=== PATIENT | female | born 1950 ===

== ENCOUNTER 2020-06-07 08:15 | Day surgery (SDC) | payer MEDICARE, MEDICAID, SELFPAY ==
[2020-06-07 09:01] VITALS: BMI 37.6
[2020-06-07 09:09] VITALS: BP 167/55; PULSE 68; RESP 16; TEMP 36.2; O2SAT 98
[2020-06-07] MEDS: Lactated Ringers 1,000 ML 50 ML IVCONT (09:20)
--- NOTE | 2020-06-07 09:22 | MHC.SHP ---
Pre-Procedural Eval Section B Chief Complaint: ADENOMATOUS, COLON POLYP Relevant Family History (Specify if Yes): No Relevant Social History: None Present Medications: see Short Stay Collaborative assessment Medical History: Significant History (htn,depression, GERD) History of Previous Operations: Relevant previous surgery/procedure and date(s) (colonoscopy) Allergies: Allergies Allergy/AdvReac Type Severity Reaction Status Date / Time No Known Allergies Allergy Mild NONE Verified 06/07/20 08:57 Review of Systems Sugical H&P ROS: Negative: Constitution, Cardiovascular, Respiratory, Neurological, Psychiatric, Hem-Onc, Allergic/Immunologic, Gastrointestinal, Genitourinary, Musculoskeletal, Integumentary, Endocrine and Eyes/Ears/Nose/Throat Exam Surgical H&P Exam: Normal: HEENT, Normal: Heart, Normal: Lungs, Normal: Extremities, Normal: Abdomen, Normal: Skin and Normal: Neurological Plan Diagnosis/Plan: Unchanged Patient has been examined and remains a candidate for the planned procedure
--- NOTE | 2020-06-07 09:22 | HO.ANESPROP2 ---
[facility] Past Medical History Medical History Depression Elevated cholesterol GERD (gastroesophageal reflux disease) HTN (hypertension) Surgical History Surgical History H/O colonoscopy History of cataract extraction Social History Social History Smoking Status: Never smoker Use of substances other than those prescribed or required for medical reasons: No Advance Directives: No Advance Directives Information Provided: Yes Meds Allergies Allergy/AdvReac Type Severity Reaction Status Date / Time No Known Allergies Allergy Mild NONE Verified 06/07/20 08:57 Home Medications Medication Instructions Recorded Confirmed Type amlodipine 10 mg PO DAILY 06/04/20 06/07/20 History aspirin [Aspirin Low-Strength] 81 mg PO DAILY 06/04/20 06/07/20 History atorvastatin 40 mg PO BEDTIME 06/04/20 06/07/20 History calcitriol 0.25 mcg PO DAILY 06/04/20 06/07/20 History cetirizine 10 mg PO DAILY 06/04/20 06/07/20 History citalopram [Celexa] 20 mg PO DAILY 06/04/20 06/07/20 History hydralazine-hydrochlorothiazid 1 cap PO DAILY 06/04/20 06/07/20 History metoprolol succinate 50 mg PO DAILY 06/04/20 06/07/20 History omeprazole 20 mg PO DAILY 06/04/20 06/07/20 History Exam Exam Date and Time: June 07, [id number] Height,Weight and Vital Signs: Height 5 ft 2 in Weight 93.44 kg Last Vital Signs Temp 97.1 F 06/07/20 09:09 Pulse 68 06/07/20 09:09 Resp 16 06/07/20 09:09 BP 167/55 H 06/07/20 09:09 Pulse Ox 98 06/07/20 09:09 Airway Mallampati Class: II TM Dist: >3cm Neck ROM: Full Loose/Missing/Broken Teeth: No Heart: RRR Lungs: CTA Assessment and Plan Assessment Anesthesia Assessment: Anesthesia Plan Discussed and Chart Reviewed Final Anesthetic Review NPO: Yes ASA Class: II Final Preanesthetic Review: Meds/Allgs Chart Reviewed, Consent Obtained/Reviewed and Anes Risks/Benef Reviewed Patient Risk: Low Procedure Risk: Low Anesthetic Plan Anesthetic Plan: MAC: Disposition: Standard PACU
--- NOTE | 2020-06-07 09:22 | PM.OP ---
Brief Operative Note Date of Service: 06/07/20 Post-op diagnosis: same Procedure: Operative Information Procedure Description: Colonoscopy COLONOSCOPY Instrument: Olympus variable stiffness pediatric scope 190L Colonoscopy Monitoring: Vital signs and clinical assessment, continuous EKG monitoring, Pulse oximetry, Carbon Dioxide monitoring and blood pressure monitoring were done throughout the procedure. Colon withdrawal time was 11 minutes. Procedure: The patient was placed in the left lateral decubitis position and pre-procedure medications were administered. After a digital rectal examination of the ano-rectum, the video colonoscope was inserted into the rectum and advanced through the colon to the cecum/TI. The colonoscope was slowly withdrawn in a retrograde panoramic fashion and the colon mucosa was carefully examined including a retroflexed view of the rectum. Findings and interventions are described below. Procedure Difficulty: easy Findings: Terminal Ileum-normal Cecum:normal Ascending Colon: 8-9 mm sessile polyp removed with cold snare Transverse Colon -normal Descending Colon: 6-7 mm sessile polyp removed with biopsy forceps Sigmoid Colon: scattered small diverticula seen Rectum: Retroflexion with small sized internal hemorrhoids, grade I Anorectum - normal Colon preparation: [place] Bowel Preparation Scale Right colon; 3 Transverse colon: 2 Left colon; 2 (0 = Unprepared colon segment with mucosa not seen due to solid stool that cannot be cleared. 1 = Portion of mucosa of the colon segment seen, but other areas of the colon segment not well seen due to staining, residual stool and/or opaque liquid. 2 = Minor amount of residual staining, small fragments of stool and/or opaque liquid, but mucosa of colon segment seen well. 3 = Entire mucosa of colon segment seen well with no residual staining, small fragments of stool or opaque liquid) Impression and Post Procedure Diagnosis: polyps internal hemorrhoids diverticular disease Plan: High fiber diet leaflet Avoid straining at stool, epsom salts and sitz bath, anusol supps or cream prn Repeat Colonoscopy in 5 years due to fair prep on left side or earlier if clinically indicated Above findings were reviewed with the patient and relevant handouts were provided if indicated. Surgeon: Tate Castillo MD Anesthesia: MAC Estimated blood loss (mL): 0 Condition: stable Disposition: PACU
[2020-06-07 10:00] VITALS: BP 145/52; PULSE 59; RESP 18; TEMP 36; O2SAT 97
[2020-06-07 10:15] VITALS: BP 154/59; PULSE 61; RESP 18; O2SAT 98
[2020-06-07 10:30] VITALS: BP 164/54; PULSE 58; RESP 18; TEMP 36; O2SAT 100
--- NOTE | 2020-06-07 10:49 | HO.POSTANES ---
Post Anesthesia Evaluation Post Anesthesia Evaluation Vital Signs: Vital Signs Temp Pulse Resp BP Pulse Ox 06/07/20 10:30 96.8 F 58 18 164/54 H 100 06/07/20 10:15 61 18 154/59 H 98 06/07/20 10:00 96.8 F 59 18 145/52 H 97 06/07/20 09:09 97.1 F 68 16 167/55 H 98 Anesthesia: Monitored Mental Status: Awake Pain Control: Satisfactory Nausea/Vomiting: None Hydration: Adequate Anesthesia-Related Issues: No Anes. Related Issues
== END 2020-06-07 11:04 | disposition home or self-care (01) ==
PROVIDERS: PCP Internal Medicine; Visit Provider Internal Medicine Gastroenterology
PROC: 0DJD8ZZ Inspection of Lower Intestinal Tract, Via Natural or Artificial Opening Endoscopic (ICD-10-PCS; CPT 45378; principal; 2020-06-07 12:40)
DX: Z12.11 Encounter for screening for malignant neoplasm of colon (principal); K63.5 Polyp of colon; K57.30 Diverticulosis of large intestine without perforation or abscess without bleeding; K64.0 First degree hemorrhoids; Z86.010 Personal history of colon polyps
CPT/HCPCS: 45385; 45380; 88305

== ENCOUNTER → 2020-06-14 08:54 | Outpatient (BNVA) | payer MEDICARE, MEDICAID, SELFPAY | PROVIDERS: Visit Provider Physician Assistant | DX: K63.5 Polyp of colon (principal) | CPT/HCPCS: Q3014 ==

== ENCOUNTER 2021-07-22 16:37 | Inpatient (IN) | payer MEDICARE, MEDICAID, SELFPAY ==
--- NOTE | 2021-07-22 | ECG_ITS ---
Test Reason : ABNORMAL LABS Blood Pressure : / mmHG Vent. Rate : 078 BPM Atrial Rate : 078 BPM P-R Int : 212 ms QRS Dur : 072 ms QT Int : 396 ms P-R-T Axes : 056 -08 066 degrees QTc Int : 451 ms Sinus rhythm with 1st degree A-V block Inferior infarct (cited on or before 14-JAN-2018) Cannot rule out Anterior infarct , age undetermined Abnormal ECG When compared with ECG of 14-JAN-2018 21:16, No significant change was found Referred By: Generic ED Physician Electronically Signed By:FELIPE ROMO MD
--- NOTE | ~2021-07-22 | IR_ITS ---
PROCEDURE: IR INSERTION OF TUNNEL CATHETER CLINICAL INFORMATION: End-stage renal disease. COMPARISON: None TECHNIQUE: Procedure and risks and benefits including bleeding, infection and pneumothorax were discussed with the patient through an operations clerk and informed consent was obtained. All elements of maximal sterile barrier technique followed including use of cap, mask, sterile gown, sterile gloves, a sterile full body drape and hand hygiene. Also followed skin preparation with 2% chlorhexidine for cutaneous antisepsis, and sterile ultrasound preparation with sterile gel and probe cover when applicable. The right neck and test were prepped and draped in the usual sterile fashion. The skin and soft tissues of the right lower neck were anesthetized with 1% lidocaine with epinephrine. A small incision was made. Using ultrasound guidance and a 5-Romanian micropuncture system, right internal jugular vein access was obtained. Over an 018 wire, a 5-Romanian dilator was positioned in the SVC. The skin and soft tissues of the right anterior chest were anesthetized with 1% lidocaine with epinephrine. A small incision was made. A subcutaneous tunnel from the chest to the neck incision was anesthetized with 1% lidocaine with epinephrine. Using a tunneler, a 14.5-Romanian 23 cm in length palindrome permacatheter was tunneled from the chest to the neck incision. An 035 guidewire was advanced through the 5-Romanian dilator into the IVC. Following serial dilatation and through a peel-away sheath, the dialysis catheter was advanced centrally. Catheter tip projects over the cavoatrial junction. Both ports had good blood return, flushed easily and were instilled with 1.9 mL heparin 1000 unit per mL solution. Real-time ultrasound guidance was used to document vein patency and for needle entry. A formal ultrasound picture was recorded. Fluoroscopy time 0.5 minutes. DAP: 94 mGy-cm. 1 saved fluoroscopic image and one saved ultrasound image. The patient received Versed 0.5 mg, fentanyl 25 mcg and Kefzol 2 g IV during the procedure. Total sedation time was 20 minutes. FINDINGS: There is a right internal jugular permacatheter with tip projecting over the cavoatrial junction. IR/IR cvc insert central tunnel IMPRESSION: Right internal jugular 14.5-Romanian 23 cm in length palindrome permacatheter placement.
--- NOTE | ~2021-07-22 | IR_ITS ---
PROCEDURE: IR INSERTION OF TUNNEL CATHETER CLINICAL INFORMATION: End-stage renal disease. COMPARISON: None TECHNIQUE: Procedure and risks and benefits including bleeding, infection and pneumothorax were discussed with the patient through an lehr attendant and informed consent was obtained. All elements of maximal sterile barrier technique followed including use of cap, mask, sterile gown, sterile gloves, a sterile full body drape and hand hygiene. Also followed skin preparation with 2% chlorhexidine for cutaneous antisepsis, and sterile ultrasound preparation with sterile gel and probe cover when applicable. The right neck and test were prepped and draped in the usual sterile fashion. The skin and soft tissues of the right lower neck were anesthetized with 1% lidocaine with epinephrine. A small incision was made. Using ultrasound guidance and a 5-Swedish micropuncture system, right internal jugular vein access was obtained. Over an 018 wire, a 5-Swedish dilator was positioned in the SVC. The skin and soft tissues of the right anterior chest were anesthetized with 1% lidocaine with epinephrine. A small incision was made. A subcutaneous tunnel from the chest to the neck incision was anesthetized with 1% lidocaine with epinephrine. Using a tunneler, a 14.5-Swedish 23 cm in length palindrome permacatheter was tunneled from the chest to the neck incision. An 035 guidewire was advanced through the 5-Swedish dilator into the IVC. Following serial dilatation and through a peel-away sheath, the dialysis catheter was advanced centrally. Catheter tip projects over the cavoatrial junction. Both ports had good blood return, flushed easily and were instilled with 1.9 mL heparin 1000 unit per mL solution. Real-time ultrasound guidance was used to document vein patency and for needle entry. A formal ultrasound picture was recorded. Fluoroscopy time 0.5 minutes. DAP: 94 mGy-cm. 1 saved fluoroscopic image and one saved ultrasound image. The patient received Versed 0.5 mg, fentanyl 25 mcg and Kefzol 2 g IV during the procedure. Total sedation time was 20 minutes. FINDINGS: There is a right internal jugular permacatheter with tip projecting over the cavoatrial junction. IR/IR us guide venous access IMPRESSION: Right internal jugular 14.5-Swedish 23 cm in length palindrome permacatheter placement.
[2021-07-22 16:59] VITALS: BP 202/68; PULSE 90; RESP 18; TEMP 37; O2SAT 99; BMI 33.5
[2021-07-22 17:25] LABS: MANUAL DIFF FLAG NO
[2021-07-22 17:29] LABS: Basophils Percent Auto 0.4 % (0-2); Eosinophils Absolute Auto 0.3 X10*3/uL (0.0-0.4); Imm Gran Abs Auto 0.03 X10*3/uL (0.00-0.03); Imm Gran Pct Auto 0.5 % (0.0-0.4); Lymphocytes Absolute Auto 0.8 X10*3/uL (1.2-4.9); Lymphocytes Percent Auto 15.2 % (20-40); Mean Corpuscular HGB Conc 31.2 g/dl (31.0-35.0); Mean Corpuscular Volume 96.2 fL (80.0-98.0); Mean Platelet Volume 10.5 fL (9.4-12.3); Monocytes Absolute Auto 0.5 X10*3/uL (0.1-1.2); Monocytes Percent Auto 9.5 % (2-11); Neutrophils Absolute Auto 3.7 x10*3/uL (2.0-8.3); Neutrophils Percent Auto 68.4 % (45-73); Platelet Count 121 X10*3/uL (160-400); Red Blood Count 2.13 X10*6/uL (4.20-5.50); Red Cell Distribution Width 15.1 % (11.0-16.0); White Blood Count 5.5 X10*3/uL (4.8-10.8)
[2021-07-22 17:36] LABS: Hemoglobin 6.4 g/dl (12.0-16.0)
[2021-07-22 17:37] LABS: Hematocrit 20.5 % (37.0-47.0)
[2021-07-22 17:43] LABS: COVID-19 Test Negative (Negative)
[2021-07-22 18:03] LABS: Troponin-I High Sensitivity 18.8 ng/L (<3.5-17.0)
[2021-07-22 18:19] LABS: Anion Gap 17 (12-20); Blood Urea Nitrogen 87 mg/dL (9-16); Calcium 7.7 mg/dL (8.4-10.2); Carbon Dioxide 17 mmol/L (22-29); Chloride 113 mmol/L (96-108); Creatinine Clr Calc Pharmacy 4.1; Estimated Glomerular Filt Rate 3; Glucose Random 113 mg/dL (60-115); Potassium 6.3 mmol/L (3.3-5.1); Sodium 141 mmol/L (135-145)
--- NOTE | 2021-07-22 19:46 | ED.RECABL ---
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 Mode of arrival: ambulatory Limitations: no limitations History of Present Illness MD complaint: abnormal lab Initial visit (ago): day(s) Initial visit for: other (routine labs by nephrology) Returns today for: called because of abnormal lab/test Description of abnormal result: Cr 12 Symptoms since prior visit: no new symptoms Context: called for abnormal lab result Associated symptoms: none Related Data Home Medications Medication Instructions Recorded Confirmed amlodipine 10 mg tablet 10 mg PO DAILY 06/04/20 06/07/20 aspirin 81 mg tablet,delayed 81 mg PO DAILY 06/04/20 06/07/20 release atorvastatin 40 mg tablet 40 mg PO BEDTIME 06/04/20 06/07/20 calcitriol 0.25 mcg capsule 0.25 mcg PO MOWEFR 06/04/20 06/07/20 cetirizine 10 mg tablet 10 mg PO DAILY 06/04/20 06/07/20 citalopram 20 mg tablet (Celexa) 20 mg PO DAILY 06/04/20 06/07/20 omeprazole 20 mg tablet,delayed 20 mg PO DAILY 06/04/20 06/07/20 release fluticasone propionate 50 1 - 2 spray INTRANASAL DAILY 07/22/21 mcg/actuation nasal spray,suspension gabapentin 300 mg capsule 1 cap PO DAILY 07/22/21 hydralazine 25 mg tablet 1 tab PO BID 07/22/21 metoprolol tartrate 50 mg tablet 1 tab PO BID 07/22/21 Allergies Allergy/AdvReac Type Severity Reaction Status Date / Time No Known Allergies Allergy Mild NONE Verified 07/22/21 16:55 Review of Systems Review of Systems: Constitutional : No Weight loss, No Fever, No Chills, No Fatigue, No Malaise ENT/Mouth : No sore throat, No Rhinorrhea Eyes: No Eye Pain, No Swelling, No Redness Cardiovascular : No Chest Pain, No SOB, No Dyspnea on Exertion, No Orthopnea, No Edema, No Palpitations Respiratory : No Cough, No Sputum, No Wheezing Gastrointestinal : No Nausea, No Vomiting, No Diarrhea, No Constipation, No abdominal Pain, No Hematochezia, No Melena Genitourinary : No Dysuria, No Urinary Frequency, No Hematuria, Musculoskeletal : No joint pain, No Myalgias, No Joint Swelling Skin : No Skin Lesions, No rash Neuro : No Weakness, No Numbness, No Dizziness, No Headache Psych : No Anxiety/Panic, No Depression Heme/Lymph: No Bruising, No Bleeding,No Lymphadenopathy Endocrine : No Polyuria, No Polydipsia All other systems reviewed and are negative COUNTS INCLUDE 234 BEDS AT THE [facility] Past Medical History Medical History Depression Elevated cholesterol GERD (gastroesophageal reflux disease) HTN (hypertension) Surgical History H/O colonoscopy History of cataract extraction Social History Social History (Updated 07/22/21 @ 20:11 by Halle Chambers DO) Patient Tobacco Use Status: Never used Tobacco Advance Directives: No Advance Directives Information Provided: Yes Physical Exam Vital Signs: Vital Signs: Last Vital Signs Temp 98.2 F 07/22/21 20:59 Pulse 76 07/22/21 20:59 Resp 16 07/22/21 20:59 BP 187/63 H 07/22/21 20:59 Pulse Ox 99 07/22/21 20:59 BMI result Body Mass Index 33.5 Appearance: Alert. Oriented X3. No acute distress. Eyes: Pupils equal, round and reactive to light. ENT: Pharynx normal. Neck: Normal inspection. Neck supple. CVS: Normal heart rate and rhythm. Pulses normal. Respiratory: No respiratory distress. Breath sounds normal. Abdomen: Soft and non-tender. Skin: Skin warm and dry. Normal skin color. Normal skin turgor. Extremities: No lower extremity edema. No calf ttp Neuro: Oriented X 3. No motor deficit. No sensory deficit. MDM - Recheck/Abnormal Lab/Rx MDM Narrative Medical decision making narrative: 70 yo female with hx of HLD, chronic HTN, CKD being followed by nephrology Dr. Salcedo sent in for worsening CKD with Cr up to 12.38 - K 6.3 but no EKG changes - calcium and lokelma ordered along with 1 unit of PRBC has no GIB symptoms suspect related to her CKD. Patient aware she is being admitted for permacath for HD tomorrow per Dr. Salcedo request. At this time labs, COVID swab, EKG ordered. Planned admit. Lab Data Result diagrams: 07/22/21 17:20 07/22/21 17:20 Labs: Lab Results 07/22/21 07/22/21 07/22/21 Range/Units 17:20 17:20 17:20 WBC 5.5 (4.8-10.8) X10*3/uL RBC 2.13 L (4.20-5.50) X10*6/uL Hgb 6.4 L* (12.0-16.0) g/dl Hct 20.5 L* (37.0-47.0) % MCV 96.2 (80.0-98.0) fL MCH 30.0 (27.0-33.0) pg MCHC 31.2 (31.0-35.0) g/dl RDW 15.1 (11.0-16.0) % Plt Count 121 L (160-400) X10*3/uL MPV 10.5 (9.4-12.3) fL Immature Gran % (Auto) 0.5 H (0.0-0.4) % Neut % (Auto) 68.4 (45-73) % Lymph % (Auto) 15.2 L (20-40) % [place] % (Auto) 9.5 (2-11) % Eos % (Auto) 6.0 H (0-4) % Baso % (Auto) 0.4 (0-2) % Lymph # (Auto) 0.8 L (1.2-4.9) X10*3/uL [place] # (Auto) 0.5 (0.1-1.2) X10*3/uL Eos # (Auto) 0.3 (0.0-0.4) X10*3/uL Baso # (Auto) 0.0 (0.0-0.2) X10*3/uL Abs Immat Gran (auto) 0.03 (0.00-0.03) X10*3/uL Absolute Neuts (auto) 3.7 (2.0-8.3) x10*3/uL Absolute Nucleated RBC 0.000 (0.0-0.012) X10*3/uL Nucleated RBC % (auto) 0.0 (0.0-0.2) /100WBC PT (9.9-13.0) SEC INR (0.9-1.1) APTT (24.1-38.0) SEC Sodium 141 (135-145) mmol/L Potassium 6.3 H* (3.3-5.1) mmol/L Chloride 113 H (96-108) mmol/L Carbon Dioxide 17 L (22-29) mmol/L Anion Gap 17 (12-20) BUN 87 H (9-16) mg/dL Creatinine 12.38 H* (0.5-1.4) mg/dL Estim Creat Clear Calc 4.1 Estimated GFR 3 Random Glucose 113 (60-115) mg/dL Calcium 7.7 L (8.4-10.2) mg/dL Troponin I High Sens 18.8 H (<3.5-17.0) ng/L COVID-19 (JACK) (Negative) COVID-19 Clin Com Blood Type Antibody Screen Crossmatch 07/22/21 07/22/21 07/22/21 Range/Units 17:20 20:02 20:11 WBC (4.8-10.8) X10*3/uL RBC (4.20-5.50) X10*6/uL Hgb (12.0-16.0) g/dl Hct (37.0-47.0) % MCV (80.0-98.0) fL MCH (27.0-33.0) pg MCHC (31.0-35.0) g/dl RDW (11.0-16.0) % Plt Count (160-400) X10*3/uL MPV (9.4-12.3) fL Immature Gran % (Auto) (0.0-0.4) % Neut % (Auto) (45-73) % Lymph % (Auto) (20-40) % [place] % (Auto) (2-11) % Eos % (Auto) (0-4) % Baso % (Auto) (0-2) % Lymph # (Auto) (1.2-4.9) X10*3/uL [place] # (Auto) (0.1-1.2) X10*3/uL Eos # (Auto) (0.0-0.4) X10*3/uL Baso # (Auto) (0.0-0.2) X10*3/uL Abs Immat Gran (auto) (0.00-0.03) X10*3/uL Absolute Neuts (auto) (2.0-8.3) x10*3/uL Absolute Nucleated RBC (0.0-0.012) X10*3/uL Nucleated RBC % (auto) (0.0-0.2) /100WBC PT 11.2 (9.9-13.0) SEC INR 1.0 (0.9-1.1) APTT 29.0 (24.1-38.0) SEC Sodium (135-145) mmol/L Potassium (3.3-5.1) mmol/L Chloride (96-108) mmol/L Carbon Dioxide (22-29) mmol/L Anion Gap (12-20) BUN (9-16) mg/dL Creatinine (0.5-1.4) mg/dL Estim Creat Clear Calc Estimated GFR Random Glucose (60-115) mg/dL Calcium (8.4-10.2) mg/dL Troponin I High Sens (<3.5-17.0) ng/L COVID-19 (JACK) Negative (Negative) COVID-19 Clin Com See Note Blood Type O Positive Antibody Screen NEGATIVE Crossmatch See Detail ECG Data Attestation: I personally reviewed and interpreted this ECG as follows: ECG interpretation date: 07/22/21 ECG interpretation time: 19:55 Interpretation: Rate: 78 Rhythm: NSR with 1st degree AVB [place]: left Normal P waves. Normal MARKIE. Normal QRS complex. ST T wave : normal no MEJIA qTC: normal prior studies: no acute ischemia The study has been interpreted contemporaneously by me. . Discharge Plan Discharge Clinical Impression: CKD (chronic kidney disease), Anemia Patient Disposition: Admitted As Inpatient Prescriptions: No Action atorvastatin 40 mg Tablet 40 mg PO BEDTIME RF: 0 cetirizine 10 mg Tablet 10 mg PO DAILY RF: 0 aspirin 81 mg Tablet,Delayed Release (Dr/Ec) 81 mg PO DAILY RF: 0 citalopram [Celexa] 20 mg Tablet 20 mg PO DAILY RF: 0 amlodipine 10 mg Tablet 10 mg PO DAILY RF: 0 calcitriol 0.25 mcg Capsule 0.25 mcg PO MOWEFR RF: 0 omeprazole 20 mg Tablet,Delayed Release (Dr/Ec) 20 mg PO DAILY RF: 0 hydralazine 25 mg tablet 1 tab PO BID RF: 0 metoprolol tartrate 50 mg tablet 1 tab PO BID RF: 0 gabapentin 300 mg capsule 1 cap PO DAILY RF: 0 fluticasone propionate 50 mcg/actuation spray,suspension 1 - 2 spray intranasal DAILY RF: 0
[2021-07-22 19:48] VITALS: BP 207/77; PULSE 81; RESP 19; TEMP 36.8; O2SAT 99
[2021-07-22] MEDS: Calcium Gluconate/NaCl,Iso-Osm 2 GM/100 ML PLAST..BAG IV (20:03)
[2021-07-22] MEDS: Sodium Zirconium Cyclosilicate 5 GM POWD.PACK PO (20:04)
[2021-07-22 20:17] LABS: Prothrombin Time 11.2 SEC (9.9-13.0)
[2021-07-22] MEDS: ondansetron HCL 4 MG/2 ML VIAL IVPUSH (20:17)
[2021-07-22 20:59] VITALS: BP 187/63; PULSE 76; RESP 16; TEMP 36.8; O2SAT 99
[2021-07-22 21:13] VITALS: BP 191/68; PULSE 79; RESP 16; TEMP 36.7
--- NOTE | 2021-07-22 21:26 | PC.NURSE ---
pt a&ox3, IV inserted, labs drawn, cardiac cath technician - ns 70s, vss, pt medicated per order, RBCs infusing, will continue to monitor.
[2021-07-22 21:30] VITALS: BP 191/79; PULSE 75; RESP 18; TEMP 36.6
[2021-07-22 23:21] VITALS: BP 203/89; PULSE 62
[2021-07-22] MEDS: hydrALAZINE HCl 20 MG/ML VIAL 10 MG IVPUSH (23:30)
--- NOTE | 2021-07-22 23:52 | P.HPHOSP_ITS ---
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 Patient herself denies having any abdominal pain, nausea no vomiting, no chest pain or shortness of breath, no diarrhea constipation, no urinary symptoms and no lower extremity edema. Denies having any headache or change in vision, no weakness numbness or tingling. On arrival to the ED patient hemodynamically stable with no significant abnormal vitals Labs are significant for WBC count of 5.5, hemoglobin of 6.4 with no recent labs for comparison in the system . Other abnormal labs include platelet of 121, potassium 6.3, chloride of 113, creatinine of 12.38 with most recent 1 from 2018 showing creatinine of 3.83, COVID-19 negative Case discussed with Nephrology, patient will be admitted for dialysis Review of Systems Review of Systems: Yes all other systems are reviewed and are negative [facility] Medical History Depression Elevated cholesterol GERD (gastroesophageal reflux disease) HTN (hypertension) Family History (Updated 07/23/21 @ 05:47 by Raman Alba MD) Other FH: HTN (hypertension) Pertinent family history: Denies any family history of coronary artery disease or kidney disease Surgical History H/O colonoscopy History of cataract extraction Social History Patient Tobacco Use Status: Never used Tobacco Advance Directives: No Advance Directives Information Provided: Yes Meds Allergies Allergy/AdvReac Type Severity Reaction Status Date / Time No Known Allergies Allergy Mild NONE Verified 07/22/21 16:55 Active Medications: Current Medications Pharmacy Consult (Consult Rx Perform Med Rec) 1 each MISCELLANE ONCE PRN PRN Reason: Consult order Home Medications Medication Instructions Recorded Confirmed Last Taken Type amlodipine 10 mg tablet 10 mg PO DAILY 06/04/20 07/22/21 07/22/21 History aspirin 81 mg tablet,delayed 81 mg PO DAILY 06/04/20 07/22/21 07/22/21 History release atorvastatin 40 mg tablet 40 mg PO BEDTIME 06/04/20 07/22/21 Unknown History calcitriol 0.25 mcg capsule 0.25 mcg PO MOWEFR 06/04/20 07/22/21 07/22/21 History cetirizine 10 mg tablet 10 mg PO DAILY 06/04/20 07/22/21 Unknown History citalopram 20 mg tablet (Celexa) 20 mg PO DAILY 06/04/20 07/22/21 Unknown History omeprazole 20 mg tablet,delayed 20 mg PO DAILY 06/04/20 07/22/21 Unknown History release fluticasone propionate 50 1 - 2 spray INTRANASAL DAILY 07/22/21 07/22/21 Unknown History mcg/actuation nasal spray,suspension gabapentin 300 mg capsule 1 cap PO DAILY 07/22/21 07/22/21 Unknown History hydralazine 25 mg tablet 1 tab PO BID 07/22/21 07/22/21 Unknown History metoprolol tartrate 50 mg tablet 1 tab PO BID 07/22/21 07/22/21 07/22/21 History Physical Exam Vital Signs and Narrative: Vital Signs: Last Vital Signs Temp 97.9 F 07/22/21 21:30 Pulse 62 07/22/21 23:21 Resp 18 07/22/21 21:30 BP 203/89 H 07/22/21 23:21 Pulse Ox 99 07/22/21 20:59 BMI result Body Mass Index 33.5 Const: General: cooperative and no acute distress Orientati on/consciousness: patient oriented x3 Eyes: General: appearance normal, both eyes and all related structures Pupils: Equal, round and reactive pupils present Resp: Effort & Inspection: normal respiratory effort Auscultation: clear to auscultation bilaterally Cardio: Rate: regular rate Rhythm: regular rhythm GI: Palpation (GI): Soft to palpation Auscultation: normal bowel sounds Skin: General skin exam: no rashes or lesions noted Neuro: General: patient oriented x3 Cranial nerves: Yes Equal, round and reactive pupils present Cognition (Neuro): normal cognition Extrem: General: Yes normal to inspection and Yes no pedal edema Results Labs CBC and Chem 7: 07/22/21 17:20 07/23/21 00:25 Labs: Laboratory Results - last 24 hr 01/24/22 01/24/22 01/24/22 17:20 17:20 17:20 MCV 96.2 MCH 30.0 MCHC 31.2 RDW 15.1 Plt Count 121 L MPV 10.5 Immature Gran % (Auto) 0.5 H Neut % (Auto) 68.4 Lymph % (Auto) 15.2 L [place] % (Auto) 9.5 Eos % (Auto) 6.0 H Baso % (Auto) 0.4 Lymph # (Auto) 0.8 L [place] # (Auto) 0.5 Eos # (Auto) 0.3 Baso # (Auto) 0.0 Abs Immat Gran (auto) 0.03 Absolute Neuts (auto) 3.7 Absolute Nucleated RBC 0.000 Nucleated RBC % (auto) 0.0 PT INR APTT Anion Gap 17 Estim Creat Clear Calc 4.1 Estimated GFR 3 Random Glucose 113 Calcium 7.7 L Troponin I High Sens 18.8 H COVID-19 (JACK) COVID-19 Clin Com Blood Type Antibody Screen Crossmatch 07/22/21 07/22/21 07/22/21 17:20 20:02 20:11 MCV MCH MCHC RDW Plt Count MPV Immature Gran % (Auto) Neut % (Auto) Lymph % (Auto) [place] % (Auto) Eos % (Auto) Baso % (Auto) Lymph # (Auto) [place] # (Auto) Eos # (Auto) Baso # (Auto) Abs Immat Gran (auto) Absolute Neuts (auto) Absolute Nucleated RBC Nucleated RBC % (auto) PT 11.2 INR 1.0 APTT 29.0 Anion Gap Estim Creat Clear Calc Estimated GFR Random Glucose Calcium Troponin I High Sens COVID-19 (JACK) Negative COVID-19 Clin Com See Note Blood Type O Positive Antibody Screen NEGATIVE Crossmatch See Detail Assessment and Plan (1) CKD (chronic kidney disease): Qualifiers: Chronic kidney disease stage: stage 5, not on chronic dialysis Qualified Code(s): N18.5 - Chronic kidney disease, stage 5 Status: Acute (2) Anemia: Qualifiers: Anemia type: due to chronic kidney disease Chronic kidney disease stage: stage 5, not on chronic dialysis Qualified Code(s): N18.5 - Chronic kidn ey disease, stage 5; D63.1 - Anemia in chronic kidney disease Status: Acute (3) Hyperkalemia: Status: Acute 70-year-old female with past medical history of CKD presents to the hospital with worsening labs # CKD stage 4 - most likely is ending up with ESRD needing dialysis - has worsening kidney function - sent to the hospital by nephrology for temporary catheter and emergent dialy sis in a.m. - IR consulted - nephrology consulted # hyperkalemia - secondary to kidney failure - received Lokelma 10 mg with improvement of potassium on follow-up BMP - no EKG changes - follow BMP - dialysis in a.m. # normocytic anemia - chronicity unclear as we do not have recent labs to compare - likely anemia of chronic ds - will obtain ferritin b12 and folic acid - s/p 1 unit of prbc - follow cbc # HTN - elevated - continue home meds DVT prophylaxis: Heparin subQ Quality Stroke Does the patient have a stroke diagnosis?: No VTE Prior VTE?: No VTE Risk Level:: Medical - moderate - high VTE Device Contraindication: Treatment Not Indicated VTE Drug Contraindication: N/A - Med Ordered
[2021-07-23 00:49] LABS: Creatinine Clr Calc Pharmacy 4.3; Estimated Glomerular Filt Rate 3
[2021-07-23 00:50] LABS: Anion Gap 16 (12-20); Blood Urea Nitrogen 84 mg/dL (9-16); Calcium 7.9 mg/dL (8.4-10.2); Carbon Dioxide 16 mmol/L (22-29); Chloride 114 mmol/L (96-108); Glucose Random 107 mg/dL (60-115); Potassium 5.9 mmol/L (3.3-5.1); Sodium 140 mmol/L (135-145)
[2021-07-23 00:55] VITALS: BP 180/69; PULSE 66; RESP 11; O2SAT 98
[2021-07-23] MEDS: Sodium Zirconium Cyclosilicate 10 GM POWD.PACK PO ×2 (01:14→10:25)
[2021-07-23] MEDS: Heparin Sodium,Porcine 5,000 UNIT/ML VIAL 5000 UNIT SUBCUT (01:14)
[2021-07-23] MEDS: 0.9 % Sodium Chloride Flush 3 ML SYRINGE IVFLUSH (01:14)
--- NOTE | 2021-07-23 01:58 | PC.NURSE ---
Pt ambulated to bathroom Gait even and steady Pt back on hospital bed and medicated per MAR Pt tolerated well Will continue to monitor
[2021-07-23 07:10] LABS: MANUAL DIFF FLAG NO
[2021-07-23 07:14] LABS: Basophils Percent Auto 0.4 % (0-2); Eosinophils Absolute Auto 0.2 X10*3/uL (0.0-0.4); Eosinophils Percent Auto 4.7 % (0-4); Hemoglobin 7.6 g/dl (12.0-16.0); Imm Gran Abs Auto 0.02 X10*3/uL (0.00-0.03); Imm Gran Pct Auto 0.4 % (0.0-0.4); Lymphocytes Absolute Auto 0.9 X10*3/uL (1.2-4.9); Lymphocytes Percent Auto 19.1 % (20-40); Mean Corpuscular HGB Conc 31.7 g/dl (31.0-35.0); Mean Corpuscular Hemoglobin 30.3 pg (27.0-33.0); Mean Corpuscular Volume 95.6 fL (80.0-98.0); Mean Platelet Volume 9.9 fL (9.4-12.3); Monocytes Absolute Auto 0.4 X10*3/uL (0.1-1.2); Monocytes Percent Auto 9.7 % (2-11); Neutrophils Absolute Auto 2.9 x10*3/uL (2.0-8.3); Neutrophils Percent Auto 65.7 % (45-73); Platelet Count 102 X10*3/uL (160-400); Red Blood Count 2.51 X10*6/uL (4.20-5.50); Red Cell Distribution Width 14.6 % (11.0-16.0); White Blood Count 4.5 X10*3/uL (4.8-10.8)
[2021-07-23 08:14] VITALS: BP 186/59; PULSE 75; RESP 16; TEMP 36.6; O2SAT 96
--- NOTE | 2021-07-23 08:14 | PC.NURSE ---
Pt received from night monitor: Pt mainly estonian speaker. Pt AOX3 and denies bernardo pain or complaint. Heart sounds normal and lungs diminished. NSR noted. Pt abd round, soft and non-tender. As per pt, dialysis schedule MWF, but no fistula noted.
--- NOTE | 2021-07-23 08:39 | HO.PM.IMPN ---
Subjective Subjective Date of Service: 07/23/21 Interval History: ckd advanced stage v ,hyper kalemia , normocytic anemia Review of Systems patient denies any chest pain or shortness of breath or abdominal pain or fever chills or cough or phlegm. Physical Exam Vital Signs: Vital Signs: Last Vital Signs Temp 97.9 F 07/23/21 08:14 Pulse 75 07/23/21 08:14 Resp 16 07/23/21 08:14 BP 186/59 H 07/23/21 08:14 Pulse Ox 96 07/23/21 08:14 BMI result Body Mass Index 33.5 Physical exam: Appearance: Alert.? Oriented X3.??? ENT: Pharynx normal.? Moist mucous membranes. cvs: rrr, [id number] , no murmur res: clear to auscultation ,no rhonchii or wheezing abd: no rebound or guarding ,nt, bs present. ext pulses present , no cyanosis. neuro: axo3 , nonfocal. Objective Data Active Medications Acetaminophen (Acetaminophen 325 Mg Tablet) 650 mg PO Q6H PRN PRN Reason: Pain, Mild (Pain Scale 1-3) Docusate Sodium (Docusate Sodium 100 Mg Capsule) 100 mg PO DAILY PRN PRN Reason: Constipation Heparin Sodium (Porcine) (Heparin Sodium,Porcine 5,000 Unit/Ml Vial) 5,000 unit SUBCUT Q12H [facility] Last Admin: 07/23/21 01:14 Dose: 5,000 unit Documented by: SHAUN Ondansetron HCl (Ondansetron Hcl 4 Mg/2 Ml Vial) 4 mg IVPUSH Q8H PRN PRN Reason: Nausea and Vomiting Pharmacy Consult (Consult Rx Perform Med Rec) 1 each MISCELLANE ONCE PRN PRN Reason: Consult order Sodium Chloride (0.9 % Sodium Chloride Flush 3 Ml Syringe) 3 ml IVFLUSH QSHIFT [facility] Last Admin: 07/23/21 07:26 Dose: Not Given Documented by: KAMRON Non-Admin Reason: Med Not Available Labs CBC & Chem 7: 07/23/21 06:52 07/23/21 00:25 Labs: Laboratory Results - last 24 hr 07/22/21 07/22/21 07/22/21 17:20 17:20 17:20 MCV 96.2 MCH 30.0 MCHC 31.2 RDW 15.1 Plt Count 121 L MPV 10.5 Immature Gran % (Auto) 0.5 H Neut % (Auto) 68.4 Lymph % (Auto) 15.2 L [place] % (Auto) 9.5 Eos % (Auto) 6.0 H Baso % (Auto) 0.4 Lymph # (Auto) 0.8 L [place] # (Auto) 0.5 Eos # (Auto) 0.3 Baso # (Auto) 0.0 Abs Immat Gran (auto) 0.03 Absolute Neuts (auto) 3.7 Absolute Nucleated RBC 0.000 Nucleated RBC % (auto) 0.0 PT INR APTT Anion Gap 17 Estim Creat Clear Calc 4.1 Estimated GFR 3 Random Glucose 113 Calcium 7.7 L Troponin I High Sens 18.8 H COVID-19 (JACK) COVID-19 Clin Com Blood Type Antibody Screen Crossmatch 07/22/21 07/22/21 07/22/21 17:20 20:02 20:11 MCV MCH MCHC RDW Plt Count MPV Immature Gran % (Auto) Neut % (Auto) Lymph % (Auto) [place] % (Auto) Eos % (Auto) Baso % (Auto) Lymph # (Auto) [place] # (Auto) Eos # (Auto) Baso # (Auto) Abs Immat Gran (auto) Absolute Neuts (auto) Absolute Nucleated RBC Nucleated RBC % (auto) PT 11.2 INR 1.0 APTT 29.0 Anion Gap Estim Creat Clear Calc Estimated GFR Random Glucose Calcium Troponin I High Sens COVID-19 (JACK) Negative COVID-19 Clin Com See Note Blood Type O Positive Antibody Screen NEGATIVE Crossmatch See Detail 07/23/21 07/23/21 00:25 06:52 MCV 95.6 MCH 30.3 MCHC 31.7 RDW 14.6 Plt Count 102 L MPV 9.9 Immature Gran % (Auto) 0.4 Neut % (Auto) 65.7 Lymph % (Auto) 19.1 L [place] % (Auto) 9.7 Eos % (Auto) 4.7 H Baso % (Auto) 0.4 Lymph # (Auto) 0.9 L [place] # (Auto) 0.4 Eos # (Auto) 0.2 Baso # (Auto) 0.0 Abs Immat Gran (auto) 0.02 Absolute Neuts (auto) 2.9 Absolute Nucleated RBC 0.000 Nucleated RBC % (auto) 0.0 PT INR APTT Anion Gap 16 Estim Creat Clear Calc 4.3 Estimated GFR 3 Random Glucose 107 Calcium 7.9 L Troponin I High Sens COVID-19 (JACK) COVID-19 Clin Com Blood Type Antibody Screen Crossmatch Assessment and Plan (1) CKD (chronic kidney disease): Status: Acute (2) Anemia: Status: Acute (3) Hyperkalemia: Status: Acute Assessment and Plan: 70-year-old female with past medical history of CKD presents to the hospital with worsening labs 1. CKD stage 5 -d/w nephro- need ESRD permacath placement - IR consulted possible hd in am 2.hyperkalemia- secondary to kidney failure seems improving to 5.9-given another Lokelma 10 mg - follow BMP - dialysis in a.m. 3. normocytic anemia - chronicity unclear as we do not have recent labs to compare - likely anemia of chronic ds obtain ferritin b12 and folic acid - s/p 1 unit of prbc-h/h 7.4 /24 - follow cbc 4.HTN - elevated - continue home meds DVT prophylaxis:? Heparin subQ Quality Stroke Does the patient have a stroke diagnosis?: No VTE Prior VTE?: No VTE Risk Level:: Medical - moderate - high VTE Device Contraindication: Treatment Not Indicated VTE Drug Contraindication: N/A - Med Ordered
[2021-07-23 08:50] LABS: Ferritin 372 ng/mL (10-250)
[2021-07-23 08:58] LABS: Folate 8.5 ng/mL (> or = 4.0); Vitamin B12 481 pg/mL (200-900)
[2021-07-23] MEDS: Fluticasone Propionate Nasal 16 GM SPRAY NOSTRIL-B (10:25)
[2021-07-23] MEDS: Atorvastatin Calcium 40 MG TABLET PO ×2 (10:25→21:56)
[2021-07-23] MEDS: amLODIPine Besylate 10 MG TABLET PO (10:25)
[2021-07-23] MEDS: Metoprolol Tartrate 50 MG TABLET PO ×2 (10:26→21:56)
[2021-07-23] MEDS: Loratadine 10 MG TABLET PO (10:26)
[2021-07-23] MEDS: hydrALAZINE HCl 25 MG TABLET PO ×2 (10:26→21:56)
[2021-07-23] MEDS: Omeprazole 20 MG CAPSULE.DR PO (10:26)
[2021-07-23] MEDS: Gabapentin 300 MG CAPSULE PO (10:26)
--- NOTE | 2021-07-23 10:56 | MHC.CM.PN ---
VM MESSAGE LEFT FOR PTS DAUGHTER, ELDA ([phone]) REQUESTING A RETURN CALL. IMM DELIVERED VIA VM MESSAGE
--- NOTE | 2021-07-23 11:03 | PC.NURSE ---
Pt to go to IR for dialysis port around 1430 with table time 1530. RN will continue to monitor.
[2021-07-23 12:25] LABS: Iron 45 mcg/dL (30-160); Percent Iron Saturation 23 % (15-50); Total Iron Binding Capacity 198 mcg/dL (228-428); Unsaturated Iron Binding 153 ug/dL
[2021-07-23 12:29] VITALS: BP 159/59; PULSE 57; RESP 14; O2SAT 98
--- NOTE | 2021-07-23 13:38 | CONS_ITS ---
DATE OF SERVICE: 07/23/2021 REASON FOR CONSULTATION: Asked to see patient to assist in evaluation and management of patient's severe renal failure requiring starting of dialysis as she has had ESRD. 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 The patient actually had been in [place] and came back from [place] and contacted me and I asked her to get labs right away as her last renal labs that I had were back in December, which showed a creatinine of 6.9. She had labs done on the , which showed a creatinine up to 11.8 and a potassium of 5.8. I talked with her and her daughter on the phone yesterday and told him that she should come to the hospital and be started on dialysis. In reviewing her records, her creatinine had been 1.7 several years ago and then increased to 2.5 then to 3.8 and then in December 6.9. 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 Regardless of the fact she needs to be started on dialysis. I had asked her to obtain a leukocyte alpha-galactosidase activity level as this lab test can be abnormal. Patient with Fabry disease. Presently, she is fairly comfortable. She denies uremic symptoms. In particular, she denies any nausea, vomiting of food, distaste. In fact, she is asking for a cup of [place] coffee. MEDICATIONS: Her medications on admission are noted in the admitting notes and says that she is on Norvasc 10 once a day, aspirin, Lipitor, calcitriol, omeprazole, gabapentin, hydralazine, and metoprolol. Current medications noted the MAR. SOCIAL HISTORY: She is a nonsmoker, nondrinker. No illicit drug use. REVIEW OF SYSTEMS: As noted above. PAST MEDICAL HISTORY: As mentioned, her past medical history is listed as including diabetes, the advanced renal failure that is now ESRD, hypertension, and GERD. The cause of her advanced kidney disease is as listed above, includes a combination of diabetes, hypertension, IgA, and question of Fabry's disease. PHYSICAL EXAMINATION: VITAL SIGNS: Blood pressure was 186/60 with a heart rate in the 70s. She is afebrile. HEENT: Head is atraumatic and normocephalic. NECK: Supple. Mucous membranes are moist. There is no JVD. LUNGS: Clear. CARDIAC: Regular rate and rhythm without rub. ABDOMEN: Soft, nontender. No CVA tenderness. EXTREMITIES: Show no edema. LABORATORY DATA: Hemoglobin 7.6, hematocrit 24, white blood cell count 4.5, platelet count a 102. Sodium 140, potassium 5.9, chloride 114, bicarb 16, BUN 84, creatinine of 11.8, calcium 7.9. IMPRESSION: 70-YEAR-OLD DIABETIC, HYPERTENSIVE PATIENT WITH ADVANCED KIDNEY DISEASE THAT NOW HAS PROGRESSED TO THE END-STAGE RENAL DISEASE. 1. Chronic kidney disease 5, now progressed to ESRD. I have discussed with her and her daughter the need to start her on dialysis. She was directly sent over to the hospital and is now being admitted. We will get a PermCath placed and start her on hemodialysis. We will try to get her a dialysis spot at the [facility]. 2. IR tells me they will put in a dialysis catheter this afternoon and most likely she will get her 1st treatment tomorrow. 3. Etiology of her end-stage renal disease. 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 4. Hypertension. 5. Diabetes not requiring any medication for treatment. 6. Anemia. She is a potential candidate for both EPO and iron. We will sort this out. 7. Metabolic bone disease of CKD. We will check intact PTH and phosphorus level and treat this accordingly. SUGGESTIONS: At this time include placement of a PermCath and start on hemodialysis. Control her blood pressure by increasing blood pressure medications. Control her hyperkalemia with potassium binders. We will start her on sodium bicarbonate to increase her serum bicarb. Check iron studies. Protect her left upper extremity for future AV fistula. We will follow the patient closely with the team. MD ALEJANDRA Marlow/ROSSI / [id number]
[2021-07-23] MEDS: Sodium Bicarbonate 650 MG TABLET PO ×2 (15:52→21:56)
--- NOTE | 2021-07-23 16:05 | PC.NURSE ---
Pt to PACU for permacath insertion at this time.
--- NOTE | 2021-07-23 18:38 | HO.RADPN ---
RADIOLOGY Narrative Narrative: RIJ 14.5 fr 23 cm length plaindrome permacath placed. Tip at caovatrial junction. Both ports have 1.9 mL Heparin 1000u/ml solution.
[2021-07-23 18:50] VITALS: BP 148/52; PULSE 66; RESP 16; TEMP 37.1; O2SAT 94
[2021-07-23 19:05] VITALS: BP 144/64; PULSE 62; RESP 16; TEMP 36.4; O2SAT 95
[2021-07-23 21:20] LABS: Anion Gap 15 (12-20); Blood Urea Nitrogen 82 mg/dL (9-16); Calcium 7.5 mg/dL (8.4-10.2); Carbon Dioxide 18 mmol/L (22-29); Chloride 114 mmol/L (96-108); Creatinine Clr Calc Pharmacy 4.1; Estimated Glomerular Filt Rate 3; Glucose Random 149 mg/dL (60-115); Potassium 5.8 mmol/L (3.3-5.1); Sodium 141 mmol/L (135-145)
[2021-07-23 21:38] LABS: Glucose, Whole Blood 141 mg/dL (60-115)
[2021-07-24 01:08] VITALS: BP 160/63; PULSE 52; RESP 14; TEMP 36.3; O2SAT 97
[2021-07-24 06:18] VITALS: BP 138/66; PULSE 78; RESP 16; TEMP 36.8; O2SAT 94
[2021-07-24] MEDS: Omeprazole 20 MG CAPSULE.DR PO (06:29)
[2021-07-24 07:16] LABS: Hematocrit 25.3 % (37.0-47.0); Hemoglobin 7.8 g/dl (12.0-16.0); Mean Corpuscular HGB Conc 30.8 g/dl (31.0-35.0); Mean Corpuscular Hemoglobin 29.5 pg (27.0-33.0); Mean Corpuscular Volume 95.8 fL (80.0-98.0); Mean Platelet Volume 10.6 fL (9.4-12.3); Platelet Count 117 X10*3/uL (160-400); Red Blood Count 2.64 X10*6/uL (4.20-5.50); Red Cell Distribution Width 14.8 % (11.0-16.0); White Blood Count 4.9 X10*3/uL (4.8-10.8)
[2021-07-24 07:27] VITALS: BP 157/67; PULSE 62; RESP 14; TEMP 36.8; O2SAT 98
--- NOTE | 2021-07-24 07:27 | PC.NURSE ---
Pt received from manufacturing shift supervisor: Pt AOX4 and states mild throat pain, but is able to tolerate breakfast. R Ant permacath noted- clean and no redness noted. No fever noted this morning. NSR noted and lungs diminished. Pt abd round, soft and non-tender. Pending first possible dialysis today.
[2021-07-24 07:51] LABS: Anion Gap 16 (12-20); Blood Urea Nitrogen 86 mg/dL (9-16); Calcium 7.4 mg/dL (8.4-10.2); Carbon Dioxide 18 mmol/L (22-29); Chloride 114 mmol/L (96-108); Creatinine Clr Calc Pharmacy 4.1; Estimated Glomerular Filt Rate 3; Glucose Random 85 mg/dL (60-115); Phosphorus 6.8 mg/dL (2.7-4.5); Sodium 142 mmol/L (135-145)
[2021-07-24 07:59] LABS: HBS Num1 14.97 mIU/mL (0-7.99); HBsAGNum1 0.19 S/CO (0.00-0.99); Hepatitis B Core Antibody Nonreactive (Nonreactive); Hepatitis B Surface Antigen Negative (Negative); ~HepC Num1 0.08 S/CO (0.00-0.79); ~Hepatitis B Surface Antibody REACTIVE (Nonreactive); ~Hepatitis C Antibody Nonreactive (Nonreactive)
--- NOTE | 2021-07-24 08:17 | P.PNIM_ITS ---
Subjective Subjective Date of Service: 07/24/21 Interval History: esrd -s/p permacath Review of Systems Denies any chest pain or shortness of breath or abdominal pain or fever chills or cough or phlegm. Physical Exam Verdana 4l Vital Signs: Verdana 4d Verdana 4d Vital Signs: Verdana 4d Verdana 4Bd Last Vital Signs Verdana 4d Slag Expander New 4d Slag Expander New 4d Temp 98.3 F 07/24/21 07:27 Slag Expander New 4d Pulse 62 07/24/21 07:27 Slag Expander New 4d Resp 14 07/24/21 07:27 BP 157/67 H 07/24/21 07:27 Pulse Ox 98 07/24/21 07:27 BMI result Body Mass Index 33.5 ? Appearance: Alert.? Oriented X3.??? ENT: Pharynx normal.? Moist mucous membranes. cvs: rrr, [id number] , no murmur res: clear to auscultation ,no rhonchii or wheezing abd: no rebound or guarding ,nt, bs present. ext pulses present , no cyanosis. neuro: axo3 , nonfocal. Objective Data Active Medications Acetaminophen (Acetaminophen 325 Mg Tablet) 650 mg PO Q6H PRN PRN Reason: Pain, Mild (Pain Scale 1-3) Amlodipine Besylate (Amlodipine Besylate 10 Mg Tablet) 10 mg PO DAILY [facility]; Protocol Last Admin: 07/23/21 10:25 Dose: 10 mg Documented by: KAMRON Atorvastatin Calcium (Atorvastatin Calcium 40 Mg Tablet) 40 mg PO BEDTIME [facility] Last Admin: 07/23/21 21:56 Dose: 40 mg Documented by: TOSIN Calcitriol (Calcitriol 0.25 Mcg Capsule) 0.25 mcg PO MOWEFR [facility] Docusate Sodium (Docusate Sodium 100 Mg Capsule) 100 mg PO DAILY PRN PRN Reason: Constipation Escitalopram Oxalate (Escitalopram Oxalate 10 Mg Tablet) 10 mg PO DAILY [facility] Fluticasone Propionate (Fluticasone Propionate Nasal 16 Gm [place]) 1 - 2 spray NOSTRIL-B DAILY [facility] Last Admin: 07/23/21 10:25 Dose: 2 spray Documented by: KAMRON Gabapentin (Gabapentin 300 Mg Capsule) 300 mg PO DAILY [facility] Last Admin: 07/23/21 10:26 Dose: 300 mg Documented by: KAMRON Heparin Sodium (Porcine) (Heparin Sodium,Porcine 5,000 Unit/Ml Vial) 5,000 unit SUBCUT Q12H [facility] Last Admin: 07/24/21 00:53 Dose: Not Given Documented by: NONA Non-Admin Reason: See Note Hydralazine HCl (Hydralazine Hcl 25 Mg Tablet) 25 mg PO BID [facility]; Protocol Last Admin: 07/23/21 21:56 Dose: 25 mg Documented by: TOSIN Loratadine (Loratadine 10 Mg Tablet) 10 mg PO DAILY [facility] Last Admin: 07/23/21 10:26 Dose: 10 mg Documented by: KAMRON Metoprolol Tartrate (Metoprolol Tartrate 50 Mg Tablet) 50 mg PO BID [facility]; Protocol Last Admin: 07/23/21 21:56 Dose: 50 mg Documented by: TOSIN Omeprazole (Omeprazole 20 Mg Capsule.Dr) 20 mg PO DAILY@0630 [facility] Last Admin: 07/24/21 06:29 Dose: 20 mg Documented by: NONA Ondansetron HCl (Ondansetron Hcl 4 Mg/2 Ml Vial) 4 mg IVPUSH Q8H PRN PRN Reason: Nausea and Vomiting Pharmacy Consult (Consult Rx Perform Med Rec) 1 each MISCELLANE ONCE PRN PRN Reason: Consult order Sodium Bicarbonate (Sodium Bicarbonate 650 Mg Tablet) 650 mg PO TID [facility] Last Admin: 07/23/21 21:56 Dose: 650 mg Documented by: TOSIN Sodium Chloride (0.9 % Sodium Chloride Flush 3 Ml Syringe) 3 ml IVFLUSH QSHIFT [facility] Last Admin: 07/24/21 07:07 Dose: Not Given Documented by: KAMRON Non-Admin Reason: Med Not Available Sodium Zirconium Cyclosilicate (Sodium Zirconium Cyclosilicate 10 Gm Powd.Pack) 10 gm PO ONCE ONE Stop: 07/24/21 08:17 Labs CBC & Chem 7: 07/24/21 06:55 07/24/21 06:55 Labs: Laboratory Results - last 24 hr 07/22/21 07/23/21 07/23/21 17:20 00:25 06:52 MCV MCH MCHC RDW Plt Count MPV Absolute Nucleated RBC Nucleated RBC % (auto) Smear Path Review SEE NOTE Anion Gap Estim Creat Clear Calc Estimated GFR POC Glucose Random Glucose Calcium Phosphorus Iron 45 TIBC 198 L % Saturation 23 Unsat Iron Binding 153 Ferritin 372 H Vitamin B12 Folate 07/23/21 07/23/21 07/23/21 06:52 20:49 21:29 MCV MCH MCHC RDW Plt Count MPV Absolute Nucleated RBC Nucleated RBC % (auto) Smear Path Review Anion Gap 15 Estim Creat Clear Calc 4.1 Estimated GFR 3 POC Glucose 141 H Random Glucose 149 H Calcium 7.5 L Phosphorus Iron TIBC % Saturation Unsat Iron Binding Ferritin Vitamin B12 481 Folate 8.5 07/24/21 07/24/21 06:55 06:55 MCV 95.8 MCH 29.5 MCHC 30.8 L RDW 14.8 Plt Count 117 L MPV 10.6 Absolute Nucleated RBC 0.000 Nucleated RBC % (auto) 0.0 Smear Path Review Anion Gap 16 Estim Creat Clear Calc 4.1 Estimated GFR 3 POC Glucose Random Glucose 85 Calcium 7.4 L Phosphorus 6.8 H Iron TIBC % Saturation Unsat Iron Binding Ferritin Vitamin B12 Folate Assessment and Plan (1) CKD (chronic kidney disease): Status: Acute (2) Hyperkalemia: Status: Acute Plan 70-year-old female with past medical history of CKD presents to the hospital with worsening labs 1. CKD stage 5 -d/w nephro- need ESRD permacath placement - IR consulted possible hd in am 2.hyperkalemia- secondary to kidney failure seems improving to 5.9-given another? Lokelma 10 mg - follow BMP - dialysis in a.m. 3. normocytic anemia - chronicity unclear as we do not have recent labs to compare - likely anemia of chronic ds ?obtain ferritin b12 and folic acid - s/p 1 unit of prbc-h/h 7.4 /24 - follow cbc 4.HTN - elevated - continue home meds DVT prophylaxis:? Heparin subQ Quality Stroke Does the patient have a stroke diagnosis?: No VTE Prior VTE?: No VTE Risk Level:: Medical - moderate - high VTE Device Contraindication: Treatment Not Indicated VTE Drug Contraindication: N/A - Med Ordered
[2021-07-24] MEDS: Sodium Zirconium Cyclosilicate 10 GM POWD.PACK PO (09:04)
[2021-07-24] MEDS: amLODIPine Besylate 10 MG TABLET PO (09:04)
[2021-07-24] MEDS: Escitalopram Oxalate 10 MG TABLET PO (09:04)
[2021-07-24] MEDS: Fluticasone Propionate Nasal 16 GM SPRAY NOSTRIL-B (09:04)
[2021-07-24] MEDS: hydrALAZINE HCl 25 MG TABLET PO ×2 (09:05→20:13)
[2021-07-24] MEDS: Metoprolol Tartrate 50 MG TABLET PO ×2 (09:05→20:12)
[2021-07-24] MEDS: Sodium Bicarbonate 650 MG TABLET PO ×3 (09:05→20:12)
[2021-07-24] MEDS: Gabapentin 300 MG CAPSULE PO (09:05)
[2021-07-24] MEDS: Loratadine 10 MG TABLET PO (09:05)
[2021-07-24] MEDS: calcitrioL 0.25 MCG CAPSULE PO (09:34)
--- NOTE | 2021-07-24 09:44 | PC.NURSE ---
Pt to dialysis at this time.
[2021-07-24 13:24] VITALS: BP 147/63; PULSE 57; RESP 18; O2SAT 98
--- NOTE | 2021-07-24 13:24 | PC.NURSE ---
Pt returned from dialysis at this time. Pt offers no complains. Pt only very tired.
[2021-07-24] MEDS: Heparin Sodium,Porcine 5,000 UNIT/ML VIAL 5000 UNIT SUBCUT (14:03)
[2021-07-24 16:00] VITALS: BP 153/95; PULSE 58; RESP 16; TEMP 36.2; O2SAT 96
--- NOTE | 2021-07-24 16:13 | MHC.CM.PN ---
Pt unable to participate in CM assessment: Message left for dtr/next of contact, Gay, requesting a call back to assist with assessment and d/c planning.
--- NOTE | 2021-07-24 19:21 | P.PNNP_ITS ---
Subjective Subjective Date of Service: 07/24/21 Principal diagnosis: CKD 5, ESRD Interval history: seen and examined, events noted Physical Exam Verdana 4l Vital Signs: Verdana 4d Verdana 4d Vital Signs: Verdana 4d Verdana 4Bd Last Vital Signs Verdana 4d Safety And Skill Based Pay Manager New 4d Safety And Skill Based Pay Manager New 4d Temp 97.2 F 07/24/21 16:00 Safety And Skill Based Pay Manager New 4d Pulse 58 07/24/21 16:00 Safety And Skill Based Pay Manager New 4d Resp 16 07/24/21 16:00 BP 153/95 H 07/24/21 16:00 Pulse Ox 96 07/24/21 16:00 BMI result Body Mass Index 33.5 BS bilat RRR Abd soft no edema Objective Data Labs CBC & Chem 7: 07/24/21 06:55 07/24/21 06:55 Labs: Laboratory Results - last 24 hr 07/23/21 07/23/21 07/23/21 06:52 20:49 21:29 WBC RBC Hgb Hct MCV MCH MCHC RDW Plt Count MPV Absolute Nucleated RBC Nucleated RBC % (auto) Sodium 141 Potassium 5.8 H Chloride 114 H Carbon Dioxide 18 L Anion Gap 15 BUN 82 H Creatinine 12.25 H* Estim Creat Clear Calc 4.1 Estimated GFR 3 POC Glucose 141 H Random Glucose 149 H Calcium 7.5 L Phosphorus Hep Bs Antigen Negative Hep Bs Antibody REACTIVE Hep B Core Total Ab Nonreactive Hepatitis C Ab (EIA) Nonreactive 07/24/21 07/24/21 06:55 06:55 WBC 4.9 RBC 2.64 L Hgb 7.8 L Hct 25.3 L MCV 95.8 MCH 29.5 MCHC 30.8 L RDW 14.8 Plt Count 117 L MPV 10.6 Absolute Nucleated RBC 0.000 Nucleated RBC % (auto) 0.0 Sodium 142 Potassium 6.0 H* Chloride 114 H Carbon Dioxide 18 L Anion Gap 16 BUN 86 H Creatinine 12.38 H* Estim Creat Clear Calc 4.1 Estimated GFR 3 POC Glucose Random Glucose 85 Calcium 7.4 L Phosphorus 6.8 H Hep Bs Antigen Hep Bs Antibody Hep B Core Total Ab Hepatitis C Ab (EIA) Procedures Date of Service Date of Service: 07/24/21 Assessment & Plan Assessment and plan (1) CKD (chronic kidney disease): Status: Acute Plan 1. CKD 5 now ESRD and started HD today 2. Jemoaccess: Pcath placed 3. Anemia: Fe def and/or Epo def 4. HyperK REC: HD today and ques tomorrow again, epo and Fe as needed; check PTH, outpt HD spot being worked on ( [facility]--awaiting acceptance) Time Spent With Patient Time: Total time spent is greater than 50% in coordination of care (as documented) at patient's floor/unit and/or counseling patient: Progress Note: Quality Stroke Does the patient have a stroke diagnosis?: No
[2021-07-24] MEDS: Atorvastatin Calcium 40 MG TABLET PO (20:12)
[2021-07-24 20:13] VITALS: BP 141/62; PULSE 65; RESP 17; O2SAT 97
--- NOTE | 2021-07-24 21:48 | PC.NURSE ---
This RN took over patient's care at 1900, pt is alert and orientedx3, denies any pain or discomfort at this time. Reports feeling tired, had dialysis today, permacath to right upper chest intact. Administered bedtime medication per emar, vss.
--- NOTE | 2021-07-24 23:26 | PC.NURSE ---
Assumed care of pt at 2300. Pt sleeping and in NAD, even and non-labored resps, attached to quality assurance monitor. Awaiting inpatient bed assignment
[2021-07-25 01:43] VITALS: BP 162/66; PULSE 60; RESP 14; TEMP 37; O2SAT 94
[2021-07-25 05:47] LABS: Anion Gap 15 (12-20); Blood Urea Nitrogen 53 mg/dL (9-16); Calcium 7.5 mg/dL (8.4-10.2); Carbon Dioxide 20 mmol/L (22-29); Chloride 106 mmol/L (96-108); Creatinine Clr Calc Pharmacy 5.6; Estimated Glomerular Filt Rate 4; Glucose Random 87 mg/dL (60-115); Potassium 4.9 mmol/L (3.3-5.1); Sodium 136 mmol/L (135-145)
[2021-07-25 06:10] VITALS: BP 137/54; PULSE 61; RESP 12; O2SAT 96
[2021-07-25] MEDS: Omeprazole 20 MG CAPSULE.DR PO (07:34)
--- NOTE | 2021-07-25 07:53 | PC.NURSE ---
Addendum entered by Thelma Lynch RN 07/25/21 07:54: *and non-tender R anterior permacath clean, intact and non-draining. Original Note: Pt received from intellectual property legal assistant: Pt AOX4 and denies current complaints. NSR noted and lungs diminished. Pt abd round, soft and non-
[2021-07-25 08:14] VITALS: BP 175/89; PULSE 62; RESP 18; TEMP 36.7; O2SAT 97
[2021-07-25] MEDS: Loratadine 10 MG TABLET PO (08:34)
[2021-07-25] MEDS: Gabapentin 300 MG CAPSULE PO (08:34)
[2021-07-25] MEDS: Escitalopram Oxalate 10 MG TABLET PO (08:34)
[2021-07-25] MEDS: amLODIPine Besylate 10 MG TABLET PO (08:34)
[2021-07-25] MEDS: hydrALAZINE HCl 25 MG TABLET PO ×2 (08:34→20:42)
[2021-07-25] MEDS: Fluticasone Propionate Nasal 16 GM SPRAY NOSTRIL-B (08:34)
[2021-07-25] MEDS: Metoprolol Tartrate 50 MG TABLET PO ×2 (08:34→20:42)
[2021-07-25] MEDS: Sodium Bicarbonate 650 MG TABLET PO ×3 (08:34→20:42)
--- NOTE | 2021-07-25 09:13 | PC.NURSE ---
Pt to Dialysis at this time.
--- NOTE | 2021-07-25 11:19 | P.PNNP_ITS ---
Subjective Subjective Date of Service: 07/25/21 Principal diagnosis: CKD 5, ESRD Interval history: seen and examined, events noted Seen on HD Physical Exam Verdana 4l Vital Signs: Verdana 4d Verdana 4d Vital Signs: Verdana 4d Verdana 4Bd Last Vital Signs Verdana 4d Preschool Assistant Principal New 4d Preschool Assistant Principal New 4d Temp 98.1 F 07/25/21 08:14 Preschool Assistant Principal New 4d Pulse 62 07/25/21 08:14 Preschool Assistant Principal New 4d Resp 18 07/25/21 08:14 BP 175/89 H 07/25/21 08:14 Pulse Ox 97 07/25/21 08:14 BMI result Body Mass Index 33.5 Const: General: cooperative and no acute distress Orientation/consciousness: patient oriented x3 Eyes: General: appearance normal, both eyes and all related structures Pupils: Equal, round and reactive pupils present Resp: Effort & Inspection: normal respiratory effort Auscultation: clear to auscultation bilaterally Cardio: Rate: regular rate Rhythm: regular rhythm GI: Palpation (GI): Soft to palpation Auscultation: normal bowel sounds Skin: General skin exam: no rashes or lesions noted Neuro: General: patient oriented x3 Cranial nerves: Yes Equal, round and reactive pupils present Cognition (Neuro): normal cognition Extrem: General: Yes normal to inspection and Yes no pedal edema Objective Data Labs CBC & Chem 7: 07/24/21 06:55 07/25/21 04:32 Labs: Laboratory Results - last 24 hr 07/25/21 04:32 Sodium 136 Potassium 4.9 Chloride 106 Carbon Dioxide 20 L Anion Gap 15 BUN 53 H Creatinine 9.04 H* Estim Creat Clear Calc 5.6 Estimated GFR 4 Random Glucose 87 Calcium 7.5 L Procedures Date of Service Date of Service: 07/25/21 Assessment & Plan Assessment and plan (1) CKD (chronic kidney disease): Status: Acute Plan 1. CKD 5 now ESRD and started HD today 2. Hemoaccess: Pcath placed 3. Anemia: Fe def and/or Epo def 4. HyperK: resolved REC: HD today and ques tomorrow again, epo and Fe as needed; check PTH, outpt HD spot being worked on ( [facility]--still awaiting acceptance) Time Spent With Patient Time: Total time spent is greater than 50% in coordination of care (as documented) at patient's floor/unit and/or counseling patient: Progress Note: Quality Stroke Does the patient have a stroke diagnosis?: No
--- NOTE | 2021-07-25 11:56 | MHC.CM.PN ---
CM ATTEMPTED TO MEET WITH PT WHO WAS OFF UNIT
--- NOTE | 2021-07-25 13:08 | PC.NURSE ---
Pt back from dialysis at this time
[2021-07-25 13:13] VITALS: BP 166/68; PULSE 68; RESP 16; O2SAT 98
--- NOTE | 2021-07-25 13:19 | P.PNIM_ITS ---
Subjective Subjective Date of Service: 07/25/21 Interval History: esrd -new HD Review of Systems Patient denies any chest pain or shortness of breath or abdominal pain or fever or chills or cough or phlegm. Physical Exam Verdana 4l Vital Signs: Verdana 4d Verdana 4d Vital Signs: Verdana 4d Verdana 4Bd Last Vital Signs Verdana 4d Medical Genetics Director New 4d Medical Genetics Director New 4d Temp 98.1 F 07/25/21 08:14 Medical Genetics Director New 4d Pulse 68 07/25/21 13:13 Medical Genetics Director New 4d Resp 16 07/25/21 13:13 BP 166/68 H 07/25/21 13:13 Pulse Ox 98 07/25/21 13:13 BMI result Body Mass Index 33.5 Appearance: Alert.? Oriented X3.??? ENT: Pharynx normal.? Moist mucous membranes. cvs: rrr, [id number] , no murmur res: clear to auscultation ,no rhonchii or wheezing abd: no rebound or guarding ,nt, bs present. ext pulses present , no cyanosis. neuro: axo3 , nonfocal. Objective Data Active Medications Acetaminophen (Acetaminophen 325 Mg Tablet) 650 mg PO Q6H PRN PRN Reason: Pain, Mild (Pain Scale 1-3) Amlodipine Besylate (Amlodipine Besylate 10 Mg Tablet) 10 mg PO DAILY [facility]; Protocol Last Admin: 07/25/21 08:34 Dose: 10 mg Documented by: KAMRON Atorvastatin Calcium (Atorvastatin Calcium 40 Mg Tablet) 40 mg PO BEDTIME [facility] Last Admin: 07/24/21 20:12 Dose: 40 mg Documented by: DENNIS Calcitriol (Calcitriol 0.25 Mcg Capsule) 0.25 mcg PO MOWEFR [facility] Last Admin: 07/24/21 09:34 Dose: 0.25 mcg Documented by: KAMRON Docusate Sodium (Docusate Sodium 100 Mg Capsule) 100 mg PO DAILY PRN PRN Reason: Constipation Escitalopram Oxalate (Escitalopram Oxalate 10 Mg Tablet) 10 mg PO DAILY [facility] Last Admin: 07/25/21 08:34 Dose: 10 mg Documented by: KAMRON Fluticasone Propionate (Fluticasone Propionate Nasal 16 Gm [place]) 1 - 2 spray NOSTRIL-B DAILY [facility] Last Admin: 07/25/21 08:34 Dose: 2 spray Documented by: KAMRON Gabapentin (Gabapentin 300 Mg Capsule) 300 mg PO DAILY [facility] Last Admin: 07/25/21 08:34 Dose: 300 mg Documented by: KAMRON Heparin Sodium (Porcine) (Heparin Sodium,Porcine 5,000 Unit/Ml Vial) 5,000 unit SUBCUT Q12H [facility] Last Admin: 07/24/21 21:13 Dose: Not Given Documented by: TOSIN Non-Admin Reason: Patient Condition Contraindication Hydralazine HCl (Hydralazine Hcl 25 Mg Tablet) 25 mg PO BID [facility]; Protocol Last Admin: 07/25/21 08:34 Dose: 25 mg Documented by: KAMRON Loratadine (Loratadine 10 Mg Tablet) 10 mg PO DAILY [facility] Last Admin: 07/25/21 08:34 Dose: 10 mg Documented by: KAMRON Metoprolol Tartrate (Metoprolol Tartrate 50 Mg Tablet) 50 mg PO BID [facility]; Protocol Last Admin: 07/25/21 08:34 Dose: 50 mg Documented by: KAMRON Omeprazole (Omeprazole 20 Mg Capsule.) 20 mg PO DAILY@0630 [facility] Last Admin: 07/25/21 07:34 Dose: 20 mg Documented by: KAMRON Ondansetron HCl (Ondansetron Hcl 4 Mg/2 Ml Vial) 4 mg IVPUSH Q8H PRN PRN Reason: Nausea and Vomiting Pharmacy Consult (Consult Rx Perform Med Rec) 1 each MISCELLANE ONCE PRN PRN Reason: Consult order Sodium Bicarbonate (Sodium Bicarbonate 650 Mg Tablet) 650 mg PO TID [facility] Last Admin: 07/25/21 08:34 Dose: 650 mg Documented by: KAMRON Sodium Chloride (0.9 % Sodium Chloride Flush 3 Ml Syringe) 3 ml IVFLUSH QSHIFT [facility] Last Admin: 07/25/21 07:25 Dose: Not Given Documented by: KAMRON Non-Admin Reason: Med Not Available Labs CBC & Chem 7: 07/24/21 06:55 07/25/21 04:32 Labs: Laboratory Results - last 24 hr 07/25/21 04:32 Anion Gap 15 Estim Creat Clear Calc 5.6 Estimated GFR 4 Random Glucose 87 Calcium 7.5 L Assessment and Plan (1) Hyperkalemia: Status: Acute (2) CKD (chronic kidney disease): Status: Acute Plan 70-year-old female with past medical history of CKD presents to the hospital with worsening labs 1. CKD stage 5 -d/w nephro- need ESRD permacath placement by ir. possible hd x2 2.hyperkalemia- secondary to kidney failure resolved s/p hd. hyperkalemia resolved. 3. normocytic anemia - chronicity unclear as we do not have recent labs to compare - likely anemia of chronic ds ?obtain ferritin b12 and folic acid - s/p 1 unit of prbc-h/h 7.8/24 - follow cbc 4.HTN - elevated - continue home meds DVT prophylaxis:? Heparin subQ Quality Stroke Does the patient have a stroke diagnosis?: No VTE Prior VTE?: No VTE Risk Level:: Medical - moderate - high VTE Device Contraindication: Treatment Not Indicated VTE Drug Contraindication: N/A - Med Ordered
[2021-07-25] MEDS: Heparin Sodium,Porcine 5,000 UNIT/ML VIAL 5000 UNIT SUBCUT (13:54)
[2021-07-25 14:16] LABS: Calcium (PTHI) 7.4 mg/dL (8.6-10.4); PTHI 722 pg/mL (14-64)
--- NOTE | 2021-07-25 15:38 | MHC.CM.PN ---
CM MET WITH PT WITH THE ASSISTANCE OF A [facility] HAIR BOILER OPERATOR SHE REPORTS HER DAUGHTER LIVES WITH HER AND ASSISTS HER PRN SHE DENIES USE OF HOME SERVICES OR DME PT REPORTS HER PCP IS [facility]MM DELIVERED, ORIGINAL AT BEDSIDE, COPY SENT TO [facility] CURRENT DC PLAN IS HOME WITH RESUMPTION OF FAMILY ASSISTANCE AND NEW OUTPATIENT HEMODIALYSIS DAUGHTER TO TRANSPORT
[2021-07-25 20:27] VITALS: BP 145/65; PULSE 67; RESP 15; TEMP 36.8; O2SAT 96
[2021-07-25] MEDS: Atorvastatin Calcium 40 MG TABLET PO (20:42)
[2021-07-26 01:01] VITALS: BP 118/42; PULSE 66; RESP 12; TEMP 36.6; O2SAT 98
[2021-07-26 04:22] VITALS: BP 156/52; PULSE 57; RESP 12; TEMP 36.7; O2SAT 99
[2021-07-26] MEDS: Heparin Sodium,Porcine 5,000 UNIT/ML VIAL 5000 UNIT SUBCUT (06:16)
[2021-07-26] MEDS: Omeprazole 20 MG CAPSULE.DR PO (06:16)
[2021-07-26] MEDS: 0.9 % Sodium Chloride Flush 3 ML SYRINGE IVFLUSH (07:56)
--- NOTE | 2021-07-26 08:04 | P.DS_ITS ---
DS: Providers Provider Date of Service: 07/26/21 Date of admission: 07/22/21 23:51 Primary care physician: Selin Lockett MD Consults: 07/22/21 23:50 Consult to Nephrology Routine Consulting Provider: [facility] Reason for consultation: worsening CKD, hyperkalemia Has provider been notified: Yes DS: Diagnosis Discharge Diagnosis (1) Hyperkalemia: Status: Acute (2) CKD (chronic kidney disease): Status: Acute (3) Anemia: Status: Acute DS: Summary Status at Discharge Cognitive/behavioral status at discharge: 70-year-old Bulgarian-speaking female with past medical history of CKD, hypertension, GERD, hyperlipidemia, depression, who was sent in by her taxi dancer for worsening kidney function and possible need for dialysis inpatient.? Patient herself denies having any abdominal pain, nausea no vomiting, no chest pain or shortness of breath, no diarrhea constipation, no urinary symptoms and no lower extremity edema.? Denies having any headache or change in vision, no weakness numbness or tingling.? On arrival to the ED patient hemodynamically stable with no significant abnormal vitals Labs are significant for WBC count of 5.5, hemoglobin of 6.4 with no recent labs for comparison in the system .? Other abnormal labs include platelet of 121, potassium 6.3, chloride of 113, creatinine of 12.38 with most recent 1 from 2019 showing creatinine of 3.83, COVID-19 negative Case discussed with Nephrology, patient will be admitted for dialysis. Hospital course: 70-year-old female with past medical history of CKD presents to the hospital with worsening labs 1. CKD stage 5 -d/w nephro- need ESRD-placed permacath placement by IR-had hd x3,hyperkalemia- secondary to kidney failure resolved s/p hd.hyperkalemia resolved. 2. normocytic anemia- chronicity unclear as we do not have recent labs to compare ironstudies - likely anemia of chronic ds ?her ferritin seems fine , b12 and folic acid normal s/p 1 unit of prbc-h/h 7.8, received epogen. continue moniter cbc outpatiently withpcp and nephrology- Further management out patiently. Above management discussed with the patient in detail length with refinery operator gas plant- she understand and in agreement with the above plan, time spent 50 minutes and 50% time spent on counseling. Significant findings: As above. Procedures performed: None. Treatment and response: As above. Complications: None. Time Spent with Patient Time attestation: Total time spent providing and/or coordinating discharge services: Discharge coordination time: Greater than 30 minutes Quality: Stroke Does the patient have a stroke diagnosis?: No Physical Exam Verdana 4l Vital Signs: Verdana 4d Verdana 4d Vital Signs: Verdana 4d Verdana 4Bd Last Vital Signs Verdana 4d Sound Technician New 4d Sound Technician New 4d Temp 98.1 F 07/26/21 04:22 Sound Technician New 4d Pulse 57 07/26/21 04:22 Sound Technician New 4d Resp 12 07/26/21 04:22 BP 156/52 H 07/26/21 04:22 Pulse Ox 99 07/26/21 04:22 BMI result Body Mass Index 33.5 Appearance: Alert.? Oriented X3.??? ENT: Pharynx normal.? Moist mucous membranes. cvs: rrr, [id number] , no murmur res: clear to auscultation ,no rhonchii or wheezing abd: no rebound or guarding ,nt, bs present. ext pulses present , no cyanosis. neuro: axo3 , nonfocal. DS: Data Data Completed and Pending Labs on day of discharge: Laboratory Results - last 24 hr 07/24/21 06:55 PTH Intact 722 H Calcium (PTH Intact) 7.4 L Additional Comments Additional comments: Laboratory Results - last 24 hr ? 07/25/21 ?? 04:32 SodiumSodium ?136 PotassiumPotassium ?4.9 ChlorideChloride ?106 CarbonCarbon Dioxide ?20 L AnionAnion Gap ?15 BUNBUN ?53 H CreatinineCreatinine ?9.04 H* EstimEstim Creat Clear Calc ?5.6 EstimatedEstimated GFR ?4 RandomRandom Glucose ?87 CalciumCalcium ?7.5 L Discharge Plan Discharge Patient Disposition: Home Health Service Discharge Diagnosis: esrd on new hd, normocytic anemia Referrals: SANGEETA KERNS [Other] - 3-5 Days (YOUR DIALYSIS IS SCHEDULED FOR EVERY [id number] AT 5:30AM. ) Selin Lockett MD [Primary Care Provider] - 1 Week Discharge Medications: Continued atorvastatin 40 mg Tablet 40 mg PO BEDTIME 0RF cetirizine 10 mg Tablet 10 mg PO DAILY 0RF aspirin 81 mg Tablet,Delayed Release (Dr/Ec) 81 mg PO DAILY 0RF citalopram [Celexa] 20 mg Tablet 20 mg PO DAILY 0RF amlodipine 10 mg Tablet 10 mg PO DAILY 0RF calcitriol 0.25 mcg Capsule 0.25 mcg PO MOWEFR 0RF omeprazole 20 mg Tablet,Delayed Release (Dr/Ec) 20 mg PO DAILY 0RF hydralazine 25 mg tablet 1 tab PO BID 0RF metoprolol tartrate 50 mg tablet 1 tab PO BID 0RF gabapentin 300 mg capsule 1 cap PO DAILY 0RF fluticasone propionate 50 mcg/actuation spray,suspension 1 - 2 spray intranasal DAILY 0RF Discharge Orders: Discharge Order (Routine); Ordered 07/26/21 Ordered By: Dugals Ryan Diet: advance to usual diet Activity on Discharge: As tolerated Stand Alone Forms: Patient Portal Discharge page Other Ambulatory Orders: Complete Blood Count no Diff (Routine) Timeframe: 1 Week Facility: [facility] - Location: Laboratory Ordered By: Duglas Ryan Care Plan Goals: patient came to the hospital for esrd/hyperkalemia -given HD -seems to be improved -continue on outpatient hD spot . further management as per pcp and nephrology outpatiently. Health Concerns: as above. Plan of Treatment: as above. Assessment: as above.
--- NOTE | 2021-07-26 11:39 | MHC.CM.PN ---
Addendum entered by Gali Arceo 07/26/21 15:31: CM MET WITH PT WITH THE ASSISTANCE OF A [facility]. PTS OUTPATIENT DIALYSIS SCHEDULE AND LOCATION WAS EXPLAINED. PT WAS ALSO INFORMED THAT THIS WAS ALL INCLUDED IN HER DC PAPERWORK CM INFORMED PT SEVERAL ATTEMPTS HAD BEEN MADE TO CONTACT HER DAUGHTER ELDA HOWEVER SHE HAS NOT RETURNED ANY CALLS. PT REPORTS ELDA HAS BEEN WAITING FOR A CALL TO PICK HER UP. SHE PROVIDES A TELEPHONE NUMBER OF [phone], WHICH IS NOT THE NUMBER ON FILE. CM CALLED PTS DAUGHTER, ELDA WITH THE ASSISTANCE OF A [facility] PTS OP HD SCHEDULE AND LOCATION WERE ALSO EXPLAINED TO HER ELDA REPORTS SHE WILL BE HERE SOON TO SECURITY COMPLIANCE SPECIALIST THE PT Original Note: SHANTANU SPOKE TO CLOTILDE AT [facility] ([phone]) WHO REPORTS SHE IS CONFIRMING THE PT DOES HAVE A HD SPOT WITH THEM EVERY MON-WED-FRI AT 0530 HOURS REQUESTED INFORMATION INCLUDING H&P AND LABS WERE FAXED TO CLOTILDE AT [phone] INFORMATION FORWARDED TO
--- NOTE | 2021-07-26 14:06 | P.PNNP_ITS ---
Subjective Subjective Date of Service: 07/26/21 Principal diagnosis: CKD 5, ESRD Interval history: esrd -new HD Physical Exam Verdana 4l Vital Signs: Verdana 4d Verdana 4d Vital Signs: Verdana 4d Verdana 4Bd Last Vital Signs Verdana 4d Typesetter Apprentice New 4d Typesetter Apprentice New 4d Temp 98.1 F 07/26/21 04:22 Typesetter Apprentice New 4d Pulse 57 07/26/21 04:22 Typesetter Apprentice New 4d Resp 12 07/26/21 04:22 BP 156/52 H 07/26/21 04:22 Pulse Ox 99 07/26/21 04:22 BMI result Body Mass Index 33.5 Const: General: cooperative and no acute distress Orientation/consciousness: patient oriented x3 Eyes: General: appearance normal, both eyes and all related structures Pupils: Equal, round and reactive pupils present Resp: Effort & Inspection: normal respiratory effort Auscultation: clear to auscultation bilaterally Cardio: Rate: regular rate Rhythm: regular rhythm GI: Palpation (GI): Soft to palpation Auscultation: normal bowel sounds Skin: General skin exam: no rashes or lesions noted Neuro: General: patient oriented x3 Cranial nerves: Yes Equal, round and reactive pupils present Cognition (Neuro): normal cognition Extrem: General: Yes normal to inspection and Yes no pedal edema Objective Data Labs CBC & Chem 7: 07/24/21 06:55 07/25/21 04:32 Labs: Laboratory Results - last 24 hr 07/24/21 06:55 PTH Intact 722 H Calcium (PTH Intact) 7.4 L Procedures Date of Service Date of Service: 07/26/21 Assessment & Plan Assessment and plan (1) Hyperkalemia: Status: Acute (2) CKD (chronic kidney disease): Status: Acute Assessment and Plan: ?CKD 5 now ESRD and started HD today 2. Hemoaccess: Pcath placed 3. Anemia: Fe def and/or Epo def 4. HyperK: resolved REC: HD , epo and Fe as needed; check PTH, outpt HD spot being worked on ( hopefully [facility]--still awaiting acceptance) Plan 70-year-old female with past medical history of CKD presents to the hospital with worsening labs 1. CKD stage 5 -d/w nephro- need ESRD permacath placement by ir. possible hd x2 2.hyperkalemia- secondary to kidney failure resolved s/p hd. hyperkalemia resolved. 3. normocytic anemia - chronicity unclear as we do not have recent labs to compare - likely anemia of chronic ds ?obtain ferritin b12 and folic acid - s/p 1 unit of prbc-h/h 7.8/24 - follow cbc 4.HTN - elevated - continue home meds DVT prophylaxis:? Heparin subQ Time Spent With Patient Time: Total time spent is greater than 50% in coordination of care (as documented) at patient's floor/unit and/or counseling patient: Progress Note: Quality Stroke Does the patient have a stroke diagnosis?: No
[2021-07-26] MEDS: Sodium Bicarbonate 650 MG TABLET PO (15:30)
== END 2021-07-26 16:33 | disposition home health service (06) | DRG 673 ==
LOC: HO.ED 21:07 → HO.EDOVER 23:54
PROVIDERS: Internal Medicine Nephrology; Radiology Diagnostic Radiology; Admitting Provider Internal Medicine; Emergency Provider Emergency Medicine; PCP Internal Medicine; Visit Provider Internal Medicine
PROC: 0JH63XZ Insertion of Tunneled Vascular Access Device into Chest Subcutaneous Tissue and Fascia, Percutaneous Approach (ICD-10-PCS; principal; 2021-07-23 15:20)
DX: I12.0 Hypertensive chronic kidney disease with stage 5 chronic kidney disease or end stage renal disease (principal); N18.6 End stage renal disease; E78.5 Hyperlipidemia, unspecified; D63.1 Anemia in chronic kidney disease; K21.9 Gastro-esophageal reflux disease without esophagitis; F32.A Depression, unspecified; E11.22 Type 2 diabetes mellitus with diabetic chronic kidney disease; Z99.2 Dependence on renal dialysis; Z20.822 Contact with and (suspected) exposure to COVID-19; Z79.51 Long term (current) use of inhaled steroids; Z79.82 Long term (current) use of aspirin; Z79.899 Other long term (current) drug therapy
CPT/HCPCS: 36415; 36430; 36558; 76937; 80048; 82607; 82728; 82746; 82947; 83540; 83970; 84100; 84484; 85025; 85027; 85610; 85730; 86704; 86706; 86803; 86850; 86900; 86901; 86923; 87340; 87635; 90999; 93005; 96365; 96366; 96375; 99152; 99285; C1750; C1769; J0610; J0885; J2405; P9016

== ENCOUNTER 2021-12-19 13:31 | Outpatient (REF) | payer MEDICARE, SELFPAY ==
--- NOTE | ~2021-12-19 | MM_ITS ---
EXAMINATION: BONE DENSITOMETRY CLINICAL INDICATION: Menopausal state. COMPARISON: Previous BD dated 09/10/2018 and baseline BD dated 11/22/2008. TECHNIQUE: Using a [employer] DXA System (software version: 13.1) manufactured by [employer], dual-energy x-ray absorptiometry was performed of the lumbar spine and left hip. The images are of good technical quality. Summary results are attached. FINDINGS: AP SPINE L1-L3 (excluding L4): The data of L1-L4 has been changed to exclude the L4 vertebral body, because degenerative sclerosis at this level may cause overestimation of lumbar spine density. Current: BMD 1.285 g/cm2, Z-score 1.9, T-score 1.0, normal, 3.7% increase from previous, 8.0% increase from baseline (<5% change is not significant). Prior: BMD 1.239 g/cm2. Baseline: BMD 1.190 g/cm2. LEFT FEMUR, NECK: Current: BMD 0.923 g/cm2, Z-score 0.5, T-score -0.8, normal. Prior: BMD 0.955 g/cm2. Baseline: BMD 1.062 g/cm2. LEFT FEMUR, TOTAL: Current: BMD 1.042 g/cm2, Z-score 1.4, T-score 0.3, normal, 7.6% decrease from previous, 16.3% decrease from baseline (<5% change is not significant). Prior: BMD 1.128 g/cm2. Baseline: BMD 1.245 g/cm2. IDENTIFIED RISK FACTORS: Menopause. Height loss. Parental hip fracture. HISTORY OF FRACTURE: None listed. MEDICATIONS: None listed. MM/XR DEXA axial skeleton IMPRESSION: 1. DIAGNOSIS: Normal bone density based on the lowest T-score value of -0.8 in the femoral neck applying World Health Organization criteria. 2. 10-YEAR FRACTURE RISK PREDICTION, FRAX: Major osteoporotic fracture (clinical spine, forearm, hip or shoulder) 6.9%. Hip fracture 1.7%. 3. Treatment Recommendations: NOF guidelines recommend consideration for treatment in postmenopausal women and men age 50 and older presenting with the following: -A hip or vertebral (clinical or morphometric) fracture. -T-score less than or equal to -2.5 at the femoral neck or spine after appropriate evaluation to exclude secondary causes. -Low bone mass at the hip or spine and a 10-year fracture probability by FRAX of greater than or equal to 3% for hip fracture or greater than or equal to 20% for major osteoporotic fracture based on the [place] adapted WHO algorithm. 4. Other Recommendations: All treatment decisions require clinical judgment and consideration of individual patient factors, including patient preferences, comorbidities, previous drug use, risk factors not captured in the FRAX model (e.g. frailty, falls, vitamin D deficiency, increased bone turnover, interval significant decline in bone density) and possible under or overestimation of fracture risk by FRAX. FUTURE SCAN RECOMMENDATION: People with diagnosed cases of osteoporosis or at high risk for fracture should have regular bone mineral density tests. For patients eligible for Medicare, routine testing is allowed once every 2 years. The testing frequency can be increased to one year for patients who have rapidly progressing disease, those who are receiving or discontinuing medical therapy to restore bone mass, or have additional risk factors.
== END 2021-12-19 13:32 | disposition home or self-care (01) ==
LOC: HO.MAMMO 13:31
PROVIDERS: PCP Internal Medicine; Visit Provider Internal Medicine
DX: Z13.820 Encounter for screening for osteoporosis (principal); Z78.0 Asymptomatic menopausal state
CPT/HCPCS: 77080

== ENCOUNTER 2022-01-09 11:02 | Day surgery (SDC) | payer OTHER, SELFPAY ==
[2022-01-02 12:51] VITALS: BP 174/77; PULSE 85; RESP 16; O2SAT 97; BMI 35.7
--- NOTE | 2022-01-02 13:21 | P.CONAN_ITS ---
Documented by User: Roslyn Donovan NP 01/08/22 08:58 HPI - Anesthesia Eval Consult details Narrative: 71yo F for Left AV Fistula Creation ESRD with HD - MWF PMFSH Active Problems Active Problems: All Active Problems (Updated 01/02/22 @ 13:08 by Candi Boyce, RN) Hyperplastic colon polyp (Acute) CKD (chronic kidney disease) (Acute) Anemia (Acute) Hyperkalemia (Acute) Past Medical History Medical History Depression Elevated cholesterol ESRD (end stage renal disease) on dialysis GERD (gastroesophageal reflux disease) History of hyperkalemia HTN (hypertension) Family History Family History Other FH: HTN (hypertension) Family history of problems with anesthesia: No Surgical History Surgical History H/O colonoscopy History of cataract extraction History of Problems with Anesthesia: No Social History Social History Are you a primary healthcare architect to a significant other at home: No Do you presently have visiting nurse or other home services: Yes ([employer] 1 x month) Patient Tobacco Use Status: Never used Tobacco Use of substances other than those prescribed or required for medical reasons: No Have you been hit, kicked, punched, or otherwise hurt by someone within the past year? If so, by whom?: No Spiritual Healthcare Practices: no Denominational Healthcare Practices: no Cultural Healthcare Practices: no Are you DNR?: No Advance Directives: No Advance Directives Information Provided: Yes Advance Directives on File: No Recently lost weight without trying: Yes How much weight loss: 24-33 pounds service: No Current occupational status: unemployed Narrative Narrative: No recent illness No CP. Reports mild SOB when coughing a lot (possibly related to medication that has since been discontinued) Meds Allergies Allergy/AdvReac Type Severity Reaction Status Date / Time No Known Allergies Allergy Mild NONE Verified 07/22/21 16:55 Home Medications Medication Instructions Recorded Confirmed Last Taken Type amlodipine 10 mg tablet 10 mg PO DAILY 06/04/20 01/01/22 07/22/21 History aspirin 81 mg tablet,delayed 81 mg PO DAILY 06/04/20 01/01/22 07/22/21 History release atorvastatin 40 mg tablet 40 mg PO BEDTIME 06/04/20 01/01/22 Unknown History calcitriol 0.25 mcg capsule 0.25 mcg PO MOWEFR 06/04/20 01/01/22 07/22/21 History cetirizine 10 mg tablet 10 mg PO DAILY 06/04/20 01/01/22 Unknown History citalopram 20 mg tablet (Celexa) 20 mg PO DAILY 06/04/20 01/01/22 Unknown History omeprazole 20 mg tablet,delayed 20 mg PO DAILY 06/04/20 01/01/22 Unknown History release fluticasone propionate 50 1 - 2 spray intranasal DAILY PRN 07/22/21 01/01/22 Unknown History mcg/actuation nasal Dry Nasal Passages spray,suspension gabapentin 300 mg capsule 1 cap PO BEDTIME 07/22/21 01/01/22 Unknown History hydralazine 25 mg tablet 1 tab PO BID 07/22/21 01/01/22 Unknown History metoprolol tartrate 50 mg tablet 1 tab PO BID 07/22/21 01/01/22 07/22/21 History acetaminophen 500 mg tablet 1,000 mg PO TID PRN Pain 01/01/22 01/01/22 Unknown History Exam Exam Date and Time: January 02, 2022 1321 Height,Weight and Vital Signs: Height 5 ft 2 in Weight 88.7 kg Last Vital Signs Pulse 85 01/02/22 12:51 Resp 16 01/02/22 12:51 BP 174/77 H 01/02/22 12:51 Pulse Ox 97 01/02/22 12:51 O2 Del Method 01/02/22 12:51 Pertinent Lab Results Pertinent Lab Results: Laboratory Tests 01/02/22 01/02/22 13:53 13:53 WBC 5.6 Hgb 11.9 L D Hct 36.7 L D Plt Count 173 D Sodium 134 L Potassium 5.1 Chloride 97 Carbon Dioxide 24 Narrative Narrative: EKG 06/2021 Vent. Rate : 078 BPM ? ? Atrial Rate : 078 BPM ?? P-R Int : 212 ms? QRS Dur : 072 ms ? ? QT Int : 396 ms ? ? ? P-R-T Axes : 056 -08 066 degrees ?? QTc Int : 451 ms ? Sinus rhythm with 1st degree A-V block Inferior infarct (cited on or before 14-JAN-2018) Cannot rule out Anterior infarct , age undetermined Abnormal ECG When compared with ECG of 14-JAN-2018 21:16, No significant change was found Airway Mallampati Class: II TM Dist: >3cm Neck ROM: Full Heart: RRR Lungs: CTA Assessment and Plan Assessment Anesthesia Assessment: Anesthesia Plan Discussed and PAT Visit Final Anesthetic Review Family History of Problems with Anesthesia: No History of Problems with Anesthesia: No Documented by User: Keyona Bernal MD 01/09/22 13:34 PMFSH Past Medical History Medical History Depression Elevated cholesterol ESRD (end stage renal disease) on dialysis GERD (gastroesophageal reflux disease) History of hyperkalemia HTN (hypertension) Family History Family History Other FH: HTN (hypertension) Surgical History Surgical History H/O colonoscopy History of cataract extraction Social History Social History Are you a primary healthcare architect to a significant other at home: No Do you presently have visiting nurse or other home services: Yes ([employer] 1 x month) Patient Tobacco Use Status: Never used Tobacco Use of substances other than those prescribed or required for medical reasons: No Have you been hit, kicked, punched, or otherwise hurt by someone within the past year? If so, by whom?: No Spiritual Healthcare Practices: no Denominational Healthcare Practices: no Cultural Healthcare Practices: no Are you DNR?: No Advance Directives: No Advance Directives Information Provided: Yes Advance Directives on File: No Recently lost weight without trying: Yes How much weight loss: 24-33 pounds service: No Current occupational status: unemployed Meds Allergies Allergy/AdvReac Type Severity Reaction Status Date / Time No Known Allergies Allergy Mild NONE Verified 07/22/21 16:55 Home Medications Medication Instructions Recorded Confirmed Last Taken Type amlodipine 10 mg tablet 10 mg PO DAILY 06/04/20 01/01/22 07/22/21 History aspirin 81 mg tablet,delayed 81 mg PO DAILY 06/04/20 01/01/22 07/22/21 History release atorvastatin 40 mg tablet 40 mg PO BEDTIME 06/04/20 01/01/22 Unknown History calcitriol 0.25 mcg capsule 0.25 mcg PO MOWEFR 06/04/20 01/01/22 07/22/21 History cetirizine 10 mg tablet 10 mg PO DAILY 06/04/20 01/01/22 Unknown History citalopram 20 mg tablet (Celexa) 20 mg PO DAILY 06/04/20 01/01/22 Unknown History omeprazole 20 mg tablet,delayed 20 mg PO DAILY 06/04/20 01/01/22 Unknown History release fluticasone propionate 50 1 - 2 spray intranasal DAILY PRN 07/22/21 01/01/22 Unknown History mcg/actuation nasal Dry Nasal Passages spray,suspension gabapentin 300 mg capsule 1 cap PO BEDTIME 07/22/21 01/01/22 Unknown History hydralazine 25 mg tablet 1 tab PO BID 07/22/21 01/01/22 Unknown History metoprolol tartrate 50 mg tablet 1 tab PO BID 07/22/21 01/01/22 07/22/21 History acetaminophen 500 mg tablet 1,000 mg PO TID PRN Pain 01/01/22 01/01/22 Unknown History Exam Airway Loose/Missing/Broken Teeth: Yes and Upper Assessment and Plan Final Anesthetic Review NPO: Yes ASA Class: IV Final Preanesthetic Review: Meds/Allgs Chart Reviewed, Consent Obtained/Reviewed and Anes Risks/Benef Reviewed Patient Risk: High Procedure Risk: Low Anesthetic Plan Anesthetic Plan: MAC: Disposition: Standard PACU
[2022-01-02 14:14] LABS: Hematocrit 36.7 % (37.0-47.0); Hemoglobin 11.9 g/dl (12.0-16.0); Mean Corpuscular HGB Conc 32.4 g/dl (31.0-35.0); Mean Corpuscular Hemoglobin 35.2 pg (27.0-33.0); Mean Corpuscular Volume 108.6 fL (80.0-98.0); Mean Platelet Volume 8.9 fL (9.4-12.3); Platelet Count 173 X10*3/uL (160-400); Red Blood Count 3.38 X10*6/uL (4.20-5.50); Red Cell Distribution Width 17.7 % (11.0-16.0); White Blood Count 5.6 X10*3/uL (4.8-10.8)
[2022-01-02 14:34] LABS: Anion Gap 18 (12-20); Carbon Dioxide 24 mmol/L (22-29); Chloride 97 mmol/L (96-108); Potassium 5.1 mmol/L (3.3-5.1); Sodium 134 mmol/L (135-145)
[2022-01-09] VITALS (8 sets, daily range): BP systolic 104–150; BP diastolic 41–90; PULSE 63–110; RESP 16–18; TEMP 36.1–36.4; O2SAT 97–100
[2022-01-09 12:11] LABS: Anion Gap 17 (12-20); Carbon Dioxide 26 mmol/L (22-29); Chloride 99 mmol/L (96-108); Potassium 4.9 mmol/L (3.3-5.1); Sodium 137 mmol/L (135-145)
[2022-01-09] MEDS: 0.9 % Sodium Chloride 1,000 ML 50 ML IVCONT (12:12)
[2022-01-09 15:57] LABS: Glucose, Whole Blood 80 mg/dL (60-115)
--- NOTE | 2022-01-09 18:31 | P.OP_ITS ---
Operative Note Operative Note Date of Service: 01/09/22 Narrative: Pre-op Diagnosis: ESRD Post-op Diagnosis: ESRD Operation: Creation of left arm AV fistula - brachial artery to antecubital vein Surgeon: Marquez Bhat Anesthesia: MAC and local Procedure: Patient was placed on the OR table in a supine position. Lower extremity compression devices were placed. The left arm was placed on a padded arm board and circumferentially prepped and draped in a sterile fashion. The anesthesiologist administered the pre-operative antibiotic. A surgical timeout was performed. The skin was infiltrated with local anesthetic. An incision was made below the bend of the elbow. The antecubital vein, cephalic vein and the basilic vein were carefully dissected and skeletonized using sharp dissection. The branches were ligated and divided using 4-0 silk ties. The antecubital vein was transected and the basilic vein and cephalic veins were flushed with hep- saline. They were also distended using the hep-saline. A bulldog clamp was placed. Next, the brachial artery was skeletonized. The small branches were ligated and divided with 4-0 silk ties. The artery was clamped and arteriotomy was made. The antecubital vein brachial artery anastomosis was created using 6- 0 Prolene sutures. The clamps were removed and a thrill was present in the cephalic outflow vein. The basilic vein was ligated and divided using 4-0 silk ties. The incision was closed with 3-0 Vicryl subdermal stitches and a running 4-0 Monocryl subcuticular stitch. Surgical glue was applied. There was excellent perfusion to the hand. Notes: basilic vein was tied off.
== END 2022-01-09 18:59 | disposition home or self-care (01) ==
PROVIDERS: Nurse Practitioner; PCP Internal Medicine; Visit Provider Transplant Surgery
PROC: (CPT 36821; principal; 2022-01-09 12:40)
DX: E11.22 Type 2 diabetes mellitus with diabetic chronic kidney disease (principal); I12.0 Hypertensive chronic kidney disease with stage 5 chronic kidney disease or end stage renal disease; N18.6 End stage renal disease; Z99.2 Dependence on renal dialysis; E78.00 Pure hypercholesterolemia, unspecified; E87.5 Hyperkalemia; K21.9 Gastro-esophageal reflux disease without esophagitis; F32.A Depression, unspecified; Z79.82 Long term (current) use of aspirin; Z79.899 Other long term (current) drug therapy
CPT/HCPCS: 36821; 36415; 80051; 82947; 85027; J0690; J2370; J3010; J3370

== ENCOUNTER 2022-02-20 14:46 | Outpatient (REF) | payer OTHER, SELFPAY ==
--- NOTE | ~2022-02-20 | MM_ITS ---
EXAMINATION: MM SCREENING DIGITAL BREAST TOMOSYNTHESIS, BILATERAL CLINICAL INFORMATION: Screening. Asymptomatic. The lifetime risk of breast cancer based on the Tyrer-Cuzick Model is 2.6%. COMPARISON: Mammography: August 24, 2018 and studies dating back to July 21, 2013 TECHNIQUE: Digital breast tomosynthesis is performed in both the craniocaudal and mediolateral oblique views along with computer-aided detection (CAD). Synthesized 2D images are generated from the tomosynthesis. FINDINGS: There are scattered areas of fibroglandular density (ACR BI-RADS breast composition Category b). There are no significant masses, abnormal calcifications, or other abnormalities. MM/MM tomosynthesis screening BI IMPRESSION: No significant changes from prior exam. ASSESSMENT: BI-RADS 1: Negative RECOMMENDATION: Routine annual mammography screening. This patient's information was entered into a reminder system with a target due date for their next mammogram.
== END 2022-02-20 14:47 | disposition home or self-care (01) ==
LOC: HO.MAMMO 14:46
PROVIDERS: PCP Internal Medicine; Visit Provider Internal Medicine
DX: Z12.31 Encounter for screening mammogram for malignant neoplasm of breast (principal)
CPT/HCPCS: 77063; 77067

== ENCOUNTER 2022-05-01 05:45 | Day surgery (SDC) | payer OTHER, SELFPAY ==
[2022-04-22 10:24] VITALS: BMI 37.6
--- NOTE | 2022-04-30 12:18 | P.CONAN_ITS ---
Documented by User: Roslyn Donovan NP 04/30/22 12:20 HPI - Anesthesia Eval Consult details Narrative: 71yo F for Left Cephalic Vein Transposition, Superficialization s/p AV fistula creation 12/2021 with MAC ESRD on HD on MWF *No IV/BP on LEFT* PMFSH Active Problems Active Problems: All Active Problems (Updated 04/22/22 @ 16:02 by Nadira Chavez, RN) Hyperplastic colon polyp (Acute) CKD (chronic kidney disease) (Acute) Anemia (Acute) Hyperkalemia (Acute) Past Medical History Medical History (Updated 04/22/22 @ 16:02 by Nadira Chavez, RN) Bilateral hearing loss Dependence on renal dialysis Depression DM type 2 (diabetes mellitus, type 2) Dyspnea on exertion Elevated cholesterol ESRD (end stage renal disease) on dialysis GERD (gastroesophageal reflux disease) History of hyperkalemia HTN (hypertension) Hyperparathyroidism On beta carly at home Seasonal allergies Family History Family History Other FH: HTN (hypertension) Family history of problems with anesthesia: No Surgical History Surgical History (Updated 04/21/22 @ 10:17 by Nadira Chavez RN) H/O colonoscopy History of cataract extraction S/P arteriovenous (AV) fistula creation History of Problems with Anesthesia: No Social History Social History Are you a primary skin care technician to a significant other at home: No Do you presently have visiting nurse or other home services: Yes ([employer], [employer]) Patient Tobacco Use Status: Never used Tobacco Use of substances other than those prescribed or required for medical reasons: No Have you been hit, kicked, punched, or otherwise hurt by someone within the past year? If so, by whom?: No Are you DNR?: No Advance Directives: No Advance Directives Information Provided: Yes (Info mailed) Advance Directives on File: No Recently lost weight without trying: No Eating poorly because of decreased appetite: No Nutrition Risks: No Nutritional Risk Patient : No : No Poor oral hygiene: Yes (only has 5 upper teeth) service: No Current occupational status: unemployed Meds Allergies Allergy/AdvReac Type Severity Reaction Status Date / Time No Known Allergies Allergy Mild NONE Verified 04/22/22 10:23 Home Medications Medication Instructions Recorded Confirmed Last Taken Type amlodipine 10 mg tablet 10 mg PO DAILY 06/04/20 04/21/22 07/22/21 History aspirin 81 mg tablet,delayed 81 mg PO DAILY 06/04/20 04/21/22 07/22/21 History release atorvastatin 40 mg tablet 40 mg PO BEDTIME 06/04/20 04/21/22 Unknown History calcitriol 0.25 mcg capsule 0.25 mcg PO MOWEFR 06/04/20 04/21/22 07/22/21 History cetirizine 10 mg tablet 10 mg PO DAILY 06/04/20 04/21/22 Unknown History citalopram 20 mg tablet (Celexa) 20 mg PO DAILY 06/04/20 04/21/22 Unknown History omeprazole 20 mg tablet,delayed 20 mg PO DAILY 06/04/20 04/21/22 Unknown History release fluticasone propionate 50 1 - 2 spray intranasal DAILY PRN 07/22/21 04/21/22 Unknown History mcg/actuation nasal Dry Nasal Passages spray,suspension gabapentin 300 mg capsule 1 cap PO BEDTIME 07/22/21 04/21/22 Unknown History hydralazine 25 mg tablet 1 tab PO BID 07/22/21 04/21/22 Unknown History metoprolol tartrate 50 mg tablet 1 tab PO BID 07/22/21 04/21/22 07/22/21 History acetaminophen 500 mg tablet 1,000 mg PO TID PRN Pain 01/01/22 04/21/22 Unknown History Exam Exam Date and Time: April 30, 2022 1218 Height,Weight and Vital Signs: Height 5 ft 2 in Weight 93.44 kg Pertinent Lab Results Pertinent Lab Results: Laboratory Tests 01/02/22 13:53 WBC 5.6 Hgb 11.9 L D Hct 36.7 L D Plt Count 173 D Assessment and Plan Assessment Anesthesia Assessment: Chart Reviewed Final Anesthetic Review Family History of Problems with Anesthesia: No History of Problems with Anesthesia: No Documented by User: Kim Roberts MD 05/01/22 08:35 [facility] Past Medical History Medical History (Updated 04/22/22 @ 16:02 by Nadira Chavez, RN) Bilateral hearing loss Dependence on renal dialysis Depression DM type 2 (diabetes mellitus, type 2) Dyspnea on exertion Elevated cholesterol ESRD (end stage renal disease) on dialysis GERD (gastroesophageal reflux disease) History of hyperkalemia HTN (hypertension) Hyperparathyroidism On beta carly at home Seasonal allergies Family History Family History Other FH: HTN (hypertension) Surgical History Surgical History (Updated 04/21/22 @ 10:17 by Nadira Chavez RN) H/O colonoscopy History of cataract extraction S/P arteriovenous (AV) fistula creation Social History Social History Are you a primary skin care technician to a significant other at home: No Do you presently have visiting nurse or other home services: Yes ([employer], [employer]) Patient Tobacco Use Status: Never used Tobacco Use of substances other than those prescribed or required for medical reasons: No Have you been hit, kicked, punched, or otherwise hurt by someone within the past year? If so, by whom?: No Are you DNR?: No Advance Directives: No Advance Directives Information Provided: Yes (Info mailed) Advance Directives on File: No Recently lost weight without trying: No Eating poorly because of decreased appetite: No Nutrition Risks: No Nutritional Risk Patient : No : No Poor oral hygiene: Yes (only has 5 upper teeth) service: No Current occupational status: unemployed Meds Allergies Allergy/AdvReac Type Severity Reaction Status Date / Time No Known Allergies Allergy Mild NONE Verified 04/22/22 10:23 Home Medications Medication Instructions Recorded Confirmed Last Taken Type amlodipine 10 mg tablet 10 mg PO DAILY 06/04/20 04/21/22 07/22/21 History aspirin 81 mg tablet,delayed 81 mg PO DAILY 06/04/20 04/21/22 07/22/21 History release atorvastatin 40 mg tablet 40 mg PO BEDTIME 06/04/20 04/21/22 Unknown History calcitriol 0.25 mcg capsule 0.25 mcg PO MOWEFR 06/04/20 04/21/22 07/22/21 History cetirizine 10 mg tablet 10 mg PO DAILY 06/04/20 04/21/22 Unknown History citalopram 20 mg tablet (Celexa) 20 mg PO DAILY 06/04/20 04/21/22 Unknown History omeprazole 20 mg tablet,delayed 20 mg PO DAILY 06/04/20 04/21/22 Unknown History release fluticasone propionate 50 1 - 2 spray intranasal DAILY PRN 07/22/21 04/21/22 Unknown History mcg/actuation nasal Dry Nasal Passages spray,suspension gabapentin 300 mg capsule 1 cap PO BEDTIME 07/22/21 04/21/22 Unknown History hydralazine 25 mg tablet 1 tab PO BID 07/22/21 04/21/22 Unknown History metoprolol tartrate 50 mg tablet 1 tab PO BID 07/22/21 04/21/22 07/22/21 History acetaminophen 500 mg tablet 1,000 mg PO TID PRN Pain 01/01/22 04/21/22 Unknown History Exam Height,Weight and Vital Signs: Height 5 ft 2 in Weight 93.44 kg Vital Signs Temp Pulse Resp BP Pulse Ox O2 Del Method 05/01/22 06:26 97.0 F 83 16 110/46 L 96 Room Air Pertinent Lab Results Pertinent Lab Results: Laboratory Tests 01/02/22 13:53 WBC 5.6 Hgb 11.9 L D Hct 36.7 L D Plt Count 173 D Lab Results 05/01/22 Range/Units 06:30 Sodium 139 (135-145) mmol/L Potassium 4.7 (3.3-5.1) mmol/L Chloride 96 (96-108) mmol/L Carbon Dioxide 30 H (22-29) mmol/L Anion Gap 18 (12-20) Airway Mallampati Class: III TM Dist: >3cm Neck ROM: Full Loose/Missing/Broken Teeth: Yes (Onlly few teeth top. Denies broken or loose) Heart: RRR Lungs: CTAB Assessment and Plan Assessment Anesthesia Assessment: Anesthesia Plan Discussed Final Anesthetic Review NPO: Yes ASA Class: IV Final Preanesthetic Review: No Changes in Pt Med Stat, Meds/Allgs Chart Reviewed, Consent Obtained/Reviewed and Anes Risks/Benef Reviewed Patient Risk: High Procedure Risk: Low Assessment/Block/Sedation in SS: Assess/Block/Sedation-SS Anesthetic Plan Anesthetic Plan: MAC: (Left supraclavicular nerve block) and Regional Block Disposition: Standard PACU
--- NOTE | 2022-05-01 06:19 | PC.NURSE ---
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
[2022-05-01 06:26] VITALS: BP 110/46; PULSE 83; RESP 16; TEMP 36.1; O2SAT 96
[2022-05-01] MEDS: 0.9 % Sodium Chloride 1,000 ML 50 ML IVCONT (06:36)
[2022-05-01 06:53] LABS: Anion Gap 18 (12-20); Carbon Dioxide 30 mmol/L (22-29); Chloride 96 mmol/L (96-108); Potassium 4.7 mmol/L (3.3-5.1); Sodium 139 mmol/L (135-145)
[2022-05-01 09:38] VITALS: BP 119/41; PULSE 59; RESP 16; TEMP 36.2; O2SAT 100
[2022-05-01 09:53] VITALS: BP 113/38; PULSE 58; RESP 16; O2SAT 99
--- NOTE | 2022-05-01 09:58 | P.OP_ITS ---
Operative Note Operative Note Date of Service: 05/01/22 Narrative: Pre-op Dx: ESRD Post-op Dx: ESRD Operation: Left arm superficialization of cephalic vein of AV fistula Surgeon: Marquez Bhat MD Anesthesia: MAC, local, supraclavicular block Procedure: The patient was placed on the OR table in a supine position. Lower extremity compression devices were placed. The anesthesiologist administered the pre- operative antibiotic. An US of the upper arm cephalic and basilic veins was performed on the left arm. After successful induction of MAC anesthesia, the left arm was prepped and draped in a sterile fashion. A surgical timeout took place. Local anesthetic was used. An incision was made over the upper arm cephalic vein, just above the elbow. The Bovie electrocautery was used to dissect through the subcutaneous tissue. The cephalic vein was isolated and skeletonized. Vessel loops were placed around it. The incision was extended along the cephalic vein of the upper arm, up to the shoulder. The entire cephalic vein was dissected out. Branches were ligated and divided with 3-0 silk ties. Hemostasis was maintained. The deep subdermal layer of the incision was re-approximated using a running 3-0 Vicryl suture. A skin flap was created on the lateral part of the incision and some fat was removed. The subdermal layer was brought together with interrupted 3-0 Vicryl stitches. The incision was reapproximated with a running 4-0 Monocryl stitch. Surgical glue was applied. The hand was well perfused. The patient tolerated the procedure well. All instrument, sponge and needle counts were correct at the end of the case.
[2022-05-01 10:08] VITALS: BP 113/49; PULSE 59; RESP 18; TEMP 36.6; O2SAT 99
== END 2022-05-01 11:14 | disposition home or self-care (01) ==
PROVIDERS: Nurse Practitioner; PCP Internal Medicine; Visit Provider Transplant Surgery
PROC: (CPT 36831; principal; 2022-05-01 07:30)
DX: E11.22 Type 2 diabetes mellitus with diabetic chronic kidney disease (principal); I12.0 Hypertensive chronic kidney disease with stage 5 chronic kidney disease or end stage renal disease; N18.6 End stage renal disease; Z99.2 Dependence on renal dialysis; J30.2 Other seasonal allergic rhinitis; Z79.51 Long term (current) use of inhaled steroids; Z79.82 Long term (current) use of aspirin; Z79.899 Other long term (current) drug therapy
CPT/HCPCS: 36831; 36415; 80051; J0690; J2250; J2795; J3010

== ENCOUNTER → 2022-05-08 14:00 | Outpatient (BNVA) | payer OTHER, SELFPAY | PROVIDERS: PCP Internal Medicine; Visit Provider Internal Medicine Pulmonary Disease | DX: R05.9 Cough, unspecified (principal); K21.9 Gastro-esophageal reflux disease without esophagitis; J30.9 Allergic rhinitis, unspecified | CPT/HCPCS: 99202 ==

== ENCOUNTER 2022-09-02 10:25 | Outpatient (REF) | payer OTHER, SELFPAY ==
--- NOTE | 2022-09-02 18:09 | PFT_ITS ---
INDICATION: Cough. SPIROMETRY: FEV1 to FVC of 86% with an FEV1 of 2.39 L, which is 120% of predicted and FVC of 2.78 L, which is 107% of predicted. No significant response to bronchodilator is noted. Maximum voluntary ventilation is 96% of predicted. LUNG VOLUMES: Total lung capacity 101% of predicted with an expiratory residual volume of 57% of predicted. DIFFUSION CAPACITY: DLCO of 75% of predicted. Flow volume loop appears to be normal. COMPARISONS: None. INTERPRETATION: No obstructive nor restrictive ventilatory defects identified. No significant response to bronchodilator is noted. Normal maximum voluntary ventilation. Lung volumes are within normal limits. The patient, however, has a mild isolated diffusion impairment. Should correct for hemoglobin. If asthma is in the differential, methacholine challenge will be helpful in assessing for hyperactive airways, otherwise clinical correlation is warranted. MD MILES Jones/MODL / [id number]
== END 2022-09-02 10:26 | disposition home or self-care (01) ==
LOC: HO.RESP 10:25
PROVIDERS: PCP Internal Medicine; Visit Provider Internal Medicine Pulmonary Disease
DX: R05.9 Cough, unspecified (principal)
CPT/HCPCS: 94060; 94727; 94729

== ENCOUNTER → 2022-11-04 10:29 | Outpatient (BNVA) | payer OTHER, SELFPAY | PROVIDERS: PCP Internal Medicine; Visit Provider Internal Medicine Pulmonary Disease | DX: K21.9 Gastro-esophageal reflux disease without esophagitis (principal); R05.9 Cough, unspecified | CPT/HCPCS: 99212 ==

== ENCOUNTER 2023-01-20 15:04 | Outpatient (REF) | payer OTHER, SELFPAY ==
[2023-01-20 16:07] LABS: MANUAL DIFF FLAG NO
[2023-01-20 16:20] LABS: Basophils Absolute Auto 0.1 X10*3/uL (0.0-0.2); Basophils Percent Auto 1.2 % (0-2); Eosinophils Absolute Auto 0.3 X10*3/uL (0.0-0.4); Eosinophils Percent Auto 5.9 % (0-4); Hemoglobin 10.6 g/dl (12.0-16.0); Imm Gran Abs Auto 0.02 X10*3/uL (0.00-0.03); Imm Gran Pct Auto 0.4 % (0.0-0.4); Lymphocytes Absolute Auto 1.3 X10*3/uL (1.2-4.9); Lymphocytes Percent Auto 26.5 % (20-40); Mean Corpuscular HGB Conc 31.2 g/dl (31.0-35.0); Mean Corpuscular Hemoglobin 35.6 pg (27.0-33.0); Mean Platelet Volume 10.4 fL (9.4-12.3); Monocytes Absolute Auto 0.6 X10*3/uL (0.1-1.2); Monocytes Percent Auto 11.5 % (2-11); Neutrophils Absolute Auto 2.8 x10*3/uL (2.0-8.3); Neutrophils Percent Auto 54.5 % (45-73); Platelet Count 197 X10*3/uL (160-400); Red Blood Count 2.98 X10*6/uL (4.20-5.50); Red Cell Distribution Width 15.4 % (11.0-16.0); White Blood Count 5.1 X10*3/uL (4.8-10.8)
[2023-01-20 16:28] LABS: Mean Corpuscular Volume 114.1 fL (80.0-98.0)
[2023-01-20 17:37] LABS: B Type Natriuretic Peptide 249 pg/mL (<100)
[2023-01-20 18:37] LABS: Albumin Level 3.8 g/dL (3.5-5.0); Anion Gap 19 (12-20); Bilirubin Total 0.5 mg/dL (0.0-1.0); Blood Urea Nitrogen 26 mg/dL (9-16); Carbon Dioxide 30 mmol/L (22-29); Chloride 97 mmol/L (96-108); Glucose Random 81 mg/dL (60-115); Potassium 4.8 mmol/L (3.3-5.1); Sodium 141 mmol/L (135-145)
[2023-01-20 18:38] LABS: Alanine Aminotransferase 7 U/L (0-31); Alkaline Phosphatase 160 U/L (39-117); Aspartate Amino Transferase 12 U/L (5-31); Calcium 9.5 mg/dL (8.4-10.2); Iron 55 mcg/dL (30-160); Percent Iron Saturation 29 % (15-50); Total Iron Binding Capacity 191 mcg/dL (228-428); Total Protein 7.7 g/dL (6.5-8.0); Unsaturated Iron Binding 136 ug/dL
[2023-01-20 18:41] LABS: Estimated Glomerular Filt Rate 5
[2023-01-20 19:49] LABS: Ferritin 2411 ng/mL (10-250)
== END 2023-01-20 15:05 | disposition home or self-care (01) ==
LOC: HO.HHCL 15:04
PROVIDERS: Visit Provider Registered Nurse
DX: R20.0 Anesthesia of skin (principal); D50.9 Iron deficiency anemia, unspecified
CPT/HCPCS: 36415; 80053; 82728; 83540; 83880; 85025

== ENCOUNTER → 2023-02-17 13:35 | Outpatient (REF) | payer OTHER, SELFPAY ==
--- NOTE | 2023-02-17 13:39 | CA_ITS ---
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 The calculated ejection fraction is 67% by biplane method. - There is moderate tricuspid valve regurgitation. - Mild pulmonary hypertension is present. Findings Left Ventricle Normal left ventricular cavity size. There is mildly increased left ventricular wall thickness. The left ventricular systolic function is normal. The calculated ejection fraction is 67% by biplane method. There is no evidence of regional wall motion abnormalities. Severe focal hypertrophy of the basal septum. LV peak GLS -19.8%. Right Ventricle Normal right ventricular cavity size and systolic function. Atria Both atria are normal in size. Aortic Valve The aortic valve structure and function is likely normal. There is no aortic valve stenosis. There is no aortic valve regurgitation. Mitral Valve There is mild mitral annular calcification. There is no mitral valve regurgitation. There is no mitral valve stenosis. Pulmonic Valve The pulmonic valve is likely normal. Tricuspid Valve Normal tricuspid valve structure. There is moderate tricuspid valve regurgitation. Mild pulmonary hypertension is present. Great Vessels The asc aorta is normal in size. Venous The inferior vena cava is normal in size and collapses greater than 50% with inspiration. Pericardium/Pleural There is no evidence of pericardial effusion. Prior Study Comparison Changes noted compared to prior study dated: 06/28/2012. Progression of tricuspid regurgitation. Measurements 2D Linear Measurements IVSd: 1.67 0.6-0.9/0.6-1.0 cm LVIDd: 4.28 3.9-5.3/4.2-5.9 cm LVIDd Index: 2.21 2.4-3.2/2.2-3.1 cm/m2 LVIDs: 3.04 2.0-3.6 cm LVPWd: 1.12 0.7-1.1 cm LA Diam: 3.90 2.7-3.8/3.0-4.0 cm LAIDs Index: 2.01 1.5-2.3 cm/m2 LV Mass: 285.99 67-162/88-224 g LV Mass Index: 147.42 43-95/49-115 g/m2 LVOT Diam: 2.00 3.0+(-)1.3 cm 2D Systolic Function EF 4C: 66.30 >55% EF 2C: 66.80 >55% EF BiP: 66.90 >55% Mitral Valve MV VTI: 0.33 MV Pk Kai: 1.18 MV Mn Kai: 0.62 MV Pk Grad: 6.00 MV Mn Grad: 2.00 MV Pk E: 0.88 MV PK A: 0.84 MV Decel Time: 205.00 E/A: 1.10 E'Lateral: 6.64 E'Medial: 5.98 E/E' Med: 14.80 E/E' Lat: 13.30 PHT: 60.00 MVA PHT: 3.67 MVA Continuity: 2.71 Decel Gooding: 4.31 Aortic Valve AoV Pk Kai: 1.33 AoV Mn Kai: 0.89 AoV VTI: 0.32 AoV Pk Grad: 7.00 Aov Mn Grad: 4.00 RAGHAVENDRA Cont.VTI: 2.79 LVOT LVOT Pk Kai: 1.05 LVOT Mn Kai: 0.79 LVOT VTI: 0.28 LVOT Pk Grad: 4.00 LVOT Mn Grad: 3.00 LVOT Diam: 2.00 LVOT Area: 3.14 Diastolic Function MV Pk E: 0.88 MV Pk A: 0.84 E/A: 1.10 E'Medial: 5.98 E/E' Med: 14.80 E' Laterial: 6.64 E/E' Lat: 13.30 Right Ventricle TAPSE (mm): 17.80 TVS' Kai: 11.30 Tricuspid Valve TR Pk Kai: 2.97 TR Pk Grad: 35.00 RA Press: 8.00 RVSP: 43.00 Great Vessels Aorta Sinus of Valsalva: 3.05 2.0-3.5 cm Ao Asc: 3.20 2.1-3.4 cm Updated in Other Vendor System with Status of Final Mike Blake MD electronically signed on 02/18/2023 11:11:16 AM with status of Final
== END ==
LOC: HO.CARD 13:35
PROVIDERS: Visit Provider Registered Nurse
DX: R79.89 Other specified abnormal findings of blood chemistry (principal)
CPT/HCPCS: 93306; 93356

== ENCOUNTER → 2023-02-17 13:39 | Outpatient (BNV) | payer OTHER, SELFPAY | PROVIDERS: Visit Provider Internal Medicine | DX: I36.1 Nonrheumatic tricuspid (valve) insufficiency (principal) | CPT/HCPCS: 93306 ==

== ENCOUNTER 2023-02-23 13:34 | Outpatient (REF) | payer OTHER, SELFPAY | END 2023-02-23 13:35 | disposition home or self-care (01) | LOC: HO.MAMMO 13:34 | PROVIDERS: PCP Internal Medicine; Visit Provider Internal Medicine | DX: Z12.31 Encounter for screening mammogram for malignant neoplasm of breast (principal) | CPT/HCPCS: 77063; 77067 ==

== ENCOUNTER → 2023-02-23 14:00 | Outpatient (BNV) | payer OTHER, SELFPAY | PROVIDERS: PCP Internal Medicine; Visit Provider Radiology Diagnostic Radiology | DX: Z12.31 Encounter for screening mammogram for malignant neoplasm of breast (principal) | CPT/HCPCS: 77063; 77067 ==

== ENCOUNTER 2023-03-25 13:17 | Outpatient (REF) | payer OTHER, SELFPAY ==
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
== END 2023-03-25 13:18 | disposition home or self-care (01) ==
LOC: HO.CT 13:17
PROVIDERS: PCP Internal Medicine; Visit Provider Registered Nurse
DX: R51.9 Headache, unspecified (principal)
CPT/HCPCS: 70450

== ENCOUNTER 2023-03-31 14:34 | Outpatient (AMB) | payer OTHER, SELFPAY ==
--- NOTE | 2023-03-31 14:27 | A.OFFVIS_ITS ---
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 She has a history of hemodialysis and actually had a fistula placed by Dr. Rojas in April of 2022. She is currently being dialyzed through this left upper extremity fistula. Appears to be doing relatively well with that. She reports some pain and discomfort while ambulating distances. She now presents to us for vascular evaluation. Of note she does have a prior history of back pain as well peer [facility] Medical History Dyspnea on exertion Bilateral hearing loss Hyperparathyroidism Seasonal allergies DM type 2 (diabetes mellitus, type 2) Dependence on renal dialysis On beta carly at home History of hyperkalemia ESRD (end stage renal disease) on dialysis Elevated cholesterol GERD (gastroesophageal reflux disease) Depression HTN (hypertension) Surgical History S/P arteriovenous (AV) fistula creation History of cataract extraction H/O colonoscopy Family History Other FH: HTN (hypertension) Social History Are you a primary child care attendant to a significant other at home: No Do you presently have visiting nurse or other home services: 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[employer], [employer]) Patient Tobacco Use Status: Never used Tobacco service: No Current occupational status: unemployed Review of Systems Const All systems reviewed & are unremarkable except as noted in HPI and below Reports no additional complaints ENT Reports Normal hearing present Card Denies chest pain, Denies chest pain at rest, Denies chest pain with activity and Denies pedal edema Resp Denies cough GI Denies abdominal pain Musc Denies abnormal gait, Denies muscle cramps and Denies radiating pain into limb Skin/Breast Denies skin ulcer and Denies wounds Neuro Reports Normal hearing present and Denies abnormal gait Psych Reports no additional complaints Physical Exam Vital Signs: BMI result Body Mass Index 38.6 Const General: cooperative, healthy appearing and comfortable Orientation/consciousness: oriented to person, oriented to place and oriented to time HEENT Head: Yes normal to inspection Neck Neck: Yes normal visual inspection Carotids: no bruits Chest Chest palpation & inspection: normal inspection of the chest Resp Effort & Inspection: normal respiratory effort and able to speak in complete sentences Auscultation: clear to auscultation bilaterally, no crackles, no rales, no rhonchi and no wheezes Cardio Other: Palpable DP bilateral Rate: regular rate Rhythm: regular rhythm Heart sounds: S1 normal heart sound present and S2 normal heart sound present Bruits: no carotid bruits Peripheral pulses: Peripheral pulses 2+ throughout GI Inspection: Yes normal to inspection Skin Wounds: no wounds Hair: normal Neuro General: oriented to person, oriented to place and oriented to time Cranial nerves: Yes CN's II-XII intact bilaterally and Yes Normal hearing present Cognition (Neuro): normal cognition Motor exam (neuro): 5/5 motor strength present throughout Extrem Other: venous exam: No significant superficial varicosities or spider telangiectasias, minimal edema General: No clubbing, No cyanosis and No edema Psych Appearance: grossly normal Mental Status: mental status grossly normal Speech and movement: Normal speech and movement present Assessment & Plan Assessment & Plan (1) PAD (peripheral artery disease): Code(s): I73.9 - Peripheral vascular disease, unspecified Plan: In short patient has claudication. I did review the pathophysiology of peripheral vascular disease with the patient. In addition we did discuss routine conservative measures including a healthy diet and the importance of exercise and ambulation. We did discuss risk factor modification. I have taken the liberty of ordering noninvasive arterial testing. The patient will follow up with us after testing. Thank you for allowing us to participate in this patient's care. If there are any questions or concerns please do not hesitate to contact us. Orders: Orders US arterial duplex LE BI 1 Week I73.9 - Peripheral vascular disease, unspecified Coding Level of Care Code New Pt Level 4 (38270) Diagnoses PAD (peripheral artery disease) I73.9
[2023-03-31 14:31] VITALS: BMI 38.6
== END 2023-03-31 15:02 | disposition home or self-care (01) ==
LOC: HO.HVS 14:34
PROVIDERS: PCP Internal Medicine; Visit Provider Surgery Vascular Surgery
DX: I73.9 Peripheral vascular disease, unspecified (principal)
CPT/HCPCS: 99203

== ENCOUNTER → 2023-03-31 14:34 | Outpatient (BNVA) | payer OTHER, SELFPAY | PROVIDERS: PCP Internal Medicine; Visit Provider Surgery Vascular Surgery ==

== ENCOUNTER 2023-04-23 10:05 | Outpatient (REF) | payer OTHER, SELFPAY ==
--- NOTE | 2023-04-23 10:09 | EMG_ITS ---
FINDINGS: Bilateral tibial and peroneal motor studies were performed. Bilateral superficial peroneal, sural, median, and lateral plantar sensory studies were performed. Tibial H reflexes were obtained and paraspinal muscles were tested with a needle. IMPRESSION: 1. 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 2. Chronic bilateral mid lumbar radiculopathy. MD EARL Vogel/ROSSI / [id number]
== END 2023-04-23 10:06 | disposition home or self-care (01) ==
LOC: HO.NEURO 10:05
PROVIDERS: Visit Provider Registered Nurse
DX: R20.0 Anesthesia of skin (principal)
CPT/HCPCS: 95886; 95913

== ENCOUNTER 2023-05-04 14:21 | Outpatient (AMB) | payer OTHER, SELFPAY ==
--- NOTE | 2023-05-04 14:43 | MHC.OFFVIS ---
Intake Vital Signs 05/04/23 14:45 Height 5 ft 2 in Weight 212 lb 8.41 oz BMI 38.9 BP 150/58 H Blood Pressure Location Rt brachial Position Sitting Pulse 71 Intake Visit Reasons: NPV/BNP/E. Angy David Intake Note: NPV w/ EKG Tail Board Worker Required: Yes Tail Board Worker Language: Counter Former Name: Lorie [id number] Accompanied by: Family/Other Allergies No Known Allergies Allergy (Mild, Verified 05/04/23 14:46) NONE Medication List - Last Reconciled 05/04/23 by Mike Blake MD acetaminophen 1,000 mg PO TID PRN albuterol sulfate 90 mcg/actuation 2 puffs inhalation Q4-6H PRN 30 days amlodipine 10 mg PO DAILY aspirin 81 mg PO DAILY atorvastatin 40 mg PO BEDTIME calcitriol 0.25 mcg PO MOWEFR cetirizine 10 mg PO DAILY citalopram (Celexa) 20 mg PO DAILY dexlansoprazole (Dexilant) 60 mg PO DAILY 30 days fluticasone propionate 50 mcg/actuation 1 spray intranasal BID 30 days gabapentin 300 mg PO BEDTIME hydralazine 25 mg PO BID metoprolol tartrate 50 mg PO BID HPI HPI Comments History of Present Illness Details Rosalba has been referred for question of elevated cardiac BNP. Patient herself does not know why she is here. She denies any cardiac history including coronary disease myocardial infarction or cardiomyopathy. She has multiple cardiovascular factors including diabetes, hypertension, dyslipidemia, ESRD on hemodialysis. She states that she can get symptoms of chest tightness in a random fashion. Can happen with and without activity. Can happen during dialysis. Not clear this on the anginal or related to renal failure/fluid retention. [facility] Medical History (Updated 05/04/23 @ 15:21 by Mike Blake MD) Dyspnea on exertion Bilateral hearing loss Hyperparathyroidism Seasonal allergies DM type 2 (diabetes mellitus, type 2) Dependence on renal dialysis On beta carly at home History of hyperkalemia ESRD (end stage renal disease) on dialysis Elevated cholesterol GERD (gastroesophageal reflux disease) Depression HTN (hypertension) Surgical History S/P arteriovenous (AV) fistula creation History of cataract extraction H/O colonoscopy Family History (Updated 05/04/23 @ 14:48 by Yohana Bridges) Mother FH: HTN (hypertension) Father Cancer Social History Are you a primary healthcare administrator to a significant other at home: No Do you presently have visiting nurse or other home services: 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 (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, 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) Patient Tobacco Use Status: Never used Tobacco service: No Current occupational status: unemployed Review of Systems Const Denies chills, Denies daytime sleepiness, Denies fatigue, Denies fever(s), Denies frequent falls, Denies night sweats, Denies snoring, Denies weakness, Denies weight gain and Denies weight loss Eyes Denies loss of vision ENT Denies dizziness and Denies hearing loss Card Denies chest pain, Denies chest pain with activity, Denies syncope, Denies rapid heart rate, Denies edema, Denies claudication, Denies leg edema, Denies lightheadedness, Denies palpitations, Denies dyspnea, Denies dyspnea on exertion and Denies orthopnea Resp Denies cough, Denies excessive phlegm production, Denies dyspnea, Denies dyspnea on exertion, Denies snoring and Denies wheezing GI Denies abdominal pain, Denies hematochezia, Denies change in bowel habits, Denies change in stool character, Denies heartburn, Denies nausea and Denies vomiting Denies hematuria, Denies urinary frequency and Denies dysuria Musc Denies arthralgias, Denies muscle weakness, Denies numbness and Denies tingling Skin/Breast Denies nail changes and Denies rash Neuro Denies Abnormal speech present, Denies dizziness, Denies syncope, Denies frequent falls, Denies loss of vision, Denies memory loss, Denies numbness, Denies tingling and Denies weakness Psych Denies depression and Denies memory loss Endo Denies fatigue and Denies palpitations Aller/Immun Denies wheezing Physical Exam Vital Signs: Last Vital Signs Pulse 71 05/04/23 14:45 BP 150/58 H 05/04/23 14:45 BMI result Body Mass Index 38.9 Const General: comfortable and no acute distress Orientation/consciousness: patient oriented x3 HEENT Other: Unremarkable Head: Yes normal to inspection Neck Neck: Yes normal visual inspection Chest Chest palpation & inspection: normal inspection of the chest Resp Auscultation: clear to auscultation bilaterally Cardio Palpation: normal PMI Heart sounds: S1 normal heart sound present, S2 normal heart sound present, no gallops, no murmurs and no rubs GI Palpation (GI): Soft to palpation Back/Spine/Pelvis Other: unremarkable Skin General skin exam: no rashes or lesions noted Neuro General: patient oriented x3 Speech: No Abnormal speech present Extrem General: Yes normal to inspection Psych Mental Status: mental status grossly normal Office Procedures EKG Details: EKG with sinus rhythm at 71/Min; sinus arrhythmia; CT prolongation to 214 millisecond; [place]. [id number], Complete Assessment & Plan Assessment & Plan (1) Chest tightness: Code(s): R07.89 - Other chest pain (2) Elevated brain natriuretic peptide (BNP) level: Code(s): R79.89 - Other specified abnormal findings of blood chemistry (3) ESRD (end stage renal disease) on dialysis: Comment: Right Permacat 06/2021 Code(s): N18.6 - End stage renal disease; Z99.2 - Dependence on renal dialysis (4) Nonrheumatic tricuspid (valve) insufficiency: Code(s): I36.1 - Nonrheumatic tricuspid (valve) insufficiency (5) Pulmonary hypertension: Code(s): I27.20 - Pulmonary hypertension, unspecified Plan Echocardiogram with LVEF of 67%. Basal septal hypertrophy. Normal peak global longitudinal strain. Moderate tricuspid regurgitation and mild pulmonary hypertension. Cardiac BNP level slightly high at 249. This could be just related to renal failure. Due to history of ESRD/HD as well as multiple risk factors, needs further assessment for ischemic heart disease - considering the fact she also describes chest tightness intermittently. Hence we can proceed with pharmacological stress perfusion imaging study. Based on the findings, plan further care. With regard to tricuspid regurgitation, no specific management. Intervascular volume status may also play a role. Follow-up after testing. Orders: Orders CA lexiscan stress w ginny Today I20.9 - Angina pectoris, unspecified NM cardiolite stress test Today R07.2 - Precordial pain Coding Level of Care Code New Pt Level 4 (09325) Diagnoses Chest tightness R07.89 Elevated brain natriuretic peptide (BNP) level R79.89 ESRD (end stage renal disease) on dialysis N18.6; Z99.2 Nonrheumatic tricuspid (valve) insufficiency I36.1 Pulmonary hypertension I27.20 CPT Codes EKG - CPT: [id number], Complete ([id number])
[2023-05-04 14:45] VITALS: BP 150/58; PULSE 71; BMI 38.9
== END 2023-05-04 15:30 | disposition home or self-care (01) ==
PROVIDERS: PCP Internal Medicine; Visit Provider Internal Medicine
DX: R07.89 Other chest pain (principal); R79.89 Other specified abnormal findings of blood chemistry; N18.6 End stage renal disease; Z99.2 Dependence on renal dialysis; I36.1 Nonrheumatic tricuspid (valve) insufficiency; I27.20 Pulmonary hypertension, unspecified
CPT/HCPCS: 93010; 99214

== ENCOUNTER → 2023-05-04 14:21 | Outpatient (BNVA) | payer OTHER, SELFPAY | PROVIDERS: PCP Internal Medicine; Visit Provider Internal Medicine | DX: R07.89 Other chest pain (principal); R79.89 Other specified abnormal findings of blood chemistry; I36.1 Nonrheumatic tricuspid (valve) insufficiency; I27.20 Pulmonary hypertension, unspecified; N18.6 End stage renal disease; Z99.2 Dependence on renal dialysis | CPT/HCPCS: 93005; 99212 ==

== ENCOUNTER 2023-05-07 12:54 | Outpatient (REF) | payer OTHER, SELFPAY ==
--- NOTE | ~2023-05-07 | XR_ITS ---
EXAMINATION: XR THORACIC SPINE XR RIGHT RIBS CLINICAL INFORMATION: Acute bilateral thoracic back pain, fell. Patient states that her pain is right posterior ribs. COMPARISON: Chest of 07/14/2019. TECHNIQUE: 3 views of the thoracic spine. 3 views of the right ribs. FINDINGS: RIGHT RIBS: There is no gross pneumothorax. Lung volumes are low. Stable cardiomediastinal silhouette. Heart size within normal limits. No displaced right rib fracture appreciated; however, visualization of the more inferior right ribs is limited due to overlying body habitus. THORACIC SPINE: Dextroscoliosis of the thoracic spine with multilevel degenerative changes. Degenerative changes on limited views of the cervical spine. XR/XR ribs RT min 3V w CXR1V IMPRESSION: 1. No displaced right rib fracture appreciated, however, visualization of the more inferior right ribs is limited due to overlying body habitus. 2. Dextroscoliosis of the thoracic spine with progression of advanced multilevel degenerative changes. CT scan should be considered for further evaluation if there is concern for fracture or other pathology.
--- NOTE | ~2023-05-07 | XR_ITS ---
EXAMINATION: XR THORACIC SPINE XR RIGHT RIBS CLINICAL INFORMATION: Acute bilateral thoracic back pain, fell. Patient states that her pain is right posterior ribs. COMPARISON: Chest of 07/14/2019. TECHNIQUE: 3 views of the thoracic spine. 3 views of the right ribs. FINDINGS: RIGHT RIBS: There is no gross pneumothorax. Lung volumes are low. Stable cardiomediastinal silhouette. Heart size within normal limits. No displaced right rib fracture appreciated; however, visualization of the more inferior right ribs is limited due to overlying body habitus. THORACIC SPINE: Dextroscoliosis of the thoracic spine with multilevel degenerative changes. Degenerative changes on limited views of the cervical spine. XR/XR thoracic spine 2V IMPRESSION: 1. No displaced right rib fracture appreciated, however, visualization of the more inferior right ribs is limited due to overlying body habitus. 2. Dextroscoliosis of the thoracic spine with progression of advanced multilevel degenerative changes. CT scan should be considered for further evaluation if there is concern for fracture or other pathology.
== END 2023-05-07 12:55 | disposition home or self-care (01) ==
LOC: HO.HHCX 12:54
PROVIDERS: Visit Provider Internal Medicine
DX: M54.6 Pain in thoracic spine (principal); R07.81 Pleurodynia; Z91.81 History of falling
CPT/HCPCS: 71101; 72070

== ENCOUNTER 2023-06-16 10:08 | Outpatient (REF) | payer OTHER, SELFPAY ==
[2023-06-16 11:44] LABS: Cholesterol 146 mg/dL (<200); HDL Cholesterol 43 mg/dL (>40); LDL Cholesterol Calculated 80 mg/dL (<100); Triglycerides 118 mg/dL (<150)
[2023-06-16 14:13] LABS: Reflex LDLD? No
[2023-06-18 02:59] LABS: Rubella IgG Antibody <0.90 Index; Rubeola IgG (Measles) >300.00 AU/mL
[2023-06-18 19:09] LABS: TS Negative Control Passed; TS Panel A 0; TS Panel B 0; TS Positive Control Passed; TSpotTB Negative (Negative)
== END 2023-06-16 10:09 | disposition home or self-care (01) ==
LOC: HO.HHCL 10:08
PROVIDERS: Visit Provider Internal Medicine
DX: Z00.00 Encounter for general adult medical examination without abnormal findings (principal)
CPT/HCPCS: 36415; 80061; 86481; 86735; 86762; 86765

== ENCOUNTER → 2023-06-18 08:45 | Outpatient (REF) | payer OTHER, SELFPAY ==
--- NOTE | ~2023-06-18 | NM_ITS ---
Lexiscan Myocardial perfusion study Indication: Chest pain, assess for coronary disease and ischemia Technique: The patient was brought in for a Lexiscan perfusion study on 06/18/2023 and was injected 0.4 mg of Lexiscan intravenously. Within a minute of this injection 35 mCi of sestamibi was given intravenously. Images were obtained using the SPECT gamma camera interlaced with the gating device. Images were obtained in supine position. Resting perfusion study was performed on 06/23/2023. Patient was administered 35 mCi of sestamibi intravenously at rest. Images were then obtained in supine position. Images were processed with the software and compared side to side in short axis, horizontal long axis and vertical long axis views. Total DLP 163mGy-cm. Findings: Raw acquisition reviewed. Arms by the patient's side. The stress perfusion study showed diminished tracer uptake along the lateral wall. There is improvement with CT attenuation correction seen just to of soft tissue attenuation artifact. The gated study shows normal LV systolic function with calculated LVEF of 69%. LV cavity is normal in size. The gated study shows normal wall thickening and contraction of segments. Resting study shows diminished tracer uptake along the lateral wall. There is improvement with CT attenuation correction suggestive of soft tissue attenuation artifact. Gating at rest not performed due to arrhythmia-PVCs. The findings are consistent with fixed lateral defect suspected to be from soft tissue attenuation artifact. No reversible defects. NM/NM cardiolite stress test Impression: 1. Myocardial perfusion imaging study shows likely normal myocardial perfusion. 2. Gated LVEF is 69% during stress. EKG component of the test reported separately.
--- NOTE | 2023-06-18 08:47 | CA_ITS ---
Acquisition Time: 2023-06-18 08:57:00 Total Exercise Time: 00:02:00 Test Indications: CHEST PAIN Medications: AMLODIPINE ALBUTEROL Protocol: LEXISCAN Max HR: 100 BPM 68% of Pred: 146 BPM Max BP: 142/050 mmHG Max Work Load: 1.0 METS Pharmacological stress test with Lexiscan injection while sitting and kicking her legs, without anginal symptoms, with isolated PVCs, with normotensive response to injection, with nondiagnosiitic EKGs. Aminophylline 75mg IVP given to reverse Lexiscan. Nuclear images pending. Test reviewed with Dr. Gonzalez Referred By: Mike Blake Overread By: Jenise Abreu
== END ==
LOC: HO.CARD 08:45
PROVIDERS: PCP Internal Medicine; Visit Provider Internal Medicine
DX: R07.2 Precordial pain (principal); I20.9 Angina pectoris, unspecified
CPT/HCPCS: 78452; 93017; A9500; J0280; J2785

== ENCOUNTER → 2023-06-18 08:47 | Outpatient (BNV) | payer OTHER, SELFPAY | PROVIDERS: PCP Internal Medicine; Visit Provider Nurse Practitioner | DX: I20.9 Angina pectoris, unspecified (principal) | CPT/HCPCS: 78452; 93016; 93018 ==

== ENCOUNTER 2023-07-21 13:21 | Outpatient (AMB) | payer OTHER, SELFPAY ==
--- NOTE | 2023-07-21 13:23 | MHC.OFFVIS ---
Intake Vital Signs 07/21/23 13:24 Height 5 ft 2 in Weight 205 lb 14.588 oz BMI 37.7 BP 120/60 Blood Pressure Location Rt brachial Position Sitting Pulse 67 Pulse Source Pulse Oximeter Intake Visit Reasons: 2 mth s/p alicia/ HS Intake Note: 2mnth s/p alicia/hs/ pt its feeling some numbness on the feet. and some chest pressure when she takes her dialysis. Heavy Equipment Rental Associate Required: Yes Heavy Equipment Rental Associate Name: sonya Accompanied by: Employee Allergies No Known Allergies Allergy (Mild, Verified 07/21/23 13:36) NONE Medication List - Last Reconciled 07/21/23 by Jenise Abreu NP acetaminophen 1,000 mg PO TID PRN albuterol sulfate 90 mcg/actuation 2 puffs inhalation Q4-6H PRN 30 days amlodipine 10 mg PO DAILY aspirin 81 mg PO DAILY atorvastatin 40 mg PO BEDTIME calcitriol 0.25 mcg PO MOWEFR cetirizine 10 mg PO DAILY citalopram (Celexa) 20 mg PO DAILY dexlansoprazole (Dexilant) 60 mg PO DAILY fluticasone propionate 50 mcg/actuation 1 spray intranasal BID gabapentin 300 mg PO BEDTIME hydralazine 25 mg PO BID metoprolol tartrate 50 mg PO BID HPI HPI Comments History of Present Illness Details 72-year-old female presents today for a follow-up after a pharmacological stress test. Certified mixer whipped topping used. She states she gets the occasional tightness in her chest still. She notices it most at diayisis when her blood pressure is high. She states she gets occasional palpitations also which sometimes occur with the chest tightness - patient vague on descriptions. She report an occasional shortness of breath but states her albuterol helps each time. She reports compliance with her medications. [facility] Medical History Dyspnea on exertion Bilateral hearing loss Hyperparathyroidism Seasonal allergies DM type 2 (diabetes mellitus, type 2) Dependence on renal dialysis On beta carly at home History of hyperkalemia ESRD (end stage renal disease) on dialysis Elevated cholesterol GERD (gastroesophageal reflux disease) Depression HTN (hypertension) Surgical History S/P arteriovenous (AV) fistula creation History of cataract extraction H/O colonoscopy Family History Mother FH: HTN (hypertension) Father Cancer Social History Are you a primary animal care supervisor to a significant other at home: No Do you presently have visiting nurse or other home services: 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, 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) Patient Tobacco Use Status: Never used Tobacco service: No Current occupational status: unemployed Review of Systems Const Reports chills, Reports fatigue, Reports fever(s), Reports frequent falls, Reports weakness, Reports weight gain and Reports weight loss ENT Reports dizziness Card Reports chest pain, Reports leg edema, Reports lightheadedness, Reports palpitations, Reports dyspnea and Reports dyspnea on exertion Resp Reports cough, Reports dyspnea and Reports dyspnea on exertion GI Reports hematochezia Musc Reports abnormal gait, Reports muscle weakness, Reports numbness, Reports radiating pain into limb and Reports tingling Neuro Reports abnormal gait, Reports dizziness, Reports frequent falls, Reports numbness, Reports tingling and Reports weakness Endo Reports fatigue and Reports palpitations Physical Exam Vital Signs: Last Vital Signs Pulse 67 07/21/23 13:24 BP 120/60 07/21/23 13:24 BMI result Body Mass Index 37.7 Results Reviewed Results Reviewed: Cardioloite stress test: 1. Myocardial perfusion imaging study shows likely normal myocardial perfusion. 2. Gated LVEF is 69% during stress. Assessment & Plan Assessment & Plan (1) Palpitations: Code(s): R00.2 - Palpitations (2) Chest tightness: Code(s): R07.89 - Other chest pain Plan Will obtain 3 day holter to see if chest tightness occur with palpitations. Will call [facility] diaylsis to get further information on these episodes. Continue current medications at this time. ED care if needed. Orders: Orders ECG 3 day holter monitor 07/21/23 R00.2 - Palpitations Coding Level of Care Code Est Pt Level 3 (73322) Diagnoses Palpitations R00.2 Chest tightness R07.89
[2023-07-21 13:24] VITALS: BP 120/60; PULSE 67; BMI 37.7
== END 2023-07-21 13:57 | disposition home or self-care (01) ==
PROVIDERS: PCP Internal Medicine; Visit Provider Nurse Practitioner
DX: R00.2 Palpitations (principal); R07.89 Other chest pain
CPT/HCPCS: 99213

== ENCOUNTER → 2023-07-21 13:21 | Outpatient (BNVA) | payer OTHER, SELFPAY | PROVIDERS: PCP Internal Medicine; Visit Provider Nurse Practitioner | DX: R00.2 Palpitations (principal); R07.89 Other chest pain | CPT/HCPCS: 99212 ==

== ENCOUNTER 2023-07-24 12:45 | Outpatient (AMB) | payer OTHER, SELFPAY ==
--- NOTE | 2023-07-24 12:50 | MHC.OFFVIS ---
Intake Vital Signs 07/24/23 13:03 Height 5 ft 2 in Weight 207 lb 8 oz BMI 37.9 BP 116/56 L Blood Pressure Location Rt brachial Position Sitting Pulse 59 Pulse Source Pulse Oximeter Pulse Oximetry (%) 96 Oxygen Delivery Method Room Air Intake Visit Reasons: Back & leg pain Intake Note: Pain today 03/08 Assistant To The Dean Required: Yes Assistant To The Dean Language: Podiatric Foot And Ankle Specialist Name: Orville Choudhary; Bety Accompanied by: Daughter Allergies No Known Allergies Allergy (Mild, Verified 07/21/23 13:36) NONE HPI Back & leg pain HPI Details Patient is a pleasant 72 years old Guinean speaking female with a history of peripheral vascular disease with claudication, obesity, type 2 diabetes, depression, ESRD with current hemodialysis via left AV fistula placed by Dr. Rojas in April of 2022, presents today for initial evaluation of lower back pain that radiates to both legs without specific dermatome distribution. Reports increase in low back pain since fall in April 2023. She completed thoracic xray at that time which showed no displaced right rib fracture appreciated with limited visualization of the more inferior right ribs is limited due to overlying body habitus and dextroscoliosis of the thoracic spine with progression of advanced multilevel degenerative changes. She does not have localized tenderness in thoracic midline or paraspinal areas as well as no tenderness in the projections of right thoracic rib cage and intercostal nerve distribution. Patient was seen once by [facility] V[facility] services last March 2023 with pending US arterial duplex which has not been scheduled yet per patient and her family. Reports axial low back pain significantly aggravated with lumbar extension and moderately with bending forward. Pain increases with walking or movements associated with numbness and cramping in her bilateral lower extremities. She completed a course of physical therapy last year and starts another PT course next month for low back pain. She is not sure she can attend all PT sessions due to being dialyzed three times per week. Denies previous spine injections or surgery. Pain is constant and affects her daily activities, functioning, sleep, social activities, mood and quality of life. She has been managing her symptoms with extra strength Tylenol, gabapentin, heat therapy, and activity modifications with continued symptoms. Denies any fever, abdominal or groin pain, weakness, foot drop, bladder or bowel incontinence or saddle anesthesia. Reports bilateral lower extremity pain with ambulation. Location Lower back radiates down bilateral legs Duration Chronic pain >1 year, increase since fall 04/2023 Characteristics of symptom or complaint Aching, numbness, cramps, sore, dull, heavy, spasming Aggravating or associated factors Walking, movement, cold weather changes Relieving factors Heat therapy, Tylenol, gabapentin Treatment Completed PT last year, restarts PT next month PFS Medical History Dyspnea on exertion Bilateral hearing loss Hyperparathyroidism Seasonal allergies DM type 2 (diabetes mellitus, type 2) Dependence on renal dialysis On beta carly at home History of hyperkalemia ESRD (end stage renal disease) on dialysis Elevated cholesterol GERD (gastroesophageal reflux disease) Depression HTN (hypertension) Surgical History S/P arteriovenous (AV) fistula creation History of cataract extraction H/O colonoscopy Family History Mother FH: HTN (hypertension) Father Cancer Social History Are you a primary respite care provider to a significant other at home: No Do you presently have visiting nurse or other home services: Yes (SCANNING MANAGER, [facility]) Patient Tobacco Use Status: Never used Tobacco service: No Current occupational status: unemployed Review of Systems Const All systems reviewed & are unremarkable except as noted in HPI and below Physical Exam Vital Signs: Last Vital Signs Pulse 59 07/24/23 13:03 BP 116/56 L 07/24/23 13:03 Pulse Ox 96 07/24/23 13:03 Oxygen Delivery Method Room Air 07/24/23 13:03 BMI result Body Mass Index 37.9 General: Appears afebrile. Alert and oriented. Mood and affect appropriate. Follows and participates in conversation appropriately. Respiratory effort is unlabored. No cough. Wears facemask. Able to transition from sit to stand unassisted. Uses cane with ambulation. Ambulates with bilaterally normal heel strike and toe off. Chest Other: No tenderness to palpation in the right thoracic cage along thoracic intercostal nerves distribution. Back/Spine/Pelvis Other: Lumbar extension and flexion reproduce significant pain. Facet loading is positive bilaterally. Limited Herbert's and Stinchfield tests reproduce low back and lateral hip pain bilaterally. Demonstrates 5/5 strength of quadriceps bilaterally as well as flexion/dorsiflexion of bilateral feet against resistance. 2+ pedal pulses bilaterally. Seated straight leg rise with dorsiflexion negative bilaterally. Diminished patellar and achilles reflexes bilaterally. Facet loading test positive bilaterally. No groin pain with I/E hip rotations. Valsalva maneuver negative. Cervical Spine: cervical ROM normal, cervical muscular tenderness, No Cervical spine scars present and No Cervical spine tenderness Thoracic/Lumbar Spine: thoracic and lumbar spine normal to inspection, No Thoracic/lumbar spine scar(s), Lasegue's sign negative, straight leg raise negative bilaterally, pain with thoraco-lumbar ROM, paraspinal muscle tenderness, thoraco-lumbar ROM limited, Thoracic/lumbar scoliosis, No thoracic spinal tenderness and lumbar spinal tenderness (L4-S1) Pelvis: no buttock tenderness Sacroiliac joints: bilaterally tender to palpation Results Reviewed Results Reviewed: XR THORACIC SPINE XR RIGHT RIBS 05/07/23 CLINICAL INFORMATION: Acute bilateral thoracic back pain, fell. Patient states that her pain is right posterior ribs. COMPARISON: Chest of 07/14/2019. TECHNIQUE: 3 views of the thoracic spine. 3 views of the right ribs. FINDINGS: RIGHT RIBS: There is no gross pneumothorax. Lung volumes are low. Stable cardiomediastinal silhouette. Heart size within normal limits. No displaced right rib fracture appreciated; however, visualization of the more inferior right ribs is limited due to overlying body habitus. THORACIC SPINE: Dextroscoliosis of the thoracic spine with multilevel degenerative changes. Degenerative changes on limited views of the cervical spine. IMPRESSION: 1. No displaced right rib fracture appreciated, however, visualization of the more inferior right ribs is limited due to overlying body habitus. 2. Dextroscoliosis of the thoracic spine with progression of advanced multilevel degenerative changes. CT scan should be considered for further evaluation if there is concern for fracture or other pathology. DEXA axial skeleton 12/19/21 IMPRESSION: 1. DIAGNOSIS: Normal bone density based on the lowest T-score value of -0.8 in the femoral neck applying World Health Organization criteria. 2. 10-YEAR FRACTURE RISK PREDICTION, FRAX: Major osteoporotic fracture (clinical spine, forearm, hip or shoulder) 6.9%. Hip fracture 1.7%. Assessment & Plan Assessment & Plan (1) Lumbar degenerative disc disease: Code(s): M51.36 - Other intervertebral disc degeneration, lumbar region (2) Lumbosacral spondylosis: Code(s): M47.817 - Spondylosis without myelopathy or radiculopathy, lumbosacral region (3) Chronic low back pain: Code(s): M54.50 - Low back pain, unspecified; G89.29 - Other chronic pain (4) PVD (peripheral vascular disease) with claudication: Code(s): I73.9 - Peripheral vascular disease, unspecified Plan 1. Patient encouraged to follow up with Vascular services after completion of US arterial duplex. I will re-order this test as this has not been scheduled since March 2023. 2. Lumbar spine imaging to assess degree of degenerative changes, any subluxation, listhesis, compression fractures or pars defects. 3. Discussed interventional treatments for axial low back pain, including diagnostic vs therapeutic injections, PNS trial, RFA procedures. Informational pamphlets provided in [place]an. Will tentatively schedule Diagnostic Bilateral L3-L4-L5 MBBs with local and fluoroscopy. Expectations, risks and benefits were reviewed. Patient is aware she will be contacted to schedule this procedure. 4. Script provided for lidocaine patches per patient's request. All questions were answered and the patient is in agreement of plan. Follow-up for xray/injections and sooner as needed. Orders: Orders US arterial duplex LE BI 07/24/23 I73.9 - Peripheral vascular disease, unspecified XR lumbar spine 4V min 07/24/23 M47.817 - Spondylosis without myelopathy or radiculopathy, lumbosacral region, M51.36 - Other intervertebral disc degeneration, lumbar region Medications: New lidocaine 5% 1 patch topical DAILY 30 days 30 ea 0RF pain M47.817 - Spondylosis without myelopathy or radiculopathy, lumbosacral region, M51.36 - Other intervertebral disc degeneration, lumbar region Coding Level of Care Code New Pt Level 4 (06080) Diagnoses Lumbar degenerative disc disease M51.36 Lumbosacral spondylosis M47.817 Chronic low back pain M54.50; G89.29 PVD (peripheral vascular disease) with claudication I73.9
[2023-07-24 13:03] VITALS: BP 116/56; PULSE 59; O2SAT 96; BMI 37.9
== END 2023-07-24 13:32 | disposition home or self-care (01) ==
PROVIDERS: PCP Internal Medicine; Visit Provider Nurse Practitioner Family
DX: M51.36 Other intervertebral disc degeneration, lumbar region (principal); M47.817 Spondylosis without myelopathy or radiculopathy, lumbosacral region; M54.50 Low back pain, unspecified; G89.29 Other chronic pain; I73.9 Peripheral vascular disease, unspecified
CPT/HCPCS: 99204

== ENCOUNTER 2023-07-24 12:45 | Outpatient (REF) | payer OTHER, SELFPAY ==
--- NOTE | ~2023-07-24 | XR_ITS ---
EXAMINATION: XR LUMBOSACRAL SPINE WITH OBLIQUES CLINICAL INFORMATION: Spondylosis, low back pain. COMPARISON: 03/06/2015 TECHNIQUE: 5 views of the lumbar spine. FINDINGS: Redemonstration of IUD overlying the upper sacrum. Increased coarse calcifications in the right hemipelvis, possibly representing fibroids, which could be confirmed with pelvic ultrasound. Progression of advanced multilevel degenerative changes in the lumbar spine with loss of disc space height and hypertrophic change [id number] at L4-L5. Facet arthritis in the lower lumbar spine. The bones are diffusely demineralized. Mild loss of height of T12 vertebral body with degenerative changes. XR/XR lumbar spine 4V min IMPRESSION: 1. Progression of advanced multilevel degenerative changes in the lumbar spine, [id number] at L4-L5. 2. Redemonstration of IUD overlying the upper sacrum. 3. Increased coarse calcifications in the right hemipelvis, possibly representing fibroids, which could be confirmed with pelvic ultrasound. 4. Facet arthritis in the lower lumbar spine.
== END 2023-07-24 12:46 | disposition home or self-care (01) ==
LOC: HO.XRAY 12:45
PROVIDERS: PCP Internal Medicine; Visit Provider Nurse Practitioner Family
DX: M47.817 Spondylosis without myelopathy or radiculopathy, lumbosacral region (principal); M51.36 Other intervertebral disc degeneration, lumbar region
CPT/HCPCS: 72110; 99202

== ENCOUNTER 2023-09-01 08:53 | Outpatient (REF) | payer OTHER, SELFPAY ==
--- NOTE | ~2023-09-01 | US_ITS ---
EXAMINATION: NONINVASIVE ASSESSMENT OF THE ARTERIES OF BOTH LOWER EXTREMITIES INCLUDING BILATERAL LOWER EXTREMITY DUPLEX. CLINICAL INFORMATION: Peripheral vascular disease COMPARISON: None TECHNIQUE: duplex Doppler techniques with wave form analysis and measurement of velocities in the common femoral, profunda femoral, superficial femoral, popliteal, tibial and peroneal arteries. The study was performed only at rest. FINDINGS: RIGHT LEG Common femoral artery: 192 cm/s, Multiphasic Profunda femoris artery: 114 cm/s, Multiphasic Superficial femoral artery (proximal): 103 cm/s, Multiphasic Superficial femoral artery (mid): 102 cm/s, Multiphasic Superficial femoral artery (distal): 97 cm/s, Multiphasic Proximal Popliteal artery: 95 cm/s, Multiphasic Mid posterior tibial artery: 95 cm/s, Multiphasic LEFT LEG: Common femoral artery: 203 cm/s, Multiphasic Profunda femoris artery: 105 cm/s, Multiphasic Superficial femoral artery (proximal): 119 cm/s, Multiphasic Superficial femoral artery (mid): 94 cm/s, Multiphasic Superficial femoral artery (distal): 85 cm/s, Multiphasic Proximal Popliteal artery: 82 cm/s, Multiphasic Mid posterior tibial artery: 86 cm/s, Multiphasic US/US arterial duplex LE BI IMPRESSION: No hemodynamically significant stenosis in the bilateral lower extremities.
--- NOTE | 2023-09-01 10:35 | HM_ITS ---
Conclusion: 1. Patient was monitored for total period of 2 days and 17 hours 2. Baseline was normal sinus with average heart of 66 beats per minute 3. No significant pauses noted 4. Frequent PACs noted with total burden of 4.7% 5. Occasional PVCs noted 6. No patient reported events MTDD
== END 2023-09-01 08:54 | disposition home or self-care (01) ==
LOC: HO.US 08:53
PROVIDERS: PCP Internal Medicine; Visit Provider Nurse Practitioner
DX: I73.9 Peripheral vascular disease, unspecified (principal); R00.2 Palpitations
CPT/HCPCS: 93242; 93925

== ENCOUNTER → 2023-09-01 10:35 | Outpatient (BNV) | payer OTHER, SELFPAY | PROVIDERS: PCP Internal Medicine; Visit Provider Internal Medicine Cardiovascular Disease | DX: I49.1 Atrial premature depolarization (principal) | CPT/HCPCS: 93244 ==

== ENCOUNTER 2023-09-29 07:09 | Outpatient (REF) | payer OTHER, SELFPAY | END 2023-09-29 07:10 | disposition home or self-care (01) | LOC: CF 07:09 | PROVIDERS: Visit Provider Anesthesiology | DX: Z13.89 Encounter for screening for other disorder (principal) ==

== ENCOUNTER 2023-10-01 13:22 | Outpatient (AMB) | payer OTHER, SELFPAY ==
--- NOTE | 2023-10-01 13:38 | MHC.OFFVIS ---
Intake Vital Signs 10/01/23 13:39 Height 5 ft 2 in Weight 205 lb 0.478 oz BMI 37.5 BP 140/62 H Blood Pressure Location Rt brachial Position Sitting Pulse 60 Intake Visit Reasons: 3 mth f/up holter AC Corporate Fitness Program Coordinator Required: Yes Corporate Fitness Program Coordinator Name: [id number]/cyracom Allergies No Known Allergies Allergy (Mild, Verified 07/21/23 13:36) NONE Medication List - Last Reconciled 10/01/23 by Mike Blake MD acetaminophen 1,000 mg PO TID PRN albuterol sulfate 90 mcg/actuation 2 puffs inhalation Q4-6H PRN 30 days amlodipine 10 mg PO DAILY aspirin 81 mg PO DAILY atorvastatin 40 mg PO BEDTIME calcitriol 0.25 mcg PO MOWEFR cetirizine 10 mg PO DAILY citalopram (Celexa) 20 mg PO DAILY dexlansoprazole (Dexilant) 60 mg PO DAILY fluticasone propionate 50 mcg/actuation 1 spray intranasal BID gabapentin 300 mg PO BEDTIME hydralazine 25 mg PO BID lidocaine 5% 1 patch topical DAILY 30 days metoprolol tartrate 50 mg PO BID HPI HPI Comments History of Present Illness Details Rosalba returns for follow-up. She was initially referred for evaluation of elevated cardiac BNP. No known myocardial infarction or cardiomyopathy in the past. However, multiple cardiovascular risk factors including diabetes, hypertension, dyslipidemia, ESRD on hemodialysis. Last visit, she was describing some random chest pressure but today, she states that every time she goes to dialysis, she gets chest tightness. Seems somewhat predictable based on description. Nothing clearly exertional however. [facility] Medical History Dyspnea on exertion Bilateral hearing loss Hyperparathyroidism Seasonal allergies DM type 2 (diabetes mellitus, type 2) Dependence on renal dialysis On beta carly at home History of hyperkalemia ESRD (end stage renal disease) on dialysis Elevated cholesterol GERD (gastroesophageal reflux disease) Depression HTN (hypertension) Surgical History S/P arteriovenous (AV) fistula creation History of cataract extraction H/O colonoscopy Family History Mother FH: HTN (hypertension) Father Cancer Social History Are you a primary director critical care to a significant other at home: No Do you presently have visiting nurse or other home services: Yes (PULP COOKER, [facility]) Patient Tobacco Use Status: Never used Tobacco service: No Current occupational status: unemployed Review of Systems Const Denies chills, Denies fatigue, Denies fever(s), Denies frequent falls, Denies weakness, Denies weight gain and Denies weight loss ENT Denies dizziness Card Denies chest pain, Denies leg edema, Denies lightheadedness, Denies palpitations, Denies dyspnea and Denies dyspnea on exertion Resp Denies cough, Denies dyspnea and Denies dyspnea on exertion GI Denies hematochezia Musc Denies abnormal gait, Denies muscle weakness, Denies numbness, Denies radiating pain into limb and Denies tingling Neuro Denies Abnormal speech present, Denies abnormal gait, Denies dizziness, Denies frequent falls, Denies numbness, Denies tingling and Denies weakness Endo Denies fatigue and Denies palpitations Physical Exam Vital Signs: Last Vital Signs Pulse 60 10/01/23 13:39 BP 140/62 H 10/01/23 13:39 BMI result Body Mass Index 37.5 Const General: comfortable and no acute distress Orientation/consciousness: patient oriented x3 HEENT Other: Unremarkable Head: Yes normal to inspection Neck Neck: Yes normal visual inspection Chest Chest palpation & inspection: normal inspection of the chest Resp Auscultation: clear to auscultation bilaterally Cardio Palpation: normal PMI Heart sounds: S1 normal heart sound present, S2 normal heart sound present, no gallops, Murmur heart sound present systolic II/ and no rubs GI Palpation (GI): Soft to palpation Back/Spine/Pelvis Other: unremarkable Skin General skin exam: no rashes or lesions noted Neuro General: patient oriented x3 Speech: No Abnormal speech present Extrem General: Yes normal to inspection Psych Mental Status: mental status grossly normal Assessment & Plan Assessment & Plan (1) Chest tightness: Code(s): R07.89 - Other chest pain (2) ESRD (end stage renal disease) on dialysis: Comment: Right Permacat 06/2021 Code(s): N18.6 - End stage renal disease; Z99.2 - Dependence on renal dialysis (3) Nonrheumatic tricuspid (valve) insufficiency: Code(s): I36.1 - Nonrheumatic tricuspid (valve) insufficiency (4) Pulmonary hypertension: Code(s): I27.20 - Pulmonary hypertension, unspecified Plan Echocardiogram with LVEF of 67%. Basal septal hypertrophy. Normal peak global longitudinal strain. Moderate tricuspid regurgitation and mild pulmonary hypertension. Myocardial perfusion imaging study shows likely normal perfusion. No overt ischemic findings on the testing but her symptoms of predictable chest tightness with dialysis in the context of numerous risk factors is concerning. Will arrange a diagnostic catheterization for further evaluation. Discussed with patient using dental appliance repairer and they are agreeable. Orders: Orders Basic Metabolic Panel Today N18.6 - End stage renal disease, Z99.2 - Dependence on renal dialysis Prothrombin Time INR Today I25.10 - Atherosclerotic heart disease of [place] coronary artery without angina pectoris Cardiac Cath LT Diagnostic Today I25.10 - Atherosclerotic heart disease of [place] coronary artery without angina pectoris Complete Blood Count no Diff Today R07.89 - Other chest pain Coding Level of Care Code Est Pt Level 4 (60911) Diagnoses Chest tightness R07.89 ESRD (end stage renal disease) on dialysis N18.6; Z99.2 Nonrheumatic tricuspid (valve) insufficiency I36.1 Pulmonary hypertension I27.20
[2023-10-01 13:39] VITALS: BP 140/62; PULSE 60; BMI 37.5
== END 2023-10-01 14:15 | disposition home or self-care (01) ==
PROVIDERS: PCP Internal Medicine; Visit Provider Internal Medicine
DX: R07.89 Other chest pain (principal); N18.6 End stage renal disease; Z99.2 Dependence on renal dialysis; I36.1 Nonrheumatic tricuspid (valve) insufficiency; I27.20 Pulmonary hypertension, unspecified
CPT/HCPCS: 99214

== ENCOUNTER → 2023-10-01 13:22 | Outpatient (BNVA) | payer OTHER, SELFPAY | PROVIDERS: PCP Internal Medicine; Visit Provider Internal Medicine | DX: R07.89 Other chest pain (principal); I27.20 Pulmonary hypertension, unspecified; I36.1 Nonrheumatic tricuspid (valve) insufficiency; N18.6 End stage renal disease; Z99.2 Dependence on renal dialysis | CPT/HCPCS: 99212 ==

== ENCOUNTER 2023-10-27 09:59 | Outpatient (REF) | payer OTHER, SELFPAY ==
[2023-10-27 10:41] LABS: Prothrombin Time 12.2 SEC (11.1-13.3)
[2023-10-27 10:44] LABS: Hematocrit 30.4 % (37.0-47.0); Hemoglobin 9.9 g/dl (12.0-16.0); Mean Corpuscular HGB Conc 32.6 g/dl (31.0-35.0); Mean Corpuscular Hemoglobin 33.9 pg (27.0-33.0); Mean Corpuscular Volume 104.1 fL (80.0-98.0); Mean Platelet Volume 10.3 fL (9.4-12.3); Platelet Count 166 X10*3/uL (160-400); Red Blood Count 2.92 X10*6/uL (4.20-5.50); Red Cell Distribution Width 14.9 % (11.0-16.0); White Blood Count 4.1 X10*3/uL (4.8-10.8)
[2023-10-27 11:26] LABS: Anion Gap 17 (12-20); Blood Urea Nitrogen 23 mg/dL (9-16); Calcium 9.4 mg/dL (8.4-10.2); Carbon Dioxide 30 mmol/L (22-29); Chloride 99 mmol/L (96-108); Glucose Random 97 mg/dL (60-115); Potassium 4.3 mmol/L (3.3-5.1); Sodium 142 mmol/L (135-145)
[2023-10-27 11:36] LABS: Estimated Glomerular Filt Rate 6
== END 2023-10-27 10:00 | disposition home or self-care (01) ==
LOC: HO.LAB 09:59
PROVIDERS: PCP Internal Medicine; Visit Provider Internal Medicine
DX: R07.89 Other chest pain (principal); N18.6 End stage renal disease; I25.10 Atherosclerotic heart disease of native coronary artery without angina pectoris; Z99.2 Dependence on renal dialysis
CPT/HCPCS: 36415; 80048; 85027; 85610

== ENCOUNTER 2023-11-10 13:52 | Outpatient (AMB) | payer OTHER, SELFPAY ==
--- NOTE | 2023-11-10 13:54 | A.OFFVIS_ITS ---
Intake Visit Reasons: f/u s/p U/S ART duplex LE 08/31 Intake Note: Patient presents for a follow up s/p arterial US perfomed on 09/01/23. Patient states she is experiencing pain , numbness and it makes it hard to walk. Also gets cramps, and some swelling. Accompanied by: Daughter Allergies No Known Allergies Allergy (Mild, Verified 11/10/23 13:56) NONE HPI HPI f/u s/p U/S ART duplex LE 08/31: Details: Very pleasant 72-year-old female presents for follow-up regarding peripheral vascular disease. She is currently end-stage renal disease being dialyzed through a left upper extremity fistula placed by Dr. Patti Rojas in April of 2022. She notes some discomfort in the lower extremities and calf. Upon further discussion with her she notes that it is more of a persistent pain. She now presents for routine follow-up with noninvasive arterial testing. [facility] Medical History Dyspnea on exertion Bilateral hearing loss Hyperparathyroidism Seasonal allergies DM type 2 (diabetes mellitus, type 2) Dependence on renal dialysis On beta carly at home History of hyperkalemia ESRD (end stage renal disease) on dialysis Elevated cholesterol GERD (gastroesophageal reflux disease) Depression HTN (hypertension) Surgical History S/P arteriovenous (AV) fistula creation History of cataract extraction H/O colonoscopy Family History Mother FH: HTN (hypertension) Father Cancer Social History Are you a primary career technical education teacher to a significant other at home: No Do you presently have visiting nurse or other home services: Yes (GENERAL SERVICE OFFICER, [facility]) Patient Tobacco Use Status: Never used Tobacco service: No Current occupational status: unemployed Review of Systems Const All systems reviewed & are unremarkable except as noted in HPI and below Reports no additional complaints ENT Reports Normal hearing present Card Denies chest pain, Denies chest pain at rest, Denies chest pain with activity and Denies pedal edema Resp Denies cough GI Denies abdominal pain Musc Denies abnormal gait, Denies muscle cramps and Denies radiating pain into limb Skin/Breast Denies skin ulcer and Denies wounds Neuro Reports Normal hearing present and Denies abnormal gait Psych Reports no additional complaints Physical Exam Const General: cooperative, healthy appearing and comfortable Orientation/consciousness: oriented to person, oriented to place and oriented to time HEENT Head: Yes normal to inspection Neck Neck: Yes normal visual inspection Carotids: no bruits Chest Chest palpation & inspection: normal inspection of the chest Resp Effort & Inspection: normal respiratory effort and able to speak in complete sentences Auscultation: clear to auscultation bilaterally, no crackles, no rales, no rhonchi and no wheezes Cardio Other: Palpable bilateral dorsalis pedis pulses Rate: regular rate Rhythm: regular rhythm Heart sounds: S1 normal heart sound present and S2 normal heart sound present Bruits: no carotid bruits Peripheral pulses: Peripheral pulses 2+ throughout GI Inspection: Yes normal to inspection Skin Wounds: no wounds Hair: normal Neuro General: oriented to person, oriented to place and oriented to time Cranial nerves: Yes CN's II-XII intact bilaterally and Yes Normal hearing present Cognition (Neuro): normal cognition Motor exam (neuro): 5/5 motor strength present throughout Extrem Other: venous exam: No significant superficial varicosities or spider telangiectasias, minimal edema General: No clubbing, No cyanosis and No edema Psych Appearance: grossly normal Mental Status: mental status grossly normal Speech and movement: Normal speech and movement present Results Reviewed Results Reviewed: Noninvasive arterial testing dated 09/01/2023 demonstrates multi phasic flow down bilateral lower extremities with no evidence of hemodynamic stenosis. Written report and images were reviewed. Assessment & Plan Assessment & Plan (1) PVD (peripheral vascular disease) with claudication: Code(s): I73.9 - Peripheral vascular disease, unspecified Category: Medical Plan: In short patient does not have clinically evident peripheral vascular disease. Arterial testing along with palpable pulses noted. She appears to have adequate arterial flow. This may be more neurogenic in nature. She will follow up with us on an as-needed basis. Thank you for allowing us to assist in her care. If there are any questions or concerns please do not hesitate to contact us. Coding Level of Care Code Est Pt Level 4 (89410) Diagnoses PVD (peripheral vascular disease) with claudication I73.9
== END 2023-11-10 14:10 | disposition home or self-care (01) ==
PROVIDERS: PCP Internal Medicine; Visit Provider Surgery Vascular Surgery
DX: I73.9 Peripheral vascular disease, unspecified (principal)
CPT/HCPCS: 99213

== ENCOUNTER → 2023-11-10 13:52 | Outpatient (BNVA) | payer OTHER, SELFPAY | PROVIDERS: PCP Internal Medicine; Visit Provider Surgery Vascular Surgery | DX: I73.9 Peripheral vascular disease, unspecified (principal); N18.6 End stage renal disease; Z99.2 Dependence on renal dialysis | CPT/HCPCS: 99212 ==

== ENCOUNTER → 2023-11-12 23:59 | Outpatient (BNV) | payer OTHER, SELFPAY | PROVIDERS: PCP Internal Medicine; Visit Provider Internal Medicine Cardiovascular Disease | DX: I20.89 Other forms of angina pectoris (principal); I25.118 Atherosclerotic heart disease of native coronary artery with other forms of angina pectoris | CPT/HCPCS: 92928; 93458; 99152 ==

== ENCOUNTER 2023-11-28 19:39 | Emergency (ER) | payer OTHER, SELFPAY ==
--- NOTE | ~2023-11-28 | CT_ITS ---
EXAMINATION: CT HEAD WITHOUT CONTRAST CLINICAL INFORMATION: Fall with head strike. COMPARISON: CT head dated 03/25/2023. TECHNIQUE: Contiguous axial imaging was performed from the skull base to vertex without intravenous administration of contrast. This CT examination was performed using dose optimization techniques as appropriate, variously including the following: *Automated exposure control *Adjustment of mA and/or kV according to patient size (this includes techniques or standardized protocols for targeted exams where dose is matched to indication/reason for exam; i.e. extremities or head) *Use of iterative reconstruction technique DLP: 1167 mGy-cm FINDINGS: There is no acute intracranial hemorrhage. There is no evidence of acute/subacute cerebral or cerebellar infarction. There is no mass effect or midline shift. There is no extra-axial fluid collection. The ventricles are normal in size. The orbits are normal in appearance. The calvarium is intact. The visualized paranasal sinuses are clear. The mastoid air cells are clear. CT/CT head/brain wo IV con IMPRESSION: No acute intracranial pathology.
--- NOTE | ~2023-11-28 | XR_ITS ---
EXAMINATION: XR CHEST, 2 VIEWS CLINICAL INFORMATION: Shortness of breath. Missed dialysis COMPARISON: 05/07/2023 TECHNIQUE: PA and lateral views of the chest were obtained. FINDINGS: Cardiac silhouette is borderline enlarged. There are are diffuse interstitial opacities which are most consistent with mild interstitial pulmonary edema. No focal consolidation. No pneumothorax or pleural effusion. No acute osseous findings. XR/XR chest 2V IMPRESSION: Borderline cardiomegaly with mild interstitial pulmonary edema. No pleural effusions. No focal consolidation.
--- NOTE | ~2023-11-28 | CT_ITS ---
EXAMINATION: CERVICAL SPINE CT WITHOUT CONTRAST CLINICAL INFORMATION: Fall. Head strike. COMPARISON: None. TECHNIQUE: Multidetector volumetric imaging was obtained through the cervical spine without intravenous contrast. Multiplanar reconstructed images in coronal and sagittal orientations were submitted. This CT examination was performed using dose optimization techniques as appropriate, variously including the following: *Automated exposure control *Adjustment of mA and/or kV according to patient size (this includes techniques or standardized protocols for targeted exams where dose is matched to indication/reason for exam; i.e. extremities or head) *Use of iterative reconstruction technique DOSE: 1167 mGy-cm FINDINGS: Of note, there is motion artifact through the cervical spine from the C3 through the C6 levels, limiting sensitivity for subtle fractures. Vertebral body heights are normal. No fractures of the vertebral bodies or posterior elements. Vertebral alignment is normal. No subluxation. Degenerative osteophytes and sclerosis are present at the atlantodental articulation, though normal alignment is maintained. Craniocervical junction is normal. Multilevel degenerative disc disease is most notable from C3-C4 through C5-C6 with loss of vertebral disc height, endplate osteophytes, and uncovertebral osteophytes. There is multilevel facet arthropathy, most notably on the left at C4-C5 and C6-C7 Posterior disc osteophyte complexes at multiple levels. Central canal narrowing, most notably at C4-C5 and C5-C6. Neural foraminal encroachment is suspected at C4-C5 and C5-C6 bilaterally due to uncovertebral osteophytes. No significant paravertebral soft tissue swelling. Atherosclerotic calcifications are present in the carotid arteries. Imaged portions of the lung apices are clear. CT/CT cervical spine wo IV con IMPRESSION: 1. No acute fracture or malalignment in the cervical spine. 2. Multilevel degenerative spondylosis in the cervical spine, most notably from C3-C4 through C5-C6.
[2023-11-28 19:49] VITALS: BP 173/57; PULSE 61; RESP 18; TEMP 36.2; O2SAT 100; BMI 35.9
--- NOTE | 2023-11-28 19:54 | ED_ITS ---
HPI - Fall General Chief Complaint: Fall Stated Complaint: fall/hit head and back Time Seen by Provider: 11/29/23 02:55 Source: patient and family (Daughter) Mode of arrival: ambulatory Limitations: no limitations History of Present Illness ED Provider: Dr. Neo Jack HPI Narrative: 73-year-old female with a history of diabetes, hypertension, GERD, end-stage renal disease dialyzed Mondays, Wednesdays and Fridays, GERD, hyperparathyroidism who presents emergency department for evaluation of injuries from a fall. Patient states that yesterday at around 14:30 hours she was visiting her at [facility]. When she was leaving, her daughter was pushing her in a wheelchair through the parking lot. Apparently the wheelchair had a pot hole causing the patient to tip out of the wheelchair and causing the patient's daughter to fall on top of the patient. Patient states she did hit her head but did not lose consciousness. She states that since the injury she has had a headache and blurred vision. She has also had nausea with no vomiting. She states that the headache as a diffuse, pressure- like pain which is moderate to severe in intensity. She is also complaining of pain in her neck and upper back, this pain is worse with movement. She denied numbness or weakness. She denied loss of bowel or bladder control. The patient took Tylenol and gabapentin at home with no relief for pain. Related Data Home Medications ?Medication ?Instructions ?Recorded ?Confirmed amlodipine 10 mg tablet 10 mg PO DAILY 06/04/20 10/01/23 aspirin 81 mg tablet,delayed 81 mg PO DAILY 06/04/20 10/01/23 release atorvastatin 40 mg tablet 40 mg PO BEDTIME 06/04/20 10/01/23 calcitriol 0.25 mcg capsule 0.25 mcg PO MOWEFR 06/04/20 10/01/23 cetirizine 10 mg tablet 10 mg PO DAILY 06/04/20 10/01/23 citalopram 20 mg tablet (Celexa) 20 mg PO DAILY 06/04/20 10/01/23 acetaminophen 500 mg tablet 1,000 mg PO TID PRN Pain 01/01/22 10/01/23 gabapentin 300 mg capsule 300 mg PO BEDTIME 05/04/23 10/01/23 hydralazine 25 mg tablet 25 mg PO BID 05/04/23 10/01/23 metoprolol tartrate 50 mg tablet 50 mg PO BID 05/04/23 10/01/23 Previous Rx's ?Medication ?Instructions ?Recorded albuterol sulfate 90 mcg/actuation 2 puff inhalation Q4-6H PRN 11/04/22 aerosol inhaler shortness of breath or wheezing 30 days #1 ea dexlansoprazole 60 mg 60 mg PO DAILY #30 caps 05/20/23 capsule,biphase delayed release (Dexilant) fluticasone propionate 50 1 spray intranasal BID #16 grams 07/16/23 mcg/actuation nasal spray,suspension lidocaine 5 % topical patch 1 patch topical DAILY pain 30 days 07/24/23 #30 ea oxycodone 5 mg tablet 5 mg PO Q6H PRN pain #10 tabs 11/29/23 Allergies Allergy/AdvReac Type Severity Reaction Status Date / Time No Known Allergies Allergy Mild NONE Verified 11/28/23 19:54 Review of Systems 2 Review of Systems: Yes all other systems are reviewed and are negative [facility] Past Medical History [facility] Narrative: Social history: She denies tobacco, alcohol and drug use Medical History Dyspnea on exertion Bilateral hearing loss Hyperparathyroidism Seasonal allergies DM type 2 (diabetes mellitus, type 2) Dependence on renal dialysis On beta carly at home History of hyperkalemia ESRD (end stage renal disease) on dialysis Elevated cholesterol GERD (gastroesophageal reflux disease) Depression HTN (hypertension) Surgical History S/P arteriovenous (AV) fistula creation History of cataract extraction H/O colonoscopy Family History Family History Mother FH: HTN (hypertension) Father Cancer Social History Social History Are you a primary critical care unit nurse to a significant other at home: No Do you presently have visiting nurse 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 home 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, [employer]) Alcohol intake: never Patient Tobacco Use Status: Never used Tobacco Smoked in Last 30 Days: No Use of substances other than those prescribed or required for medical reasons: No Any prior treatment program specific to substance use: No Advance Directives: No Advance Directives Information Provided: No Do you have a plan to hurt others: No Plan service: No Current occupational status: unemployed Physical Exam 2 Vital Signs: Vital Signs: Last Vital Signs Temp 98.1 F 11/29/23 02:48 Pulse 66 11/29/23 02:48 Resp 17 11/29/23 02:48 BP 190/69 H 11/29/23 02:48 Pulse Ox 100 11/29/23 02:48 O2 Del Method Room Air 11/29/23 02:48 BMI result Body Mass Index 35.9 Vital signs revealed an elevated blood pressure of 100/69 Exam: General: Awake, alert in no distress Head: Normocephalic, patient has tenderness palpation over her scalp with no obvious hematoma on palpation. EENT: PERRL, Lids normal, sclera normal, conjunctiva normal, nose normal , ears normal, throat without erythema or exudates Neck: Patient has tenderness palpation of her trapezius muscles bilaterally, C- spine tenderness Lung: breath sounds symmetric, no wheezing, rales or rhonchi Chest: symmetric movement, nontender Heart: regular rate and rhythm, normal S1, S2 no murmurs or rubs Abdomen: soft, non-tender, nondistended, normal bowel sounds Back: Tenderness with palpation of the thoracic paraspinal muscles, no point tenderness palpation over the thoracic vertebrae, no CVAT, negative straight leg raises bilaterally Extremities: no deformities, moves all extremities symmetrically Neuro: Awake, alert, oriented, normal speech, cranial nerves intact, moves all extremities symmetrically Psych: Pleasant, cooperative Course Course Course Narrative: This is a Rapid Medical Examination (RME) performed by Desi Perry PA-C in triage. Full HPI, ROS, assessment and treatment plan per primary provider in the Main ED. 73-year-old Tunisian-speaking female with a history of end-stage renal disease on dialysis Thursday/Thursday/Thursday who missed dialysis yesterday presents to the ER for evaluation after a mechanical fall yesterday. She tripped with her daughter and her daughter fell on top of her. She fell and hit the back of her head. No loss of consciousness. She does not think she is on anticoagulation. She reports posterior headache and some neck pain. She missed dialysis yesterday because she was taking care of her who is sick. No chest pain or abdominal pain. She does report some shortness of breath. Plan: CT head and cervical spine, chest x-ray, lab work. Medical Decision Making Medical Decision Making [facility] Narrative: 73-year-old female with a history of diabetes, hypertension, GERD, end-stage renal disease dialyzed Mondays, Wednesdays and Fridays, GERD, hyperparathyroidism who presents emergency department for evaluation of injuries from a fall from a wheelchair that occurred at 14:30 hours in a parking lot. Patient states that she did strike her head and her daughter also fell on top of her. Since the fall she has had headache, blurred vision, nausea, neck pain and upper back pain. Vital signs revealed an elevated blood pressure otherwise unremarkable. Physical examination did reveal diffuse tenderness palpation of her head, trapezius muscles bilaterally, cervical spine and upper thoracic paraspinal muscles. Differential diagnosis: ?Includes but is not limited to skull fracture, intracranial bleed, concussion, cervical fracture, cervical sprain, thoracic fracture, thoracic sprain, contusion, anemia, electrolyte abnormalities Following evaluation was ordered: CBC, BMP, liver panel, magnesium, CT scan of the head and cervical Patient was initially treated with the following: Oxycodone 5 mg orally Course: 04:33 My independent interpretation patient's laboratory evaluation as follows: WBC low 4400. H&H low 8.2 and 25 with elevated MCV of 102-this is chronic. BUN creatinine elevated 47 and 11.09-this is consistent with her end-stage renal disease. CT scan of the head and cervical spine revealed no acute fractures. Patient's presentation is consistent with a concussion/closed head injury, neck sprain and thoracic sprain/contusion. Patient was advised to continue taking gabapentin and her Tylenol and for pain not relieved by these medications she was prescribed oxycodone. She was given printed and verbal instructions discharged home. Admission/Observation Consideration of admission/observation: Escalation of care including admission/observation considered Lab Data [facility] Lab Attestation statement: I reviewed the patient's lab results. 11/28/23 20:08 11/28/23 20:08 Labs: Lab Results 11/28/23 Range/Units 20:08 WBC 4.4 L (4.8-10.8) X10*3/uL RBC 2.44 L (4.20-5.50) X10*6/uL Hgb 8.2 L (12.0-16.0) g/dl Hct 25.0 L (37.0-47.0) % MCV 102.5 H (80.0-98.0) fL MCH 33.6 H (27.0-33.0) pg MCHC 32.8 (31.0-35.0) g/dl RDW 15.2 (11.0-16.0) % Plt Count 160 (160-400) X10*3/uL MPV 9.7 (9.4-12.3) fL Immature Gran % (Auto) 0.7 H (0.0-0.4) % Neut % (Auto) 52.9 (45-73) % Lymph % (Auto) 26.1 (20-40) % [place] % (Auto) 11.9 H (2-11) % Eos % (Auto) 7.3 H (0-4) % Baso % (Auto) 1.1 (0-2) % Lymph # (Auto) 1.1 L (1.2-4.9) X10*3/uL [place] # (Auto) 0.5 (0.1-1.2) X10*3/uL Eos # (Auto) 0.3 (0.0-0.4) X10*3/uL Baso # (Auto) 0.1 (0.0-0.2) X10*3/uL Abs Immat Gran (auto) 0.03 (0.00-0.03) X10*3/uL Absolute Neuts (auto) 2.3 (2.0-8.3) x10*3/uL Absolute Nucleated RBC 0.000 (0.0-0.012) X10*3/uL Nucleated RBC % (auto) 0.0 (0.0-0.2) /100WBC Sodium 138 (135-145) mmol/L Potassium 5.3 H D (3.3-5.1) mmol/L Chloride 99 (96-108) mmol/L Carbon Dioxide 25 (22-29) mmol/L Anion Gap 19 (12-20) BUN 47 H (9-16) mg/dL Creatinine 11.09 H* (0.5-1.4) mg/dL Estim Creat Clear Calc 4.8 Estimated GFR 3 Random Glucose 102 (60-115) mg/dL Calcium 8.6 D (8.4-10.2) mg/dL Magnesium 1.8 (1.6-2.6) mg/dL Total Bilirubin 0.6 (0.0-1.0) mg/dL Direct Bilirubin 0.2 (0.0-0.5) mg/dL AST 20 (5-31) U/L ALT 15 (0-31) U/L Alkaline Phosphatase 140 H (39-117) U/L Total Protein 7.4 (6.5-8.0) g/dL Albumin 3.8 (3.5-5.0) g/dL Radiology Impression Discussion of test interpretation with radiology: I have reviewed the radiologist's reading. Radiologist Impression: CT head/brain wo IV con IMPRESSION: No acute intracranial pathology. Dictated By: Satish Corral Jr DO CT cervical spine wo IV con IMPRESSION: 1. No acute fracture or malalignment in the cervical spine. 2. Multilevel degenerative spondylosis in the cervical spine, most notably from C3-C4 through C5-C6. Dictated By: Edin Alvarado MD Independent Historian Clinical information obtained from an independent historian. History obtained from or confirmed by: Other (Daughter) External Record Review External record reviewed: Inpatient record and Office record Prescription Management I considered prescription management with: Pain Medication Chronic Conditions Patient?s care impacted by: Diabetes, Hypertension and Other (End-stage renal disease on dialysis) Discharge Plan Discharge Clinical Impression: Accidental fall from wheelchair Qualifiers: Encounter type: initial encounter Qualified Code(s): W05.0XXA - Fall from non- moving wheelchair, initial encounter CHI (closed head injury) Qualifiers: Encounter type: initial encounter Qualified Code(s): S09.90XA - Unspecified injury of head, initial encounter Concussion Qualifiers: Encounter type: initial encounter Loss of consciousness presence/duration: w ithout LOC Qualified Code(s): S06.0X0A - Concussion without loss of consciousness, initial encounter Acute neck sprain Qualifiers: Encounter type: initial encounter Qualified Code(s): S13.9XXA - Sprain of joints and ligaments of unspecified parts of neck, initial encounter Thoracic back sprain Qualifiers: Encounter type: initial encounter Qualified Code(s): S23.9XXA - Sprain of unspecified parts of thorax, initial encounter Patient Disposition: Home, Self-Care Instructions: Concussion (ED), Cervical Sprain (ED), Ice Pack Application (ED) Additional Instructions: You had a CT scan of your head head which revealed no skull fracture or bleeding in the brain. The CT scan of your neck revealed no broken bones/fractures Your headache and blurred vision was caused by your headache and you have a concussion, please follow the concussion instructions. Your blood work was consistent with your kidney disease, your potassium was normal. Continue taking your gabapentin as prescribed by your providers Take Tylenol (acetaminophen) 500 mg pills, 2 pills every 6 hours as needed for pain. For pain not relieved by gabapentin or Tylenol take oxycodone 5 mg pills, 1 pill every 6 hours as needed for pain. Do not drive or work while taking this medication since they can cause sleepiness. Oxycodone is a narcotic medication that can be addicting. If you are concerned about addiction you can ask the pharmacist for less pills or do not get this prescription filled. Apply ice for 15 minutes 4 to 6 times a day to your neck and back, do this for the next 3-4 days, this will reduce the pain and swelling in these areas. Follow-up with your doctor in 2 days. Please return to the emergency department if your symptoms get worse or if you develop any symptoms that are concerning to you. Prescriptions: New oxycodone 5 mg tablet 5 mg PO Q6H PRN (Reason: pain) Qty: 10 0RF Rx Instructions: Patient may request partial refill; Partial Fill upon patient request. No Action dexlansoprazole [Dexilant] 60 mg capsule,biphase delayed releas 60 mg PO DAILY Qty: 30 6RF fluticasone propionate 50 mcg/actuation spray,suspension 1 spray intranasal BID Qty: 16 6RF atorvastatin 40 mg Tablet 40 mg PO BEDTIME cetirizine 10 mg Tablet 10 mg PO DAILY aspirin 81 mg Tablet,Delayed Release (Dr/Ec) 81 mg PO DAILY citalopram [Celexa] 20 mg Tablet 20 mg PO DAILY amlodipine 10 mg Tablet 10 mg PO DAILY calcitriol 0.25 mcg Capsule 0.25 mcg PO MOWEFR metoprolol tartrate 50 mg tablet 50 mg PO BID hydralazine 25 mg tablet 25 mg PO BID gabapentin 300 mg capsule 300 mg PO BEDTIME acetaminophen 500 mg Tablet 1,000 mg PO TID PRN (Reason: Pain) albuterol sulfate 90 mcg/actuation HFA aerosol inhaler 2 puff inhalation Q4-6H PRN (Reason: shortness of breath or wheezing) 30 Days Qty: 1 6RF lidocaine 5 % adhesive patch,medicated 1 patch topical DAILY 30 Days Qty: 30 0RF Print Language: Tunisian
[2023-11-28 20:13] LABS: MANUAL DIFF FLAG NO
[2023-11-28 20:14] LABS: Basophils Absolute Auto 0.1 X10*3/uL (0.0-0.2); Basophils Percent Auto 1.1 % (0-2); Eosinophils Absolute Auto 0.3 X10*3/uL (0.0-0.4); Eosinophils Percent Auto 7.3 % (0-4); Hemoglobin 8.2 g/dl (12.0-16.0); Imm Gran Abs Auto 0.03 X10*3/uL (0.00-0.03); Imm Gran Pct Auto 0.7 % (0.0-0.4); Lymphocytes Absolute Auto 1.1 X10*3/uL (1.2-4.9); Lymphocytes Percent Auto 26.1 % (20-40); Mean Corpuscular HGB Conc 32.8 g/dl (31.0-35.0); Mean Corpuscular Hemoglobin 33.6 pg (27.0-33.0); Mean Corpuscular Volume 102.5 fL (80.0-98.0); Mean Platelet Volume 9.7 fL (9.4-12.3); Monocytes Absolute Auto 0.5 X10*3/uL (0.1-1.2); Monocytes Percent Auto 11.9 % (2-11); Neutrophils Absolute Auto 2.3 x10*3/uL (2.0-8.3); Neutrophils Percent Auto 52.9 % (45-73); Platelet Count 160 X10*3/uL (160-400); Red Blood Count 2.44 X10*6/uL (4.20-5.50); Red Cell Distribution Width 15.2 % (11.0-16.0); White Blood Count 4.4 X10*3/uL (4.8-10.8)
[2023-11-28 20:36] LABS: Alanine Aminotransferase 15 U/L (0-31); Albumin Level 3.8 g/dL (3.5-5.0); Alkaline Phosphatase 140 U/L (39-117); Anion Gap 19 (12-20); Aspartate Amino Transferase 20 U/L (5-31); Bilirubin Direct 0.2 mg/dL (0.0-0.5); Bilirubin Total 0.6 mg/dL (0.0-1.0); Blood Urea Nitrogen 47 mg/dL (9-16); Calcium 8.6 mg/dL (8.4-10.2); Carbon Dioxide 25 mmol/L (22-29); Chloride 99 mmol/L (96-108); Creatinine Clr Calc Pharmacy 4.8; Estimated Glomerular Filt Rate 3; Glucose Random 102 mg/dL (60-115); Magnesium 1.8 mg/dL (1.6-2.6); Potassium 5.3 mmol/L (3.3-5.1); Sodium 138 mmol/L (135-145); Total Protein 7.4 g/dL (6.5-8.0)
[2023-11-29 02:48] VITALS: BP 190/69; PULSE 66; RESP 17; TEMP 36.7; O2SAT 100
[2023-11-29] MEDS: oxyCODONE HCl Immed Release 5 MG TABLET PO (04:31)
[2023-11-29 04:37] VITALS: BP 170/54; PULSE 63; RESP 18; TEMP 36.9; O2SAT 97
== END 2023-11-29 04:41 | disposition home or self-care (01) ==
PROVIDERS: Physician Assistant; Emergency Provider Emergency Medicine Emergency Medical Services; PCP Internal Medicine
DX: S06.0X0A Concussion without loss of consciousness, initial encounter (principal); S13.9XXA Sprain of joints and ligaments of unspecified parts of neck, initial encounter; S23.9XXA Sprain of unspecified parts of thorax, initial encounter; W05.0XXA Fall from non-moving wheelchair, initial encounter; Y93.89 Activity, other specified; Y92.481 Parking lot as the place of occurrence of the external cause; Y99.9 Unspecified external cause status
CPT/HCPCS: 36415; 70450; 71046; 72125; 80048; 80076; 83735; 85025; 99284

== ENCOUNTER 2023-12-01 12:56 | Outpatient (AMB) | payer OTHER, SELFPAY ==
[2023-12-01 13:00] VITALS: BP 138/60; PULSE 72; BMI 37.5
--- NOTE | 2023-12-01 13:00 | MHC.OFFVIS ---
Vital Signs 12/01/23 13:00 Height 5 ft 2 in Weight 205 lb 0.478 oz BMI 37.5 BP 138/60 Blood Pressure Location Rt brachial Position Sitting Pulse 72 Pulse Source Pulse Oximeter Intake Visit Reasons: Follow up/ Cath Airport Guide Required: Yes Airport Guide Name: PHI [id number] Allergies No Known Allergies Allergy (Mild, Verified 11/28/23 19:54) NONE Medication List - Last Reconciled 12/01/23 by Jenise Abreu NP acetaminophen 1,000 mg PO TID PRN albuterol sulfate 90 mcg/actuation 2 puffs inhalation Q4-6H PRN 30 days amlodipine 10 mg PO DAILY aspirin 81 mg PO DAILY atorvastatin 40 mg PO BEDTIME calcitriol 0.25 mcg PO MOWEFR cetirizine 10 mg PO DAILY citalopram (Celexa) 20 mg PO DAILY dexlansoprazole (Dexilant) 60 mg PO DAILY fluticasone propionate 50 mcg/actuation 1 spray intranasal BID gabapentin 300 mg PO BEDTIME hydralazine 25 mg PO BID lidocaine 5% 1 patch topical DAILY 30 days metoprolol tartrate 50 mg PO BID oxycodone 5 mg PO Q6H PRN ticagrelor (Brilinta) 90 mg PO BID HPI Comments Details: 73-year-old female presents today for a follow-up. She had a cardiac catherization done on 11/12/[address] Eller. She reports she is doing well. She reports she still gets some chest tightness and blood pressure changes during dialysis. She reports some shortness of breath but her inhaler helps this. Denies fever, chills, tenderness, odor or drainage from the site. [facility] Medical History (Updated 11/30/23 @ 00:01 by Blue Padilla) Dyspnea on exertion Bilateral hearing loss Hyperparathyroidism Seasonal allergies DM type 2 (diabetes mellitus, type 2) Dependence on renal dialysis On beta carly at home History of hyperkalemia ESRD (end stage renal disease) on dialysis Elevated cholesterol GERD (gastroesophageal reflux disease) Depression HTN (hypertension) Surgical History (Updated 12/01/23 @ 13:19 by Jenise Abreu NP) S/P cardiac catheterization S/P arteriovenous (AV) fistula creation History of cataract extraction H/O colonoscopy Family History Mother FH: HTN (hypertension) Father Cancer Social History Are you a primary clinical care coordinator to a significant other at home: No Do you presently have 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, [employer]) Alcohol intake: never Patient Tobacco Use Status: Never used Tobacco service: No Current occupational status: unemployed Review of Systems Const Denies weakness ENT Denies dizziness Card Denies chest pain, Denies chest pain with activity, Denies syncope, Denies rapid heart rate, Denies pedal edema, Denies edema, Denies leg edema, Denies lightheadedness, Denies palpitations, Denies dyspnea, Denies dyspnea on exertion and Denies orthopnea Resp Denies cough, Denies dyspnea and Denies dyspnea on exertion GI Denies hematochezia and Denies change in stool character Musc Denies abnormal gait, Denies muscle cramps, Denies muscle weakness, Denies numbness, Denies radiating pain into limb and Denies tingling Neuro Denies abnormal gait, Denies dizziness, Denies syncope, Denies numbness, Denies tingling and Denies weakness Endo Denies palpitations Physical Exam Vital Signs: Last Vital Signs Pulse 72 12/01/23 13:00 BP 138/60 12/01/23 13:00 BMI result Body Mass Index 37.5 Const General: healthy appearing and no acute distress Orientation/consciousness: patient oriented x3 HEENT Head: Yes normal to inspection Eyes General: appearance normal, both eyes and all related structures Neck Neck: Yes normal visual inspection Chest Chest palpation & inspection: normal inspection of the chest Resp Effort & Inspection: normal respiratory effort Auscultation: clear to auscultation bilaterally Cardio Jugular venous distension: no JVD Palpation: normal PMI Rate: regular rate Rhythm: regular rhythm Heart sounds: S1 normal heart sound present, S2 normal heart sound present, no click, no gallops, no murmurs and no rubs GI Inspection: Yes normal to inspection Palpation (GI): Soft to palpation Skin General skin exam: no rashes or lesions noted Neuro General: patient oriented x3 Extrem Other: Site is intact, without drainage, odor, or erythema. General: Yes normal to inspection Psych Appearance: grossly normal Assessment & Plan Assessment & Plan (1) S/P cardiac catheterization: Comment: With Dr. Eller 11/12/2023 Cardiac Arteries and Lesion Findings LMCA: Normal.Short left main. LAD: Mid LAD mid segment 40% stenosis LCx: Normal. RCA: Lesion in Prox RCA: 90% stenosis . PCI to RCA Code(s): Z98.890 - Other specified postprocedural states Category: Surgical Plan: PCI to proximal RCA. Aspirin 81mg indefinitely. Brilinta 90mg BID for at minimum 12 months. Will obtain fasting lipid panel. Last LDL in 05/2023 was 80. Goal less than 70. Patient agrees to do cardiac rehab. Orders: Orders Lipid Panel Today Z98.890 - Other specified postprocedural states Cardiac Rehab Today Z98.890 - Other specified postprocedural states Basic Metabolic Panel Today Z98.890 - Other specified postprocedural states Coding Level of Care Code Est Pt Level 3 (13719) Diagnoses S/P cardiac catheterization Z98.890
== END 2023-12-01 13:30 | disposition home or self-care (01) ==
PROVIDERS: PCP Internal Medicine; Visit Provider Nurse Practitioner
DX: Z98.890 Other specified postprocedural states (principal)
CPT/HCPCS: 99213

== ENCOUNTER → 2023-12-01 12:56 | Outpatient (BNVA) | payer OTHER, SELFPAY | PROVIDERS: PCP Internal Medicine; Visit Provider Nurse Practitioner | DX: I25.10 Atherosclerotic heart disease of native coronary artery without angina pectoris (principal); Z79.82 Long term (current) use of aspirin; Z98.890 Other specified postprocedural states | CPT/HCPCS: 99212 ==

== ENCOUNTER 2025-03-25 13:07 | Emergency (ER) | payer MEDICARE, SELFPAY ==
[2025-03-25] VITALS (9 sets, daily range): BP systolic 106–134; BP diastolic 57–104; PULSE 78–130; RESP 16; TEMP 37; O2SAT 95–99; BMI 32.6
--- NOTE | 2025-03-25 | ECG_ITS ---
Test Reason : SYNCOPE Blood Pressure : */* mmHG Vent. Rate : 119 BPM Atrial Rate : 119 BPM P-R Int : 134 ms QRS Dur : 70 ms QT Int : 340 ms P-R-T Axes : 90 3 95 degrees QTcB Int : 478 ms Sinus tachycardia Inferior infarct (cited on or before 14-Jan-2018) Anterior infarct (cited on or before 22-Jul-2021) ST & T wave abnormality, consider lateral ischemia Abnormal ECG When compared with ECG of 22-Jul-2021 17:10, [place] interval has decreased Vent. rate has increased by 41 bpm Referred By: Generic ED Physician Electronically Signed By: Hermelindo Eller
--- NOTE | ~2025-03-25 | CT_ITS ---
CLINICAL HISTORY: Abdominal pain vomiting CT abdomen and pelvis without IV contrast. COMPARISON: None provided. FINDINGS: Minimal atelectasis along the posterior lower lobes. Coronary artery calcifications within the LAD, circumflex and RCA. Cholelithiasis within the gallbladder body. No pericholecystic inflammatory changes. Noncontrast appearance of the liver, spleen, pancreas and adrenal glands are unremarkable. Markedly atrophic kidneys bilaterally. Bilateral renal cystic lesions measuring up to 2.0 cm on the right. No hydronephrosis or hydroureter bilaterally. Normal appendix. [id number] colonic stool burden. No bowel obstruction. No mesenteric or retroperitoneal lymphadenopathy. Moderate aortoiliac atherosclerotic vascular calcifications. Contracted urinary bladder with bladder wall thickening. Lobular uterine contour with multiple dystrophic calcifications consistent with a fibroid uterus. No adnexal mass. Moderate to advanced multilevel spondylosis. No acute fracture or suspicious bone lesion. IMPRESSION: 1. Moderate thickening of the mucosa of the contracted urinary bladder. This can be associated with cystitis. Recommend correlation clinically. 2. Cholelithiasis. No stigmata of cholecystitis. 3. Coronary artery atherosclerosis. 4. Fibroid uterus. This document has been electronically signed by: Samuel Morris MD on 03/25/2025 17:30:48
--- OUTSIDE RECORDS SUMMARY | 2025-03-25 13:53 | XMS_ITS ---
Author Name Johnathon ANDIEMr. Tera Address [address] [place] [address] Phone [phone] [facility] Care Team Providers Care Cloth Opener Hand Name Role Phone Froy Diego Unavailable [phone] Reason for Referral Not Available Allergies, adverse reactions, alerts Allergen Type Reaction Severity Status Onset Date SIMONE Inhibitors Allergy to substance (disorder) Unk nown Active N/A History of medication use Medication Class Instructions Start Date End Date Sevelamer Carbonate 800 mg Tab TAKE 1 TA BLET BY MOUTH EVERY EVENING (WITH DINNER) 2021-11-20 2023-11-09 SM Alcohol Prep 70 % Pad USE DIRECTED THREE TIMES DAILY 2022-01-21 No Data Available Fluticasone Propionate 50 MCG/ACT Suspension USE 1 SPRAY IN EACH NOSTRIL TWICE DAILY 2021-12-23 No Data Available OneTouch Delica Plus Lancet3 3G Miscellaneous TEST BLOOD SUGAR THREE TIMES DAILY 2021-11-28 No Data Available OneTouch Ultra Strip TEST BLOOD SUGAR 3 TIMES A DAY 2021-12-02 No Data Available amLODIPine Besylate 10 mg Tab TAKE 1 TAB LET BY MOUTH EVERY EVENING 2021-12-31 No Data Available Aspirin Low Dose 81 mg Tab delayed rel TAKE 1 TABLET BY MOUTH EVERY EVENING 2021-07-17 No Data Available Atorvastatin Calcium 40 mg Tab TAKE 1 TA BLET BY MOUTH AT BEDTIME 2021-12-31 No Data Available Cetirizine 10 mg Tab TAKE 1 TABLET BY MO UTH EVERY MORNING 2021-10-09 No Data Available Citalopram Hydrobromide 20 m g Tab TAKE 1 TABLET BY MOUTH EVERY MORNING 2022-01-02 No Data Available Gabapentin 300 mg Cap TAKE 1 CAPSULE BY MOUTH AT BEDTIME 2022-03-17 No Data Available hydrALAZINE 25 mg Tab TAKE 1 TABLET BY M OUTH TWICE DAILY IN THE MORNING AND IN THE EVENING WITH FOOD 2021-12-312023-11-09 Metoprolol Tartrate 50 mg Tab TAKE 1 TAB LET BY MOUTH TWICE DAILY IN THE MORNING AND IN THE EVENING WITH MEALS 2021-12-31 No Data Available Omeprazole 40 mg Cap delayed rel TAKE 1 CAPSULE BY MOUTH TWICE DAILY IN THE MORNING AND IN THE EVENING 2021-12-31 2023-11-09 oxyCODONE 5 mg Tab TAKE 1 TABLET BY HANNAH TH EVERY 12 HOURS NEEDED 2022-05-01 No Data Available Cephalexin 500 mg Cap TAKE 1 CAPSULE BY MOUTH TWICE DAILY UNTIL FINISHED 2022-05-12 No Data Available Medbox Status USE DIRECTED 2022-05-08 2022-08-10 Aspirin EC 81 mg Tab delayed rel take 1 tablet by mouth daily 2022-07-31 No Data Available Medbox Status USE DIRECTED 2022-05-08 No Data Nae ilable Albuterol Sulfate HFA 108 (9 0 Base) MCG/ACT Aerosol Solution Inhalation INHALE 2 PUFFS BY MOUTH EVERY 4 TO 6 HOURS NEEDED SHORTNESS OF BREATH OR FOR WHEEZING 2022-11-04 No Data Available Dexilant 60 mg Cap delayed rel TAKE 1 CA PSULE BY MOUTH EVERY DAY 2022-11-04 2023-11-09 Vitamin D (Ergocalciferol) 1.25 mg (34609 UT) Cap TAKE 1 CAPSULE BY MOUTH ONCE PER MONTH 2023-01-26 2023-11-09 Cyclobenzaprine 5 mg Tab TAKE 1/2 TO 1 T ABLET BY MOUTH AT BEDTIME NEEDED FOR MUSCLE SPASMS 2023-02-13 No Data Available Lidocaine-Prilocaine 2.5-2.5 % Crm APPLY TO THE AFFECTED AREA(S) TOPICALLY DIRECTED 2023-02-13 No Data Available traMADol 50 mg Tab TAKE 1 TABLET ORALLY EVERY 12 HOURS 2023-05-25 No Data Available Lidocaine (Anorectal) 5 % Crm APPLY 1 IN CH TO AFFECTED AREA(S) THREE TIMES DAILY NEEDED FOR PAIN 2023-06-17 No Data Available Problem List Problem Status Onset Date Resolved Date Synopsis Secondary hyperparathyroidism of renal origin Active 2022-08-10 N/A monitor IPTHphos phorus 4.8calcium 40 Unsteady gait Active 2023-04-08 N/A d/t OA, mor bid obesity ambulates with walkerat risk for falls Fall prevention TIPS: Wear sensible shoes. Remove home hazards (Get rid of all rugs/mats in your home). Light up your living space (keep a flash light next to your bed for night time). Use assistive devices. BMI 40.0-44.9, adult Active 2022-11-26 N/A 03/29 07/21: BMI 41.01 c HTN, DMT2, ESRD on dialysis Urinary incontinence Active 2023-04-08 N/A uses pads for urinary incontinence 4 per day wipes 2 units per month urinary incontinence R32 d/t: OA M15.9, DMT2 E11.319, unsteady gait R26.81, frail elder R54 , CHF I50.9 Other problems related to medical facilities and other health care Active 2023-09-08 N/A When member to call: 1. If bp is elevated sbp>150; dbp>90 or symptomatic-h/a, dizziness, cp, sob. 2. if there is a fall 3. if BS >300 or BS<90 or symptomatic; i.e., dizzy, off balance , shaky, general weakness. 4. if UTI symptoms arise-urinary frequency, dysuria, low abd pain. 5. if pain in knees increases/ or joint pain increased Please remember to call CBContinue to see PCP. 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 She is unaware if she qualifies for a transplant, but she is planning to f/u with the medication aid.She denies checking BS everyday, unable to recall last BS level. MDD (major depressive disorder), recurrent episode, moderate Active 2022-08-10 N/A on citalopramf amily azkbgyzz28/2024: PHQ-4=8 (Moderate)11/09/23: is currently in the ICU intubated causing her to feel sad at this time. Pulmonary hypertension Active 2022-08-10 N/A ta magdaleno amlodipine,metoprololEncour age low-sodium diet.Education re benefits of weight loss,activity as tolerated.11/09/23: Cardiology appt November 11Recommend DASH diet. Increase exercise to 30-45 min q day. Eat a healthy diet: try to eat whole foods, green leafy vegetables and whole grains. Decrease fast foods and processed foods. Decrease sugary drinks, stop soda intake. Limit ETOH intake. If you smoke, quit smoking. Decrease caffeine intake. Decrease stress by: meditating, deep breathing, laughing, going for walks. Monitor BP at home: keep a BP journal. Record you BP's in the AM and after dinner; bring your log in next visit Severe obesity (BMI >40) Active 2022-08-10 N/A HTNBMI 40.04 11/09/[id number] re diet (more fiber, less starch), activity as tolerated,Ed re benefits of weight loss.Advised to eat a healthy diet include emphasizing fruits, vegetables, whole grains, poultry, fish and nuts and limiting sugary foods and beverages. Eating this way may help increase fiber, which is also beneficial. A diet high in fiber can help lower cholesterol levels by as much as 10 percent. DASH diet. Increase exercise to 30-45 min q day. Decrease sugary drinks, stop soda intake. Limit ETOH intake. If you smoke, quit smoking. Polyneuropathy associated with critical illness Active 2023-11-09 N/A taking luis a apentin11/09/23: Reports f/u appt with specialist due to ongoing BLE pain. She reports some relief from taking gabapentin. Caregiver stress Active 2023-12-14 N/A 12/13/23 ER visit for fatigue, daughter reports work up negative for findings. Daughter reports that her is currently in the ICU and they have to make a decision today if they will disconnect him from life support. The patient has been feeling stressed due to this situation. She currently has good family support at this time. 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 MD Levy avoid spicy foods, caffeine, alcohol, fats and spices Encounters Encounters Type Facility Date of Service Diagnosis/Co mplaint New patient,40-59min; chronic exacerbation, 2 stable chronic or 1 acute illness add add modifier 95 for video (do not use for phone, instead use [id number]) [facility] ([place]) [place]20[place] Type 2 diabetes mellitus wit h diabetic chronic kidney diseaseHyp chr kidney disease w stage 5 chr kidney disease or ESRDEnd stage renal diseaseDependence on renal dialysisSecondary hyperparathyroidism of renal originMajor depressive disorder, recurrent, moderateMorbid (severe) obesity due to excess caloriesBody mass index (BMI) 35.0-35.9, adult New patient,40-59min; chronic exacerbation, 2 stable chronic or 1 acute illness add add modifier 95 for video (do not use for phone, instead use [id number]) [facility] ([place] New patient,40-59min; chronic exacerbation, 2 stable chronic or 1 acute illness add add modifier 95 for video (do not use for phone, instead use [id number]) [facility] [place] New patient,40-59min; chronic exacerbation, 2 stable chronic or 1 acute illness add add modifier 95 for video (do not use for phone, instead use [id number]) [facility] [place] New patient,40-59min; chronic exacerbation, 2 stable chronic or 1 acute illness add add modifier 95 for video (do not use for phone, instead use [id number]) [facility] [place] New patient,40-59min; chronic exacerbation, 2 stable chronic or 1 acute illness add add modifier 95 for video (do not use for phone, instead use [id number]) [facility] [place]2022 No Data Available [facility] [place]2022 Type 2 diabetes mellitus wit h diabetic chronic kidney diseaseHyp chr kidney disease w stage 5 chr kidney disease or ESRDEnd stage renal diseaseDependence on renal dialysisSecondary hyperparathyroidism of renal originMajor depressive disorder, recurrent, moderateAnemia in chronic kidney diseaseMorbid (severe) obesity due to excess caloriesBody mass index (bmi) 33.0-33.9, adult No Data Available [facility] [place]/2022 No Data Available [facility] [place] No Data Available [facility] [place] No Data Available [facility] [place] No Data Available [facility] [place] No Data Available [facility] [place] No Data Available [facility] [place] No Data Available [facility] [place]2022 Type 2 diabetes mellitus wit h diabetic chronic kidney diseaseHyp chr kidney disease w stage 5 chr kidney disease or ESRDEnd stage renal diseaseDependence on renal dialysisSecondary hyperparathyroidism of renal originMajor depressive disorder, recurrent, moderateMorbid (severe) obesity due to excess caloriesBody mass index (BMI) 40.0-44.9, adultAnemia in chronic kidney diseaseAge-related physical debilityPolyosteoarthritis, unspecifiedUnsteadiness on feet No Data Available [facility] ([place] 11[place]/20[place] No Data Available [facility] [place] No Data Available [facility] [place] No Data Available [facility] [place] No Data Available [facility] [place] No Data Available [facility] [place]20[place] Type 2 diabetes mellitus wit h diabetic chronic kidney diseaseEnd stage renal diseaseDependence on renal dialysisHyp chr kidney disease w stage 5 chr kidney disease or ESRDSecondary hyperparathyroidism of renal originMajor depressive disorder, recurrent, moderateMorbid (severe) obesity due to excess caloriesBody mass index (BMI) 40.0-44.9, adultAnemia in chronic kidney diseaseAge-related physical debilityPolyosteoarthritis, unspecifiedUnsteadiness on feet No Data Available [facility] [place] No Data Available [facility] [place] No Data Available [facility] [place] No Data Available [facility] [place] No Data Available [facility] [place] No Data Available [facility] [place] 04/08/2023 Type 2 diabetes mellitus wit h diabetic chronic kidney diseaseEnd stage renal diseaseDependence on renal dialysisSecondary hyperparathyroidism of renal originMorbid (severe) obesity due to excess caloriesBody mass index (BMI) 40.0-44.9, adultMajor depressive disorder, recurrent, moderateHypertensive chronic kidney disease w stg 1-4/unsp chr kdnyAnemia in chronic kidney diseaseAge-related physical debilityPolyosteoarthritis, unspecifiedUnspecified urinary incontinence No Data Available [facility] [place] 04[place]08/2023 No Data Available [facility] [place] 04/08/2023 No Data Available [facility] [place] 04/08/2023 No Data Available [facility] [place]/08/2023 No Data Available [facility] [place]2023 Dependence on renal dialysis End stage renal diseaseType 2 diabetes mellitus with diabetic chronic kidney diseaseSecondary hyperparathyroidism of renal originMajor depressive disorder, recurrent, moderateHyp chr kidney disease w stage 5 chr kidney disease or ESRDMorbid (severe) obesity due to excess caloriesBody mass index (BMI) 40.0-44.9, adultAnemia in chronic kidney diseaseAge-related physical debilityPolyosteoarthritis, unspecifiedUnsteadiness on feetUnspecified urinary incontinence No Data Available [facility] [place]2023 No Data Available [facility] [place] No Data Available [facility] [place]2023 No Data Available [facility] [place] 06[place]12[place]2023 Body mass index (BMI) 40.0-4 4.9, adultDependence on renal dialysisType 2 diabetes mellitus with diabetic chronic kidney diseaseEnd stage renal diseaseSecondary hyperparathyroidism of renal originMajor depressive disorder, recurrent, moderateEssential (primary) hypertensionMorbid (severe) obesity due to excess caloriesBody mass index (BMI) 35.0-35.9, adultChronic kidney disease, unspecifiedAnemia in chronic kidney diseaseAge-related physical debilityPolyosteoarthritis, unspecifiedUnsteadiness on feetUnspecified urinary incontinence No Data Available [facility] [place] 06[place]12/2023 No Data Available [facility] [place] 06[place]2023 No Data Available [facility] [place]2023 No Data Available [facility] [place]20[place] Estab. patient 30-39min; chronic exacerbation, 2 stable chronic or 1 acute illness add add modifier 95 for video, (do not use for phone, instead use [id number]) [facility] [place] 11/09/2023 Type 2 diabetes mellitus wit h diabetic chronic kidney diseaseEnd stage renal diseaseDependence on renal dialysisSecondary hyperparathyroidism of renal originMajor depressive disorder, recurrent, moderatePulmonary hypertension, unspecifiedMorbid (severe) obesity due to excess caloriesBody mass index (BMI) 40.0-44.9, adultAnemia in chronic kidney diseasePolyosteoarthritis, unspecifiedUnspecified urinary incontinenceUnsteadiness on feetCritical illness polyneuropathyImmunodeficiency due to external causesOther problems related to medical facilities and other health care Estab. patient 30-39min; chronic exacerbation, 2 stable chronic or 1 acute illness add add modifier 95 for video, (do not use for phone, instead use 21298-56) [facility] [place] Estab. patient 30-39min; chronic exacerbation, 2 stable chronic or 1 acute illness add add modifier 95 for video, (do not use for phone, instead use 43882-13) [facility] [place]20[place] Estab. patient 30-39min; chronic exacerbation, 2 stable chronic or 1 acute illness add add modifier 95 for video, (do not use for phone, instead use 52440-32) [facility] [place]/2023 Estab. patient 30-39min; chronic exacerbation, 2 stable chronic or 1 acute illness add add modifier 95 for video, (do not use for phone, instead use [id number]) [facility] [place]/2023 Estab. patient 30-39min; chronic exacerbation, 2 stable chronic or 1 acute illness add add modifier 95 for video, (do not use for phone, instead use 09443-83) [facility] [place]/2023 Estab. patient 30-39min; chronic exacerbation, 2 stable chronic or 1 acute illness add add modifier 95 for video, (do not use for phone, instead use [id number]) [facility] [place] 11[place]09/2023 Estab. patient 30-39min; chronic exacerbation, 2 stable chronic or 1 acute illness add add modifier 95 for video, (do not use for phone, instead use [id number]) [facility] [place] 11[place]09/2023 No Data Available [facility] [place] 12/14/2023 Dependent relative needing c are at home Vital Signs Date of Collection Vitals 2022-07-31 13:02:27 Height - 157.48 cmWe ight - 88.91 kgBody Mass Index (BMI) - 35.85 kg/m2 2022-10-29 13:29:07 Height - 157.48 cmWe ight - 82.1 kgBody Mass Index (BMI) - 33.11 kg/m2BP Diastolic - 60.0 mm[Hg]BP Systolic - 127.0 mm[Hg]Pain Scale - 0.0 {score} 2022-11-26 13:09:57 Height - 152.4 cmWei ght - 93.44 kgBody Mass Index (BMI) - 40.23 kg/m2BP Diastolic - 60.0 mm[Hg]BP Systolic - 127.0 mm[Hg]Pain Scale - 4.0 {score} 2022-12-25 09:24:57 Height - 152.4 cmWei ght - 93.44 kgBody Mass Index (BMI) - 40.23 kg/m2BP Diastolic - 60.0 mm[Hg]BP Systolic - 126.0 mm[Hg]Pain Scale - 0.0 {score} 2023-04-08 12:03:17 Weight - 95.26 kgBod y Mass Index (BMI) - 41.01 kg/m2Pain Scale - 4.0 {score} 2023-05-11 07:24:31 Weight - 95.26 kgBod y Mass Index (BMI) - 41.01 kg/m2Pain Scale - 3.0 {score} 2023-06-12 13:27:20 Weight - 95.26 kgBod y Mass Index (BMI) - 41.01 kg/m2Pain Scale - 0.0 {score} 2023-11-09 11:26:59 Weight - 92.99 kgBod y Mass Index (BMI) - 40.04 kg/m2Pain Scale - 8.0 {score} Social History Social History Social History Observation Description Effec tive Time Current Smoking Status Never smoker 2025-02-28 5 Sex Female History of Procedures Procedures Service Procedure code Service date Servicing provider Phone# New patient,40-59min; chronic exacerbation, 2 stable chronic or 1 acute illness add add modifier 95 for video (do not use for phone, instead use [id number]) 42732 2022-07-31 No Data Available No Data Availa ble Medication List Documented (1159F) 1159F 2022-07-31 No Data Available No Data Nae ilable Medication Review by prescribing provider or pharmacist documented (1160F) 1160F 2022-07-31 No Data Available No Data Nae ilable Pain Assessment - Pain Documented on a Pain Scale (1125F) 1125F 2022-07-31 No Data Available No Data Nae ilable Advance Care Directive Advance care planning discussion documented in the medical record (1158F) 1158F 2022-07-31 No Data Available No Data Availa ble BMI obtained (3008F) 3008F 2022-07-31 No Data Availab le No Data Available No Data Available [id number] 2022-10-29 No Data Available No Data Available Medication List Documented (1159F) 1159F 2022-10-29 No Data Available No Data Nae ilable Functional Status Assessed (1170F) 1170F 2022-10-29 No Data Available No Data Avail able Pain Assessment - NO pain present (1126F) 1126F 2022-10-29 No Data Available No Data A vailable BMI obtained (3008F) 3008F 2022-10-29 No Data Availab le No Data Available SBP < 130 (3074F) 3074F 2022-10-29 No Data Available No Data Available DBP <80 (3078F) 3078F 2022-10-29 No Data Available No Data Available Most recent A1c (HbA1c) or GMI level <7% (3044F) 3044F 2022-10-29 No Data Available No Data Availa ble No Data Available [id number] 2022-11-26 No Data Available No Data Available Medication List Documented (1159F) 1159F 2022-11-26 No Data Available No Data Nae ilable Pain Assessment - Pain Documented on a Pain Scale (1125F) 1125F 2022-11-26 No Data Available No Data Nae ilable BMI obtained (3008F) 3008F 2022-11-26 No Data Availab le No Data Available SBP < 130 (3074F) 3074F 2022-11-26 No Data Available No Data Available DBP <80 (3078F) 3078F 2022-11-26 No Data Available No Data Available No Data Available [id number] 2022-12-25 No Data Available No Data Available Medication List Documented (1159F) 1159F 2022-12-25 No Data Available No Data Nae ilable Pain Assessment - NO pain present (1126F) 1126F 2022-12-25 No Data Available No Data A vailable BMI obtained (3008F) 3008F 2022-12-25 No Data Availab le No Data Available SBP < 130 (3074F) 3074F 2022-12-25 No Data Available No Data Available DBP <80 (3078F) 3078F 2022-12-25 No Data Available No Data Available No Data Available [id number] 2023-04-08 No Data Available No Data Available Pain Assessment - Pain Documented on a Pain Scale (1125F) 1125F 2023-04-08 No Data Available No Data Nae ilable Functional Status Assessed (1170F) 1170F 2023-04-08 No Data Available No Data Avail able Medication List Documented (1159F) 1159F 2023-04-08 No Data Available No Data Nae ilable BMI obtained (3008F) 3008F 2023-04-08 No Data Availab le No Data Available No Data Available [id number] 2023-05-11 No Data Available No Data Available BMI obtained (3008F) 3008F 2023-05-11 No Data Availab le No Data Available Functional Status Assessed (1170F) 1170F 2023-05-11 No Data Available No Data Avail able Pain Assessment - Pain Documented on a Pain Scale (1125F) 1125F 2023-05-11 No Data Available No Data Nae ilable No Data Available [id number] 2023-06-12 No Data Available No Data Available Pain Assessment - NO pain present (1126F) 1126F 2023-06-12 No Data Available No Data A vailable BMI obtained (3008F) 3008F 2023-06-12 No Data Availab le No Data Available Medication List Documented (1159F) 1159F 2023-06-12 No Data Available No Data Nae ilable Functional Status Assessed (1170F) 1170F 2023-06-12 No Data Available No Data Avail able Estab. patient 30-39min; chronic exacerbation, 2 stable chronic or 1 acute illness add add modifier 95 for video, (do not use for phone, instead use [id number]) 09732 2023-11-09 No Data Available No Data Availa ble Medication List Documented (1159F) 1159F 2023-11-09 No Data Available No Data Nae ilable Medication Review by prescribing provider or pharmacist documented (1160F) 1160F 2023-11-09 No Data Available No Data Nae ilable Pain Assessment - Pain Documented on a Pain Scale (1125F) 1125F 2023-11-09 No Data Available No Data Nae ilable BMI obtained (3008F) 3008F 2023-11-09 No Data Availab le No Data Available Advance Care Directive Advance care planning discussion documented in the medical record (1158F) 1158F 2023-11-09 No Data Available No Data Availa ble Advance care planning discussed and documented advance care plan or surrogate decision-maker was documented in the medical record. (1123F) 1123F 2023-11-09 No Data Available No Data Availa ble Functional Status Assessed (1170F) 1170F 2023-11-09 No Data Available No Data Avail able No Data Available [id number] 2023-12-14 No Data Available No Data Available Functional Status Functional Category Effective Dates ADL: Bathing: Needs assistan ceDressing: Needs assistanceEating: IndependentAmbulation: AssistanceTransferring: Needs assistanceToileting: Needs assistanceIADL: Medication: Needs AssistanceMeal Prep: Needs AssistanceShopping: Needs AssistanceHousekeeping: Needs AssistanceFalls in last 6 Months: No 2022-07-31 lives with daughter, and grandchild 2022 Mental Status No Information Assessments Date of Service Assessments 2022-07-31 13:02:27 Dependence on renal dialysisType 2 diabetes mellitus with end-stage renal diseaseSecondary hyperparathyroidism of renal originMDD (major depressive disorder), recurrent episode, moderateHypertensive diseaseSevere obesity (BMI 35.0-35.9 with comorbidity) 2022-10-29 13:29:07 Dependence on renal dialysisType 2 diabetes mellitus with end-stage renal diseaseSecondary hyperparathyroidism of renal originMDD (major depressive disorder), recurrent episode, moderateHypertensive diseaseSevere obesity (BMI 35.0-35.9 with comorbidity)Anemia in chronic kidney disease, on chronic dialysis 2022-11-26 13:09:57 Dependence on renal dialysisType 2 diabetes mellitus with end-stage renal diseaseSecondary hyperparathyroidism of renal originMDD (major depressive disorder), recurrent episode, moderateHypertensive diseaseSevere obesity (BMI 35.0-35.9 with comorbidity)Anemia in chronic kidney disease, on chronic dialysisFrail elderlyPrimary osteoarthritis involving multiple jointsBMI 40.0-44.9, adultUnsteady gait 2022-12-25 09:24:57 Dependence on renal dialysisType 2 diabetes mellitus with end-stage renal diseaseSecondary hyperparathyroidism of renal originMDD (major depressive disorder), recurrent episode, moderateHypertensive diseaseSevere obesity (BMI 35.0-35.9 with comorbidity)Anemia in chronic kidney disease, on chronic dialysisFrail elderlyPrimary osteoarthritis involving multiple jointsBMI 40.0-44.9, adultUnsuniversity hospitals st. [facility]ohn medical centery gait 2023-04-08 12:03:17 Dependence on renal dialysisType 2 diabetes mellitus with end-stage renal diseaseSecondary hyperparathyroidism of renal originMDD (major depressive disorder), recurrent episode, moderateHypertensive diseaseSevere obesity (BMI 35.0-35.9 with comorbidity)Anemia in chronic kidney disease, on chronic dialysisFrail elderlyPrimary osteoarthritis involving multiple jointsBMI 40.0-44.9, adultUnsteady gaitUrinary incontinenceUnsuniversity hospitals st. john medical centery gait 2023-05-11 07:24:31 Dependence on renal dialysisType 2 diabetes mellitus with end-stage renal diseaseSecondary hyperparathyroidism of renal originMDD (major depressive disorder), recurrent episode, moderateHypertensive diseaseSevere obesity (BMI 35.0-35.9 with comorbidity)Anemia in chronic kidney disease, on chronic dialysisFrail elderlyPrimary osteoarthritis involving multiple jointsBMI 40.0-44.9, adultUnsteady gaitUrinary incontinenceUnsuniversity hospitals st. john medical centery gait 2023-06-12 13:27:20 Dependence on renal dialysisType 2 diabetes mellitus with end-stage renal diseaseSecondary hyperparathyroidism of renal originMDD (major depressive disorder), recurrent episode, moderateHypertensive diseaseSevere obesity (BMI 35.0-35.9 with comorbidity)Anemia in chronic kidney disease, on chronic dialysisFrail elderlyPrimary osteoarthritis involving multiple jointsBMI 40.0-44.9, adultUnsteady gaitUrinary incontinenceUnsteady gait 2023-11-09 11:26:59 Other problems relat ed to medical facilities and other health careType 2 diabetes mellitus with end-stage renal diseaseSecondary hyperparathyroidism of renal originMDD (major depressive disorder), recurrent episode, moderatePulmonary hypertensionSevere obesity (BMI >40)Anemia in chronic kidney disease, on chronic dialysisPrimary osteoarthritis involving multiple jointsBMI 40.0-44.9, adultUrinary incontinenceUnsteady gaitPolyneuropathy associated with critical illnessESRD with Dependence on renal dialysis and 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 Follow-up with John as needed for any acute or disease education needs that may arise.Goes Mon, Wed, and Frion hemodialysison citalopramfamily v involvedamlodipinehydralazinemetoprololEncourage low-sodium diet.Education re benefits of weight loss,activity as tolerated.[id number] re diet (more fiber, less starch), activity as tolerated,Ed re benefits of weight loss. 2022-10-29 13:29:07 Phone (patient, pare nt, or guardian); 5-10 minutes of medical discussion (no modifier 95)SBP < 130 (3074F)DBP <80 (3078F)Most recent hemoglobin A1c (HbA1c) level <7% (3044F)BMI obtained (3008F)Functional Status Assessed (1170F)Continue to see PCP. Follow-up with [facility] as needed for any acute or disease education needs that may arise 19/01.Goes Mon, Wed, and Frion zrippidxsjdt15/22 creat 10.59, BUN : A1c 4.9monitor GFRrenal dose medicationsf/u nephrology 11/04/22creation of left arm brachial artery to antecubital vein AV fistula on 01/09/22. S/P left arm cephalic vein superficialization on 05/01/22.monitor IPTHphosphorus 4.8calcium 40on citalopramfamily v involvedamlodipinehydralazinemetoprololEncourage low-sodium diet.Education re benefits of weight loss,activity as tolerated.HTNBMI [id number] re diet (more fiber, less starch), activity as tolerated,Ed re benefits of weight loss.followed by Nephrology has f/u visit 2311: hgb 12.6, hct 37.8denies SOB, increased fatigue 2022-11-26 13:09:57 Phone (patient, pare nt, or guardian); 5-10 minutes of medical discussion (no modifier 95)Continue to see PCP. Follow-up with [facility] as needed for any acute or disease education needs that may arise 19/01.Goes Mon, Wed, and sxkjheiubstf54/22 creat 10.59, BUN : A1c 4.9monitor GFRrenal dose medicationsf/u nephrology 11/04/22creation of left arm brachial artery to antecubital vein AV fistula on 01/09/22. S/P left arm cephalic vein superficialization on 05/01/22.monitor IPTHphosphorus 4.8calcium 40on citalopramfamily v involvedamlodipinehydralazinemetoprololEncourage low-sodium diet.Education re benefits of weight loss,activity as tolerated.HTNBMI [id number] re diet (more fiber, less starch), activity as tolerated,Ed re benefits of weight loss.followed by Nephrology has f/u visit 2311: hgb 12.6, hct 37.8denies SOB, increased fatigueanemia, morbid obesity, HTN, unsteady gait, at risk for falls, DMT2, Dialysis patientwith unsteady gait and need ambulatory assistive device 11/26/22: reports she feels unsteady on her feet with caneReferral for rolator walker with seat11/26/22: BMI 40.23 c HTN, DMT2, ESRD on dialysisd/t frail elderly, ESRD, morbid obesity, OA 2022-12-25 09:24:57 Phone (patient, pare nt, or guardian); 5-10 minutes of medical discussion (no modifier 95)BMI obtained (3008F)SBP < 130 (3074F)DBP <80 (3078F)Pain Assessment - NO pain documented (1126F)Continue to see PCP. Follow-up with [facility] as needed for any acute or disease education needs that may arise 19/01.Goes Mon, Wed, and FriNEPHROLOGIST: Segundo Rider MDLOCATION: Sebastian SAUMYADORI: M-W-F [address] [place] pmshoemenopp45/22 creat 10.59, BUN : A1c 4.9monitor GFRrenal dose medicationsf/u nephrology 11/04/22creation of left arm brachial artery to antecubital vein AV fistula on 01/09/22. S/P left arm cephalic vein superficialization on 05/01/22.monitor IPTHphosphorus 4.8calcium 40on citalopramfamily v involvedamlodipinehydralazinemetoprololEncourage low-sodium diet.Education re benefits of weight loss,activity as tolerated.Recommend DASH diet. Increase exercise to 30-45 min q day. Eat a healthy diet: try to eat whole foods, green leafy vegetables and whole grains. Decrease fast foods and processed foods. Decrease sugary drinks, stop soda intake. Limit ETOH intake. If you smoke, quit smoking. Decrease caffeine intake. Decrease stress by: meditating, deep breathing, laughing, going for walks. Monitor BP at home: keep a BP journal. Record you BP's in the AM and after dinner; bring [facility].23 12/25/2226WD4NMBAuvrppqws re diet (more fiber, less starch), activity as tolerated,Ed re benefits of weight loss.Advised to eat a healthy diet include emphasizing fruits, vegetables, whole grains, poultry, fish and nuts and limiting sugary foods and beverages. Eating this way may help increase fiber, which is also beneficial. A diet high in fiber can help lower cholesterol levels by as much as 10 percent. DASH diet. Increase exercise to 30-45 min q day. Decrease sugary drinks, stop soda intake. Limit ETOH intake. If you smoke, quit smoking.followed by Nephrology has f/u visit 2311: hgb 12.6, hct 37.8denies SOB, increased fatigueanemia, morbid obesity, HTN, unsteady gait, at risk for falls, DMT2, Dialysis patientwith unsteady gait and need ambulatory assistive device 11/26/22: reports she feels unsteady on her feet with caneReferral for rolator walker with seat11/26/22: BMI 40.23 c HTN, DMT2, ESRD on dialysisd/t frail elderly, ESRD, morbid obesity, OAshower chair ordered today 2023-04-08 12:03:17 Phone (patient, pare nt, or guardian); 5-10 minutes of medical discussion (no modifier 95)Continue to see PCP. Follow-up with [facility] as needed for any acute or disease education needs that may arise 19/01.Goes Mon, Thu, and FriNEPHROLOGIST: Segundo Rider MDLOCATION: Sebastian MOYA: M-W-F [address] [place] qqebvkaqysiv44/22 creat 10.59, BUN : A1c 4.9monitor GFRrenal dose medicationsf/u nephrology 11/04/22creation of left arm brachial artery to antecubital vein AV fistula on 01/09/22. S/P left arm cephalic vein superficialization on 05/01/22.monitor IPTHphosphorus 4.8calcium 40on citalopramfamily v involvedamlodipinehydralazinemetoprololEncourage low-sodium diet.Education re benefits of weight loss,activity as tolerated.Recommend DASH diet. Increase exercise to 30-45 min q day. Eat a healthy diet: try to eat whole foods, green leafy vegetables and whole grains. Decrease fast foods and processed foods. Decrease sugary drinks, stop soda intake. Limit ETOH intake. If you smoke, quit smoking. Decrease caffeine intake. Decrease stress by: meditating, deep breathing, laughing, going for walks. Monitor BP at home: keep a BP journal. Record you BP's in the AM and after dinner; bring your log in next visitHTNBMI 40.23 12/25/2291BZ2AQNDopxwegzx re diet (more fiber, less starch), activity as tolerated,Ed re benefits of weight loss.Advised to eat a healthy diet include emphasizing fruits, vegetables, whole grains, poultry, fish and nuts and limiting sugary foods and beverages. Eating this way may help increase fiber, which is also beneficial. A diet high in fiber can help lower cholesterol levels by as much as 10 percent. DASH diet. Increase exercise to 30-45 min q day. Decrease sugary drinks, stop soda intake. Limit ETOH intake. If you smoke, quit smoking.followed by Nephrology has f/u visit 2311: hgb 12.6, hct 37.8denies SOB, increased fatigueanemia, morbid obesity, HTN, unsteady gait, at risk for falls, DMT2, Dialysis patientwith unsteady gait and need ambulatory assistive device 04/08/23: reports she feels unsteady on her feet with caneReferral for rolator walker with seat will f/u with vascular end of mar: BMI 41.01 c HTN, DMT2, ESRD on dialysisd/t frail elderly, ESRD, morbid obesity, OAuses pads for urinary incontinence 4 per day wipes 2 units per month urinary incontinence R32 d/t: OA M15.9, DMT2 E11.319, unsteady gait R26.81, frail elder R54 , CHF I50.9d/t OA, morbid obesity ambulates with walkerat risk for falls Fall prevention TIPS: Wear sensible shoes. Remove home hazards (Get rid of all rugs/mats in your home). Light up your living space (keep a flash light next to your bed for night time). Use assistive devices. 2023-05-11 07:24:31 Phone (patient, pare nt, or guardian); 5-10 minutes of medical discussion (no modifier 95)BMI obtained (3008F)Continue to see PCP. Follow-up with [facility] as needed for any acute or disease education needs that may arise 19/01.Goes Mon, Thu, and FriNEPHROLOGIST: Segundo Rider MDLOCATION: Sebastian MOYA: M-W-F [address] [place] elkxaxuoilkk01/22 creat 10.59, BUN : A1c 4.9monitor GFRrenal dose medicationsf/u nephrology 11/04/22creation of left arm brachial artery to antecubital vein AV fistula on 01/09/22. S/P left arm cephalic vein superficialization on 05/01/22.monitor IPTHphosphorus 4.8calcium 40on citalopramfamily v involvedamlodipinehydralazinemetoprololEncourage low-sodium diet.Education re benefits of weight loss,activity as tolerated.Recommend DASH diet. Increase exercise to 30-45 min q day. Eat a healthy diet: try to eat whole foods, green leafy vegetables and whole grains. Decrease fast foods and processed foods. Decrease sugary drinks, stop soda intake. Limit ETOH intake. If you smoke, quit smoking. Decrease caffeine intake. Decrease stress by: meditating, deep breathing, laughing, going for walks. Monitor BP at home: keep a BP journal. Record you BP's in the AM and after dinner; bring your log in next visit[facility] 40.23 12/25/2255MY9GQLOmksxoawh re diet (more fiber, less starch), activity as tolerated,Ed re benefits of weight loss.Advised to eat a healthy diet include emphasizing fruits, vegetables, whole grains, poultry, fish and nuts and limiting sugary foods and beverages. Eating this way may help increase fiber, which is also beneficial. A diet high in fiber can help lower cholesterol levels by as much as 10 percent. DASH diet. Increase exercise to 30-45 min q day. Decrease sugary drinks, stop soda intake. Limit ETOH intake. If you smoke, quit smoking.followed by Nephrology has f/u visit 2311: hgb 12.6, hct 37.8denies SOB, increased fatigueanemia, morbid obesity, HTN, unsteady gait, at risk for falls, DMT2, Dialysis patientwith unsteady gait and need ambulatory assistive device 04/08/23: reports she feels unsteady on her feet with caneReferral for rolator walker with seat will f/u with sydendlq79/11/23: BMI 41.01 c HTN, DMT2, ESRD on dialysisd/t frail elderly, ESRD, morbid obesity, OAuses pads for urinary incontinence 4 per day wipes 2 units per month urinary incontinence R32 d/t: OA M15.9, DMT2 E11.319, unsteady gait R26.81, frail elder R54 , CHF I50.9d/t OA, morbid obesity ambulates with walkerat risk for falls Fall prevention TIPS: Wear sensible shoes. Remove home hazards (Get rid of all rugs/mats in your home). Light up your living space (keep a flash light next to your bed for night time). Use assistive devices. 2023-06-12 13:27:20 Phone (patient, pare nt, or guardian); 5-10 minutes of medical discussion (no modifier 95)Continue to see PCP. Follow-up with [facility] as needed for any acute or disease education needs that may arise 19/01.Goes Thu, Thu, and FriNEPHROLOGIST: Segundo Rider MDLOCATION: Sebastian MOYA: M-W- [employer] [place] sjefsvzrfsmj49/22 creat 10.59, BUN : A1c 4.9monitor GFRrenal dose medicationsf/u nephrology 11/04/22creation of left arm brachial artery to antecubital vein AV fistula on 01/09/22. S/P left arm cephalic vein superficialization on 05/01/22.monitor IPTHphosphorus 4.8calcium 40on citalopramfamily v involvedamlodipinehydralazinemetoprololEncourage low-sodium diet.Education re benefits of weight loss,activity as tolerated.Recommend DASH diet. Increase exercise to 30-45 min q day. Eat a healthy diet: try to eat whole foods, green leafy vegetables and whole grains. Decrease fast foods and processed foods. Decrease sugary drinks, stop soda intake. Limit ETOH intake. If you smoke, quit smoking. Decrease caffeine intake. Decrease stress by: meditating, deep breathing, laughing, going for walks. Monitor BP at home: keep a BP journal. Record you BP's in the AM and after dinner; bring your log in next visitK[facility] 40.23 12/25/2270EH2IUKYysnprmey re diet (more fiber, less starch), activity as tolerated,Ed re benefits of weight loss.Advised to eat a healthy diet include emphasizing fruits, vegetables, whole grains, poultry, fish and nuts and limiting sugary foods and beverages. Eating this way may help increase fiber, which is also beneficial. A diet high in fiber can help lower cholesterol levels by as much as 10 percent. DASH diet. Increase exercise to 30-45 min q day. Decrease sugary drinks, stop soda intake. Limit ETOH intake. If you smoke, quit smoking.followed by Nephrology has f/u visit 2311: hgb 12.6, hct 37.8denies SOB, increased fatigueanemia, morbid obesity, HTN, unsteady gait, at risk for falls, DMT2, Dialysis patientwith unsteady gait and need ambulatory assistive device 04/08/23: reports she feels unsteady on her feet with caneReferral for rolator walker with seat will f/u with mtsbefad72/11/23: BMI 41.01 c HTN, DMT2, ESRD on dialysisd/t frail elderly, ESRD, morbid obesity, OAuses pads for urinary incontinence 4 per day wipes 2 units per month urinary incontinence R32 d/t: OA M15.9, DMT2 E11.319, unsteady gait R26.81, frail elder R54 , CHF I50.9d/t OA, morbid obesity ambulates with walkerat risk for falls Fall prevention TIPS: Wear sensible shoes. Remove home hazards (Get rid of all rugs/mats in your home). Light up your living space (keep a flash light next to your bed for night time). Use assistive devices. 2023-11-09 11:26:59 Medication Review by prescribing provider or pharmacist documented (1160F)Medication List Documented (1159F)Functional Status Assessed (1170F)Advance Care Directive Advance care planning discussion documented in the medical record (1158F)BMI obtained (3008F)Televideo 30-39min; chronic exacerbation, 2 stable chronic or 1 acute illness add modifier 95Advance care planning discussed and documented advance care plan or surrogate decision-maker was documented in the medical record. (1123F)Pain Assessment - Pain Documented (1125F)Continue to see PCP. Follow-up with [facility] as needed for any acute or disease education needs that may arise.When member to call: 1. If bp is elevated sbp>150; dbp>90 or symptomatic-h/a, dizziness, cp, sob. 2. if there is a fall 3. if BS >300 or BS<90 or symptomatic; i.e., dizzy, off balance , shaky, general weakness. 4. if UTI symptoms arise-urinary frequency, dysuria, low abd pain. 5. if pain in knees increases/ or joint pain increased Please remember to call CBContinue to see PCP. Follow-up with [facility] as needed for any acute or disease education needs that may arise 19/01.what should be done when the member calls: see each individual diagnosis for contingency planon hemodialysis (started 2021)06/19 creat 10.59, BUN : A1c 4.95: Creat 7.06, GFR 6renal dose medications11/09/23: Patient reports that the medication aid mentioned to her that she will need a transplant of her kidneys. She is unaware if she qualifies for a transplant, but she is planning to f/u with the medication aid.She denies checking BS everyday, unable to recall last BS level.monitor IPTHphosphorus 4.8calcium 40on citalopramfamily : PHQ-4=8 (Moderate)11/09/23: is currently in the ICU intubated causing her to feel sad at this time.taking amlodipine,metoprololEncourage low-sodium diet.Education re benefits of weight loss,activity as tolerated.11/09/23: Cardiology appt November 11Recommend DASH diet. Increase exercise to 30-45 min q day. Eat a healthy diet: try to eat whole foods, green leafy vegetables and whole grains. Decrease fast foods and processed foods. Decrease sugary drinks, stop soda intake. Limit ETOH intake. If you smoke, quit smoking. Decrease caffeine intake. Decrease stress by: meditating, deep breathing, laughing, going for walks. Monitor BP at home: keep a BP journal. Record you BP's in the AM and after dinner; bring your log in next visitK[facility] 40.04 11/09/2306BG4PYSAZaedfbbzg re diet (more fiber, less starch), activity as tolerated,Ed re benefits of weight loss.Advised to eat a healthy diet include emphasizing fruits, vegetables, whole grains, poultry, fish and nuts and limiting sugary foods and beverages. Eating this way may help increase fiber, which is also beneficial. A diet high in fiber can help lower cholesterol levels by as much as 10 percent. DASH diet. Increase exercise to 30-45 min q day. Decrease sugary drinks, stop soda intake. Limit ETOH intake. If you smoke, quit smoking.followed by Nephrology 06/25/22: hgb 12.6, hct 37.84/: Hgb 9.9, HCT 30.4denies SOB, increased fatiguewith unsteady gait and need ambulatory assistive device 04/08/23: reports she feels unsteady on her feet with caneReferral for rolator walker with seat will f/u with yanptxdy82/11/23: BMI 41.01 c HTN, DMT2, ESRD on dialysisuses pads for urinary incontinence 4 per day wipes 2 units per month urinary incontinence R32 d/t: OA M15.9, DMT2 E11.319, unsteady gait R26.81, frail elder R54 , CHF I50.9d/t OA, morbid obesity ambulates with walkerat risk for falls Fall prevention TIPS: Wear sensible shoes. Remove home hazards (Get rid of all rugs/mats in your home). Light up your living space (keep a flash light next to your bed for night time). Use assistive devices.taking gabapentin11/09/23: Reports f/u appt with specialist due to ongoing BLE pain. She reports some relief from taking gabapentin.Goes Mon, Thu, and FriNEPHROLOGIST: Segundo Rider MDLOCATION: Sebastian MOYA: M-W- 1st ShiftImmunodeficiency due to: dialysisweakened immune system, encourage hand washing, avoid large crowds, stay up to date on vaccines (annual flu), monitor for and report early any s/s of infection 2023-12-14 07:04:00 Phone (patient, pare nt, or guardian); 5-10 minutes of medical discussion (no modifier 95)Continue to see PCP. Follow-up with [facility] as needed for any acute or disease education needs that may arise 19/01.12/13/23 ER visit for fatigue, daughter reports work up negative for findings. Daughter reports that her is currently in the ICU and they have to make a decision today if they will disconnect him from life support. The patient has been feeling stressed due to this situation. She currently has good family support at this time. Health Concerns Date Concern 2023-12-14 Visit completed via audio by telephone. Patient/Guardian agreed to visit via telehealth.Time spent in visit: 2023-12-14 Most recent hospital stay(s) or ER visit(s) and precipitating factors: 12/13/23 ER visit for fatigue, daughter reports work up negative for findings.
--- OUTSIDE RECORDS SUMMARY | 2025-03-25 13:54 | XMS_ITS | Encounter Summary ---
Author Organization [facility] Address [address] [place] [address] Phone Care Team Providers Care Electronics Supervisor Name Role Phone Selin Lockett MD Primary Care Provider + [phone] Reason for Visit * Reason Comments Med Refill Encounter Details Date Type Department Care Team (Late st Contact Info) Description 04/09/2021 Refill [facility] [address] [facility] [address] [place] [phone] Chucho Gallardo MD [address] [facility] [address] [place] [phone] Social History Tobacco Use Types Packs/Day Years Used Date Smoking Tobacco: Never Alcohol Use Standard Drinks/Week Comments No 0 (1 standard drink = 0.6 oz pur e alcohol) Comments Unknown Sex and Gender Information Value Date Recorded Sex Assigned at Not on file Legal Sex Female 5:03 PM EST Gender Identity Not on file Sexual Orientation Not on file documented as of this encounter Miscellaneous Notes * Telephone Encounter - Chucho Gallardo MD - 04/09/2021 1:38 PM EDT If she is NOT on dialysis already she needs appt wioth me in nexrt 1-2 weeks --very important documented in this encounter Plan of Treatment Not on file documented as of this encounter Visit Diagnoses Not on filedocumented in this encounter Care Teams Electronics Supervisor Relationship Specialty Start Date End Date Selin Lockett MD [address] [place] [id number] PCP - General 07/09/20 documented as of this encounter
--- OUTSIDE RECORDS SUMMARY | 2025-03-25 13:54 | XMS_ITS | Clinical Summary ---
Author Organization [employer] Address [address] [facility] 7t [place] [address] Care Team Providers Care Counseling Director Name Role Phone Unavailable Primary Care Provider Unavailabl e Allergies Active Allergy Reactions Criticality Noted Date Comments Milton Inhibitors Rash Low 04/15/2021 Medications glucose blood (Sleepy's Ultra) test strip Use 1 by To Skin route 3 times every day 2 Active sevelamer carbonate (Renvela) 800 MG tablet TAKE 1 TABLET BY MOUTH EVERY EVENING (WITH DINNER) 3 Active hydrALAZINE (Apresoline) 25 MG tablet TAKE 1 TABLET BY MOUTH TWICE DAILY IN THE MORNING AND IN THE EVENING WITH FOOD 3 Active fluticasone (Flonase) 50 MCG/ACT nasal spray Administer 1 spray into each nostril 2 times daily. 3 Active Dexilant [address] capsule Take 1 capsule by mouth in the morning. 3 Active cyclobenzaprine (Flexeril) 5 MG tabletIndications: Muscle spasm Take 1/2-1 tablet at night for relief of muscle spasm 10 tablet 3 Active gabapentin (Neurontin) 300 MG capsule Take 1 capsule (300 mg) by mouth at bedtime. 90 capsule 3 3 Active albuterol 108 (90 Base) MCG/ACT inhaler Inhale 2 puffs every 4 (four) hours if needed for wheezing or shortness of breath. 18 g 3 3 Active lidocaine-prilocai ne (Emla) 2.5-2.5 % creamIndications:M uscle spasm APPLY TO THE AFFECTED AREA(S) TOPICALLY DIRECTED 30 g 2 3 Active Lidocaine 5 % creamIndications:P rimary osteoarthritis of both knees Use 1 inch to affected area tid prn pain 30 g 1 3 Active Alcohol Swabs (Alcohol Prep) 70 % padsIndications:Ty pe 2 diabetes mellitus with hyperglycemia, unspecified whether half-way insulin use ([facility]) USE DIRECTED THREE TIMES DAILY 100 each 11 4 Active metoprolol tartrate (Lopressor) 50 MG tablet TAKE 1 TABLET BY MOUTH TWICE DAILY IN THE MORNING AND IN THE EVENING WITH FOOD 180 tablet 1 4 Active amLODIPine (Norvasc) 10 MG tablet TAKE 1 TABLET BY MOUTH EVERY EVENING 90 tablet 1 4 Active atorvastatin (Lipitor) 40 MG tablet TAKE 1 TABLET BY MOUTH AT BEDTIME 90 tablet 1 4 Active citalopram (CeleXA) 20 MG tabletIndications: Major depressive disorder, remission status unspecified, unspecified whether recurrent TAKE 1 TABLET BY MOUTH EVERY MORNING 90 tablet 1 4 Active Aspirin Adult Low Strength 81 MG EC tabletIndications: At high risk for cardiovascular disease TAKE 1 TABLET BY MOUTH EVERY EVENING 90 tablet 1 4 Active cetirizine (ZyrTEC) 10 MG tabletIndications: Allergy, subsequent encounter TAKE 1 TABLET BY MOUTH EVERY MORNING 90 tablet 1 4 Active Lancets (OneTouch Delica Plus [id number]) [facility] TEST BLOOD SUGAR ONE TIME DAILY 100 each 11 4 Active OneTouch Ultra Test test stripIndications:T ype 2 diabetes mellitus with hyperglycemia, without long-term current use of insulin ([facility]) TEST BLOOD SUGAR 3 TIMES A DAY 100 strip 11 4 Active hydrOXYzine HCl (Atarax) 25 MG tablet Take 1 tablet (25 mg) by mouth if needed in the morning, at noon, and at bedtime for anxiety. 90 tablet 3 4 Active Active Problems Problem Noted Date Diagnosed Date Lumbar radiculopathy 06/17/2023 Assessment & Plan (06/17/2023 11:38 AM EST): Patient has this on the spine, refer to PT Continue Tylenol PRN, lidocaine patch PRN and lower extremities Polyneuropathy associated with critical illness 06/17/2023 Assessment & Plan (06/17/2023 11:36 AM EST): Lower extremity Continue Gabapentin and f/u after PT Acute bilateral thoracic back pain 05/07/2023 Assessment & Plan (05/07/2023 2:19 PM EST): S/p recent fall See above Take tylenol and order Xray's to R/O fracture Fall 05/07/2023 Assessment & Plan (05/07/2023 2:19 PM EST): Secondary to OA, see above order Xray to r/o fracture Refer to PT prn Encounter for preventive health examination 02/2023 Assessment & Plan (06/17/2023 11:41 AM EST): Discussed with patient re increase fresh fruit and vegetable intake. Counseled re moderate exercise as tolerated, up to 20min/d Patient feels safe at home. Mammogram Up to date, next one due 2023 Bone density test Up to date, next one due 2024 Eye exam Overdue, will refer to [facility] CRC screen Up to date, next one due 2024 Lipids/FBS Up to date, next one due 2023 Vaccinations Influenza iz today, RSV pending for next appt, COVID vaccine booster today at , other iz are up to date. Dental Visit Overdue, list of dental clinics in the area given to make appt. Assessment & Plan (05/07/2023 2:19 PM EST): Order labs and schedule PE with me Abnormal gait 01/08/2023 Assessment & Plan (05/07/2023 2:15 PM EST): Secondary to OA of spine and hips Cont taking tylenol PRN, needs to cont using walker Fall prevention discussed with Pt and family Will refer to PT PRN Acute maxillary sinusitis 01/08/2023 Chronic cough 01/08/2023 Bilateral hearing loss 01/08/2023 Dyspnea on exertion 01/08/2023 Assessment & Plan (05/07/2023 2:16 PM EST): Pt decline flu IZ today, she says she will get it at [facility] End-stage renal disease 01/08/2023 Assessment & Plan (05/07/2023 2:17 PM EST): Doing well on HD via L arm AV fistel. 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 Primary osteoarthritis of both knees 09/01/2018 Assessment & Plan (06/17/2023 11:51 AM EST): Limited ambulation Refer to PT Hyperkalemia 01/21/2018 Abnormal TSH 09/14/2017 Subclinical hypothyroidism 09/14/2017 Assessment & Plan (05/07/2023 2:18 PM EST): TFT's have been at goal Cont on medication and take TFT's every yr Type 2 diabetes mellitus 10/08/2016 Depressive disorder 11/15/2012 Gastroesophageal reflux disease 11/15/2012 Seasonal allergic rhinitis 11/15/2012 Essential hypertension 06/09/2012 Chronic kidney disease 06/09/2012 Type II diabetes mellitus 06/09/2012 Assessment & Plan (06/17/2023 11:48 AM EST): Controlled. A1c is at goal. Off medications Counseled re more frequent low calorie/carb meals. Encouraged physical activity as tolerated. Assessment & Plan (05/07/2023 2:18 PM EST): Controlled. A1c is at goal. Counseled re more frequent low calorie/carb meals. Check fgstk once daily Encouraged physical activity as tolerated. FU in PRN Resolved Problems Problem Noted Date Diagnosed Date Resolved Date Numbness of lower limb 01/08/202301/20 Hyperparathyroidism due to r enal insufficiency 09/01/2018 06/17/2023 Immunizations Immunization Administration Dates Next Due Hep B, adult 06/10/2010,04/25/2010 Influenza High-dose Quadrivalent Preservative Fr ee 04/04/2022 Influenza injectable quadrivalent preservative f ree 06/17/2023 Influenza, IIV3, injectable 06/13/2009 Pfizer Covid-19 Vaccine 12+ Bivalent 02/24/2023, 10/30/2022 Pneumococcal Conjugate PCV 13 05/22/2015 Pneumococcal Polysaccharide PPSV23 06/13/2016, TD (adult), 2 Lf tetanus tox oid, preservative free, adsorbed 07/31/2007 Tdap 09/01/2018 Zoster, live 06/13/2016 Social History Tobacco Use Types Packs/Day Years Used Date Smoking Tobacco: Never Passive Smoke Exposure: Never Smokeless Tobacco: Never Tobacco Cessation:Counseling Given: Not Answered Alcohol Use Standard Drinks/Week Comments Never 0 (1 standard drink = 0.6 oz pur e alcohol) Depression Answer Date Recorded Patient Health Questionnaire-9 Score 0 06/17/2023 Patient Health Questionnaire-9 Score 0 06/17/2023 Last PHQ-9: Questionnaire Data Not on file 1 08/18/2022 Housing Stability Answer Date Recorded What is your housing situation today? I have saul ramirez 04/14/[address] you li ve. Do you have problems with any of the following? None of the above 04/14/2023 Food Insecurity Answer Date Recorded Within the past 12 months, y ou worried that your food would run out before you got money to buy more: Never True 04/14/2023 Within the past 12 months,th e food you bought just didn't last and you didn't have enough money to get more: Never True Transportation Answer Date Recorded In the past 12 months, has l ack of transportation kept you from medical appts, meetings, work or from getting things needed for daily living? No 04/14/2023 Utilities Answer Date Recorded In the past 12 months, has t he electric, gas, oil or water company threatened to shut off services in your home? No 04/14/2023 Depression Answer Date Recorded Patient Health Questionnaire-2 Score 0 06/17/2023 Comments Unknown Sex and Gender Information Value Date Recorded Sex Assigned at Female 04/28/2022 10:19 AM EDT Legal Sex Female 10:19 AM EDT Gender Identity Female 04/28/2022 10:19 AM EDT Sexual Orientation Choose not to disclose 2021 10:19 AM EDT Last Filed Vital Signs Vital Sign Reading Time Taken Comments Blood Pressure 135/62 06/17/2023 10:42 AM EST Pulse 63 06/17/2023 10:42 AM EST Temperature 36.2 C (97.2 F) 06/17/2023 10:42 AM EST Respiratory Rate 16 06/17/2023 10:42 AM EST Oxygen Saturation 95% 06/17/2023 10:42 AM EST Inhaled Oxygen Concentration - - Weight 94.3 kg (208 lb) 06/17/2023 10:42 AM EST Height 152.4 cm (5') 06/17/2023 10:42 AM EST Body Mass Index 40.62 06/17/2023 10:42 AM EST Plan of Treatment Upcoming Encounters Date Type Department Care Team (Late st Contact Info) Description 05/02/2025 9:15 AM EST Office Visit [facility] [address] [place], [place] [phone] Selin Lockett MD [address] [place], [place] [phone] Health Maintenance Due Date Last Done Comments Diabetes: Foot Exam 1958 Eye Exam 1958 Alcohol/Substance Use Screening 1960 Hepatitis C Screening 1966 Hepatitis B Vaccines (3 of 3 - 19+ 3-dose series) 10/24/2010 06/10/2010, 04/25/2010 Zoster Vaccines (2 of 3) 08/08/2016 06/13/2016 Diabetes: Urine Protein Screening 04/11/2021 04/11/2020 Diabetes: Hemoglobin A1C 2023 05/07/2023, 07/0 12/2020 RSV Patients and Patients Aged 60 years or older (1 - 1-dose 75+ series) 11/06/2023 SDOH Screening 01/21/2024 01/20/2023 Tobacco Screening 05/07/2024 05/07/2023 Lipid Panel 06/16/2024 06/16/2023, 120 06/2021, 04/11/2020 Depression Screening 06/17/2024 06/17/2023, 06/17/20 23 COVID-19 Vaccine ( season) 2025 06/17/2023, 02/24/2023, 10/30/2022, Additional history exists Influenza Vaccine (#1) 2025 4, 06/17/2023, 04/04/2022, Additional history exists DTaP/Tdap/Td Vaccines (2 - Td or Tdap) 09/01/2028 09/01/2018, 07/31/2007 Pneumococcal Vaccine: 50+ Years Completed 06/09/2024, 02/26/2022, 09/09/2021, Additional history exists HIB Vaccines Aged Out No longer eligi ble based on patient's age to complete this topic HPV Vaccines Aged Out No longer eligi ble based on patient's age to complete this topic Hepatitis A Vaccines Aged Out No long er eligible based on patient's age to complete this topic IPV Vaccines Aged Out No longer eligi ble based on patient's age to complete this topic Meningococcal B Vaccine Aged Out No l onger eligible based on patient's age to complete this topic Meningococcal Vaccine Aged Out No sun sarahi eligible based on patient's age to complete this topic RSV under 20 months Aged Out No longe r eligible based on patient's age to complete this topic Rotavirus Vaccines Aged Out No longer eligible based on patient's age to complete this topic Procedures Procedure Name Priority Date/Time Associated Diagnosis Comments LIPID PANEL WITH REFLEX TO DIRECT LDL Routine 06/16/2023 10:09 AM EST Encounter for preventive health examination POCT GLYCATED HEMOGLOBIN, TOTAL Routine 05/07/2023 10:46 AM EST Type 2 diabetes mellitus with hyperglycemia, without long-term current use of insulin ([facility]) ALBUMIN, RANDOM URINE W/CREATININE Routine 04/11/2020 10:11 AM EDT from Last 3 Months or Most Recently Relevant to Health Maintenance Results * Lipid Panel with Reflex to Direct LDL (06/16/2023 10:09 AM EST) Triglycerides 118 <150 mg/dL [facility] Comment:Desirable Triglyceri de: less than 150 mg/dLBorderline High Triglyceride 150-199 mg/dLHigh Triglyceride: 200-499 mg/dLVery High Triglyceride: greater than or equal to 5OO mg/dL Cholesterol 146 <200 mg/dL [facility] Comment:Desirable Cholestero l: less than 200 mg/dLBorderline High Cholesterol: 200-239 mg/dLHigh Cholesterol: greater than 239 mg/dL LDL Cholesterol Calculated 80 <100 mg/dL [facility] Comment:Desirable LDL: less than 100 mg/dLNear Optimal/Above Optimal LDL: 110- 129 mg/dLBorderline High LDL: 130-159 mg/dLHigh LDL: 160-189 mg/dLVery High LDL: greater than or equal to 190 mg/dL HDL Cholesterol 43 >40 mg/dL [facility] Comment:Desirable HDL: great er than 40 mg/dL Note: This HDL assay may give artificially low results in patients with liver disease. Blood 06/16/2023 10:0 9 AM EST 06/16/2023 11:16 AM EST Selin Lockett MD LAB BLOOD ORDERABLES Fin al Result Performing Organization Address City/State/[facility] Co de Phone Number [facility] [address] [place] [phone] * POCT HGB A1C (05/07/2023 10:46 AM EST) Hemoglobin A1C 5.4 4.0 - 6.0 % QC Media Lot # [id number] Lot# Expiration Date Blood 05/07/2023 10:4 6 AM EST Selin Lockett MD POINT OF CARE TEST ENTER /EDIT ORDERABLES Final Result * (ABNORMAL) ALBUMIN, RANDOM URINE W/CREATININE (04/11/2020 10:11 AM EDT) Microalbumin Urine 231.5 See Note: mg/dL [facility] Comment: Reference Range: Reference Range Not established Verified by repeat analysis. Microalb/Creat Ratio 3,046(H) <30 mcg/mg creat [facility] Comment: The ADA defines abnormalities in albumin excretion as follows: Category Result (mcg/mg creatinine) Normal <30 Microalbuminuria 30-299 Clinical albuminuria > OR = 300 The ADA recommends that at least two of three specimens collected within a 3-6 month period be abnormal before considering a patient to be within a diagnostic category. Creatinine, Urine 76 20 - 275 mg/dL [facility] 04/11/2020 10:1 1 AM EDT us Selin Lockett MD LAB URINE ORDERABLES Fin al Result [facility] [address] from Last 3 Months or Most Recently Relevant to Health Maintenance Insurance [facility] MEDICARE [place]
--- OUTSIDE RECORDS SUMMARY | 2025-03-25 13:54 | XMS_ITS | Encounter Summary ---
Author Organization [employer] Address [address] [facility] [address] [place] [address] Care Team Providers Care Rn Utilization Management Um Name Role Phone Selin Lockett MD Primary Care Provider + Reason for Visit * Reason Comments Med Refill Encounter Details Date Type Department Care Team (Late Contact Info) Description 12/27/2022 Refill [facility] [address] [place], [place] [phone] Selin Lockett MD [address] [place] [address] [phone] Major depressive disorder, remission status unspecified, unspecified whether recurrent Social History Tobacco Use Types Packs/Day Years Used Date Smoking Tobacco: Never Assessed Comments Unknown Sex and Gender Information Value Date Recorded Sex Assigned at Female 04/28/2022 10:19 AM EDT Legal Sex Female 10:19 AM EDT Gender Identity Female 04/28/2022 10:19 AM EDT Sexual Orientation Choose not to disclose 2021 10:19 AM EDT documented as of this encounter Plan of Treatment Upcoming Encounters Date Type Department Care Team (Late Contact Info) Description 05/02/2025 9:15 AM EST Office Visit [facility] [address] [place] [address] [phone] Selin Lockett MD [address] [place] [address] [phone] documented as of this encounter Visit Diagnoses Diagnosis Major depressive disorder, remission status unspecified, unspecified whether recurrent documented in this encounter Care Teams Rn Utilization Management Um Relationship Specialty Start Date End Date Selin Lockett MD [address] [place] [phone] PCP - General Family Medicine 01/04/18 03/15/24 documented as of this encounter
--- OUTSIDE RECORDS SUMMARY | 2025-03-25 13:54 | XMS_ITS | Encounter Summary ---
Author Organization [facility] Address [address] [phone] Phone Care Team Providers Care Girls Swimming Coach Name Role Phone Selin Lockett MD Primary Care Provider + [phone] Encounter Details Date Type Department Care Team (Late st Contact Info) Description 03/25/2025 Treatment [facility] [address] [phone] Chris Rangel MD [address] [phone] End stage renal disease; Dependence on renal dialysis Social History Tobacco Use Types Packs/Day Years Used Date Smoking Tobacco: Never Smokeless Tobacco: Never Alcohol Use Standard Drinks/Week Comments No 0 (1 standard drink = 0.6 oz pur e alcohol) Comments Unknown Sex and Gender Information Value Date Recorded Sex Assigned at Not on file Legal Sex Female 5:03 PM EST Gender Identity Not on file Sexual Orientation Not on file documented as of this encounter Miscellaneous Notes * Dialysis Note - Chris Rangel MD - 03/25/2025 12:00 AM EDT BASIC NOTE Patient: Rosalba Arora : 1950 Note Author: CHRIS RANGEL MD Service Date: 03/25/2025 This patient was personally seen [id number] for a basic visit as part of routine monthly dialysis care for end stage renal disease. Attending Photography Colorist: CORNELL COTTRELL MD Dialysis Location: [facility] Schedule: Shift: 1 OVERVIEW Patient is stable. HOME MEDICATIONS Current [facility] Outpatient Medications ALCOHOL PREP 70 % PADS USE THREE TIMES DAILY Start Date: 10/09/2021 amLODIPine (NORVASC) tablet Take 1 tablet by mouth 1 (one) time each day Start Date: ASPIRIN LOW DOSE 81 MG PO TBEC Take 81 mg by mouth at bed time Start Date: 10/09/2021 atorvastatin (LIPITOR) tablet Take 1 tablet by mouth 1 (one) time each day Afternoon and the morning Start Date: calcitriol (ROCALTROL) 0.25 MCG capsule Start Date: cetirizine (ZyrTEC) tablet Take 1 tablet by mouth 1 (one) time each day Start Date: citalopram (CeleXA) tablet Take 1 tablet by mouth 1 (one) time each day Start Date: fluticasone (FLONASE) nasal spray INHALE 1-2 SPRAYS IN EACH NOSTRIL ONCE DAILY NEEDED Start Date: 10/09/2021 FREESTYLE FREEDOM LITE W/DEVICE KIT TEST BLOOD SUGAR TWICE DAILY Start Date: 08/08/2021 gabapentin (NEURONTIN) capsule 300 mg at bed time Start Date: 10/09/2021 hydrALAZINE (APRESOLINE) tablet Take 1 tablet by mouth 2 (two) times a day Start Date: metoprolol tartrate (LOPRESSOR) tablet Take 1 tablet by mouth 2 (two) times a day Start Date: omeprazole (PriLOSEC) DR capsule Take 1 capsule by mouth 1 (one) time each day Start Date: ONETOUCH DELICA PLUS [id number] MISC TEST BLOOD SUGAR 3 TIMES A DAY Start Date: 10/09/2021 ONETOUCH ULTRA STRP TEST BLOOD SUGAR 3 TIMES A DAY Start Date: 10/09/2021 sevelamer carbonate (RENVELA) tablet 800 mg Take 1 tablet by mouth in the morning and 1 tablet in the evening and 1 tablet before bedtime. Start Date: 11/20/2021 Current [facility] Epic Allergies Allergen: SIMONE INHIBITORS Reaction: Other (see comments) ADEQUACY ASSESSMENT Kt/V, Natural Log 1.69 (03/01/25) 1.70 (02/08/25) 0.65 (02/03/25) UREA REDUCTION RATIO (%) 76 (03/01/25) 76 (02/08/25) 42 (02/03/25) BUN 82 (03/01/25) 50 (02/08/25) 40 (02/03/25) BUN Post Dialysis 20 (03/01/25) 12 (02/08/25) 23 (02/03/25) Creatinine 12.67 (03/01/25) 5.81 (02/03/25) 12.44 (08/31/24) Bicarbonate (CO2) 28 (03/08/25) 23 (03/01/25) 25 (02/03/25) Sodium 134 (03/01/25) 133 (02/03/25) 137 (08/31/24) ANEMIA ASSESSMENT Hgb 9.1 (03/15/25) 9.4 (03/01/25) 10.5 (02/15/25) Iron Saturation (TSat) 54 (03/01/25) 37 (02/03/25) 15 (08/31/24) Ferritin 1,629 (03/01/25) 1,352 (02/03/25) 1,420 (08/31/24) Iron 96 (03/01/25) 86 (02/03/25) 36 (08/31/24) TIBC 176 (03/01/25) 231 (02/03/25) 232 (08/31/24) MCV 96.6 (03/01/25) 97.6 (02/03/25) 93.9 (08/31/24) Platelets 144 (03/01/25) 194 (02/03/25) 166 (08/31/24) BMM ASSESSMENT Calcium, Adjusted Total 8.8 03/13/25 8.1 03/01/25 8.3 02/03/25 Calcium 8.7 03/13/25 7.8 03/01/25 8.3 02/03/25 Phosphorus, Serum 5.2 03/01/25 4.4 02/17/25 2.9 02/03/25 Ca*PO4 40.6 03/01/25 24.1 02/03/25 28.8 08/31/24 PTH, Intact 1,176 03/01/25 431 02/03/25 510 08/01/24 Vitamin D, 25-Hydroxy 39 02/03/25 36 08/01/24 Magnesium 2.1 03/01/25 2.4 02/03/25 1.9 08/31/24 Alkaline Phosphatase 150 03/01/25 200 02/03/25 163 08/31/24 Aluminum 3 02/03/25 3 08/01/24 NUTRITION ASSESSMENT Albumin 3.9 03/13/25 3.6 03/01/25 4.2 02/03/25 Potassium 5.8 03/01/25 5.1 02/24/25 6.0 02/22/25 Hemoglobin A1C 4.7 02/03/25 4.8 08/01/24 ADDITIONAL LABS White Blood Cells 4.1 (03/01/25) 4.4 (02/03/25) 4.6 (08/31/24) Cholesterol 153 (02/03/25) 114 (08/01/24) HDL 53 (02/03/25) 47 (08/01/24) LDL-Calc 80 (02/03/25) 46 (08/01/24) Triglycerides 100 (02/03/25) 107 (08/01/24) Hep B Surface Antibody 10 (02/03/25) 23 (08/01/24) Uric Acid 2.9 (02/03/25) 4.3 (08/01/24) ADDITIONAL COMMENT COMMENTS: returned from [place], doing well 08/08/24 stable 08/17/24 doing ok 08/22/27 no new issues 2: stable 09/02/24 doing well 09/12/24 stable 02/06/25 returned from [place], doing ok 02/13/25 stable 02/20/25 no new issuesb 02/22/25 stable 03/06/25 stable Signed by: CHRIS RANGEL MD on 03/25/2025 at 08:50:52 AM Transcribed by: CHRIS RANGEL MD on 03/25/2025 at 08:50:52 AM documented in this encounter Plan of Treatment Not on file documented as of this encounter Visit Diagnoses Diagnosis End stage renal disease Dependence on renal dialysis documented in this encounter Care Teams Girls Swimming Coach Relationship Specialty Start Date End Date Selin Lockett MD [address] [place] [phone] PCP - General 07/09/20 documented as of this encounter
--- OUTSIDE RECORDS SUMMARY | 2025-03-25 13:54 | XMS_ITS | Encounter Summary ---
Author Organization [facility] Address [address] [facility] 7[address] [place] [address] Care Team Providers Care Review Coordinator Name Role Phone Selin Lockett MD Primary Care Provider + Reason for Visit * Reason Comments Med Refill Encounter Details Date Type Department Care Team (Late Contact Info) Description 12/03/[address] [facility] [address] [place] [phone] Selin Lockett MD [address] [place], [place] [phone] Social History Tobacco Use Types Packs/Day Years Used Date Smoking Tobacco: Never Assessed Comments Unknown Sex and Gender Information Value Date Recorded Sex Assigned at Female 04/28/2022 10:19 AM EDT Legal Sex Female 10:19 AM EDT Gender Identity Female 04/28/2022 10:19 AM EDT Sexual Orientation Choose not to disclose 2021 10:19 AM EDT COVID-19 Exposure Response Date Recorded In the last 10 days, have yo u been in contact with someone who was confirmed or suspected to have Coronavirus/COVID-19? No / Unsure 11/03/2022 2:26 PM EDT documented as of this encounter Plan of Treatment Upcoming Encounters Date Type Department Care Team (Late st Contact Info) Description 05/02/2025 9:15 AM EST Office Visit [facility] [address] [place] [address] [phone] Selin Lockett MD [address] [place] [address] [phone] documented as of this encounter Visit Diagnoses Not on filedocumented in this encounter Care Teams Review Coordinator Relationship Specialty Start Date End Date Selin Lockett MD [address] [place] [address] PCP - General Family Medicine 01/04/18 03/15/24 documented as of this encounter
--- OUTSIDE RECORDS SUMMARY | 2025-03-25 13:54 | XMS_ITS | Encounter Summary ---
Author Organization [facility]. Address [address] [address] Phone Care Team Providers Care Grocery Deliverer Name Role Phone Selin Lockett MD Primary Care Provider + [phone] Encounter Details Date Type Department Care Team (Late st Contact Info) Description 03/06/2025 Treatment [facility] [address] [phone] Cornell Cottrell MD [address] [address] End stage renal disease; Dependence [...] encounter Miscellaneous Notes * Dialysis Note - Cornell Cottrell MD - 03/06/2025 12:00 AM EDT Patient: Rosalba Arora : 1950 Note Type: Dialysis Rounds-Comp Service Date: 03/06/2025 This patient was personally seen [id number] for a complete visit as part of routine monthly dialysis care for end stage renal disease. Attending Process Cheese Cooker: CORNELL COTTRELL Dialysis Location: [facility] Schedule: Shift: 1 OVERVIEW Patient is stable. HOME MEDICATIONS Medications reviewed. Current [facility] Outpatient Medications ALCOHOL PREP 70 % PADS [...] 1 (one) time each day Start Date: ROEVRTO WALTONCARA PLUS [id number] MISC TEST BLOOD SUGAR 3 TIMES A [...] 4.3 (08/01/24) ADDITIONAL COMMENT COMMENTS: returned from [place], doing well 08/08/24 stable 08/17/24 doing ok 08/22/27 no new issues 2: stable 09/02/24 doing well 09/12/24 stable 02/06/25 returned from [place], doing ok 02/13/25 stable 02/20/25 no new issuesb 02/22/25 stable 03/06/25 stable Signed by: CORNELL COTTRELL MD on 03/19/2025 at 10:52:53 PM Transcribed by: CORNELL COTTRELL MD on 03/19/2025 at 10:52:53 PM documented in this encounter Plan of Treatment Not on file documented as of this encounter Visit Diagnoses Diagnosis End stage renal disease Dependence on renal dialysis documented in this encounter Care Teams Grocery Deliverer Relationship Specialty Start Date End Date Selin Lockett MD [address] [place] [phone] PCP - General 07/09/20 documented as of this encounter
--- OUTSIDE RECORDS SUMMARY | 2025-03-25 13:54 | XMS_ITS | Encounter Summary ---
Author Organization [employer] [facility] Address [address] [place] [address] Care Team Providers Care Llama Farmer Name Role Phone Selin Lockett MD Primary Care Provider + Encounter Details Date Type Department Care Team ([facility] Contact Info) Description 12/03/2022 Orders Only [facility] [address] [place] [phone] Ivis Swan LPN Social History Tobacco Use Types Packs/Day Years [...] Description 05/02/2025 9:15 AM EST Office Visit [facility] [address] [place] [phone] Selin Lockett MD [address] [place] [address] [phone] documented as of this encounter Visit Diagnoses Not on filedocumented in this encounter Care Teams Llama Farmer Relationship Specialty Start Date End Date Selin Lockett MD [address] [place] [address] [phone] PCP - General Family Medicine 01/04/18 03/15/24 documented as of this encounter
--- OUTSIDE RECORDS SUMMARY | 2025-03-25 13:54 | XMS_ITS | Clinical Summary ---
Author Organization [facility] Address [address] [place] [address] Phone Care Team Providers Care Cooker Tender Name Role Phone Selin Lockett MD Primary Care Provider + [phone] Allergies Active Allergy Reactions Criticality Noted Date Comments Milton Inhibitors Other (see comments) 04/15/2021 Medications omeprazole (PriLOSEC) [address] capsule Take 1 capsule by mouth 1 (one) time each day Active metoprolol tartrate (LOPRESSOR) 50 MG tablet Take 1 tablet by mouth 2 (two) times a day Active hydrALAZINE 25 MG tablet Take 1 tablet by mouth 2 (two) times a day Active citalopram (CeleXA) 20 MG tablet Take 1 tablet by mouth 1 (one) time each day Active cetirizine (ZyrTEC) 10 MG tablet Take 1 tablet by mouth 1 (one) time each day Active atorvastatin (LIPITOR) 40 MG tablet Take 1 tablet by mouth 1 (one) time each day Afternoon and the morning Active amLODIPine (NORVASC) 10 MG tablet Take 1 tablet by mouth 1 (one) time each day Active calcitriol (ROCALTROL) 0.25 MCG capsule TAKE 1 CAPSULE BY MOUTH EVERY MORNING ON THURSDAY, THURSDAY, AND THURSDAY 12 capsule 2 Active Additional Information Patient taking differently: 0.25 mcg Oral 3 times weekly, Reported on 12/31/2021 Alcohol Swabs (Alcohol Prep) 70 % pads USE THREE TIMES DAILY 2 Active Aspirin Low Dose 81 MG EC tablet Take 81 mg by mouth at bed time 2 Active Blood Glucose Monitoring Suppl (FreeStyle [place] Lite) w/Device kit TEST BLOOD SUGAR TWICE DAILY 2 Active fluticasone (FLONASE) 50 MCG/ACT nasal spray INHALE 1-2 SPRAYS IN EACH NOSTRIL ONCE DAILY NEEDED 2 Active gabapentin (NEURONTIN) 300 MG capsule 300 mg at bed time 2 Active OneTouch Ultra test strip TEST BLOOD SUGAR 3 TIMES A DAY 2 Active Lancets (OneTouch Delica Plus [id number]) misc TEST BLOOD SUGAR 3 TIMES A DAY 2 Active sevelamer carbonate (RENVELA) 800 MG tablet Take 1 tablet by mouth in the morning and 1 tablet in the evening and 1 tablet before bedtime. 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 Renal failure syndrome 04/15/2021 Type 2 diabetes mellitus without complication Encounters Date Type Department Care Team Description 03/25/2025 Treatment [facility] [address] [place] [phone] Roderick Rangel MD End stage renal disease; Dependence on renal dialysis 03/06/2025 Treatment [facility] [address] [phone] Chucho Gallardo MD End stage renal disease; Dependence on renal dialysis 02/22/2025 Treatment [facility] [address] [phone] Chucho Gallardo MD End stage renal disease; Dependence on renal dialysis 02/20/2025 Treatment [facility] [address] [place] [phone] Chucho Gallardo MD End stage renal disease; Dependence on renal dialysis 02/13/2025 Treatment [facility] [address] [place] [phone] Chucho Gallardo MD End stage renal disease; Dependence on renal dialysis 02/06/2025 Treatment [facility] [address] [phone] Chucho Gallardo MD End stage renal disease; Dependence on renal dialysis 02/03/2025 Orders Only [facility] [address] [phone] Chucho Gallardo MD from Last 3 Months Family History Medical History Relation Comments Kidney disease Child son Relation Status Comments Child Social History Tobacco Use Types Packs/Day Years Used Date Smoking Tobacco: Never Smokeless Tobacco: Never Alcohol Use Standard Drinks/Week Comments No 0 (1 standard drink = 0.6 oz pur e alcohol) Comments Unknown Sex and Gender Information Value Date Recorded Sex Assigned at Not on file Legal Sex Female 5:03 PM EST Gender Identity Not on file Sexual Orientation Not on file Last Filed Vital Signs Vital Sign Reading Time Taken Comments Blood Pressure 127/60 02/26/2022 1:48 PM EDT Pulse 74 02/26/2022 1:48 PM EDT Temperature - - Respiratory Rate - - Oxygen Saturation 94% 02/26/2022 1:48 PM EDT Inhaled Oxygen Concentration - - Weight 93.4 kg (206 lb) 05/12/2022 2:22 PM EST Height 157.5 cm (5' 2 ) 01/28/2022 10:30 AM EDT Body Mass Index 37.68 01/28/2022 10:30 AM EDT Plan of Treatment Health Maintenance Due Date Last Done Comments Hepatitis B Vaccine (1 of 5 - Risk Dialysis 4-dose series) 1970 06/10/2010, 04/25/2010 Diabetes: Ophthalmology Exam 06/18/2022 Diabetes: Pedal Pulse Checked 06/18/2022 Diabetes: Sensory Foot Exam 06/18/2022 Diabetes: Visual Foot Exam 06/18/2022 Influenza Vaccine (#1) 2025 04/14/2024, 2022 Diabetes: Hemoglobin A1C 05/06/2025 025, 08/01/2024, 05/07/2023, Additional history exists Pneumococcal Vaccine: 50+ Years Completed 06/13/2016, 05/22/2015, 07/31/2007 Pneumococcal Vaccine: Peds ( 0 to 5 Years) and At-Risk Patients (6 to 49 Years) Discontinued 06/13/2016, 05/22/2015, 07/31/2007 Procedures Procedure Name Priority Date/Time Associated Diagnosis Comments HEMOGLOBIN Routine 03/15/2025 3:00 AM EDT [facility] (HC) Routine 03/13/2025 3:00 AM EDT CALCIUM, ADJUSTED W ALBUMIN Routine 03/13/2025 3:00 AM EDT CO2, TOTAL Routine 03/08/2025 3:00 AM EDT [facility] (HC) Routine 03/08/2025 3:00 AM EDT FERRITIN Routine 03/01/2025 3:00 AM EDT HEPATITIS B SURFACE ANTIGEN W/REFL CONFIRM Routine 03/01/2025 3:00 AM EDT TRANSFERRIN SATURATION Routine 3:00 AM EDT PROTEIN, TOTAL, SERUM Routine 03/01/2025 3:00 AM EDT MAGNESIUM Routine 03/01/2025 3:00 AM EDT ELECTROLYTE PANEL Routine 03/01/2025 3:0 0 AM EDT LIH (HC) Routine 03/01/2025 3:00 AM EDT GLUCOSE, RANDOM Routine 03/01/2025 3:00 AM EDT LACTATE DEHYDROGENASE Routine 03/01/2025 3:00 AM EDT CREATININE, SERUM Routine 03/01/2025 3:0 0 AM EDT BUN/CREATININE RATIO Routine 03/01/2025 3:00 AM EDT AST Routine 03/01/2025 3:00 AM EDT BILIRUBIN, TOTAL Routine 03/01/2025 3:00 AM EDT ALT Routine 03/01/2025 3:00 AM EDT CALCIUM PHOSPHORUS PRODUCT, ADJUSTED (HC) Routine 03/01/2025 3:00 AM EDT ALKALINE PHOSPHATASE Routine 03/01/2025 3:00 AM EDT PTH, INTACT Routine 03/01/2025 3:00 AM EDT CBC AND DIFFERENTIAL Routine 03/01/2025 3:00 AM EDT KT/V NATURAL LOG, URR (HC) Routine 03/01/2025 3:00 AM EDT LI[facility] (HC) Routine 02/24/2025 3:00 AM EDT POTASSIUM Routine 02/24/2025 3:00 AM EDT LI[facility] (HC) Routine 02/22/2025 3:00 AM EDT POTASSIUM Routine 02/22/2025 3:00 AM EDT PHOSPHATE ( PHOSPHORUS) Routine 02/17/2025 3:00 AM EDT LI[facility] (HC) Routine 02/17/2025 3:00 AM EDT HEMOGLOBIN Routine 02/15/2025 3:00 AM EDT LI[facility] (HC) Routine 02/15/2025 3:00 AM EDT POTASSIUM Routine 02/15/2025 3:00 AM EDT POTASSIUM Routine 02/08/2025 3:00 AM EDT LIH (HC) Routine 02/08/2025 3:00 AM EDT KT/V NATURAL LOG, URR (HC) Routine 02/08/2025 3:00 AM EDT ALUMINUM LEVEL Routine 02/03/2025 3:00 AM EDT HEMOGLOBIN A1C Routine 02/03/2025 3:00 AM EDT HEPATITIS B CORE AB TOTAL Routine 02/03/2025 3:00 AM EDT CONFIRMATION TEST HCV Routine 02/03/2025 3:00 AM EDT HEPATITIS C ABS W/REFLEX RNA DETECTR Routine 02/03/2025 3:00 AM EDT HEPATITIS B SURFACE ANTIBODY QUANT Routine 02/03/2025 3:00 AM EDT FERRITIN Routine 02/03/2025 3:00 AM EDT URIC ACID Routine 02/03/2025 3:00 AM EDT PROTEIN, TOTAL, SERUM Routine 02/03/2025 3:00 AM EDT TRANSFERRIN SATURATION Routine 3:00 AM EDT LIH (HC) Routine 02/03/2025 3:00 AM EDT ELECTROLYTE PANEL Routine 02/03/2025 3:0 0 AM EDT MAGNESIUM Routine 02/03/2025 3:00 AM EDT LIPID PANEL Routine 02/03/2025 3:00 AM EDT LACTATE DEHYDROGENASE Routine 02/03/2025 3:00 AM EDT GLUCOSE, RANDOM Routine 02/03/2025 3:00 AM EDT CREATININE, SERUM Routine 02/03/2025 3:0 0 AM EDT BUN/CREATININE RATIO Routine 02/03/2025 3:00 AM EDT BILIRUBIN, TOTAL Routine 02/03/2025 3:00 AM EDT AST Routine 02/03/2025 3:00 AM EDT ALT Routine 02/03/2025 3:00 AM EDT ALKALINE PHOSPHATASE Routine 02/03/2025 3:00 AM EDT CALCIUM PHOSPHORUS PRODUCT, ADJUSTED (HC) Routine 02/03/2025 3:00 AM EDT HEPATITIS B SURFACE ANTIGEN W/REFL CONFIRM Routine 02/03/2025 3:00 AM EDT PTH, INTACT Routine 02/03/2025 3:00 AM EDT VITAMIN D 25 HYDROXY Routine 02/03/2025 3:00 AM EDT CBC AND DIFFERENTIAL Routine 02/03/2025 3:00 AM EDT KT/V NATURAL LOG, URR (HC) Routine 02/03/2025 3:00 AM EDT from Last 3 Months Results * (ABNORMAL) Hemoglobin (03/15/2025 3:00 AM EDT) Only the most recent of2 resultswithin the time period is included. Hgb 9.1(L) 11.2 - 15.7 g/dL [facility] Hemoglobin x 3 27.3(L) 33.6 - 47.1 g/dL [facility] 03/15/2025 3:00 AM EDT 03/16/2025 3:17 PM EDT us Chucho Gallardo MD LAB BLOOD ORDERABLES Final Re sult Performing Organization Address [facility] Co de Phone Number [facility] [address] [place] [address] * LIH (03/13/2025 3:00 AM EDT) Only the most recent of9 resultswithin the time period is included. Lipemia Normal Normal [facility] Icterus Normal Normal [facility] Hemolysis Normal Normal [facility] 03/13/2025 3:00 AM EDT 03/14/2025 1:51 PM EDT us Chucho Gallardo MD LAB [id number] SOLICITED RESULTS Final Result Performing Organization Address [facility] de Phone Number [facility] [address] [place] [address] * Calcium, Adjusted w Albumin (03/13/2025 3:00 AM EDT) Calcium 8.7 8.6 - 10.3 mg/dL [facility] Albumin 3.9 3.6 - 5.4 g/dL [facility] Calcium, Adjusted Total 8.8 8.6 - 10.3 mg/dL [facility] 03/13/2025 3:00 AM EDT 03/14/2025 1:51 PM EDT us Chucho Gallardo MD LAB BLOOD ORDERABLES Final Re sult Performing Organization Address [facility] de Phone Number [facility] [address] [place] [address] * CO2 (03/08/2025 3:00 AM EDT) Bicarbonate (CO2) 28 21 - 31 mEq/L [facility] 03/08/2025 3:00 AM EDT 03/09/2025 3:01 PM EDT Chucho Gallardo MD LAB BLOOD ORDERABLES Final Re sult Performing Organization Address [facility]/ZIP Co de Phone Number [facility] [address] [place] [address] * (ABNORMAL) Kt/V Natural Log, URR (03/01/2025 3:00 AM EDT) Only the most recent of3 resultswithin the time period is included. Treatment Time 208 min [facility] Pre-Weight, lb 82.7 kg [facility] Post-Weight, lb 78.7 kg [facility] Ultrafiltration Rate 15(H) <=13 mL/kg/hr [facility] Comment: Recommend achieving Ultrafiltration Rate (UFR) <=10 mL/kg/hr References: Parag BROWN et al. Kidney Int. 2010; 79(2):250-257 BUN 82(H) 7 - 25 mg/dL [facility] BUN Post Dialysis 20 7 - 25 mg/dL [facility] UREA REDUCTION RATIO (%) 76 >=65 % [facility] Kt/V Natural Log 1.69 >=1.2 [facility] 03/01/2025 3:00 AM EDT 03/02/2025 3:47 PM EDT Chucho Gallardo MD LAB [id number] SOLICITED RESULTS Final Result Performing Organization Address [facility]/ZIP Co de Phone Number [facility] [address] [place] [address] * (ABNORMAL) Calcium Phosphorus Product, Adjusted (03/01/2025 3:00 AM EDT) Only the most recent of2 resultswithin the time period is included. Albumin 3.6 3.6 - 5.4 g/dL [facility] Calcium 7.8(L) 8.6 - 10.3 mg/dL [facility] Phosphorus, Serum 5.2(H) 2.5 - 5.0 mg/dL [facility] Ca*PO4 40.6 <55.0 mg2/dL2 [facility] Calcium, Adjusted Total 8.1(L) 8.6 - 10.3 mg/dL [facility] CA*PO4 CORRCTD 42.1 <55.0 mg2/dL2 [facility] 03/01/2025 3:00 AM EDT 03/02/2025 3:54 PM EDT Chucho Gallardo MD LAB [id number] SOLICITED RESULTS Final Result Performing Organization Address [facility] Co de Phone Number [facility] [address] [place] [address] * Hepatitis B Surface Ag w/Reflex Confirmation (03/01/2025 3:00 AM EDT) Only the most recent of2 resultswithin the time period is included. Hep B Surface Antigen Negative Negative [facility] 03/01/2025 3:00 AM EDT 03/02/2025 3:54 PM EDT Chucho Gallardo MD LAB BLOOD ORDERABLES Final Re sult Performing Organization Address [facility] de Phone Number [facility] [address] [place] [address] * BUN/CREATININE RATIO (03/01/2025 3:00 AM EDT) Only the most recent of2 resultswithin the time period is included. BUN/Creatinine Ratio 6.5 <=23.0 [facility] 03/01/2025 3:00 AM EDT 03/02/2025 3:54 PM EDT us Chucho Gallardo MD LAB [id number] SOLICITED RESULTS Final Result Performing Organization Address [facility] Co de Phone Number [facility] [address] [place] [address] * (ABNORMAL) TSAT (03/01/2025 3:00 AM EDT) Only the most recent of2 resultswithin the time period is included. Iron 96 50 - 170 ug/dL [facility] Transferrin 126(L) 250 - 380 mg/dL [facility] TIBC 176(L) 211 - 406 ug/dL [facility] Iron Saturation (TSat) 54(H) 22 - 52 % [facility] 03/01/2025 3:00 AM EDT 03/02/2025 3:54 PM EDT us Chucho Gallardo MD LAB BLOOD ORDERABLES Final Re sult [facility] [address] [place] [address] * (ABNORMAL) CBC and Differential (03/01/2025 3:00 AM EDT) Only the most recent of2 resultswithin the time period is included. Pathologist [facility] DIFFERENTIAL MANUAL, 2 Not Indicated [facility] White Blood Cells 4.1 4.0 - 10.0 K/uL [facility] RBC 2.96(L) 3.93 - 5.22 M/uL [facility] Hgb 9.4(L) 11.2 - 15.7 g/dL [facility] Hemoglobin x 3 28.2(L) 33.6 - 47.1 g/dL [facility] Hematocrit 28.6(L) 34.1 - 44.9 % [facility] MCV 96.6(H) 79.4 - 94.8 fL [facility] MCH 31.8 25.6 - 32.2 pg [facility] MCHC 32.9 32.2 - 35.5 g/dL [facility] RDW 14.4 11.7 - 14.4 % [facility] Platelets 144(L) 182 - 369 K/uL [facility] MPV 11.1 9.2 - 12.8 fL [facility] Neutrophils Relative 50.0 34.0 - 71.1 % [facility] Lymphocytes Relative 30.3 19.3 - 51.7 % [facility] Monocytes 11.6 4.7 - 12.5 % [facility] Eosinophils Relative 6.9(H) 0.7 - 5.8 % [facility] Basophils Relative 0.5 0.1 - 1.2 % [facility] Immature Granulocytes 0.7 0.0 - 1.0 % [facility] 03/01/2025 3:00 AM EDT 03/02/2025 4:18 PM EDT us Chucho Gallardo MD LAB BLOOD ORDERABLES Final Re sult Performing Organization Address [facility] de Phone Number [facility] [address] [place] [address] * (ABNORMAL) ALT (03/01/2025 3:00 AM EDT) Only the most recent of2 resultswithin the time period is included. ALT (SGPT) 9(L) 10 - 49 U/L [facility] 03/01/2025 3:00 AM EDT 03/02/2025 3:54 PM EDT us Chucho Gallardo MD LAB BLOOD ORDERABLES Final Re sult Performing Organization Address [facility] de Phone Number [facility] [address] [place] [address] * AST (03/01/2025 3:00 AM EDT) Only the most recent of2 resultswithin the time period is included. AST (SGOT) 13 <34 U/L [facility] 03/01/2025 3:00 AM EDT 03/02/2025 3:54 PM EDT us Chucho Gallardo MD LAB BLOOD ORDERABLES Final Re sult Performing Organization Address [facility] de Phone Number [facility] [address] [place] [address] * Protein, total (03/01/2025 3:00 AM EDT) Only the most recent of2 resultswithin the time period is included. Total Protein 6.8 6.4 - 8.9 g/dL [facility] 03/01/2025 3:00 AM EDT 03/02/2025 3:54 PM EDT us Chucho Gallardo MD LAB BLOOD ORDERABLES Final Re sult Performing Organization Address [facility] de Phone Number [facility] [address] [place] [address] * (ABNORMAL) Alkaline phosphatase (03/01/2025 3:00 AM EDT) Only the most recent of2 resultswithin the time period is included. Alkaline Phosphatase 150(H) 46 - 116 U/L [facility] 03/01/2025 3:00 AM EDT 03/02/2025 3:54 PM EDT Chucho Gallardo MD LAB BLOOD ORDERABLES Final Re sult Performing Organization Address [facility] de Phone Number [facility] [address] [place] [address] * (ABNORMAL) PTH, Intact (03/01/2025 3:00 AM EDT) Only the most recent of2 resultswithin the time period is included. PTH, Intact 1,176(H) 160 - 721 pg/mL [facility] Comment: Suggested (KDIGO) ESRD maintenance range is two to nine times the upper normal limit (80.1 pg/mL) for the laboratory. 03/01/2025 3:00 AM EDT 03/02/2025 3:54 PM EDT Chucho Gallardo MD LAB BLOOD ORDERABLES Final Re sult Performing Organization Address [facility] de Phone Number [facility] [address] [place] [address] * Magnesium (03/01/2025 3:00 AM EDT) Only the most recent of2 resultswithin the time period is included. Magnesium 2.1 1.9 - 2.7 mg/dL [facility] 03/01/2025 3:00 AM EDT 03/02/2025 3:54 PM EDT us Chucho Gallardo MD LAB BLOOD ORDERABLES Final Re sult Performing Organization Address [facility] de Phone Number [facility] [address] [place] [address] * Lactate dehydrogenase (03/01/2025 3:00 AM EDT) Only the most recent of2 resultswithin the time period is included. LDH 216 120 - 246 U/L [facility] 03/01/2025 3:00 AM EDT 03/02/2025 3:54 PM EDT us Chucho Gallardo MD LAB BLOOD ORDERABLES Final Re sult Performing Organization Address [facility] de Phone Number [facility] [address] [place] [address] * Glucose, random (03/01/2025 3:00 AM EDT) Only the most recent of2 resultswithin the time period is included. Glucose 98 70 - 99 mg/dL [facility] Comment: ADA guidelines outline the following fasting glucose ranges: Normal: <100 Prediabetes: 100-125 Diabetes: >125 03/01/2025 3:00 AM EDT 03/02/2025 3:54 PM EDT us Chucho Gallardo MD LAB BLOOD ORDERABLES Final Re sult Performing Organization Address [facility] de Phone Number [facility] [address] [place] [address] * (ABNORMAL) Ferritin (03/01/2025 3:00 AM EDT) Only the most recent of2 resultswithin the time period is included. Ferritin 1,629(H) 10 - 291 ng/mL [facility] 03/01/2025 3:00 AM EDT 03/02/2025 3:54 PM EDT us Chucho Gallardo MD LAB BLOOD ORDERABLES Final Re sult Performing Organization Address [facility] de Phone Number [facility] [address] [place] [address] * (ABNORMAL) Creatinine, serum (03/01/2025 3:00 AM EDT) Only the most recent of2 resultswithin the time period is included. Creatinine 12.67(H) 0.55 - 1.02 mg/dL [facility] 03/01/2025 3:00 AM EDT 03/02/2025 3:54 PM EDT Chucho Gallardo MD LAB BLOOD ORDERABLES Final Re sult Performing Organization Address [facility]/ZIP Co de Phone Number [facility] [address] [place] [address] * (ABNORMAL) Bilirubin, total (03/01/2025 3:00 AM EDT) Only the most recent of2 resultswithin the time period is included. Total Bilirubin <0.2(L) 0.3 - 1.2 mg/dL [facility] 03/01/2025 3:00 AM EDT 03/02/2025 3:54 PM EDT Chucho Gallardo MD LAB BLOOD ORDERABLES Final Re sult Performing Organization Address [facility] Co de Phone Number [facility] [address] [place] [address] * (ABNORMAL) Electrolyte panel (03/01/2025 3:00 AM EDT) Only the most recent of2 resultswithin the time period is included. Sodium 134(L) 136 - 145 mEq/L [facility] Potassium 5.8(H) 3.4 - 5.0 mEq/L [facility] Chloride 94(L) 98 - 107 mEq/L [facility] Bicarbonate (CO2) 23 21 - 31 mEq/L [facility] Anion Gap 17(H) 3 - 14 mEq/L [facility] 03/01/2025 3:00 AM EDT 03/02/2025 3:54 PM EDT us Chucho Gallardo MD LAB BLOOD ORDERABLES Final Re sult Performing Organization Address [facility] de Phone Number [facility] [address] [place] [address] * (ABNORMAL) Potassium (02/24/2025 3:00 AM EDT) Only the most recent of4 resultswithin the time period is included. Potassium 5.1(H) 3.4 - 5.0 mEq/L [facility] 02/24/2025 3:00 AM EDT 02/25/2025 2:09 PM EDT Chucho Gallardo MD LAB BLOOD ORDERABLES Final Re sult Performing Organization Address [facility] de Phone Number [facility] [address] [place] [address] * Phosphorus (02/17/2025 3:00 AM EDT) Phosphorus, Serum 4.4 2.5 - 5.0 mg/dL [facility] 02/17/2025 3:00 AM EDT 02/18/2025 1:47 PM EDT Chucho Gallardo MD LAB BLOOD ORDERABLES Final Re sult Performing Organization Address [facility] de Phone Number [facility] [address] [place] [address] * Confirmation Test HCV (02/03/2025 3:00 AM EDT) Hep C Ab Confirmation Not needed [facility] 02/03/2025 3:00 AM EDT 02/04/2025 2:01 PM EDT Chucho Gallardo MD LAB BLOOD ORDERABLES Final Re sult Performing Organization Address [facility] de Phone Number [facility] [address] [place] [address] * HEPATITIS C ABS W/REFLEX RNA DETECTR (02/03/2025 3:00 AM EDT) Hep C Virus Ab Non-Reacti ve Non-Reacti ve [facility] 02/03/2025 3:00 AM EDT 02/04/2025 2:49 PM EDT Chucho Gallardo MD LAB [id number] SOLICITED RESULTS Final Result Performing Organization Address [facility] de Phone Number [facility] [address] [address] * Hepatitis B Core Antibody, Total (02/03/2025 3:00 AM EDT) [facility] HBc Total Ab, S Negative Negative [facility] 02/03/2025 3:00 AM EDT 02/04/2025 2:49 PM EDT Chucho Gallardo MD LAB BLOOD ORDERABLES Final Re sult Performing Organization Address [facility] de Phone Number [address] [address] * Aluminum level (02/03/2025 3:00 AM EDT) [facility] Aluminum 3 1 - 20 ug/L [facility] Comment: This test was developed and its performance characteristics determined by [facility] in a manner consistent with CLIA requirements. This test has not been cleared or approved by the U.S. Food and Drug Administration. 02/03/2025 3:00 AM EDT 02/04/2025 1:40 PM EDT Chucho Gallardo MD LAB BLOOD ORDERABLES Final Re sult Performing Organization Address [facility] de Phone Number [facility] [address] [place] [address] * Vitamin D 25 Hydroxy (02/03/2025 3:00 AM EDT) [facility] Vitamin D, 25-Hydroxy 39 30 - 100 ng/mL [facility] Comment: Status Adult Pediatric Deficient: <20 <15 Insufficient: 20-29 15-19 Sufficient: 30-100 20-100 02/03/2025 3:00 AM EDT 02/04/2025 2:49 PM EDT Chucho Gallardo MD LAB BLOOD ORDERABLES Final Re sult Performing Organization Address [facility] de Phone Number [facility] [facility] [address] [place] [address] * Hepatitis B Surface Antibody (02/03/2025 3:00 AM EDT) Hep B Surface Antibody 10 mIU/mL [facility] Comment: Interpretation: <10: No Immunity >=10: Probable Immunity 02/03/2025 3:00 AM EDT 02/04/2025 2:49 PM EDT Chucho Gallardo MD LAB BLOOD ORDERABLES Final Re sult Performing Organization Address [facility] de Phone Number [facility] [address] [place] [address] * Uric Acid (02/03/2025 3:00 AM EDT) Uric Acid 2.9 2.3 - 6.6 mg/dL [facility] 02/03/2025 3:00 AM EDT 02/04/2025 2:49 PM EDT Chucho Gallardo MD LAB BLOOD ORDERABLES Final Re sult Performing Organization Address [facility] de Phone [facility] [address] * Hemoglobin A1c (02/03/2025 3:00 AM EDT) Hemoglobin A1C 4.7 <5.7 % [facility] Comment: Methodology: Enzymatic Normal: <5.7% Prediabetes: 5.7-6.4% Diabetes: >6.4% Diabetic Glucose Control Evaluation: Therapeutic action suggested at >8.0% ADA recommends a glycemic goal of <7.0% 02/03/2025 3:00 AM EDT 02/04/2025 2:01 PM EDT Chucho Gallardo MD LAB BLOOD ORDERABLES Final Re sult Performing Organization Address [facility] Co de Phone Number [facility] [address] [place] [address] * (ABNORMAL) Lipid panel (02/03/2025 3:00 AM EDT) Cholesterol 153 mg/dL [facility] Comment: Optimal: <200 Borderline: 200-239 High Risk: >239 Triglycerides 100 mg/dL [facility] Comment: Optimal: <150 Borderline: 150-200 High Risk: >200 HDL 53(L) mg/dL [facility] Comment: Optimal: >59 Borderline: 40-59 High Risk: <40 LDL-Calc 80 mg/dL [facility] Comment: Optimal: <100 Borderline: 100-159 High Risk: >159 VLDL Cholesterol Herb 20 mg/dL [facility] Comment: Optimal: <30 Borderline: 30-40 High Risk: >40 Chol/HDL Ratio 2.9 [facility] Comment: Optimal: <3.3 High Risk: >6.2 02/03/2025 3:00 AM EDT 02/04/2025 2:49 PM EDT Chucho Gallardo MD LAB BLOOD ORDERABLES Final Re sult Performing Organization Address [facility] Co de Phone Number [facility] [address] [place] [address] from Last 3 Months Insurance [facility] [place] [address] Medicaid [place] Care Teams Cooker Tender Relationship Specialty Start Date End Date Selin Lockett MD [address] [place] [id number] PCP - General 07/09/20
--- OUTSIDE RECORDS SUMMARY | 2025-03-25 13:54 | XMS_ITS | Encounter Summary ---
Author Organization [facility] Address [address] [facility] [address] [place] [address] Phone Care Team Providers Care Operating System Programmer Name Role Phone Selin Lockett MD Primary Care Provider + [phone] Reason for Visit * Reason Comments Med Refill Encounter Details Date Type Department Care Team ([facility] st Contact Info) Description 03/12/2021 Refill [facility] [address] [facility] [address] [place] [phone] Chucho Gallardo MD [address] [facility] [address] [place] [phone] Social History Tobacco Use Types Packs/Day Years [...] Telephone Encounter - Chucho Gallardo MD - 03/12/2021 1:12 PM EDT Needs f/u in 5-6 weeks with me 1. tell them I sent rx but no refils 2. They must see me or have a telehealth visit with me before I can renew it again 3. 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
--- OUTSIDE RECORDS SUMMARY | 2025-03-25 13:54 | XMS_ITS | Encounter Summary ---
Author Organization [employer] Address [address] [facility] [address] [place] [address] Care Team Providers Care Telemedicine Physician Name Role Phone Selin Lockett MD Primary Care Provider + Encounter Details Date Type Department Care Team ([facility] Contact Info) Description 11/28/2022 Orders Only [facility] [address] [place], [place] [phone] Mandi Tse LPN Social History Tobacco Use Types Packs/Day [...] Description 05/02/2025 9:15 AM EST Office Visit [facility] [address] [place] [address] Selin Lockett MD [address] [place], [place] [phone] documented as of this encounter Visit Diagnoses Not on filedocumented in this encounter Care Teams Telemedicine Physician Relationship Specialty Start Date End Date Selin Lockett MD [address] [place] [id number] PCP - General Family Medicine 01/04/18 03/15/24 documented as of this encounter
--- NOTE | 2025-03-25 15:05 | ED.ABDPAIN ---
HPI - Abdominal Pain General Chief Complaint: Syncope Stated Complaint: ABD PAIN DIZZINESS Time Seen by Provider: 03/25/25 15:04 Source: patient, EMS and conference interpreter Mode of arrival: ambulatory Limitations: language barrier History of Present Illness ED Provider: Shaye Shaver APRN HPI narrative: 74-year-old female with a history of diabetes, hypertension, GERD, end-stage renal disease dialyzed Mondays, Wednesdays and Fridays, GERD, hyperparathyroidism here with complaints of left sided abdominal pain since Thursday. Patient reports on 03/21 she had a balloon angioplasty of her left arm fistula by Dr Raymond due to poor flow under moderate sedation. After this she developed left sided abdominal pain, nausea. She did not attend dialysis on Thursday due to feeling poorly. She had dialysis yesterday and today due to the missed day. She has had abdominal pain that has continued. After dialysis today she felt dizzy and felt that when she was sitting up she might fall. She denies any associated chest pain, shortness of breath, diaphoresis or vomiting. She feels better when she is at rest. Related Data Home Medications ?Medication ?Instructions ?Recorded ?Confirmed amlodipine 10 mg tablet 10 mg PO DAILY 06/04/20 10/01/23 aspirin 81 mg tablet,delayed 81 mg PO DAILY 06/04/20 10/01/23 release atorvastatin 40 mg tablet 40 mg PO BEDTIME 06/04/20 10/01/23 calcitriol 0.25 mcg capsule 0.25 mcg PO MOWEFR 06/04/20 10/01/23 cetirizine 10 mg tablet 10 mg PO DAILY 06/04/20 10/01/23 citalopram 20 mg tablet (Celexa) 20 mg PO DAILY 06/04/20 10/01/23 acetaminophen 500 mg tablet 1,000 mg PO TID PRN Pain 01/01/22 10/01/23 gabapentin 300 mg capsule 300 mg PO BEDTIME 05/04/23 10/01/23 hydralazine 25 mg tablet 25 mg PO BID 05/04/23 10/01/23 metoprolol tartrate 50 mg tablet 50 mg PO BID 05/04/23 10/01/23 ticagrelor 90 mg tablet (Brilinta) 90 mg PO BID 12/01/23 12/01/23 Previous Rx's ?Medication ?Instructions ?Recorded albuterol sulfate 90 mcg/actuation 2 puff inhalation Q4-6H PRN 11/04/22 aerosol inhaler shortness of breath or wheezing 30 days #1 ea dexlansoprazole 60 mg 60 mg PO DAILY #30 caps 05/20/23 capsule,biphase delayed release (Dexilant) fluticasone propionate 50 1 spray intranasal BID #16 grams 07/16/23 mcg/actuation nasal spray,suspension lidocaine 5 % topical patch 1 patch topical DAILY pain 30 days 07/24/23 #30 ea oxycodone 5 mg tablet 5 mg PO Q6H PRN pain #10 tabs 11/29/23 Allergies Allergy/AdvReac Type Severity Reaction Status Date / Time No Known Allergies Allergy Mild NONE Verified 03/25/25 13:42 Review of Systems Review of Systems Yes all other systems are reviewed and are negative Constitutional: Reports no additional constitutional complaints, Denies body ache(s), Denies chills, Denies fever(s), Denies headache(s) and Denies weakness Eyes: Reports no additional eye complaints and Denies change in vision Reports system reviewed and no additional complaints, except as documented, Reports dizziness, Denies headache(s), Denies nasal congestion, Denies nasal discharge and Denies neck pain Cardiovascular: Reports no additional cardiovascular complaints, Denies chest pain, Denies leg edema and Denies dyspnea Respiratory: Reports no additional respiratory complaints, Denies cough and Denies dyspnea Gastrointestinal: Reports no additional gastrointestinal complaints, Reports abdominal pain, Denies diarrhea, Reports nausea and Denies vomiting Genitourinary: Reports no additional female genitourinary complaints and Denies urinary incontinence Musculoskeletal: Reports no additional musculoskeletal complaints, Denies back pain, Denies arthralgias, Denies joint swelling, Denies neck pain, Denies numbness and Denies tingling Skin/Breast: Reports system reviewed and no additional complaints, except as docu and Denies rash Reports system reviewed and no additional complaints, except as documented, Denies Abnormal speech present, Reports dizziness, Denies headache(s), Denies numbness, Denies tingling and Denies weakness [facility] Past Medical History Attestation statement: The following information was validated with the patient. Source: old records reviewed and nursing notes reviewed Medical History Dyspnea on exertion Bilateral hearing loss Hyperparathyroidism Seasonal allergies DM type 2 (diabetes mellitus, type 2) Dependence on renal dialysis On beta carly at home History of hyperkalemia ESRD (end stage renal disease) on dialysis Elevated cholesterol GERD (gastroesophageal reflux disease) Depression HTN (hypertension) Surgical History S/P cardiac catheterization S/P arteriovenous (AV) fistula creation History of cataract extraction H/O colonoscopy Family History Family History Mother FH: HTN (hypertension) Father Cancer Social History Social History Are you a primary rn homecare to a significant other at home: No Do you presently have visiting nurse or other home services: Yes ([employer], [facility]) Alcohol intake: never Patient Tobacco Use Status: Never used Tobacco Smoked in Last 30 Days: No Use of substances other than those prescribed or required for medical reasons: No Advance Directives: No Advance Directives Information Provided: Yes service: No Current occupational status: unemployed Physical Exam ED Vital Signs: Vital Signs - 24 hr 03/25/25 13:37 03/25/25 13:45 03/25/25 13:46 Temperature 98.6 F Pulse Rate 120 H 120 H 122 H Respiratory Rate 16 Blood Pressure 130/104 H 130/104 H 107/58 L Pulse Oximetry 99 Oxygen Delivery Method Room Air 03/25/25 14:22 03/25/25 16:26 03/25/25 16:28 Temperature 98.6 F Pulse Rate 122 H 78 86 Respiratory Rate 16 Blood Pressure 130/104 H 134/57 L 133/64 Pulse Oximetry Oxygen Delivery Method BMI result Body Mass Index 32.6 Const General: cooperative, healthy appearing, comfortable and no acute distress Orientation/consciousness: patient oriented x3 Limitations: no limitations HENMT Head: Yes normal to inspection Ears: hearing grossly normal bilaterally General nose exam: Normal external nose present Face and sinus: Yes normal facial exam Mouth: Normal oral and palatal mucosa present Throat: Yes posterior oropharynx normal Eyes General: appearance normal, both eyes and all related structures Pupils: Equal, round and reactive pupils present Neck Neck: Yes normal visual inspection Chest Chest palpation & inspection: normal inspection of the chest Resp Effort & Inspection: normal respiratory effort Auscultation: clear to auscultation bilaterally Cardio Rate: regular rate Rhythm: regular rhythm Peripheral pulses: Peripheral pulses 2+ throughout GI Inspection: Yes normal to inspection Palpation (GI): Soft to palpation and nontender Auscultation: normal bowel sounds Back/Spine/Pelvis Thoracic/Lumbar Spine: thoracic and lumbar spine normal to inspection Skin General skin exam: no rashes or lesions noted Neuro General: patient oriented x3, no focal motor deficits and normal sensation to monofilament Cranial nerves: Yes Equal, round and reactive pupils present Cognition (Neuro): normal cognition Speech: No Abnormal speech present Gait exam (Neuro): Normal gait present Motor exam (neuro): 5/5 motor strength present throughout Extrem General: Yes normal to inspection, Yes no calf tenderness and Yes normal gait Course Course Course Narrative: Patient has mildly positive orthostatics. This is likely secondary to receiving dialysis 2 days in a row. She received 500 of fluid and is feeling much improved. Repeat orthostatics are negative. Her CT shows what may be some cystitis and cholelithiasis. I discussed this with the patient. She denies any urinary symptoms. She tells me that she voids very small amounts and was unable to provide any urine while she was here in the emergency room. She will follow-up as needed. We does suggest a low-fat diet. There is no evidence of cholecystitis on CAT scan. We did review worrisome signs and symptoms of when she should return to the emergency room. Comfortable plan for discharge home. Medical Decision Making Medical Decision Making MDM Narrative: 74-year-old female with a history of diabetes, hypertension, GERD, end-stage renal disease dialyzed Mondays, Wednesdays and Fridays, GERD, hyperparathyroidism here with complaints of left sided abdominal pain since Thursday. Patient reports on 03/21 she had a balloon angioplasty of her left arm fistula by Dr Raymond due to poor flow under moderate sedation. After this she developed left sided abdominal pain, nausea. She did not attend dialysis on Thursday due to feeling poorly. She had dialysis yesterday and today due to the missed day. She has had abdominal pain that has continued. After dialysis today she felt dizzy and felt that when she was sitting up she might fall. She denies any associated chest pain, shortness of breath, diaphoresis or vomiting. She feels better when she is at rest. There is no real significant abdominal pain on exam. Her vitals are stable. She does have some mild tachycardia. She may have been over dialyzed with having dialysis twice in a row. Therefore I will obtain orthostatic vital signs. If they are positive I will give her some gentle hydration. I will check labs check her blood counts and electrolytes to make sure there are no metabolic abnormalities. I will also obtain a EKG and troponin. Will obtain CT abdomen and pelvis. Differential Diagnosis Differential Diagnoses: The differential diagnosis associated with the presentation includes See above Admission/Observation Consideration of admission/observation: Escalation of care including admission/observation considered Lab Data MDM Lab Attestation statement: I reviewed the patient's lab results. 03/25/25 14:51 03/25/25 14:51 Labs: Lab Results 03/25/25 Range/Units 14:51 WBC 3.7 L (4.8-10.8) X10*3/uL RBC 2.78 L (4.20-5.50) X10*6/uL Hgb 8.9 L (12.0-16.0) g/dl Hct 27.6 L (37.0-47.0) % MCV 99.3 H (80.0-98.0) fL MCH 32.0 (27.0-33.0) pg MCHC 32.2 (31.0-35.0) g/dl RDW 14.7 (11.0-16.0) % Plt Count 170 (160-400) X10*3/uL MPV 10.3 (9.4-12.3) fL Immature Gran % (Auto) 0.5 H (0.0-0.4) % Neut % (Auto) 56.5 (45-73) % Lymph % (Auto) 20.5 (20-40) % [place] % (Auto) 17.6 H (2-11) % Eos % (Auto) 4.1 H (0-4) % Baso % (Auto) 0.8 (0-2) % Lymph # (Auto) 0.8 L (1.2-4.9) X10*3/uL [place] # (Auto) 0.7 (0.1-1.2) X10*3/uL Eos # (Auto) 0.2 (0.0-0.4) X10*3/uL Baso # (Auto) 0.0 (0.0-0.2) X10*3/uL Abs Immat Gran (auto) 0.02 (0.00-0.03) X10*3/uL Absolute Neuts (auto) 2.1 (2.0-8.3) x10*3/uL Absolute Nucleated RBC 0.000 (0.0-0.012) X10*3/uL Nucleated RBC % (auto) 0.0 (0.0-0.2) /100WBC Sodium 140 (135-145) mmol/L Potassium 3.8 D (3.3-5.1) mmol/L Chloride 93 L (96-108) mmol/L Carbon Dioxide 35 H (22-29) mmol/L Anion Gap 16 (12-20) BUN 9 (9-16) mg/dL Creatinine 3.87 H (0.5-1.4) mg/dL Estim Creat Clear Calc 12.2 Estimated GFR 11 Random Glucose 177 H (60-115) mg/dL Calcium 9.2 D (8.4-10.2) mg/dL Magnesium 2.0 (1.6-2.6) mg/dL Total Bilirubin 0.5 (0.0-1.0) mg/dL Direct Bilirubin 0.2 (0.0-0.5) mg/dL AST 22 (5-31) U/L ALT 8 (0-31) U/L Alkaline Phosphatase 144 H (39-117) U/L Troponin I High Sens 32.5 H (<3.5-17.0) ng/L Total Protein 8.2 H (6.5-8.0) g/dL Albumin 4.2 (3.5-5.0) g/dL Lipase 23 (8-78) U/L Independent Interpretation I performed an independent interpretation of an: EKG and CT Scan Interpretation: I independently viewed the EKG and agree with the radiology report I independently reviewed the CT scan agree with the radiology report Radiology Impression Discussion of test interpretation with radiology: I have reviewed the radiologist's reading. Independent Historian Clinical information obtained from an independent historian. History obtained from or confirmed by: EMS Medications Administered Discontinued Medications Generic Name Dose Route Start Last Admin Trade Name Freq PRN Reason Stop Dose Admin Sodium Chloride 500 mls @ 500 mls/hr 03/25/25 15:31 03/25/25 16:53 Ns IV 03/25/25 16:30 Infused .Q1H STA Infusion Discharge Plan Discharge Clinical Impression: Near syncope, Cholelithiasis Patient Disposition: Home, Self-Care Instructions: Gallstones (ED), Near Syncope (ED) Additional Instructions: Stay well hydrated Your CAT scan shows gallstones. Follow a low-fat diet. Return for any worsening pain, vomiting or fever It also shows some inflammation around your bladder but you tell me that you avoid very small amounts normally. Therefore we declined to move forward with obtaining an urinalysis. If you develop any burning with urination or frequent urination you may want to have your urine evaluated Prescriptions: No Action dexlansoprazole [Dexilant] 60 mg capsule,biphase delayed releas 60 mg PO DAILY Qty: 30 6RF fluticasone propionate 50 mcg/actuation spray,suspension 1 spray intranasal BID Qty: 16 6RF atorvastatin 40 mg Tablet 40 mg PO BEDTIME cetirizine 10 mg Tablet 10 mg PO DAILY aspirin 81 mg Tablet,Delayed Release (Dr/Ec) 81 mg PO DAILY citalopram [Celexa] 20 mg Tablet 20 mg PO DAILY amlodipine 10 mg Tablet 10 mg PO DAILY calcitriol 0.25 mcg Capsule 0.25 mcg PO MOWEFR metoprolol tartrate 50 mg tablet 50 mg PO BID hydralazine 25 mg tablet 25 mg PO BID gabapentin 300 mg capsule 300 mg PO BEDTIME acetaminophen 500 mg Tablet 1,000 mg PO TID PRN (Reason: Pain) oxycodone 5 mg tablet 5 mg PO Q6H PRN (Reason: pain) Qty: 10 0RF Rx Instructions: Patient may request partial refill; Partial Fill upon patient request. albuterol sulfate 90 mcg/actuation HFA aerosol inhaler 2 puff inhalation Q4-6H PRN (Reason: shortness of breath or wheezing) 30 Days Qty: 1 6RF Brilinta 90 mg tablet 90 mg PO BID lidocaine 5 % adhesive patch,medicated 1 patch topical DAILY 30 Days Qty: 30 0RF Referrals: Selin Lockett MD [Primary Care Provider, Internal Medicine] Print Language: Guyanese
[2025-03-25 15:06] LABS: MANUAL DIFF FLAG NO
[2025-03-25 15:29] LABS: Alanine Aminotransferase 8 U/L (0-31); Albumin Level 4.2 g/dL (3.5-5.0); Alkaline Phosphatase 144 U/L (39-117); Anion Gap 16 (12-20); Aspartate Amino Transferase 22 U/L (5-31); Blood Urea Nitrogen 9 mg/dL (9-16); Calcium 9.2 mg/dL (8.4-10.2); Carbon Dioxide 35 mmol/L (22-29); Chloride 93 mmol/L (96-108); Creatinine Clr Calc Pharmacy 12.2; Estimated Glomerular Filt Rate 11; Lipase 23 U/L (8-78); Magnesium 2.0 mg/dL (1.6-2.6); Potassium 3.8 mmol/L (3.3-5.1); Sodium 140 mmol/L (135-145); Total Protein 8.2 g/dL (6.5-8.0)
[2025-03-25 15:36] LABS: Troponin-I High Sensitivity 32.5 ng/L (<3.5-17.0)
[2025-03-25 15:52] LABS: Hematocrit 27.6 % (37.0-47.0); Hemoglobin 8.9 g/dl (12.0-16.0); Imm Gran Abs Auto 0.02 X10*3/uL (0.00-0.03); Imm Gran Pct Auto 0.5 % (0.0-0.4); Lymphocytes Absolute Auto 0.8 X10*3/uL (1.2-4.9); Mean Corpuscular HGB Conc 32.2 g/dl (31.0-35.0); Mean Corpuscular Hemoglobin 32.0 pg (27.0-33.0); Mean Corpuscular Volume 99.3 fL (80.0-98.0); NRBC Abs Auto 0.000 X10*3/uL (0.0-0.012); NRBC Pct Auto 0.0 /100WBC (0.0-0.2); Platelet Count 170 X10*3/uL (160-400); Red Blood Count 2.78 X10*6/uL (4.20-5.50); White Blood Count 3.7 X10*3/uL (4.8-10.8)
== END 2025-03-25 18:16 | disposition home or self-care (01) ==
PROVIDERS: Nurse Practitioner Family; Emergency Provider Emergency Medicine Emergency Medical Services; PCP Internal Medicine
DX: R55 Syncope and collapse (principal); K80.20 Calculus of gallbladder without cholecystitis without obstruction; I12.0 Hypertensive chronic kidney disease with stage 5 chronic kidney disease or end stage renal disease; E11.22 Type 2 diabetes mellitus with diabetic chronic kidney disease; N18.6 End stage renal disease; Z99.2 Dependence on renal dialysis; Z79.899 Other long term (current) drug therapy; Z86.79 Personal history of other diseases of the circulatory system; Z98.62 Peripheral vascular angioplasty status
CPT/HCPCS: 36415; 74176; 80048; 80076; 83690; 83735; 84484; 85025; 93005; 96360; 99284; 99285

== ENCOUNTER → 2025-03-25 14:16 | Outpatient (BNV) | payer MEDICARE, SELFPAY | PROVIDERS: Emergency Provider Emergency Medicine Emergency Medical Services; PCP Internal Medicine; Visit Provider Internal Medicine Cardiovascular Disease | DX: I25.2 Old myocardial infarction (principal); R00.0 Tachycardia, unspecified | CPT/HCPCS: 93010 ==

== ENCOUNTER → 2025-03-25 15:31 | Outpatient (BNV) | payer MEDICARE, SELFPAY | PROVIDERS: Emergency Provider Emergency Medicine Emergency Medical Services; PCP Internal Medicine; Visit Provider Radiology Diagnostic Radiology | DX: K80.20 Calculus of gallbladder without cholecystitis without obstruction (principal); D25.9 Leiomyoma of uterus, unspecified; I25.10 Atherosclerotic heart disease of native coronary artery without angina pectoris; N32.89 Other specified disorders of bladder | CPT/HCPCS: 74176 ==

== ENCOUNTER 2025-04-17 13:43 | Outpatient (AMB) | payer OTHER, SELFPAY ==
--- NOTE | 2025-04-17 14:12 | A.OFFVIS_ITS ---
Vital Signs 04/17/25 14:13 Height 5 ft 2 in Weight 178 lb 2.136 oz BMI 32.6 BP 110/50 L Pulse 53 Pulse Source Pulse Oximeter Intake Visit Reasons: f/up- per PCP Space Systems Operations Superintendent Required: Yes Space Systems Operations Superintendent Name: Chandan [id number] Accompanied by: Daughter Allergies No Known Allergies Allergy (Mild, Verified 04/17/25 14:17) NONE Medication List - Last Reconciled 04/17/25 by Mike Blake MD citalopram (Celexa) 20 mg PO DAILY losartan 50 mg PO DAILY HPI Comments Details: Rosalba returns for follow-up regarding coronary artery. We had seen her in the past regarding chest discomfort. That led to diagnostic catheterization with right coronary artery stenting. It seems that she has been stable in that regard. With regard to medications, she was on lot of meds in the past but currently her list as only 2 meds-Losartan/citalopram. In the past, she was on aspirin, beta-blockers and statins but not in his list anymore. Unclear why. She states she went to [place] and after that lot of meds change. Somewhat vague. Also she believes that her blood pressure does go down during dialysis but she is still taking the above Losartan. Overall seems that she is stable. [facility] Medical History Dyspnea on exertion Bilateral hearing loss Hyperparathyroidism Seasonal allergies DM type 2 (diabetes mellitus, type 2) Dependence on renal dialysis On beta carly at home History of hyperkalemia ESRD (end stage renal disease) on dialysis Elevated cholesterol GERD (gastroesophageal reflux disease) Depression HTN (hypertension) Surgical History S/P cardiac catheterization S/P arteriovenous (AV) fistula creation History of cataract extraction H/O colonoscopy Family History Mother FH: HTN (hypertension) Father Cancer Social History Are you a primary wound care technician to a significant other at home: No Do you presently have visiting nurse or other home services: Yes (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, [facility]) Alcohol intake: never Patient Tobacco Use Status: Never used Tobacco service: No Current occupational status: unemployed Review of Systems Const Denies daytime sleepiness, Denies difficulty sleeping, Denies snoring, Denies stops breathing during sleep and Denies weakness Card Denies chest pain, Denies rapid heart rate, Denies irregular heart rhythm, Denies claudication, Denies leg edema, Denies lightheadedness, Denies palpitations, Reports dyspnea, Denies dyspnea on exertion, Denies orthopnea, Denies paroxysmal nocturnal dyspnea and Denies slow heart rate Resp Denies cough, Reports dyspnea, Denies dyspnea on exertion and Denies snoring GI Reports no additional complaints, Denies hematochezia, Denies change in stool character and Denies dyspepsia Musc Denies abnormal gait, Denies muscle weakness and Denies numbness Neuro Denies abnormal gait, Denies numbness and Denies weakness Endo Denies palpitations Physical Exam Vital Signs: Last Vital Signs Pulse 53 04/17/25 14:13 BP 110/50 L 04/17/25 14:13 BMI result Body Mass Index 32.6 Const General: comfortable and no acute distress Orientation/consciousness: patient oriented x3 HEENT Other: Unremarkable Head: Yes normal to inspection Neck Neck: Yes normal visual inspection Chest Chest palpation & inspection: normal inspection of the chest Resp Auscultation: clear to auscultation bilaterally Cardio Palpation: normal PMI Heart sounds: S1 normal heart sound present, S2 normal heart sound present, no gallops, no murmurs and no rubs GI Palpation (GI): Soft to palpation Back/Spine/Pelvis Other: unremarkable Skin General skin exam: no rashes or lesions noted Neuro General: patient oriented x3 Extrem General: Yes normal to inspection Psych Mental Status: mental status grossly normal Assessment & Plan Assessment & Plan (1) Atherosclerotic cardiovascular disease: Code(s): I25.10 - Atherosclerotic heart disease of [place] coronary artery without angina pectoris Category: Medical Plan Cardiac studies reviewed. Echocardiogram with LVEF of 67%. Moderate tricuspid regurgitation with mild pulmonary hypertension. Myocardial perfusion imaging study shows likely normal perfusion. Cardiac catheterization-proximal RCA with 90% stenosis. Status post PCI. Mid LAD with 40% stenosis. Left main/circumflex normal. With regard to medications, she should at least be taking aspirin. Additionally, statins. Previously listed to be on atorvastatin 40 mg daily and can resume that dose. Ideally through the PCP as there is a lot of noncompliance and confusion. If any concerning symptoms like angina, she would contact us. If not, follow up in 6 months time. Discussed using psychiatric assistant. Discussion Notes I discussed with the patient the importance of adhering to her medication regimen, including atorvastatin and the addition of a baby aspirin for cardiovascular health. We will coordinate with her pharmacy and primary care provider to ensure she receives the necessary prescriptions and follow-up care. Patient was informed and verbally consented to the use of an ambient scribe for clinic note documentation during this visit. Total time spent including review of data, counseling, documentation, coordination of care-32 minutes. Patient Instructions: - Start taking atorvastatin and a baby aspirin as recommended. - Follow up with your primary care provider and pharmacy to ensure all medications are up to date. - Return for a follow-up appointment in six months. Coding Level of Care Code Est Pt Level 4 (35102) Complex EM visit Add On G2211 Diagnoses Atherosclerotic cardiovascular disease I25.10
[2025-04-17 14:13] VITALS: BP 110/50; PULSE 53; BMI 32.6
--- OUTSIDE RECORDS SUMMARY | 2025-04-17 17:02 | XMS_ITS | Encounter Summary ---
Author Organization [employer] Address [address] [place] [address] Care Team Providers Care Baker Bread Name Role Phone Selin Lockett MD Primary Care Provider + Encounter Details Date Type Department Care Team (Late st Contact Info) Description 11/28/2022 Orders Only [facility] [address] [place] [address] Mandi Tse LPN Social History Tobacco Use [...] as of this encounter Plan of Treatment Not on file documented as of this encounter Visit Diagnoses Not on filedocumented in this encounter Care Teams Baker Bread Relationship Specialty Start Date End Date Selin Lockett MD [address] [place] [address] PCP - General Family Medicine 01/04/18 03/15/24 documented as of this encounter
--- OUTSIDE RECORDS SUMMARY | 2025-04-17 17:02 | XMS_ITS ---
Author Name Johnathon ANDIEMr. Tera Address [address] [place] [address] Phone [phone] [facility] Care Team Providers Care Filler Spreader Name Role Phone Froy Diego Unavailable [phone] Reason for Referral Not Available Allergies, adverse [...] 2022-11-04 2023-11-09 Vitamin D (Ergocalciferol) 1.25 mg (11610 UT) Cap TAKE 1 CAPSULE BY MOUTH [...] 6renal dose medications11/09/23: Patient reports that the telecommunication operator mentioned to her that she will need a transplant of her kidneys. She is unaware if she qualifies for a transplant, but she is planning to f/u with the telecommunication operator.She denies checking BS everyday, unable to recall last BS level. MDD (major depressive disorder), recurrent episode, moderate Active 2022-08-10 N/A on citalopramf amily rxucythf25/2024: PHQ-4=8 (Moderate)11/09/23: is currently in the ICU [...] (BMI >40) Active 2022-08-10 N/A HTNBMI 40.04 11/09/2326VQ8JYSYFxxbxbxno re diet (more fiber, less starch), activity [...] (do not use for phone, instead use 06945-24) [facility] Type 2 diabetes mellitus wit h [...] (do not use for phone, instead use 46571-61) [facility] New patient,40-59min; chronic exacerbation, 2 stable chronic or 1 acute illness add add modifier 95 for video (do not use for phone, instead use 21643-05) [facility] New patient,40-59min; chronic exacerbation, 2 stable chronic or 1 acute illness add add modifier 95 for video (do not use for phone, instead use 56022-13) [facility] New patient,40-59min; chronic exacerbation, 2 stable chronic or 1 acute illness add add modifier 95 for video (do not use for phone, instead use 53155-14) [facility] New patient,40-59min; chronic exacerbation, 2 stable chronic or 1 acute illness add add modifier 95 for video (do not use for phone, instead use 56136-81) [facility]20[place] No Data Available [facility]2022 Type 2 diabetes mellitus wit h diabetic chronic kidney diseaseHyp chr kidney disease w stage 5 chr kidney disease or ESRDEnd stage renal diseaseDependence on renal dialysisSecondary hyperparathyroidism of renal originMajor depressive disorder, recurrent, moderateAnemia in chronic kidney diseaseMorbid (severe) obesity due to excess caloriesBody mass index (bmi) 33.0-33.9, adult No Data Available [facility] 10[place]2022 No Data Available [facility]20[place] No Data Available [facility] [place]20[place] No Data Available [facility] [place]2022 No Data Available [facility] [place]20[place] No Data Available [facility] [place]20[place] No Data Available [facility] [place] 10[place]2022 No Data Available [facility] [place]/26/2022 Type 2 diabetes mellitus wit h diabetic chronic kidney diseaseHyp chr kidney disease w stage 5 chr kidney disease or ESRDEnd stage renal diseaseDependence on renal dialysisSecondary hyperparathyroidism of renal originMajor depressive disorder, recurrent, moderateMorbid (severe) obesity due to excess caloriesBody mass index (BMI) 40.0-44.9, adultAnemia in chronic kidney diseaseAge-related physical debilityPolyosteoarthritis, unspecifiedUnsteadiness on feet No Data Available [facility] [place]20[place] No Data Available [facility] [place]20[place] No Data Available [facility] [place] 11/26[place]2022 No Data Available [facility] [place]2022 No Data Available [facility] [place] 11[place]2022 No Data Available [facility] [place] 12/25/2022 Type [...] debilityPolyosteoarthritis, unspecifiedUnsteadiness on feet No Data Available [facility] [place] 12/25/2022 No Data Available [facility] [place] 12/25/2022 No Data Available [facility] [place] 12/25/2022 No Data Available [facility] [place] 12/[place]/2022 No Data Available [facility] [place] 12/[place]/2022 No Data Available [facility] [place] 04/08/2023 Type 2 diabetes mellitus wit h diabetic chronic kidney diseaseEnd stage renal diseaseDependence on renal dialysisSecondary hyperparathyroidism of renal originMorbid (severe) obesity due to excess caloriesBody mass index (BMI) 40.0-44.9, adultMajor depressive disorder, recurrent, moderateHypertensive chronic kidney disease w stg 1-4/unsp chr kdnyAnemia in chronic kidney diseaseAge-related physical debilityPolyosteoarthritis, unspecifiedUnspecified urinary incontinence No Data Available [facility] [place] 04/08/2023 No Data Available [facility] [place] 04/08/2023 No Data Available [facility] [place] 04/08/2023 No Data Available [facility] [place] 04/08/2023 No Data Available [facility] [place] 05/11/2023 Dependence [...] on feetUnspecified urinary incontinence No Data Available [facility] [place]/2023 No Data Available [facility]/2023 No Data Available [facility] [place] 05[place]/2023 No Data Available [facility] [place] 06/12/2023 Body mass index (BMI) 40.0-4 4.9, adultDependence on renal dialysisType 2 diabetes mellitus with diabetic chronic kidney diseaseEnd stage renal diseaseSecondary hyperparathyroidism of renal originMajor depressive disorder, recurrent, moderateEssential (primary) hypertensionMorbid (severe) obesity due to excess caloriesBody mass index (BMI) 35.0-35.9, adultChronic kidney disease, unspecifiedAnemia in chronic kidney diseaseAge-related physical debilityPolyosteoarthritis, unspecifiedUnsteadiness on feetUnspecified urinary incontinence No Data Available [facility] [place] 06/12/2023 No Data Available [facility] [place] 06[place]12/2023 No Data Available [facility] [place] 06/12/2023 No Data Available [facility] [place] 06[place]12/2023 Estab. patient 30-39min; chronic exacerbation, 2 stable chronic or 1 acute illness add add modifier 95 for video, (do not use for phone, instead use 99746-67) [facility] [place]2023 Type 2 diabetes mellitus wit h [...] (do not use for phone, instead use 02995-60) [facility] [place]2023 Estab. patient 30-39min; chronic exacerbation, 2 stable chronic or 1 acute illness add add modifier 95 for video, (do not use for phone, instead use 67959-48) [facility] [place]/2023 Estab. patient 30-39min; chronic exacerbation, 2 stable chronic or 1 acute illness add add modifier 95 for video, (do not use for phone, instead use 28090-69) [facility] [place] 11[place]09/2023 Estab. patient 30-39min; chronic exacerbation, 2 stable chronic or 1 acute illness add add modifier 95 for video, (do not use for phone, instead use 87400-73) [facility] [place]/2023 Estab. patient 30-39min; chronic exacerbation, 2 stable chronic or 1 acute illness add add modifier 95 for video, (do not use for phone, instead use 71976-35) [facility] [place]/2023 Estab. patient 30-39min; chronic exacerbation, 2 stable chronic or 1 acute illness add add modifier 95 for video, (do not use for phone, instead use 07293-34) [facility] [place]/2023 Estab. patient 30-39min; chronic exacerbation, 2 stable chronic or 1 acute illness add add modifier 95 for video, (do not use for phone, instead use 61956-95) [facility] [place] 11/[place]/2023 No Data Available [facility] [place] 12/14/2023 Dependent relative needing c are at [...] tive Time Current Smoking Status Never smoker 2025-03-30 0 Sex Female History of Procedures Procedures Service Procedure code Service date Servicing provider Phone# New patient,40-59min; chronic exacerbation, 2 stable chronic or 1 acute illness add add modifier 95 for video (do not use for phone, instead use 03836-84) 32474 2022-07-31 No Data Available No Data Availa [...] le No Data Available No Data Available [id number] 2022-10-29 No Data Available No Data Available [...] No Data Availa ble No Data Available [id number] 2022-11-26 No Data Available No Data Available [...] Available No Data Available No Data Available [id number] 2022-12-25 No Data Available No Data Available [...] Available No Data Available No Data Available [id number] 2023-04-08 No Data Available No Data Available [...] le No Data Available No Data Available 61126 2023-05-11 No Data Available No Data Available BMI obtained (3008F) 3008F 2023-05-11 No Data Availab le No Data Available Functional Status Assessed (1170F) 1170F 2023-05-11 No Data Available No Data Avail able Pain Assessment - Pain Documented on a Pain Scale (1125F) 1125F 2023-05-11 No Data Available No Data Nae ilable No Data Available [id number] 2023-06-12 No Data Available No Data Available [...] (do not use for phone, instead use 02345-88) 49403 2023-11-09 No Data Available No Data Availa [...] No Data Avail able No Data Available 42545 2023-12-14 No Data Available No Data Available [...] dialysisFrail elderlyPrimary osteoarthritis involving multiple jointsBMI 40.0-44.9, adultUnschillicothe hospitaly gait 2023-04-08 12:03:17 Dependence on renal dialysisType 2 diabetes mellitus with end-stage renal diseaseSecondary hyperparathyroidism of renal originMDD (major depressive disorder), recurrent episode, moderateHypertensive diseaseSevere obesity (BMI 35.0-35.9 with comorbidity)Anemia in chronic kidney disease, on chronic dialysisFrail elderlyPrimary osteoarthritis involving multiple jointsBMI 40.0-44.9, adultUnsteady gaitUrinary incontinenceUnschillicothe hospitaly gait 2023-05-11 07:24:31 Dependence on renal dialysisType 2 diabetes mellitus with end-stage renal diseaseSecondary hyperparathyroidism of renal originMDD (major depressive disorder), recurrent episode, moderateHypertensive diseaseSevere obesity (BMI 35.0-35.9 with comorbidity)Anemia in chronic kidney disease, on chronic dialysisFrail elderlyPrimary osteoarthritis involving multiple jointsBMI 40.0-44.9, adultUnsteady gaitUrinary incontinenceUnschillicothe hospitaly gait 2023-06-12 13:27:20 Dependence on renal dialysisType [...] diet.Education re benefits of weight loss,activity as tolerated.AEFZW0DYGZbycrbvvs re diet (more fiber, less starch), activity [...] may arise 19/01.Goes Mon, Wed, and Frion kggrupvfglpk12/22 creat 10.59, BUN : A1c 4.9monitor GFRrenal dose medicationsf/u nephrology 11/04/22creation of left arm brachial artery to antecubital vein AV fistula on 01/09/22. S/P left arm cephalic vein superficialization on 05/01/22.monitor IPTHphosphorus 4.8calcium 40on citalopramfamily v involvedamlodipinehydralazinemetoprololEncourage low-sodium diet.Education re benefits of weight loss,activity as tolerated.HTNBMI [id number] re diet (more fiber, less starch), activity [...] that may arise 19/01.Goes Mon, Wed, and tajehlfkyoya39/22 creat 10.59, BUN : A1c 4.9monitor GFRrenal dose medicationsf/u nephrology 11/04/22creation of left arm brachial artery to antecubital vein AV fistula on 01/09/22. S/P left arm cephalic vein superficialization on 05/01/22.monitor IPTHphosphorus 4.8calcium 40on citalopramfamily v involvedamlodipinehydralazinemetoprololEncourage low-sodium diet.Education re benefits of weight loss,activity as tolerated.HTNBMI 39LA5WFLIutwwoiob re diet (more fiber, less starch), activity [...] Rider MDLOCATION: Sebastian SAUMYADORI: M-W-F [facility] [place] pgyuheaslmhc91/22 creat 10.59, BUN : A1c 4.9monitor GFRrenal [...] after dinner; bring your log in next visitHEALTH SYSTEM 40.23 12/25/2265IN4VKCZwxaviqhq re diet (more fiber, less starch), activity [...] Thu, and FriNEPHROLOGIST: Segundo Rider MDLOCATION: Sebastian MYOA: M-W-F [facility] [place] lxfwlvayuwjv92/22 creat 10.59, BUN : A1c 4.9monitor GFRrenal [...] bring your log in next visitHTNBMI 40.23 12/25/2277HM0JPEYnljdhwtd re diet (more fiber, less starch), activity [...] Rider MDLOCATION: Sebastian MOYA: M-W-F [facility] [place] veitpnyytjdo49/22 creat 10.59, BUN : A1c 4.9monitor GFRrenal [...] after dinner; bring your log in next visitHEALTH SYSTEM 40.23 12/25/2273ID3IYSCwzkucgnl re diet (more fiber, less starch), activity [...] rolator walker with seat will f/u with ymnsqutb89/11/23: BMI 41.01 c HTN, DMT2, ESRD on [...] Rider MDLOCATION: Sebastian MOYA: M-W- [employer] [place] weuofgvcbsws58/22 creat 10.59, BUN : A1c 4.9monitor GFRrenal [...] after dinner; bring your log in next visitHEALTH SYSTEM 40.23 12/25/2212JF3MMTHbonzzoms re diet (more fiber, less starch), activity [...] rolator walker with seat will f/u with /11/23: BMI 41.01 c HTN, DMT2, ESRD on [...] 6renal dose medications11/09/23: Patient reports that the telecommunication operator mentioned to her that she will need a transplant of her kidneys. She is unaware if she qualifies for a transplant, but she is planning to f/u with the telecommunication operator.She denies checking BS everyday, unable to recall [...] after dinner; bring your log in next visitHEALTH SYSTEM 40.04 11/09/2346KX7NRZEVxzenfpps re diet (more fiber, less starch), activity [...] rolator walker with seat will f/u with xcqcgyal65/11/23: BMI 41.01 c HTN, DMT2, ESRD on [...]
--- OUTSIDE RECORDS SUMMARY | 2025-04-17 17:03 | XMS_ITS | Encounter Summary ---
Author Organization [email or web address] Address [address] [place] [address] Care Team Providers Care Aeronautical Project Engineer Name Role Phone Selin Lockett MD Primary Care Provider + Encounter Details Date Type Department Care Team (Late st Contact Info) Description 12/03/2022 Orders Only [facility] [address] [place], [place] [phone] Ivis Swan LPN Social History Tobacco Use [...] on filedocumented in this encounter Care Teams Aeronautical Project Engineer Relationship Specialty Start Date End Date Selin Lockett MD [address] [place] [address] PCP - General Family Medicine 01/04/18 03/15/24 documented as of this encounter
--- OUTSIDE RECORDS SUMMARY | 2025-04-17 17:03 | XMS_ITS | Encounter Summary ---
Author Organization [facility] Address [address] [place] [address] Phone Care Team Providers Care Hearing Aid Specialist Name Role Phone Selin Lockett MD Primary Care Provider + [phone] Reason for Visit * Reason Comments Med Refill Encounter Details Date Type Department Care Team ([facility] st Contact Info) Description 03/12/2021 Refill [facility] [address] [place] [phone] Chucho Gallardo MD [address] [facility] [address] [place] [phone] Social History Tobacco Use Types Packs/Day Years [...] on filedocumented in this encounter Care Teams Hearing Aid Specialist Relationship Specialty Start Date End Date Selin Lockett MD [address] [place] [id number] PCP - General 07/09/20 documented as of this encounter
--- OUTSIDE RECORDS SUMMARY | 2025-04-17 17:03 | XMS_ITS | Encounter Summary ---
Author Organization [employer] Address [address] [facility] [address] [place] [address] Care Team Providers Care Grade Recorder Name Role Phone Selin Lockett MD Primary Care Provider + Reason for Visit * Reason Comments Med Refill Encounter Details Date Type Department Care Team (Late st Contact Info) Description 12/27/2022 Refill [facility] P[facility] [address] [place] [address] Selin Lockett MD [address] [place], [place] [phone] Major depressive disorder, remission status unspecified, unspecified [...] recurrent documented in this encounter Care Teams Grade Recorder Relationship Specialty Start Date End Date Selin Lockett MD [address] [place], [place] [phone] PCP - General Family Medicine 01/04/18 03/15/24 documented as of this encounter
--- OUTSIDE RECORDS SUMMARY | 2025-04-17 17:03 | XMS_ITS | Encounter Summary ---
Author Organization [employer] Address [address] [facility] [address] [place] [address] Care Team Providers Care Furnace Keeper Name Role Phone Selin Lockett MD Primary Care Provider + Reason for Visit * Reason Comments Med Refill Encounter Details Date Type Department Care Team (Late st Contact Info) Description 12/03/2022 Refill [facility] [address] [place] [address] Selin Lockett MD [address] [place], [place] [phone] Social History Tobacco Use Types Packs/Day Years [...] on filedocumented in this encounter Care Teams Furnace Keeper Relationship Specialty Start Date End Date Selin Lockett MD [address] [place] [address] [phone] PCP - General Family Medicine 01/04/18 03/15/24 documented as of this encounter
--- OUTSIDE RECORDS SUMMARY | 2025-04-17 17:03 | XMS_ITS | Encounter Summary ---
Author Organization [facility] Address [address] [facility] [address] [place] [address] Phone Care Team Providers Care Tug Captain Name Role Phone Selin Lockett MD Primary Care Provider + [phone] Reason for Visit * Reason Comments Med Refill Encounter Details Date Type Department Care Team (Late st Contact Info) Description 04/09/2021 Refill [facility] [address] [facility] [address] [place] [phone] Chucho Gallardo MD [address] [facility] [address] [place] [phone] Social History Tobacco Use Types Packs/Day Years [...] on filedocumented in this encounter Care Teams Tug Captain Relationship Specialty Start Date End Date Selin Lockett MD [address] [place] [id number] PCP - General 07/09/20 documented as of this encounter
--- OUTSIDE RECORDS SUMMARY | 2025-04-17 17:04 | XMS_ITS | Clinical Summary ---
Author Organization [employer] Address [address] [facility] 7[address] [place] [address] Care Team Providers Care Voice Professor Name Role Phone Unavailable Primary Care Provider Unavailabl e Allergies Active Allergy Reactions Criticality Noted Date Comments Milton Inhibitors Rash Low 04/15/2021 Medications sevelamer carbonate (Renvela) 800 MG tablet TAKE 1 TABLET BY MOUTH EVERY EVENING (WITH DINNER) 023 Active [address]ilant [address] capsule Take 1 capsule by mouth in the morning. 023 Active losartan (Cozaar) 50 MG tablet Take 50 mg by mouth Once per day. Active carvedilol (Coreg) 12.5 MG tablet Take 12.5 mg by mouth with breakfast and with evening meal. Active citalopram (CeleXA) 20 MG tabletIndications :Major depressive disorder, remission status unspecified, unspecified whether recurrent TAKE 1 TABLET BY MOUTH EVERY MORNING 90 tablet 1 025 Active fluticasone (Flonase) 50 MCG/ACT nasal spray Administer 1 spray into each nostril 2 times daily. 16 g 3 025 Active gabapentin (Neurontin) 100 MG capsule Take 1 capsule (100 mg) by mouth at bedtime. 90 capsule 025 Active hydrOXYzine HCl (Atarax) 25 MG tablet Take 1 tablet (25 mg) by mouth if needed in the morning, at noon, and at bedtime for anxiety. 90 tablet 3 025 2025 Active glucose blood (OneTouch Ultra) test strip Use 1 by To Skin route 3 times every day 022 2024 Discontinued hydrALAZINE (Apresoline) 25 MG tablet TAKE 1 TABLET BY MOUTH TWICE DAILY IN THE MORNING AND IN THE EVENING WITH FOOD 023 2024 Discontinued fluticasone (Flonase) 50 MCG/ACT nasal spray Administer 1 spray into each nostril 2 times daily. 023 2024 Discontinued cyclobenzaprine (Flexeril) 5 MG tabletIndications :Muscle spasm Take 1/2-1 tablet at night for relief of muscle spasm 10 tablet 023 2024 Discontinued gabapentin (Neurontin) 300 MG capsule Take 1 capsule (300 mg) by mouth at bedtime. 90 capsule 3 023 2024 Discontinued albuterol 108 (90 Base) MCG/ACT inhaler Inhale 2 puffs every 4 (four) hours if needed for wheezing or shortness of breath. 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 (HCC) USE DIRECTED THREE TIMES DAILY 100 each 11 024 2024 Discontinued metoprolol tartrate (Lopressor) 50 MG tablet TAKE 1 TABLET BY MOUTH TWICE DAILY IN THE MORNING AND IN THE EVENING WITH FOOD 180 tablet 1 024 2024 Discontinued amLODIPine (Norvasc) 10 MG tablet TAKE 1 TABLET BY MOUTH EVERY EVENING 90 tablet 1 024 2024 Discontinued atorvastatin (Lipitor) 40 MG tablet TAKE 1 TABLET BY MOUTH AT BEDTIME 90 tablet 1 024 2024 Discontinued citalopram (CeleXA) 20 MG tabletIndications :Major depressive disorder, remission status unspecified, unspecified whether recurrent TAKE 1 TABLET BY MOUTH EVERY MORNING 90 tablet 1 024 2024 Discontinued(R eorder (will not trigger notification to Pharmacy)) Aspirin Adult Low Strength 81 MG EC tabletIndications :At high risk for cardiovascular disease TAKE 1 TABLET BY MOUTH EVERY EVENING 90 tablet 1 024 2024 Discontinued cetirizine (ZyrTEC) 10 MG tabletIndications :Allergy, subsequent encounter TAKE 1 TABLET BY MOUTH EVERY MORNING 90 tablet 1 024 2024 Discontinued Lancets (OneTouch Delica Plus [id number]) misc TEST BLOOD SUGAR ONE TIME DAILY 100 each 2024 Discontinued OneTouch Ultra Test test stripIndications: Type 2 diabetes mellitus with hyperglycemia, without long-term current use of insulin ([facility]) TEST BLOOD SUGAR 3 TIMES A DAY 100 strip 2024 Discontinued hydrOXYzine HCl (Atarax) 25 MG tablet Take 1 tablet (25 mg) by mouth if needed in the morning, at noon, and at bedtime for anxiety. 90 tablet 3 024 2024 Discontinued losartan (Cozaar) 50 MG tablet Take 1 tablet (50 mg) by mouth Once per day. 30 tablet 11 025 2024 Discontinued metoprolol tartrate (Lopressor) 25 MG tablet Take 12.5 mg by mouth 2 times daily. 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 Will need to search previous encounters for more information Orders: Referral to Cardiology; Future Pulmonary hypertension ([facility]) 04/07/2025 Assessment & Plan (04/10/2025 3:14 PM EDT): Pt managed by nephrology Moderate episode of recurren t major depressive disorder ([facility]) 04/07/2025 Assessment & Plan (04/10/2025 3:14 PM EDT): Reports no symptoms at this time Morbid obesity ([facility]) 04/07/2025 Assessment & Plan (04/10/2025 3:14 PM EDT): Follows kidney diet Neuropathy associated with endocrine disorder Assessment & Plan (04/10/2025 3:14 PM EDT): Requesting a wheelchair. The pain and numbness make walking difficulty and cause unsteadiness. A wheelchair will improve the patient's mobility and provide safety to avoid falls. Orders: Referral to Physical Therapy; Future TSH W/Reflex to FT4; Future Fatigue 04/07/2025 Assessment & Plan (04/10/2025 3:14 PM EDT): Orders: Hemoglobin A1c; Future CBC auto differential; Future Vitamin B12/Folate, Serum Panel; Future Iron And Total Iron Binding Capacity; Future Ferritin; Future TSH W/Reflex to FT4; Future Encounter for vaccination 04/07/2025 Assessment & Plan (04/10/2025 3:14 PM EDT): Orders: COVID-19 VACCINE [id number] (Comirnaty) 12 yrs + Abdominal pain 04/07/2025 Assessment & Plan (04/10/2025 3:14 PM EDT): Recent CT from ED revealed gall stones Orders: Referral to Gastroenterology; Future Lumbar radiculopathy 06/17/2023 Assessment & Plan (06/17/2023 [...] 2024 Eye exam Overdue, will refer to [facility] CRC screen Up to date, next one due 2024 Lipids/FBS Up to date, next one due 2023 Vaccinations Influenza iz today, RSV pending for next appt, COVID vaccine booster today at [facility], other iz are up to date. Dental [...] she says she will get it at End-stage renal disease ([facility]) 01/08/2023 Assessment & Plan (03/28/2025 9:46 AM EDT): On hemodialysis, followed by nephrology Assessment & Plan (05/07/2023 2:17 PM EST): [...] TFT's every yr Type 2 diabetes mellitus wit h chronic kidney disease on chronic dialysis, without long-term current use of insulin 10/08/2016 Assessment & Plan (04/10/2025 3:14 PM EDT): Dialysis M,W, F. Reports she no longer manages diabetes Orders: POCT Glucose Depressive disorder 11/15/2012 Gastroesophageal reflux disease 11/15/2012 Seasonal allergic rhinitis 11/15/2012 Essential hypertension 06/09/2012 Assessment & Plan (04/10/2025 3:14 PM EDT): Orders: Lipid Panel, Standard; Future Hepatitis C Antibody with Reflex to HCV, RNA, Quantitative, Real-Time PCR; Future Assessment & Plan (03/28/2025 9:45 AM EDT): On losartan and carvedilol, told to keep blood pressure log, keep low sodium diet, target <140/90 Chronic kidney disease 06/09/2012 Resolved Problems Problem Noted Date Diagnosed Date Resolved Date Numbness of lower limb 01/08/202301/20 Hyperparathyroidism due to r enal insufficiency 09/01/2018 06/17/2023 Type II diabetes mellitus 06/09/2012 Assessment & Plan (06/17/2023 11:48 AM EST): Controlled. A1c is at goal. Off medications Counseled re more frequent low calorie/carb meals. Encouraged physical activity as tolerated. Assessment & Plan (05/07/2023 2:18 PM EST): Controlled. A1c is at goal. Counseled re more frequent low calorie/carb meals. Check fgstk once daily Encouraged physical activity as tolerated. FU in PRN Encounters Date Type Department Care Team Description 04/10/[address] [phone] Ashley Griffin NP Durable Medical Equipment (wheelchair) 04/07/2025 9:30 AM EDT Office Visit [address] [address] Ignacia Werner NP Type 2 diabetes mellitus with chronic kidney disease on chronic dialysis, without long-term current use of insulin (HCC) (Primary Dx); Healthcare maintenance; Fabry's disease (CMS/HCC) (HCC); Pulmonary hypertension (CMS/HCC) (HCC); Moderate episode of recurrent major depressive disorder ([facility]/HCC) (HCC); Morbid obesity (CMS/HCC) ([facility]); Encounter for immunization; Encounter for vaccination; Abdominal pain, unspecified abdominal location; Fatigue, unspecified type; Essential hypertension; Neuropathy associated with endocrine disorder (CMS/HCC); Dietary counseling; Exercise counseling 04/06/[address] [address] Ashley Griffin NP Chart Prep 03/31/2025 Patient Outreach [facility] [address] [place], [place] [phone] Ashley Griffin NP Pre-visit Planning (SDOH was already completed ) 03/30/[address] [address] Phil Villalobos MD New patient appt. 03/28/2025 9:00 AM EDT Telemedicine [facility] [address] [place], [place] [phone] Saurabh Rocha MD Essential hypertension (Primary Dx); Major depressive disorder, remission status unspecified, unspecified whether recurrent; End-stage renal disease (CMS/HCC) 03/28/2025 Travel 03/25/2025 Orders Only [facility] External Provider, [facility] from Last 3 Months Immunizations Immunization Administration Dates Next Due Hep B, adult 03/06/2025,06/10/2010,04/25/2010 Influenza High-dose Quadriva lent Preservative Free 04/04/2022 Influenza injectable quadriv alent preservative free 06/17/2023 Influenza, High Dose Seasona l, Preservative Free 04/07/2025 Influenza, IIV3, injectable 06/13/2009 Influenza, Recombinant, inje ctable, preservative free 04/14/2024 Pfizer Covid-19 Vaccine 12+ 04/07/2025 Pfizer Covid-19 Vaccine 12+ Bivalent 02/24/2023, 10/30/2022 Pneumococcal Conjugate PCV 13 09/09/2021, 015 Pneumococcal Conjugate PCV 20 06/09/2024 Pneumococcal Polysaccharide PPSV23 02/26/2022,,07/31/2007 TD (adult), 2 Lf tetanus tox oid, [...] Date Recorded Patient Health Questionnaire-9 Score 0 03/28/2025 Patient Health Questionnaire-9 Score 0 03/28/2025 Last PHQ-9: Questionnaire Data Not on file 0 03/28/2025 Housing Stability Answer Date Recorded What is your housing situation today? I have saul ramirez 03/28/[address] you li ve. Do you have problems with any of the following? None of the above 03/28/2025 Food Insecurity Answer Date Recorded Within the past 12 months, y ou worried that your food would run out before you got money to buy more: Often true 04/07/2025 Within the past 12 months,th e food you bought just didn't last and you didn't have enough money to get more: Often true 03/2025 Transportation Answer Date Recorded In the past 12 months, has l ack of transportation kept you from medical appts, meetings, work or from getting things needed for daily living? No 03/28/2025 Utilities Answer Date Recorded In the past 12 months, has t he electric, gas, oil or water company threatened to shut off services in your home? No 03/28/2025 Depression Answer Date Recorded Patient Health Questionnaire-2 Score 0 03/28/2025 Internet Access Answer Date Recorded Internet Access Q1 Yes 03/28/2025 Internet Access Q2 Not on file 03/28/2025 Comments Unknown Sex and Gender Information Value Date Recorded Sex Assigned at Female 04/28/2022 10:19 AM EDT Legal Sex Female 10:19 AM EDT Gender Identity Female 04/28/2022 10:19 AM EDT Sexual Orientation Choose not to disclose 2021 10:19 AM EDT Last Filed Vital Signs Vital Sign Reading Time Taken Comments Blood Pressure 140/54 04/07/2025 9:34 AM EDT Pulse 62 04/07/2025 9:34 AM EDT Temperature 36.7 C (98 F) 04/07/2025 9:34 AM EDT Respiratory Rate 18 04/07/2025 9:34 AM EDT Oxygen Saturation 98% 04/07/2025 9:34 AM EDT Inhaled Oxygen Concentration - - Weight 80.9 kg (178 lb 4 oz) 04/07/2025 9:34 AM EDT Height 151 cm (4' 11.45 ) 04/07/2025 9:34 AM EDT Body Mass Index 35.46 04/07/2025 9:34 AM EDT Plan of Treatment Health Maintenance Due Date Last Done Comments Diabetes: Foot Exam 1960 Eye Exam 1960 Hepatitis C Screening 1966 Zoster Vaccines (2 of 3) 08/08/2016 06/13/2016 Diabetes: Urine Protein Screening 04/11/2021 04/11/2020 Diabetes: Hemoglobin A1C 2023 023, 10/29/2022, 01/02/2021 RSV Patients and Patients Aged 60 years or older (1 - 1-dose 75+ series) 11/06/2023 Lipid Panel 06/16/2024 06/16/2023, 12/0 06/2021, 04/11/2020 COVID-19 Vaccine ( season) 2025 04/07/2025, 06/17/2023, 02/24/2023, Additional history exists Depression Screening 03/28/2026 03/28/2025, 03/28/20 Alcohol/Substance Use Screening 04/07/2026 04/07/2025 SDOH Screening 04/07/2026 04/07/2025 Tobacco Screening 04/07/2026 04/07/2025 DTaP/Tdap/Td Vaccines (2 - Td or Tdap) 09/01/2028 09/01/2018, 07/31/2007 Pneumococcal Vaccine: 50+ Years Completed 06/09/2024, 02/26/2022, 09/09/2021, Additional history exists Hepatitis B Vaccines Completed 03/06/2025, 06/10/2010, 04/25/2010 Influenza Vaccine Completed 04/07/2025, , 06/17/2023, Additional history exists HIB Vaccines Aged Out [...] Procedure Name Priority Date/Time Associated Diagnosis Comments POCT GLUCOSE Routine 04/07/2025 9:40 AM EDT Type 2 diabetes mellitus with chronic kidney disease on chronic dialysis, without long-term current use of insulin (HCC) CT ABDOMEN PELVIS WO CONTRAST Routine 03/25/2025 5:30 PM EDT LIPID PANEL WITH REFLEX TO DIRECT LDL Routine 06/16/2023 10:09 AM EST Encounter for preventive health examination POCT GLYCATED HEMOGLOBIN, TOTAL Routine 05/07/2023 10:46 AM EST Type 2 diabetes mellitus with hyperglycemia, without long-term current use of insulin ([facility]) ALBUMIN, RANDOM URINE W/CREATININE Routine 04/11/2020 10:11 AM EDT from Last 3 Months or Most Recently Relevant to Health Maintenance Results * POCT Glucose (04/07/2025 9:40 AM EDT) Glucose Blood, POC 106 60 - 200 mg/dL QC Media Lot # [id number] Lot# Expiration Date ,750,524 Blood Capillary blood specimen / Unknown 04/07/2025 9:40 AM EDT Ignacia Werner NP POINT OF CARE TEST ENTER/EDIT OR DERABLES Final Result * CT Abdomen Pelvis w/o Contrast (03/25/2025 5:30 PM EDT) Anatomical Region Laterality Modality Body, Pelvis, Abdomen Computed T omography 03/25/2025 5:30 PM EDT Narrative 03/25/2025 5:32 PM EDT [place] [id number] CT Scan Report Signed Patient: Rosalba Arora MR#: [id number] 14 : 1950 Acct:[id number] Age/Sex: 74 / F ADM Date: 03/25/25 Loc: HO.ED Attending Dr: Ordering Physician: Shaye Shaver NP Date of Service: 03/25/25 Procedure(s): CT abdomen pelvis wo IV con Accession Number(s): [id number] cc: Selin Lockett MD; Shaye Shaver NP Report Number: [id number]: Total DLP = 573.00 mGy-cm Reason for Exam: Abdominal pain/vomiting CLINICAL HISTORY: Abdominal pain vomiting CT abdomen and pelvis without IV contrast. COMPARISON: None provided. FINDINGS: Minimal atelectasis along the posterior lower lobes. Coronary artery calcifications within the LAD, circumflex and RCA. Cholelithiasis within the gallbladder body. No pericholecystic inflammatory changes. Noncontrast appearance of the liver, spleen, pancreas and adrenal glands are unremarkable. Markedly atrophic kidneys bilaterally. Bilateral renal cystic lesions measuring up to 2.0 cm on the right. No hydronephrosis or hydroureter bilaterally. Normal appendix. [id number]-eftjlgwf colonic stool burden. No bowel obstruction. No mesenteric or retroperitoneal lymphadenopathy. Moderate aortoiliac atherosclerotic vascular calcifications. Contracted urinary bladder with bladder wall thickening. Lobular uterine contour with multiple dystrophic calcifications consistent with a fibroid uterus. No adnexal mass. Moderate to advanced multilevel spondylosis. No acute fracture or suspicious bone lesion. IMPRESSION: 1. Moderate thickening of the mucosa of the contracted urinary bladder. This can be associated with cystitis. Recommend correlation clinically. 2. Cholelithiasis. No stigmata of cholecystitis. 3. Coronary artery atherosclerosis. 4. Fibroid uterus. This document has been electronically signed by: Samuel Morris MD on 03/25/2025 17:30:48 Dictated By: Samuel Morris MD Signed By: <Electronically signed by Samuel Morris MD in OV> 03/25/25 173 DD/ 173 TD/TT: 03/25/25 173 Exchange Clerk: Procedure Note Donotuseinterpreter, Image - 03/25/[address] [place] [address] [address] Scan Report Signed Patient: Bc Arora#: [id number] 14 : 9Acct:[id number] Age/Sex: 74 / FADM Date: 03/25/25 Loc: HO.ED Attending Dr: Ordering Physician: Shaye Shaver NP Date of Service: 03/25/25 Procedure(s): CT abdomen pelvis wo IV con Accession Number(s): [id number] cc: Selin Lockett MD; Shaye Shaver NP Report Number: [id number]: Total DLP = 573.00 mGy-cm Reason for Exam: Abdominal pain/vomiting CLINICAL HISTORY: Abdominal pain vomiting CT abdomen and pelvis without IV contrast. COMPARISON: None provided. FINDINGS: Minimal atelectasis along the posterior lower lobes. Coronary artery calcifications within the LAD, circumflex and RCA. Cholelithiasis within the gallbladder body. No pericholecystic inflammatory changes. Noncontrast appearance of the liver, spleen, pancreas and adrenal glands are unremarkable. Markedly atrophic kidneys bilaterally. Bilateral renal cystic lesions measuring up to 2.0 cm on the right. No hydronephrosis or hydroureter bilaterally. Normal appendix. Vtes-ep-gnawbhnz colonic stool burden. No bowel obstruction. No mesenteric or retroperitoneal lymphadenopathy. Moderate aortoiliac atherosclerotic vascular calcifications. Contracted urinary bladder with bladder wall thickening. Lobular uterine contour with multiple dystrophic calcifications consistent with a fibroid uterus. No adnexal mass. Moderate to advanced multilevel spondylosis. No acute fracture or suspicious bone lesion. IMPRESSION: 1. Moderate thickening of the mucosa of the contracted urinary bladder. This can be associated with cystitis. Recommend correlation clinically. 2. Cholelithiasis. No stigmata of cholecystitis. 3. Coronary artery atherosclerosis. 4. Fibroid uterus. This document has been electronically signed by: Samuel Morris MD on 03/25/2025 17:30:48 Dictated By: Samuel Morris MD Signed By: <Electronically signed by Samuel Morris MD in OV> 03/25/25 173 DD/ 173 TD/TT: 03/25/25 173 Exchange Clerk: [facility] External Provider IMG CT PROCEDURES Edited Result - Final * Lipid Panel with Reflex to Direct LDL (06/16/2023 10:09 AM EST) Triglycerides 118 <150 mg/dL [facility] Comment:Desirable Triglyceri de: less than 150 mg/dLBorderline High Triglyceride 150-199 mg/dLHigh Triglyceride: 200-499 mg/dLVery High Triglyceride: greater than or equal to 5OO mg/dL Cholesterol 146 <200 mg/dL [facility] Comment:Desirable Cholestero l: less than 200 mg/dLBorderline High Cholesterol: 200-239 mg/dLHigh Cholesterol: greater than 239 mg/dL LDL Cholesterol Calculated 80 <100 mg/dL [facility] Comment:Desirable LDL: less than 100 mg/dLNear Optimal/Above Optimal LDL: 110- 129 mg/dLBorderline High LDL: 130-159 mg/dLHigh LDL: 160-189 mg/dLVery High LDL: greater than or equal to 190 mg/dL HDL Cholesterol 43 >40 mg/dL [facility] Comment:Desirable HDL: great er than 40 mg/dL Note: This HDL assay may give artificially low results in patients with liver disease. Blood 06/16/2023 10:0 9 AM EST 06/16/2023 11:16 AM EST Selin Lockett MD LAB BLOOD ORDERABLES Fin al Result [facility] [address] [place] [phone] * POCT HGB A1C (05/07/2023 10:46 AM EST) Hemoglobin A1C 5.4 4.0 - 6.0 % QC Media Lot # [id number] Lot# Expiration Date Blood 05/07/2023 10:4 6 AM EST Selin Lockett MD POINT OF CARE TEST ENTER /EDIT ORDERABLES Final Result * (ABNORMAL) ALBUMIN, RANDOM URINE W/CREATININE (04/11/2020 10:11 AM EDT) Microalbumin Urine 231.5 See Note: mg/dL [facility] Comment: Reference Range: Reference Range [...] Creatinine, Urine 76 20 - 275 mg/dL [facility] 04/11/2020 10:1 1 AM EDT Selin Lockett MD LAB URINE ORDERABLES Fin al Result [facility] [address] from Last 3 Months or Most Recently Relevant to Health Maintenance Insurance [facility] DUAL COMPLETE [place]
--- OUTSIDE RECORDS SUMMARY | 2025-04-17 17:04 | XMS_ITS | Clinical Summary ---
Author Organization [facility] Address [address] [place] [address] Phone Care Team Providers Care Commercial Property Manager Name Role Phone Selin Lockett MD Primary Care Provider + [phone] Allergies Active Allergy Reactions Criticality Noted Date [...] 2 Active Blood Glucose Monitoring Suppl (FreeStyle Oxnard Lite) w/Device kit TEST BLOOD SUGAR TWICE DAILY 2 Active fluticasone (FLONASE) 50 MCG/ACT nasal spray INHALE 1-2 SPRAYS IN EACH NOSTRIL ONCE DAILY NEEDED 2 Active gabapentin (NEURONTIN) 300 MG capsule 300 mg at bed time 2 Active OneTouch Ultra test strip TEST BLOOD SUGAR 3 TIMES A DAY 2 Active Lancets (OneTouch Delica Plus [id number]) misc TEST BLOOD SUGAR 3 TIMES A [...] Encounters Date Type Department Care Team Description 03/27/2025 Treatment [facility] [address] [phone] Chucho Gallardo MD End stage renal disease; Dependence on renal dialysis 03/25/2025 Treatment [facility] [address] [phone] Roderick Rangel MD End stage renal disease; Dependence on renal dialysis 03/24/2025 Treatment [facility] [address] [phone] Chucho Gallardo MD End stage renal disease; Dependence on renal dialysis 03/06/2025 Treatment [facility] [address] [phone] Chucho Gallardo MD End stage renal disease; Dependence on renal dialysis 02/22/2025 Treatment [facility] [address] [phone] Chucho Gallardo MD End stage renal disease; Dependence on renal dialysis 02/20/2025 Treatment [facility] [address] [phone] Chucho Gallardo MD End stage renal disease; Dependence on renal dialysis 02/13/2025 Treatment [facility] [address] [phone] Chucho Gallardo MD End stage renal disease; Dependence on renal dialysis 02/06/2025 Treatment [facility] [address] [phone] Chucho Gallardo MD End stage renal disease; Dependence on renal dialysis 02/03/2025 Orders Only [facility] [address] [phone] Chucho Gallardo MD from Last 3 Months [...] (#1) 2025 04/14/2024, 2022 Diabetes: Hemoglobin A1C 06/29/2025 025, 02/03/2025, 08/01/2024, Additional history exists Pneumococcal Vaccine: 50+ Years Completed 06/13/2016, 05/22/2015, 07/31/2007 Pneumococcal Vaccine: Peds ( 0 to 5 Years) and At-Risk Patients (6 to 49 Years) Discontinued 06/13/2016, 05/22/2015, 07/31/2007 Procedures Procedure Name Priority Date/Time Associated Diagnosis Comments LIH (HC) Routine 04/14/2025 3:00 AM EDT HEMOGLOBIN Routine 04/14/2025 3:00 AM EDT KT/V NATURAL LOG, URR () Routine 04/14/2025 3:00 AM EDT COLLECTION DATE (HC) Routine 04/08/2025 3:00 AM EDT LIH (HC) Routine 04/08/2025 3:00 AM EDT KT/V NATURAL LOG, URR (HC) Routine 04/08/2025 3:00 AM EDT HEPATITIS B SURFACE ANTIBODY QUANT Routine 04/05/2025 3:00 AM EDT HEPATITIS B SURFACE ANTIGEN W/REFL CONFIRM Routine 04/03/2025 3:00 AM EDT FERRITIN Routine 04/03/2025 3:00 AM EDT TRANSFERRIN SATURATION Routine 3:00 AM EDT ELECTROLYTE PANEL Routine 04/03/2025 3:0 0 AM EDT PROTEIN, TOTAL, SERUM Routine 04/03/2025 3:00 AM EDT MAGNESIUM Routine 04/03/2025 3:00 AM EDT LIPID PANEL Routine 04/03/2025 3:00 AM EDT LIH (HC) Routine 04/03/2025 3:00 AM EDT CREATININE, SERUM Routine 04/03/2025 3:0 0 AM EDT GLUCOSE, RANDOM Routine 04/03/2025 3:00 AM EDT LACTATE DEHYDROGENASE Routine 04/03/2025 3:00 AM EDT BILIRUBIN, TOTAL Routine 04/03/2025 3:00 AM EDT AST Routine 04/03/2025 3:00 AM EDT ALKALINE PHOSPHATASE Routine 04/03/2025 3:00 AM EDT ALT Routine 04/03/2025 3:00 AM EDT CALCIUM PHOSPHORUS PRODUCT, ADJUSTED (HC) Routine 04/03/2025 3:00 AM EDT PTH, INTACT Routine 04/03/2025 3:00 AM EDT POORLY SPUN TUBE (HC) Routine 03/29/2025 3:00 AM EDT HEMOGLOBIN A1C Routine 03/29/2025 3:00 AM EDT CBC AND DIFFERENTIAL Routine 03/29/2025 3:00 AM EDT KT/V NATURAL LOG, URR (HC) Routine 03/29/2025 3:00 AM EDT HEMOGLOBIN Routine 03/24/2025 3:00 AM EDT HEMOGLOBIN Routine 03/15/2025 3:00 AM EDT LIH [...] EDT from Last 3 Months Results * [facility] (04/14/2025 3:00 AM EDT) Only the most recent of12 resultswithin the time period is included. Lipemia Normal Normal [facility] Icterus Normal Normal [facility] Hemolysis Normal Normal [facility] 04/14/2025 3:00 AM EDT 04/15/2025 2:26 PM EDT us Chucho Gallardo MD LAB [id number] SOLICITED RESULTS Final Result Performing Organization Address [facility] Co de Phone Number [facility] [address] [place] [address] * (ABNORMAL) Kt/V Natural Log, URR (04/14/2025 3:00 AM EDT) Only the most recent of6 resultswithin the time period is included. Treatment Time 211 min [facility] Pre-Weight, lb 83.8 kg [facility] Post-Weight, lb 81.1 kg [facility] Ultrafiltration Rate 9 <=13 mL/kg/hr [facility] Comment: Recommend achieving Ultrafiltration Rate (UFR) <=10 mL/kg/hr References: Parag BROWN et al. Kidney Int. 2010; 79(2):250-257 BUN Post Dialysis 11 7 - 25 mg/dL [facility] BUN 50(H) 7 - 25 mg/dL [facility] UREA REDUCTION RATIO (%) 78 >=65 % [facility] Kt/V Natural Log 1.76 >=1.2 [facility] 04/14/2025 3:00 AM EDT 04/15/2025 2:20 PM EDT us Chucho Gallardo MD LAB [id number] SOLICITED RESULTS Final Result Performing Organization Address [facility] Co de Phone Number [facility] [address] [place] [address] * (ABNORMAL) Hemoglobin (04/14/2025 3:00 AM EDT) Only the most recent of4 resultswithin the time period is included. Hgb 7.9(L) 11.2 - 15.7 g/dL [facility] Hemoglobin x 3 23.7(L) 33.6 - 47.1 g/dL [facility] 04/14/2025 3:00 AM EDT 04/15/2025 2:20 PM EDT us Chucho Gallardo MD LAB BLOOD ORDERABLES Final Re sult Performing Organization Address [facility] de Phone Number [facility] [address] [place] [address] * Collection Date (04/08/2025 3:00 AM EDT) Collection Date See Comment [facility] Comment: Patient sample received may exceed specimen stability, based on the collection date electronically provided. When reviewing patient results, verify collection information and consider specimen stability before acting on any critical or panic results. 04/08/2025 3:00 AM EDT Chucho Gallardo MD LAB [id number] SOLICITED RESULTS Final Result Performing Organization Address [facility] de Phone Number [facility] [address] [place] [address] * Hepatitis B Surface Antibody (04/05/2025 3:00 AM EDT) Only the most recent of2 resultswithin the time period is included. Hep B Surface Antibody >1,000 mIU/mL [facility] Comment: Interpretation: <10: No Immunity >=10: Probable Immunity 04/05/2025 3:00 AM EDT 04/06/2025 2:57 PM EDT Chucho Gallardo MD LAB BLOOD ORDERABLES Final Re sult Performing Organization Address [facility] de Phone Number [facility] [address] [place] [address] * Calcium Phosphorus Product, Adjusted (04/03/2025 3:00 AM EDT) Only the most recent of3 resultswithin the time period is included. Albumin 3.7 3.6 - 5.4 g/dL [facility] Calcium 8.6 8.6 - 10.3 mg/dL [facility] Phosphorus, Serum 4.3 2.5 - 5.0 mg/dL [facility] Ca*PO4 37.0 <55.0 mg2/dL2 [facility] Calcium, Adjusted Total 8.8 8.6 - 10.3 mg/dL [facility] CA*PO4 CORRCTD 37.8 <55.0 mg2/dL2 [facility] 04/03/2025 3:00 AM EDT 04/05/2025 12:09 PM EDT Chucho Gallardo MD LAB [id number] SOLICITED RESULTS Final Result Performing Organization Address [facility]ZIP Co de Phone Number [facility] [address] [place] [address] * Hepatitis B Surface Ag w/Reflex Confirmation (04/03/2025 3:00 AM EDT) Only the most recent of3 resultswithin the time period is included. Hep B Surface Antigen Negative Negative [facility] 04/03/2025 3:00 AM EDT 04/05/2025 12:09 PM EDT Chucho Gallardo MD LAB BLOOD ORDERABLES Final Re sult Performing Organization Address [facility] Co de Phone Number [facility] [address] [place] [address] * (ABNORMAL) TSAT (04/03/2025 3:00 AM EDT) Only the most recent of3 resultswithin the time period is included. Iron 47(L) 50 - 170 ug/dL [facility] Transferrin 140(L) 250 - 380 mg/dL [facility] TIBC 196(L) 211 - 406 ug/dL [facility] Iron Saturation (TSat) 24 22 - 52 % [facility] 04/03/2025 3:00 AM EDT 04/05/2025 12:09 PM EDT Chucho Gallardo MD LAB BLOOD ORDERABLES Final Re sult Performing Organization Address [facility] Co de Phone Number [facility] [address] [place] [address] * (ABNORMAL) ALT (04/03/2025 3:00 AM EDT) Only the most recent of3 resultswithin the time period is included. ALT (SGPT) 7(L) 10 - 49 U/L [facility] 04/03/2025 3:00 AM EDT 04/05/2025 12:09 PM EDT Chucho Gallardo MD LAB BLOOD ORDERABLES Final Re sult Performing Organization Address [facility] Co de Phone Number [facility] [address] [place] [address] * AST (04/03/2025 3:00 AM EDT) Only the most recent of3 resultswithin the time period is included. AST (SGOT) 14 <34 U/L [facility] 04/03/2025 3:00 AM EDT 04/05/2025 12:09 PM EDT Chucho Gallardo MD LAB BLOOD ORDERABLES Final Re sult Performing Organization Address [facility] de Phone Number [facility] [address] [place] [address] * Protein, total (04/03/2025 3:00 AM EDT) Only the most recent of3 resultswithin the time period is included. Total Protein 7.1 6.4 - 8.9 g/dL [facility] 04/03/2025 3:00 AM EDT 04/05/2025 12:09 PM EDT Chucho Gallardo MD LAB BLOOD ORDERABLES Final Re sult Performing Organization Address [facility] de Phone Number [facility] [address] [place] [address] * (ABNORMAL) Alkaline phosphatase (04/03/2025 3:00 AM EDT) Only the most recent of3 resultswithin the time period is included. Alkaline Phosphatase 150(H) 46 - 116 U/L [facility] 04/03/2025 3:00 AM EDT 04/05/2025 12:09 PM EDT Chucho Gallardo MD LAB BLOOD ORDERABLES Final Re sult Performing Organization Address [facility] de Phone Number [facility] [address] [place] [address] * (ABNORMAL) PTH, Intact (04/03/2025 3:00 AM EDT) Only the most recent of3 resultswithin the time period is included. PTH, Intact 993(H) 160 - 721 pg/mL [facility] Comment: Suggested (KDIGO) ESRD maintenance range is two to nine times the upper normal limit (80.1 pg/mL) for the laboratory. 04/03/2025 3:00 AM EDT 04/05/2025 12:09 PM EDT Chucho Gallardo MD LAB BLOOD ORDERABLES Final Re sult Performing Organization Address [facility] de Phone Number [facility] [address] [place] [address] * Magnesium (04/03/2025 3:00 AM EDT) Only the most recent of3 resultswithin the time period is included. Magnesium 2.4 1.9 - 2.7 mg/dL [facility] 04/03/2025 3:00 AM EDT 04/05/2025 12:09 PM EDT Chucho Gallardo MD LAB BLOOD ORDERABLES Final Re sult Performing Organization Address [facility] de Phone Number [facility] [address] [place] [address] * (ABNORMAL) Lactate dehydrogenase (04/03/2025 3:00 AM EDT) Only the most recent of3 resultswithin the time period is included. LDH 254(H) 120 - 246 U/L [facility] 04/03/2025 3:00 AM EDT 04/05/2025 12:09 PM EDT Chucho Gallardo MD LAB BLOOD ORDERABLES Final Re sult Performing Organization Address [facility] de Phone Number [id number] [address] [place] [address] * Glucose, random (04/03/2025 3:00 AM EDT) Only the most recent of3 resultswithin the time period is included. Glucose 99 70 - 99 mg/dL [facility] Comment: ADA guidelines outline the following fasting glucose ranges: Normal: <100 Prediabetes: 100-125 Diabetes: >125 04/03/2025 3:00 AM EDT 04/05/2025 12:09 PM EDT Chucho Gallardo MD LAB BLOOD ORDERABLES Final Re sult Performing Organization Address [facility] Phone Number [facility] [address] [place] [address] * (ABNORMAL) Ferritin (04/03/2025 3:00 AM EDT) Only the most recent of3 resultswithin the time period is included. Ferritin 1,642(H) 10 - 291 ng/mL [facility] 04/03/2025 3:00 AM EDT 04/05/2025 12:09 PM EDT Chucho Gallardo MD LAB BLOOD ORDERABLES Final Re sult Performing Organization Address [facility] de Phone Number [facility] [address] [place] [address] * (ABNORMAL) Creatinine, serum (04/03/2025 3:00 AM EDT) Only the most recent of3 resultswithin the time period is included. Creatinine 9.58(H) 0.55 - 1.02 mg/dL [facility] 04/03/2025 3:00 AM EDT 04/05/2025 12:09 PM EDT us Chucho Gallardo MD LAB BLOOD ORDERABLES Final Re sult Performing Organization Address [facility] Co de Phone Number [facility] [address] [place] [address] * (ABNORMAL) Bilirubin, total (04/03/2025 3:00 AM EDT) Only the most recent of3 resultswithin the time period is included. Total Bilirubin <0.2(L) 0.3 - 1.2 mg/dL [facility] 04/03/2025 3:00 AM EDT 04/05/2025 12:09 PM EDT us Chucho Gallardo MD LAB BLOOD ORDERABLES Final Re sult Performing Organization Address [facility] de Phone Number [facility] [address] [place] [address] * (ABNORMAL) Lipid panel (04/03/2025 3:00 AM EDT) Only the most recent of2 resultswithin the time period is included. Cholesterol 166 mg/dL [facility] Comment: Optimal: <200 Borderline: 200-239 High Risk: >239 Triglycerides 219(H) mg/dL [facility] Comment: Optimal: <150 Borderline: 150-200 High Risk: >200 HDL 38(L) mg/dL [facility] Comment: Optimal: >59 Borderline: 40-59 High Risk: <40 LDL-Calc 84 mg/dL [facility] Comment: Optimal: <100 Borderline: 100-159 High Risk: >159 VLDL Cholesterol Herb 44(H) mg/dL [facility] Comment: Optimal: <30 Borderline: 30-40 High Risk: >40 Chol/HDL Ratio 4.4(H) [facility] Comment: Optimal: <3.3 High Risk: >6.2 04/03/2025 3:00 AM EDT 04/05/2025 12:09 PM EDT us Chucho Gallardo MD LAB BLOOD ORDERABLES Final Re sult Performing Organization Address [facility] Co de Phone Number [facility] [address] [place] [address] * (ABNORMAL) Electrolyte panel (04/03/2025 3:00 AM EDT) Only the most recent of3 resultswithin the time period is included. [facility] Sodium 135(L) 136 - 145 mEq/L [facility] Potassium 5.1(H) 3.4 - 5.0 mEq/L [facility] Chloride 94(L) 98 - 107 mEq/L [facility] Bicarbonate (CO2) 27 21 - 31 mEq/L [facility] Anion Gap 14 3 - 14 mEq/L [facility] 04/03/2025 3:00 AM EDT 04/05/2025 12:09 PM EDT us Chucho Gallardo MD LAB BLOOD ORDERABLES Final Re sult Performing Organization Address [facility]/ZIP Co de Phone Number [facility] [address] [place] [address] * Poorly Spun Tube (03/29/2025 3:00 AM EDT) [facility] Poorly Spun TUBE [place] [facility] Comment:Received poorly cent rifuged specimen. Unable to perform testing. 03/29/2025 3:00 AM EDT us Chucho Gallardo MD LAB [id number] SOLICITED RESULTS Final Result Performing Organization Address [facility]/ZIP Co de Phone Number [facility] [address] [place] [address] * (ABNORMAL) CBC and Differential (03/29/2025 3:00 AM EDT) Only the most recent of3 resultswithin the time period is included. [facility] DIFFERENTIAL MANUAL, 2 Not Indicated [facility] White Blood Cells 5.0 4.0 - 10.0 K/uL [facility] RBC 2.39(L) 3.93 - 5.22 M/uL [facility] Hgb 7.8(L) 11.2 - 15.7 g/dL [facility] Hemoglobin x 3 23.4(L) 33.6 - 47.1 g/dL [facility] Hematocrit 24.3(L) 34.1 - 44.9 % [facility] MCV 101.7(H) 79.4 - 94.8 fL [facility] MCH 32.6(H) 25.6 - 32.2 pg [facility] MCHC 32.1(L) 32.2 - 35.5 g/dL [facility] RDW 14.6(H) 11.7 - 14.4 % [facility] Platelets 195 182 - 369 K/uL [facility] MPV 11.3 9.2 - 12.8 fL [facility] Neutrophils Relative 61.6 34.0 - 71.1 % [facility] Lymphocytes Relative 19.6 19.3 - 51.7 % [facility] Monocytes 11.1 4.7 - 12.5 % [facility] Eosinophils Relative 6.3(H) 0.7 - 5.8 % [facility] Basophils Relative 0.4 0.1 - 1.2 % [facility] Immature Granulocytes 1.0 0.0 - 1.0 % [facility] 03/29/2025 3:00 AM EDT 03/30/2025 1:40 PM EDT Chucho Gallardo MD LAB BLOOD ORDERABLES Final Re sult Performing Organization Address [facility] de Phone Number [facility] [address] [place] [address] * Hemoglobin A1c (03/29/2025 3:00 AM EDT) Only the most recent of2 resultswithin the time period is included. Hemoglobin A1C 5.1 <5.7 % [facility] Comment: Methodology: Ion-exchange high-performance liquid chromatography (HPLC) Normal: <5.7% Prediabetes: 5.7-6.4% Diabetes: >6.4% Diabetic Glucose Control Evaluation: Therapeutic action suggested at >8.0% ADA recommends a glycemic goal of <7.0% 03/29/2025 3:00 AM EDT 03/30/2025 1:40 PM EDT Chucho Gallardo MD LAB BLOOD ORDERABLES Final Re sult Performing Organization Address [facility] de Phone Number [facility] [address] [place] [address] * Calcium, Adjusted w Albumin (03/13/2025 3:00 AM EDT) Calcium 8.7 8.6 - 10.3 mg/dL [facility] Albumin 3.9 3.6 - 5.4 g/dL [facility] Calcium, Adjusted Total 8.8 8.6 - 10.3 mg/dL [facility] 03/13/2025 3:00 AM EDT 03/14/2025 1:51 PM EDT us Chucho Gallardo MD LAB BLOOD ORDERABLES Final Re sult Performing Organization Address [facility]/ZIP Co de Phone Number [facility] [address] [place] [address] * CO2 (03/08/2025 3:00 AM EDT) Bicarbonate (CO2) 28 21 - 31 mEq/L [facility] 03/08/2025 3:00 AM EDT 03/09/2025 3:01 PM EDT us Chucho Gallardo MD LAB BLOOD ORDERABLES Final Re sult Performing Organization Address [facility] de Phone Number [id number] [address] [place] [address] * BUN/CREATININE RATIO (03/01/2025 3:00 AM EDT) Only the most recent of2 resultswithin the time period is included. BUN/Creatinine Ratio 6.5 <=23.0 [facility] 03/01/2025 3:00 AM EDT 03/02/2025 3:54 PM EDT us Chucho Gallardo MD LAB [id number] SOLICITED RESULTS Final Result Performing Organization Address [facility] Co de Phone Number [facility] [address] [place] [address] * (ABNORMAL) Potassium (02/24/2025 3:00 AM EDT) Only the most recent of4 resultswithin the time period is included. Potassium 5.1(H) 3.4 - 5.0 mEq/L [facility] 02/24/2025 3:00 AM EDT 02/25/2025 2:09 PM EDT us Chucho Gallardo MD LAB BLOOD ORDERABLES Final Re sult Performing Organization Address [facility] de Phone Number [facility] [address] [place] [address] * Phosphorus (02/17/2025 3:00 AM EDT) Pathologist [facility] [place] Phosphorus, Serum 4.4 2.5 - 5.0 mg/dL [facility] 02/17/2025 3:00 AM EDT 02/18/2025 1:47 PM EDT us Chucho Gallardo MD LAB BLOOD ORDERABLES Final Re sult Performing Organization Address [facility] de Phone Number [facility] [address] [place] [address] * Confirmation Test HCV (02/03/2025 3:00 AM EDT) Pathologist [facility] [place] Hep C Ab Confirmation Not needed [facility] 02/03/2025 3:00 AM EDT 02/04/2025 2:01 PM EDT us Chucho Gallardo MD LAB BLOOD ORDERABLES Final Re sult Performing Organization Address [facility] de Phone Number [facility] [address] [place] [address] * HEPATITIS C ABS W/REFLEX RNA DETECTR (02/03/2025 3:00 AM EDT) Pathologist [facility] [place] Hep C Virus Ab Non-Reacti ve Non-Reacti ve [facility] 02/03/2025 3:00 AM EDT 02/04/2025 2:49 PM EDT us Chucho Gallardo MD LAB [id number] SOLICITED RESULTS Final Result Performing Organization Address [facility] Co de Phone Number [facility] [address] [place] [address] * Hepatitis B Core Antibody, Total (02/03/2025 3:00 AM EDT) Pathologist [facility] [place] HBc Total Ab, S Negative Negative [facility] 02/03/2025 3:00 AM EDT 02/04/2025 2:49 PM EDT Chucho Gallardo MD LAB BLOOD ORDERABLES Final Re sult Performing Organization Address [facility] Co de Phone Number [facility] [address] [place] [address] * Aluminum level (02/03/2025 3:00 AM EDT) [facility] Aluminum 3 1 - 20 ug/L [facility] Comment: This test was developed and its performance characteristics determined by [employer] in a manner consistent with CLIA requirements. This test has not been cleared or approved by the U.S. Food and Drug Administration. 02/03/2025 3:00 AM EDT 02/04/2025 1:40 PM EDT Chucho Gallardo MD LAB BLOOD ORDERABLES Final Re sult Performing Organization Address [facility] de Phone Number [facility] [address] [place] [address] * Vitamin D 25 Hydroxy (02/03/2025 3:00 AM EDT) [facility] Vitamin D, 25-Hydroxy 39 30 - 100 ng/mL [facility] Comment: Status Adult Pediatric Deficient: <20 <15 Insufficient: 20-29 15-19 Sufficient: 30-100 20-100 02/03/2025 3:00 AM EDT 02/04/2025 2:49 PM EDT Chucho Gallardo MD LAB BLOOD ORDERABLES Final Re sult Performing Organization Address [facility]ZIP Co de Phone Number [facility] [address] [place] [address] * Uric Acid (02/03/2025 3:00 AM EDT) Uric Acid 2.9 2.3 - 6.6 mg/dL [facility] 02/03/2025 3:00 AM EDT 02/04/2025 2:49 PM EDT us Chucho Gallardo MD LAB BLOOD ORDERABLES Final Re sult [facility] [address] [place] [address] from Last 3 Months Insurance [facility] UHC Medicare Medicaid [place] Care Teams Commercial Property Manager Relationship Specialty Start Date End Date Selin Lockett MD [address] [place] [id number] PCP - General 07/09/20
== END 2025-04-17 14:41 | disposition home or self-care (01) ==
LOC: HO.HCS 13:44
PROVIDERS: PCP Internal Medicine; Visit Provider Internal Medicine
DX: I25.10 Atherosclerotic heart disease of native coronary artery without angina pectoris (principal)
CPT/HCPCS: 99214

== ENCOUNTER 2025-04-20 09:34 | Outpatient (REF) | payer OTHER, SELFPAY ==
--- OUTSIDE RECORDS SUMMARY | 2025-04-20 10:54 | XMS_ITS ---
Author Name Conner Lawrence NP Address [address] [place] [address] Phone [phone] [facility] Care Team Providers Care Periodontist Name Role Phone Howard Conner Unavailable [phone] Reason for Referral Not Available Allergies, adverse [...] MORNING AND IN THE EVENING WITH FOOD 2021-12-31 2023-11-09 Metoprolol Tartrate 50 mg Tab TAKE 1 [...] 2022-11-04 2023-11-09 Vitamin D (Ergocalciferol) 1.25 mg (68599 UT) Cap TAKE 1 CAPSULE BY MOUTH [...] joint pain increased [facility]. Follow-up with [facility] as [...] 6renal dose medications11/09/23: Patient reports that the digital measurement advisor mentioned to her that she will need a transplant of her kidneys. She is unaware if she qualifies for a transplant, but she is planning to f/u with the digital measurement advisor.She denies checking BS everyday, unable to recall last BS level. MDD (major depressive disorder), recurrent episode, moderate Active 2022-08-10 N/A on citalopramf erin : PHQ-4=8 (Moderate)11/09/23: is currently in the [...] (BMI >40) Active 2022-08-10 N/A HTNBMI 40.04 11/09/2313GY9HRAEPajdpmxab re diet (more fiber, less starch), activity [...] Thu, a nd FriNEPHROLOGIST: Segundo Rider MDLOCATION: Sebastain MOYA: M-W-F 1st ShiftImmunodeficiency due to: dialysisweakened [...] (do not use for phone, instead use 61163-80) [facility] Type 2 diabetes mellitus wit h [...] (do not use for phone, instead use 08997-24) [facility] New patient,40-59min; chronic exacerbation, 2 stable chronic or 1 acute illness add add modifier 95 for video (do not use for phone, instead use 28738-17) [facility] New patient,40-59min; chronic exacerbation, 2 stable chronic or 1 acute illness add add modifier 95 for video (do not use for phone, instead use 20153-03) [facility] New patient,40-59min; chronic exacerbation, 2 stable chronic or 1 acute illness add add modifier 95 for video (do not use for phone, instead use 98521-22) [facility] New patient,40-59min; chronic exacerbation, 2 stable chronic or 1 acute illness add add modifier 95 for video (do not use for phone, instead use 80297-82) [facility] No Data Available [facility] 10/29/2022 Type 2 diabetes mellitus wit h diabetic chronic kidney diseaseHyp chr kidney disease w stage 5 chr kidney disease or ESRDEnd stage renal diseaseDependence on renal dialysisSecondary hyperparathyroidism of renal originMajor depressive disorder, recurrent, moderateAnemia in chronic kidney diseaseMorbid (severe) obesity due to excess caloriesBody mass index (bmi) 33.0-33.9, adult No Data Available [facility] 10[place]2022 No Data Available [facility] No Data Available [facility] No Data Available [facility] No Data Available [facility] No Data Available [facility] No Data Available [facility] No Data Available [facility] 11/[place]2022 Type 2 diabetes mellitus wit h diabetic chronic kidney diseaseHyp chr kidney disease w stage 5 chr kidney disease or ESRDEnd stage renal diseaseDependence on renal dialysisSecondary hyperparathyroidism of renal originMajor depressive disorder, recurrent, moderateMorbid (severe) obesity due to excess caloriesBody mass index (BMI) 40.0-44.9, adultAnemia in chronic kidney diseaseAge-related physical debilityPolyosteoarthritis, unspecifiedUnsteadiness on feet No Data Available [facility]20[place] No Data Available [facility] No Data Available [facility] [place] 11[place]2022 No Data Available [facility] [place]/26/2022 No Data Available [facility] [place] 11/26/2022 No Data Available [facility] [place] 12/25/2022 Type 2 diabetes mellitus wit h diabetic chronic kidney diseaseEnd stage renal diseaseDependence on renal dialysisHyp chr kidney disease w stage 5 chr kidney disease or ESRDSecondary hyperparathyroidism of renal originMajor depressive disorder, recurrent, moderateMorbid (severe) obesity due to excess caloriesBody mass index (BMI) 40.0-44.9, adultAnemia in chronic kidney diseaseAge-related physical debilityPolyosteoarthritis, unspecifiedUnsteadiness on feet No Data Available [facility], ([place] 12/25/2022 No Data Available [facility] [place] 12/25/2022 No Data Available [facility] [place] 12/25/2022 No Data Available [facility] [place] 12/25/2022 No Data Available [facility] [place] 12/25/2022 No Data Available [facility] [place] 04/08/2023 Type 2 diabetes mellitus wit h diabetic chronic kidney diseaseEnd stage renal diseaseDependence on renal dialysisSecondary hyperparathyroidism of renal originMorbid (severe) obesity due to excess caloriesBody mass index (BMI) 40.0-44.9, adultMajor depressive disorder, recurrent, moderateHypertensive chronic kidney disease w stg 1-4/unsp chr kdnyAnemia in chronic kidney diseaseAge-related physical debilityPolyosteoarthritis, unspecifiedUnspecified urinary incontinence No Data Available [facility] [place] 04/08/2023 No Data Available [facility] [place] 04/08/2023 No Data Available [facility] [place] 04/08/2023 No Data Available [facility] [place] 04/08/2023 No Data Available [facility] [place] 05/11/2023 Dependence on renal dialysis End stage renal diseaseType 2 diabetes mellitus with diabetic chronic kidney diseaseSecondary hyperparathyroidism of renal originMajor depressive disorder, recurrent, moderateHyp chr kidney disease w stage 5 chr kidney disease or ESRDMorbid (severe) obesity due to excess caloriesBody mass index (BMI) 40.0-44.9, adultAnemia in chronic kidney diseaseAge-related physical debilityPolyosteoarthritis, unspecifiedUnsteadiness on feetUnspecified urinary incontinence No Data Available [facility]2023 No Data Available [facility]2023 No Data Available [facility] 05[place]2023 No Data Available [facility] 06[place]12/2023 Body mass index (BMI) 40.0-4 4.9, adultDependence on renal dialysisType 2 diabetes mellitus with diabetic chronic kidney diseaseEnd stage renal diseaseSecondary hyperparathyroidism of renal originMajor depressive disorder, recurrent, moderateEssential (primary) hypertensionMorbid (severe) obesity due to excess caloriesBody mass index (BMI) 35.0-35.9, adultChronic kidney disease, unspecifiedAnemia in chronic kidney diseaseAge-related physical debilityPolyosteoarthritis, unspecifiedUnsteadiness on feetUnspecified urinary incontinence No Data Available [facility] 06[place]12/2023 No Data Available [facility] 06/12[place]2023 No Data Available [facility] 06[place]2023 No Data Available [facility] 06[place]2023 Estab. patient 30-39min; chronic exacerbation, 2 stable chronic or 1 acute illness add add modifier 95 for video, (do not use for phone, instead use 39776-47) [facility]2023 Type 2 diabetes mellitus wit h [...] (do not use for phone, instead use 53022-97) [facility]20[place] Estab. patient 30-39min; chronic exacerbation, 2 stable chronic or 1 acute illness add add modifier 95 for video, (do not use for phone, instead use 59289-42) [facility]20[place] Estab. patient 30-39min; chronic exacerbation, 2 stable chronic or 1 acute illness add add modifier 95 for video, (do not use for phone, instead use 39816-02) [facility] 11[place]2023 Estab. patient 30-39min; chronic exacerbation, 2 stable chronic or 1 acute illness add add modifier 95 for video, (do not use for phone, instead use 05025-39) [facility]2023 Estab. patient 30-39min; chronic exacerbation, 2 stable chronic or 1 acute illness add add modifier 95 for video, (do not use for phone, instead use 73687-92) [facility] 11[place]2023 Estab. patient 30-39min; chronic exacerbation, 2 stable chronic or 1 acute illness add add modifier 95 for video, (do not use for phone, instead use 16774-37) [facility]2023 Estab. patient 30-39min; chronic exacerbation, 2 stable chronic or 1 acute illness add add modifier 95 for video, (do not use for phone, instead use 13451-02) [facility]/2023 No Data Available [facility] 12/[place]/2023 Dependent relative needing c are at [...] Time Current Smoking Status Never smoker 2025-03-30 3 Sex Female History of Procedures Procedures Service Procedure code Service date Servicing provider Phone# New patient,40-59min; chronic exacerbation, 2 stable chronic or 1 acute illness add add modifier 95 for video (do not use for phone, instead use 17822-79) [id number] 2022-07-31 No Data Available No Data Availa [...] le No Data Available No Data Available [id number] 2022-10-29 No Data Available No Data Available [...] No Data Availa ble No Data Available 2022-11-26 No Data Available No Data Available [...] Available No Data Available No Data Available [id number] 2022-12-25 No Data Available No Data Available [...] Available No Data Available No Data Available [id number] 2023-04-08 No Data Available No Data Available [...] le No Data Available No Data Available [id number] 2023-05-11 No Data Available No Data Available BMI obtained (3008F) 3008F 2023-05-11 No Data Availab le No Data Available Functional Status Assessed (1170F) 1170F 2023-05-11 No Data Available No Data Avail able Pain Assessment - Pain Documented on a Pain Scale (1125F) 1125F 2023-05-11 No Data Available No Data Nae ilable No Data Available [id number] 2023-06-12 No Data Available No Data Available [...] (do not use for phone, instead use 99340-32) 23967 2023-11-09 No Data Available No Data Availa [...] No Data Avail able No Data Available [id number] 2023-12-14 No Data Available No Data Available [...] osteoarthritis involving multiple jointsBMI 40.0-44.9, adultUnsteady gait 2023-04-08 12:03:17 Dependence on renal dialysisType 2 diabetes mellitus with end-stage renal diseaseSecondary hyperparathyroidism of renal originMDD (major depressive disorder), recurrent episode, moderateHypertensive diseaseSevere obesity (BMI 35.0-35.9 with comorbidity)Anemia in chronic kidney disease, on chronic dialysisFrail elderlyPrimary osteoarthritis involving multiple jointsBMI 40.0-44.9, adultUnsteady gaitUrinary incontinenceUnsselect medical [facility]iny gait 2023-05-11 07:24:31 Dependence on renal dialysisType 2 diabetes mellitus with end-stage renal diseaseSecondary hyperparathyroidism of renal originMDD (major depressive disorder), recurrent episode, moderateHypertensive diseaseSevere obesity (BMI 35.0-35.9 with comorbidity)Anemia in chronic kidney disease, on chronic dialysisFrail elderlyPrimary osteoarthritis involving multiple jointsBMI 40.0-44.9, adultUnsteady gaitUrinary incontinenceUnsselect medical [facility] gait 2023-06-12 13:27:20 Dependence on renal dialysisType [...] Documented (1125F)Continue to see PCP. Follow-up with [facility] as needed for any acute or disease education needs that may arise.Goes Mon, Wed, and Frion hemodialysison citalopramfamily v involvedamlodipinehydralazinemetoprololEncourage low-sodium diet.Education re benefits of weight loss,activity as tolerated.EAYYH6MMWWconaxazv re diet (more fiber, less starch), activity [...] may arise 19/01.Goes Mon, Wed, and Frion ozlwoqbezktz31/22 creat 10.59, BUN : A1c 4.9monitor GFRrenal dose medicationsf/u nephrology 11/04/22creation of left arm brachial artery to antecubital vein AV fistula on 01/09/22. S/P left arm cephalic vein superficialization on 05/01/22.monitor IPTHphosphorus 4.8calcium 40on citalopramfamily v involvedamlodipinehydralazinemetoprololEncourage low-sodium diet.Education re benefits of weight loss,activity as tolerated.HTNBMI [id number] re diet (more fiber, less starch), activity [...] that may arise 19/01.Goes Mon, Wed, and gggvktgonxei04/22 creat 10.59, BUN : A1c 4.9monitor GFRrenal dose medicationsf/u nephrology 11/04/22creation of left arm brachial artery to antecubital vein AV fistula on 01/09/22. S/P left arm cephalic vein superficialization on 05/01/22.monitor IPTHphosphorus 4.8calcium 40on citalopramfamily v involvedamlodipinehydralazinemetoprololEncourage low-sodium diet.Education re benefits of weight loss,activity as tolerated.HTNBMI [id number] re diet (more fiber, less starch), activity [...] Wed, and FriNEPHROLOGIST: Segundo Rider MDLOCATION: Sebastian KERNSDORI: M-W-F 1st [place] kogqkmbswdtf70/22 creat 10.59, BUN : A1c 4.9monitor GFRrenal [...] after dinner; bring your log in [facility] 40.23 12/25/2270DM7GDIMawuzyved re diet (more fiber, less starch), activity [...] Rider MDLOCATION: Sebastian MOYA: M-W- 1[employer] [place] idcskgexvehp95/22 creat 10.59, BUN : A1c 4.9monitor GFRrenal [...] bring your log in next visitHTNBMI 40.23 12/25/2215ZR5CNSDhltkeinp re diet (more fiber, less starch), activity [...] that may arise 19/01.Goes Thu, Thu, and ThuNEPHROLOGIST: Segundo Rider MDLOCATION: Sebastian MOYA: M-W-F [place] [place] xrkatejwnljf07/22 creat 10.59, BUN : A1c 4.9monitor GFRrenal [...] after dinner; bring your log in [facility] 40.23 12/25/2260HJ2FXUOnqskkoba re diet (more fiber, less starch), activity [...] rolator walker with seat will f/u with sggvveky47/11/23: BMI 41.01 c HTN, DMT2, ESRD on [...] Rider MDLOCATION: Sebastian MOYA: M-W- [place] [place] bemdbthcqrpx78/22 creat 10.59, BUN : A1c 4.9monitor GFRrenal [...] after dinner; bring your log in next [facility]MAT[facility] 40.23 12/25/2215NA0HUTFpzcrfwji re diet (more fiber, less starch), activity [...] rolator walker with seat will f/u with gkbmanzv28/11/23: BMI 41.01 c HTN, DMT2, ESRD on [...] 6renal dose medications11/09/23: Patient reports that the digital measurement advisor mentioned to her that she will need a transplant of her kidneys. She is unaware if she qualifies for a transplant, but she is planning to f/u with the digital measurement advisor.She denies checking BS everyday, unable to recall [...] after dinner; bring your log in next visitMAT[facility] 40.04 11/09/2399PH6NEZEEcekwwigj re diet (more fiber, less starch), activity [...] rolator walker with seat will f/u with hwsbpegq65/11/23: BMI 41.01 c HTN, DMT2, ESRD on [...] relief from taking gabapentin.Goes Mon, Thu, and ThuNEPHROLOGIST: Segundo Rider MDLOCATION: Sebastian MOYA: M-W-F 1st [...]
--- OUTSIDE RECORDS SUMMARY | 2025-04-20 10:55 | XMS_ITS | Encounter Summary ---
Author Organization [facility] Address [address] [facility] [address] [place] [address] Phone Care Team Providers Care Aircraft Servicer Name Role Phone Selin Lockett MD Primary Care Provider + [phone] Reason for Visit * Reason Comments Med Refill Encounter Details Date Type Department Care Team (Late st Contact Info) Description 04/09/2021 Refill [facility] [address] [facility] [address] [place] [phone] Chucho Gallardo MD [address] [facility] [address] [place] [phone] Social History Tobacco Use Types Packs/Day Years [...] on filedocumented in this encounter Care Teams Aircraft Servicer Relationship Specialty Start Date End Date Selin Lockett MD [address] [place] [id number] PCP - General 07/09/20 documented as of this encounter
--- OUTSIDE RECORDS SUMMARY | 2025-04-20 10:55 | XMS_ITS | Clinical Summary ---
Author Organization [employer] Address [address] [facility] [address] [place] [address] Care Team Providers Care Bobbin Presser Name Role Phone NoelIgnacia moya FLACO Primary Care Provider [phone] Allergies Active Allergy Reactions Criticality Noted Date [...] 2 diabetes mellitus with hyperglycemia, unspecified whether terminal manager insulin use (HCC) USE DIRECTED THREE TIMES [...] BY MOUTH AT BEDTIME 90 tablet 1 2024 Discontinued citalopram (CeleXA) 20 MG tabletIndications :Major depressive disorder, remission status unspecified, unspecified whether recurrent TAKE 1 TABLET BY MOUTH EVERY MORNING 90 tablet 1 2024 Discontinued(R eorder (will not trigger notification to Pharmacy)) Aspirin Adult Low Strength 81 MG EC tabletIndications :At high risk for cardiovascular disease TAKE 1 TABLET BY MOUTH EVERY EVENING 90 tablet 1 024 2024 Discontinued cetirizine (ZyrTEC) 10 MG tabletIndications :Allergy, subsequent encounter TAKE 1 TABLET BY MOUTH EVERY MORNING 90 tablet 1 024 2024 Discontinued Lancets (OneTouch Delica Plus [id number]) misc TEST BLOOD SUGAR ONE TIME DAILY 100 each 024 2024 Discontinued OneTouch Ultra Test test stripIndications: Type 2 diabetes mellitus with hyperglycemia, without long-term current use of insulin (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 Will need to search previous encounters for more information Orders: Referral to Cardiology; Future Pulmonary hypertension ([facility]) 04/07/2025 Assessment & Plan (04/10/2025 3:14 PM EDT): Pt managed by nephrology Moderate episode of recurren t major depressive disorder ([facility]) 04/07/2025 Assessment & Plan (04/10/2025 3:14 PM EDT): Reports no symptoms at this time Morbid obesity ([facility]/HCC) 04/07/2025 Assessment & Plan (04/10/2025 3:14 PM [...] (04/10/2025 3:14 PM EDT): Orders: COVID-19 VACCINE [id number] (Comirnaty) 12 yrs + Abdominal pain 04/07/2025 [...] 2024 Eye exam Overdue, will refer to [facility] CRC screen Up [...] will get it at End-stage renal disease ([facility]/HCC) 01/08/2023 Assessment & Plan (03/28/2025 9:46 AM [...] Encounters Date Type Department Care Team Description 04/18/[address] [address] Ignacia Werner NP Medication Question 04/10/[address] [address] Ashley Griffin NP Durable Medical Equipment (wheelchair) 04/07/2025 9:30 AM EDT Office Visit [address] [address] Ignacia Werner NP Type 2 diabetes mellitus with chronic kidney disease on chronic dialysis, without long-term current use of insulin (HCC) (Primary Dx); Healthcare maintenance; Fabry's disease (CMS/HCC) (HCC); Pulmonary hypertension (CMS/HCC) (HCC); Moderate episode of recurrent major depressive disorder (CMS/HCC) (HCC); Morbid obesity (CMS/HCC) (HCC); Encounter for immunization; Encounter for vaccination; Abdominal pain, unspecified abdominal location; Fatigue, unspecified type; Essential hypertension; Neuropathy associated with endocrine disorder (CMS/HCC); Dietary counseling; Exercise counseling 04/06/[address] [phone] Ashley Griffin NP Chart Prep 03/31/2025 Patient Outreach [facility] [address] [place], [place] [phone] Ashley Griffin NP Pre-visit Planning (SDOH was already completed ) 03/30/[address] [address] Phil Villalobos MD New patient appt. 03/28/2025 9:00 AM EDT Telemedicine [facility] [address], [place] [phone] Saurabh Rocha MD Essential hypertension (Primary Dx); Major depressive disorder, remission status unspecified, unspecified whether recurrent; End-stage renal disease ([facility]/HCC) 03/28/2025 Travel 03/25/2025 Orders Only [facility] External Provider, [facility] from Last 3 Months Immunizations Immunization Administration [...] Vaccines (2 of 3) 08/08/2016 06/13/2016 Diabetes: Hemoglobin A1C 2023 023, 10/29/2022, 01/02/2021 RSV Patients and Patients Aged 60 years or older (1 - 1-dose 75+ series) 11/06/2023 Lipid Panel 06/16/2024 06/16/2023, 1206/2021, 04/11/2020 COVID-19 Vaccine ( season) 2025 04/07/2025, [...] hyperglycemia, without long-term current use of insulin ([facility]) from Last 3 Months or Most Recently Relevant to Health Maintenance Results * POCT Glucose (04/07/2025 9:40 AM EDT) Glucose Blood, POC 106 60 - 200 mg/dL QC Media Lot # [id number] Lot# Expiration Date ,833,314 Blood Capillary blood specimen / Unknown 04/07/2025 9:40 AM EDT Ignacia Werner NP POINT OF CARE TEST ENTER/EDIT OR DERABLES Final Result * CT Abdomen Pelvis w/o Contrast (03/25/2025 5:30 PM EDT) Anatomical Region Laterality Modality Body, Pelvis, Abdomen Computed T omography 03/25/2025 5:30 PM EDT Narrative 03/25/2025 5:32 PM EDT [place] [address] [address] Scan Report Signed Patient: Rosalba Arora MR#: [id number] 14 : 1950 Acct:[id number] Age/Sex: 74 / F ADM Date: 03/25/25 Loc: .ED Attending Dr: Ordering Physician: Shaye Shaver NP Date of Service: 03/25/25 Procedure(s): CT abdomen pelvis wo IV con Accession Number(s): [id number] cc: Selin Lockett MD; Shaye Shaver NP Report Number: [id number]: Total DLP = 573.00 mGy-cm Reason for [...] No hydronephrosis or hydroureter bilaterally. Normal appendix. Vbar-ic-gnslkzng colonic stool burden. No bowel obstruction. No [...] 03/25/25 173 DD/ 173 TD/TT: 03/25/25 173 Regional Office Coordinator: Procedure Note Donotuseinterpreter, Image - 03/25/[address] [place] [address] [address] Scan Report Signed Patient: Bc Arora#: [id number] 14 : 9Acct:[id number] Age/Sex: 74 / FADM Date: 03/25/25 Loc: HO.ED Attending Dr: Ordering Physician: Shaye Shaver NP Date of Service: 03/25/25 Procedure(s): CT abdomen pelvis wo IV con Accession Number(s): [id number] cc: Selin Lockett MD; Shaye Shaver NP Report Number: [id number]: Total DLP = 573.00 mGy-cm Reason for [...] No hydronephrosis or hydroureter bilaterally. Normal appendix. Pbyu-ze-nscbrxkp colonic stool burden. No bowel obstruction. No [...] 03/25/25 173 DD/ 173 TD/TT: 03/25/25 173 Regional Office Coordinator: [facility] External Provider IMG CT PROCEDURES Edited Result - Final * Lipid Panel with Reflex to Direct LDL (06/16/2023 10:09 AM EST) Triglycerides 118 <150 mg/dL [facility] Comment:Desirable Triglyceri de: less than 150 mg/dLBorderline High Triglyceride 150-199 mg/dLHigh Triglyceride: 200-499 mg/dLVery High Triglyceride: greater than or equal to 5OO mg/dL Cholesterol 146 <200 mg/dL [facility] Comment:Desirable Cholestero l: less than 200 mg/dLBorderline High Cholesterol: 200-239 mg/dLHigh Cholesterol: greater than 239 mg/dL LDL Cholesterol Calculated 80 <100 mg/dL [facility] Comment:Desirable LDL: less than 100 mg/dLNear Optimal/Above Optimal LDL: 110- 129 mg/dLBorderline High LDL: 130-159 mg/dLHigh LDL: 160-189 mg/dLVery High LDL: greater than or equal to 190 mg/dL HDL Cholesterol 43 >40 mg/dL [facility] Comment:Desirable HDL: great er than 40 mg/dL Note: This HDL assay may give artificially low results in patients with liver disease. Blood 06/16/2023 10:0 9 AM EST 06/16/2023 11:16 AM EST us Selin Lockett MD LAB BLOOD ORDERABLES Fin al Result [facility] [address] [place] [phone] * POCT HGB A1C (05/07/2023 10:46 AM EST) Hemoglobin A1C 5.4 4.0 - 6.0 % QC Media Lot # [id number] Lot# Expiration Date Blood 05/07/2023 10:4 6 AM EST us Selin Lockett MD POINT OF CARE TEST ENTER /EDIT ORDERABLES Final Result from Last 3 Months or Most Recently Relevant to Health Maintenance Insurance [facility] ST[facility] [employer] [place] Care Teams Bobbin Presser Relationship Specialty Start Date End Date Ignacia Werner NP [address] [place] [address] PCP - General Family Medicine 04/18/25
--- OUTSIDE RECORDS SUMMARY | 2025-04-20 10:55 | XMS_ITS | Clinical Summary ---
Author Organization [facility] Address [address] [place] [address] Phone Care Team Providers Care Electrician Second Name Role Phone Selin Lockett MD Primary Care Provider + [phone] Allergies Active Allergy Reactions Criticality Noted Date [...] 2 Active Blood Glucose Monitoring Suppl (FreeStyle [place] Lite) w/Device kit TEST BLOOD SUGAR TWICE DAILY 2 Active fluticasone (FLONASE) 50 MCG/ACT nasal spray INHALE 1-2 SPRAYS IN EACH NOSTRIL ONCE DAILY NEEDED 2 Active gabapentin (NEURONTIN) 300 MG capsule 300 mg at bed time 2 Active OneTouch Ultra test strip TEST BLOOD SUGAR 3 TIMES A DAY 2 Active Lancets (OneTouch Delica Plus [id number]) misc TEST BLOOD SUGAR 3 TIMES A [...] 03/27/2025 Treatment [facility] [address] [phone] Chucho Gallardo MD End stage renal disease; Dependence on renal dialysis 03/25/2025 Treatment [facility] [address] [phone] Roderick Rangel MD End stage renal disease; Dependence on renal dialysis 03/24/2025 Treatment [facility] [address] [phone] Chucho Gallardo MD End stage renal disease; Dependence on renal dialysis 03/06/2025 Treatment [facility] [address] [phone] Chucho Gallardo MD End stage renal disease; Dependence on renal dialysis 02/22/2025 Treatment [facility] [address] [phone] Chucho Gallardo MD End stage renal disease; Dependence on renal dialysis 02/20/2025 Treatment [facility] [address] [phone] Chucho Gallardo MD End stage renal disease; Dependence on renal dialysis 02/13/2025 Treatment [facility] [address] [phone] Chucho Gallardo MD End stage renal disease; Dependence on renal dialysis 02/06/2025 Treatment [facility] [address] [phone] Chucho Gallardo MD End stage renal disease; Dependence on renal dialysis 02/03/2025 Orders Only [facility] [address] [phone] Chucho Gallardo MD from Last 3 Months [...] EDT from Last 3 Months Results * [facility] (04/14/2025 3:00 AM EDT) Only the most recent of12 resultswithin the time period is included. Lipemia Normal Normal [facility] Icterus Normal Normal [facility] Hemolysis Normal Normal [facility] 04/14/2025 3:00 AM EDT 04/15/2025 2:26 PM EDT us Chucho Gallardo MD LAB [id number] SOLICITED RESULTS Final Result Performing Organization Address [facility] Co de Phone Number [facility]PS [facility] [address] [place] [address] * (ABNORMAL) Kt/V Natural Log, URR (04/14/2025 [...] PM EDT us Chucho Gallardo MD LAB [id number] SOLICITED RESULTS Final Result Performing Organization Address [facility] Co de Phone Number [facility] [address] [place] [address] * (ABNORMAL) Hemoglobin (04/14/2025 3:00 AM EDT) Only the most recent of4 resultswithin the time period is included. Hgb 7.9(L) 11.2 - 15.7 g/dL [facility] Hemoglobin x 3 23.7(L) 33.6 - 47.1 g/dL [facility] 04/14/2025 3:00 AM EDT 04/15/2025 2:20 PM EDT us Chucho Gallardo MD LAB BLOOD ORDERABLES Final Re sult Performing Organization Address [facility] de Phone Number [facility] [address] [place] [address] * Collection Date (04/08/2025 3:00 AM EDT) Collection Date See Comment [facility] Comment: Patient sample received may exceed specimen stability, based on the collection date electronically provided. When reviewing patient results, verify collection information and consider specimen stability before acting on any critical or panic results. 04/08/2025 3:00 AM EDT Chucho Gallardo MD LAB [id number] SOLICITED RESULTS Final Result Performing Organization Address [facility] de Phone Number [facility] [address] [place] [address] * Hepatitis B Surface Antibody (04/05/2025 3:00 AM EDT) Only the most recent of2 resultswithin the time period is included. Hep B Surface Antibody >1,000 mIU/mL [facility] Comment: Interpretation: <10: No Immunity >=10: Probable Immunity 04/05/2025 3:00 AM EDT 04/06/2025 2:57 PM EDT Chucho Gallardo MD LAB BLOOD ORDERABLES Final Re sult Performing Organization Address [facility] de Phone Number [facility] [address] [place] [address] * Calcium Phosphorus Product, Adjusted (04/03/2025 3:00 [...] 12:09 PM EDT Chucho Gallardo MD LAB [id number] SOLICITED RESULTS Final Result Performing Organization Address [facility]/ZIP Co de Phone Number [facility] [address] [place] [address] * Hepatitis B Surface Ag w/Reflex Confirmation (04/03/2025 3:00 AM EDT) Only the most recent of3 resultswithin the time period is included. Hep B Surface Antigen Negative Negative [facility] 04/03/2025 3:00 AM EDT 04/05/2025 12:09 PM EDT Chucho Gallardo MD LAB BLOOD ORDERABLES Final Re sult Performing Organization Address [facility] Co de Phone Number [facility] [address] [place] [address] * (ABNORMAL) TSAT (04/03/2025 3:00 AM EDT) [...] ORDERABLES Final Re sult Performing Organization Address [facility] Co de Phone Number [facility] [address] [place] [address] * (ABNORMAL) ALT (04/03/2025 3:00 AM EDT) Only the most recent of3 resultswithin the time period is included. ALT (SGPT) 7(L) 10 - 49 U/L [facility] 04/03/2025 3:00 AM EDT 04/05/2025 12:09 PM EDT Chucho Gallardo MD LAB BLOOD ORDERABLES Final Re sult Performing Organization Address [facility] Co de Phone Number [facility] [address] [place] [address] * AST (04/03/2025 3:00 AM EDT) Only the most recent of3 resultswithin the time period is included. AST (SGOT) 14 <34 U/L [facility] 04/03/2025 3:00 AM EDT 04/05/2025 12:09 PM EDT Chucho Gallardo MD LAB BLOOD ORDERABLES Final Re sult Performing Organization Address [facility] de Phone Number [facility] [address] [place] [address] * Protein, total (04/03/2025 3:00 AM EDT) Only the most recent of3 resultswithin the time period is included. Total Protein 7.1 6.4 - 8.9 g/dL [facility] 04/03/2025 3:00 AM EDT 04/05/2025 12:09 PM EDT Chucho Gallardo MD LAB BLOOD ORDERABLES Final Re sult Performing Organization Address [facility] de Phone Number [facility] [address] [place] [address] * (ABNORMAL) Alkaline phosphatase (04/03/2025 3:00 AM EDT) Only the most recent of3 resultswithin the time period is included. Alkaline Phosphatase 150(H) 46 - 116 U/L [facility] 04/03/2025 3:00 AM EDT 04/05/2025 12:09 PM EDT Chucho Gallardo MD LAB BLOOD ORDERABLES Final Re sult Performing Organization Address [facility] de Phone Number [facility] [address] [place] [address] * (ABNORMAL) PTH, Intact (04/03/2025 3:00 AM [...] ORDERABLES Final Re sult Performing Organization Address [facility] de Phone Number [facility] [address] [place] [address] * Magnesium (04/03/2025 3:00 AM EDT) Only the most recent of3 resultswithin the time period is included. Magnesium 2.4 1.9 - 2.7 mg/dL [facility] 04/03/2025 3:00 AM EDT 04/05/2025 12:09 PM EDT Chucho Gallardo MD LAB BLOOD ORDERABLES Final Re sult Performing Organization Address [facility] de Phone Number [facility] [address] [place] [address] * (ABNORMAL) Lactate dehydrogenase (04/03/2025 3:00 AM EDT) Only the most recent of3 resultswithin the time period is included. LDH 254(H) 120 - 246 U/L [facility] 04/03/2025 3:00 AM EDT 04/05/2025 12:09 PM EDT Chucho Gallardo MD LAB BLOOD ORDERABLES Final Re sult Performing Organization Address [facility] de Phone Number [facility] [address] [place] [address] * Glucose, random (04/03/2025 3:00 AM EDT) Only the most recent of3 resultswithin the time period is included. Glucose 99 70 - 99 mg/dL [facility] Comment: ADA guidelines outline the following fasting glucose ranges: Normal: <100 Prediabetes: 100-125 Diabetes: >125 04/03/2025 3:00 AM EDT 04/05/2025 12:09 PM EDT Chucho Gallardo MD LAB BLOOD ORDERABLES Final Re sult Performing Organization Address [facility] Phone Number [facility] [address] [place] [address] * (ABNORMAL) Ferritin (04/03/2025 3:00 AM EDT) Only the most recent of3 resultswithin the time period is included. Ferritin 1,642(H) 10 - 291 ng/mL [facility] 04/03/2025 3:00 AM EDT 04/05/2025 12:09 PM EDT Chucho Gallardo MD LAB BLOOD ORDERABLES Final Re sult Performing Organization Address [facility] de Phone Number [facility] [address] [place] [address] * (ABNORMAL) Creatinine, serum (04/03/2025 3:00 AM EDT) Only the most recent of3 resultswithin the time period is included. Creatinine 9.58(H) 0.55 - 1.02 mg/dL [facility] 04/03/2025 3:00 AM EDT 04/05/2025 12:09 PM EDT us Chucho Gallardo MD LAB BLOOD ORDERABLES Final Re sult Performing Organization Address [facility] Co de Phone Number [facility] [address] [place] [address] * (ABNORMAL) Bilirubin, total (04/03/2025 3:00 AM EDT) Only the most recent of3 resultswithin the time period is included. Total Bilirubin <0.2(L) 0.3 - 1.2 mg/dL [facility] 04/03/2025 3:00 AM EDT 04/05/2025 12:09 PM EDT us Chucho Gallardo MD LAB BLOOD ORDERABLES Final Re sult Performing Organization Address [facility] de Phone Number [facility] [address] [place] [address] * (ABNORMAL) Lipid panel (04/03/2025 3:00 AM [...] ORDERABLES Final Re sult Performing Organization Address [facility] Co de Phone Number [facility] [address] [place] [address] * (ABNORMAL) Electrolyte panel (04/03/2025 3:00 AM EDT) Only the most recent of3 resultswithin the time period is included. [facility] Sodium 135(L) 136 - 145 mEq/L [facility] Potassium 5.1(H) 3.4 - 5.0 mEq/L [facility] Chloride 94(L) 98 - 107 mEq/L [facility] Bicarbonate (CO2) 27 21 - 31 mEq/L [facility] Anion Gap 14 3 - 14 mEq/L [facility] 04/03/2025 3:00 AM EDT 04/05/2025 12:09 PM EDT us Chucho Gallardo MD LAB BLOOD ORDERABLES Final Re sult Performing Organization Address City/[facility]/ZIP Co de Phone Number [facility] [address] [place] [address] * Poorly Spun Tube (03/29/2025 3:00 AM EDT) [facility] Poorly Spun TUBE [place] [facility] Comment:Received poorly cent rifuged specimen. Unable to perform testing. 03/29/2025 3:00 AM EDT us Chucho Gallardo MD LAB [id number] SOLICITED RESULTS Final Result Performing Organization Address City/[facility]/ZIP Co de Phone Number [facility] [address] [place] [address] * (ABNORMAL) CBC and Differential (03/29/2025 3:00 AM EDT) Only the most recent of3 resultswithin the time period is included. [facility] DIFFERENTIAL MANUAL, 2 Not Indicated [facility] [...] ORDERABLES Final Re sult Performing Organization Address [facility] de Phone Number [facility] [address] [place] [address] * Hemoglobin A1c (03/29/2025 3:00 AM EDT) [...] ORDERABLES Final Re sult Performing Organization Address [facility] de Phone Number [facility] [address] [place] [address] * Calcium, Adjusted w Albumin (03/13/2025 3:00 AM EDT) Calcium 8.7 8.6 - 10.3 mg/dL [facility] Albumin 3.9 3.6 - 5.4 g/dL [facility] Calcium, Adjusted Total 8.8 8.6 - 10.3 mg/dL [facility] 03/13/2025 3:00 AM EDT 03/14/2025 1:51 PM EDT us Chucho Gallardo MD LAB BLOOD ORDERABLES Final Re sult Performing Organization Address [facility]/ZIP Co de Phone Number [facility] [address] [place] [address] * CO2 (03/08/2025 3:00 AM EDT) Bicarbonate (CO2) 28 21 - 31 mEq/L [facility] 03/08/2025 3:00 AM EDT 03/09/2025 3:01 PM EDT us Chucho Gallardo MD LAB BLOOD ORDERABLES Final Re sult Performing Organization Address [facility] de Phone Number [facility] [address] [place] [address] * BUN/CREATININE RATIO (03/01/2025 3:00 AM EDT) Only the most recent of2 resultswithin the time period is included. BUN/Creatinine Ratio 6.5 <=23.0 [facility] 03/01/2025 3:00 AM EDT 03/02/2025 3:54 PM EDT us Chucho Gallardo MD LAB [id number] SOLICITED RESULTS Final Result Performing Organization Address [facility] Co de Phone Number [facility] [address] [place] [address] * (ABNORMAL) Potassium (02/24/2025 3:00 AM EDT) Only the most recent of4 resultswithin the time period is included. Potassium 5.1(H) 3.4 - 5.0 mEq/L [facility] 02/24/2025 3:00 AM EDT 02/25/2025 2:09 PM EDT us Chucho Gallardo MD LAB BLOOD ORDERABLES Final Re sult Performing Organization Address [facility] de Phone Number [facility] [address] [place] [address] * Phosphorus (02/17/2025 3:00 AM EDT) Pathologist [facility] Phosphorus, Serum 4.4 2.5 - 5.0 mg/dL [facility] 02/17/2025 3:00 AM EDT 02/18/2025 1:47 PM EDT us Chucho Gallardo MD LAB BLOOD ORDERABLES Final Re sult Performing Organization Address [facility] de Phone Number [facility] [address] [place] [address] * Confirmation Test HCV (02/03/2025 3:00 AM EDT) Pathologist [facility] Hep C Ab Confirmation Not needed [facility] 02/03/2025 3:00 AM EDT 02/04/2025 2:01 PM EDT us Chucho Gallardo MD LAB BLOOD ORDERABLES Final Re sult Performing Organization Address [facility] de Phone Number [facility] [address] [place] [address] * HEPATITIS C ABS W/REFLEX RNA DETECTR (02/03/2025 3:00 AM EDT) Pathologist [facility] Hep C Virus Ab Non-Reacti ve Non-Reacti ve [facility] 02/03/2025 3:00 AM EDT 02/04/2025 2:49 PM EDT us Chucho Gallardo MD LAB [id number] SOLICITED RESULTS Final Result Performing Organization Address [facility] Co de Phone Number [facility] [address] [place] [address] * Hepatitis B Core Antibody, Total (02/03/2025 3:00 AM EDT) Pathologist [facility] HBc Total Ab, S Negative Negative [facility] 02/03/2025 3:00 AM EDT 02/04/2025 2:49 PM EDT Chucho Gallardo MD LAB BLOOD ORDERABLES Final Re sult Performing Organization Address [facility] Co de Phone Number [facility] [address] [place] [address] * Aluminum level (02/03/2025 3:00 AM EDT) [facility] Aluminum 3 1 - 20 ug/L [facility] Comment: This test was developed and its performance characteristics determined by [employer] in a manner consistent with CLIA requirements. This test has not been cleared or approved by the U.S. Food and Drug Administration. 02/03/2025 3:00 AM EDT 02/04/2025 1:40 PM EDT Chucho Gallardo MD LAB BLOOD ORDERABLES Final Re sult Performing Organization Address [facility] de Phone Number [facility] [address] [place] [address] * Vitamin D 25 Hydroxy (02/03/2025 3:00 AM EDT) [facility] Vitamin D, 25-Hydroxy 39 30 - 100 ng/mL [facility] Comment: Status Adult Pediatric Deficient: <20 <15 Insufficient: 20-29 15-19 Sufficient: 30-100 20-100 02/03/2025 3:00 AM EDT 02/04/2025 2:49 PM EDT Chucho Gallardo MD LAB BLOOD ORDERABLES Final Re sult Performing Organization Address [facility]/ZIP Co de Phone Number [facility] [address] [place] [address] * Uric Acid (02/03/2025 3:00 AM EDT) Uric Acid 2.9 2.3 - 6.6 mg/dL [facility] 02/03/2025 3:00 AM EDT 02/04/2025 2:49 PM EDT us Chucho Gallardo MD LAB BLOOD ORDERABLES Final Re sult [facility] [address] [place] [address] from Last 3 Months Insurance [facility] UHC Medicare Medicaid [place] Care Teams Electrician Second Relationship Specialty Start Date End Date Selin Lockett MD [address] [place] [id number] PCP - General 07/09/20
--- OUTSIDE RECORDS SUMMARY | 2025-04-20 10:55 | XMS_ITS | Encounter Summary ---
Author Organization [employer] Address [address] [facility] 7t [place] [address] Care Team Providers Care Doweling Machine Operator Name Role Phone Selin Lockett MD Primary Care Provider + Ignacia Werner NP Primary Care Provider [phone] Reason for Visit * Reason Comments Med Refill Encounter Details Date Type Department Care Team ([facility] st Contact Info) Description 12/27/[address] [facility] MED & PEDS [address] [place], [place] [phone] Selin Lockett MD [address] [place] [address] Major depressive disorder, remission status unspecified, unspecified [...] recurrent documented in this encounter Care Teams Doweling Machine Operator Relationship Specialty Start Date End Date Selin Lockett MD [address] [place] [address] PCP - General Family Medicine 01/04/18 03/15/24 Ignacia Werner NP [address] [place] [address] PCP - General Family Medicine 04/18/25 documented as of this encounter
--- OUTSIDE RECORDS SUMMARY | 2025-04-20 10:55 | XMS_ITS | Encounter Summary ---
Author Organization [employer] Address [address] [facility] [address] [place] [address] Care Team Providers Care Air Hammer Stripper Name Role Phone Selin Lockett MD Primary Care Provider + Ignacia Werner NP Primary Care Provider [phone] Encounter Details Date Type Department Care Team (Late st Contact Info) Description 12/03/2022 Orders Only [facility] MED[facility]INE [address] [place], [place] [phone] Ivis Swan LPN Social History Tobacco Use [...] on filedocumented in this encounter Care Teams Air Hammer Stripper Relationship Specialty Start Date End Date Selin Lockett MD [address] [place] [id number] PCP - General Family Medicine 01/04/18 03/15/24 Ignacia Werner NP [address] [place] [address] PCP - General Family Medicine 04/18/25 documented as of this encounter
--- OUTSIDE RECORDS SUMMARY | 2025-04-20 10:55 | XMS_ITS | Encounter Summary ---
Author Organization [employer] Address [address] [facility] 7t [place] [address] Care Team Providers Care Driver License Agent Name Role Phone Selin Lockett MD Primary Care Provider + Ignacia Werner NP Primary Care Provider [phone] Reason for Visit * Reason Comments Med Refill Encounter Details Date Type Department Care Team (Late st Contact Info) Description 12/03/2022 Refill [facility] [address] [place], [place] [phone] Selin Lockett MD [address] [place], [place] [phone] Social History Tobacco Use Types Packs/Day Years [...] on filedocumented in this encounter Care Teams Driver License Agent Relationship Specialty Start Date End Date Selin Lockett MD [address] [place] [address] [phone] PCP - General Family Medicine 01/04/18 03/15/24 Ignacia Werner NP [address] [place] [phone] PCP - General Family Medicine 04/18/25 documented as of this encounter
--- OUTSIDE RECORDS SUMMARY | 2025-04-20 10:55 | XMS_ITS | Encounter Summary ---
Author Organization [employer] Address [address] [facility] 7t [place] [address] Care Team Providers Care Husbandry Person Name Role Phone Selin Lockett MD Primary Care Provider + Ignacia Werner NP Primary Care Provider [phone] Encounter Details Date Type Department Care Team (Late st Contact Info) Description 11/28/2022 Orders Only [facility] CHC MED & PEDS [address] [place], [place] [phone] Mandi Tse LPN Social History Tobacco Use [...] on filedocumented in this encounter Care Teams Husbandry Person Relationship Specialty Start Date End Date Selin Lockett MD [address] [place], [place] [phone] PCP - General Family Medicine 01/04/18 03/15/24 Ignacia Werner NP [address] [place], [place] [phone] PCP - General Family Medicine 04/18/25 documented as of this encounter
--- OUTSIDE RECORDS SUMMARY | 2025-04-20 10:55 | XMS_ITS | Encounter Summary ---
Author Organization [employer] Address [address] [facility] 7t [place] [address] Care Team Providers Care Hotel Operation Manager Name Role Phone Ignacia Werner NP Primary Care Provider [phone] Reason for Visit * Reason Onset Date Comments Medication Question 04/18/2025 Encounter Details Date Type Department Care Team ([facility] st Contact Info) Description 04/18/2025 Telephone [facility] [address] [place] [address] Ignacia Werner NP [address] [place] [address] Medication Question Social History Tobacco Use Types Packs/Day Years Used Date Smoking Tobacco: Never Passive Smoke Exposure: Never Smokeless Tobacco: Never Alcohol Use Standard Drinks/Week Comments Never 0 [...] AM EDT documented as of this encounter Miscellaneous Notes * Telephone Encounter - Zoran Fierro - 04/18/2025 11:52 AM EDT Tc from [facility] cardiology requesting new scripts for pt of aspirin 81 MG and atorvastatin 40 MG , stating they would prefer it being prescribed by PCP Contact Daily at [phone] documented in this encounter Plan of Treatment Not on file documented as of this encounter Visit Diagnoses Not on filedocumented in this encounter Additional Health Concerns Assessment Noted Time PHQ-9 Depression Total Score: 0 03/28/20 9:42 AM EDT documented as of this encounter Care Teams Hotel Operation Manager Relationship Specialty Start Date End Date Ignacia Wernre NP [address] [place] [id number] PCP - General Family Medicine 04/18/25 documented as of this encounter
--- OUTSIDE RECORDS SUMMARY | 2025-04-20 10:55 | XMS_ITS | Encounter Summary ---
Author Organization [facility] Address [address] [facility] [address] [place] [address] Phone Care Team Providers Care Sewer Digger Name Role Phone Selin Lockett MD Primary Care Provider + [phone] Reason for Visit * Reason Comments Med Refill Encounter Details Date Type Department Care Team ([facility] st Contact Info) Description 03/12/2021 Refill [facility] [address] [facility] [address] [place] [phone] Chucho Gallardo MD [address] [facility] [address] [place] [phone] Social History Tobacco Use Types Packs/Day Years [...] on filedocumented in this encounter Care Teams Sewer Digger Relationship Specialty Start Date End Date Selin Lockett MD [address] [place] [phone] PCP - General 07/09/20 documented as of this encounter
[2025-04-20 11:31] LABS: MANUAL DIFF FLAG NO
[2025-04-20 11:47] LABS: Hematocrit 29.6 % (37.0-47.0); Hemoglobin 9.5 g/dl (12.0-16.0); Imm Gran Abs Auto 0.01 X10*3/uL (0.00-0.03); Imm Gran Pct Auto 0.2 % (0.0-0.4); Lymphocytes Absolute Auto 1.0 X10*3/uL (1.2-4.9); Mean Corpuscular HGB Conc 32.1 g/dl (31.0-35.0); Mean Corpuscular Hemoglobin 33.1 pg (27.0-33.0); Mean Corpuscular Volume 103.1 fL (80.0-98.0); NRBC Abs Auto 0.000 X10*3/uL (0.0-0.012); NRBC Pct Auto 0.0 /100WBC (0.0-0.2); Platelet Count 159 X10*3/uL (160-400); Red Blood Count 2.87 X10*6/uL (4.20-5.50); White Blood Count 4.4 X10*3/uL (4.8-10.8)
[2025-04-20 12:11] LABS: Cholesterol 213 mg/dL (<200); HDL Cholesterol 50 mg/dL (>40); Iron 75 mcg/dL (30-160); Percent Iron Saturation 39 % (15-50); Total Iron Binding Capacity 191 mcg/dL (228-428); Triglycerides 128 mg/dL (<150); Unsaturated Iron Binding 116 ug/dL
[2025-04-20 12:14] LABS: ~HepC Num1 0.07 S/CO (0.00-0.79); ~Hepatitis C Antibody Nonreactive (Nonreactive)
[2025-04-20 12:20] LABS: Folate 6.5 ng/mL (> or = 4.0); Vitamin B12 498 pg/mL (200-900)
[2025-04-20 12:57] LABS: Ferritin 2941 ng/mL (10-250)
== END 2025-04-20 09:35 | disposition home or self-care (01) ==
LOC: HO.HHCL 09:34
PROVIDERS: PCP Internal Medicine; Visit Provider Nurse Practitioner Family
DX: I10 Essential (primary) hypertension (principal); G62.9 Polyneuropathy, unspecified; R53.83 Other fatigue; Z13.1 Encounter for screening for diabetes mellitus; Z13.0 Encounter for screening for diseases of the blood and blood-forming organs and certain disorders involving the immune mechanism
CPT/HCPCS: 36415; 80061; 82607; 82728; 82746; 83036; 83540; 84443; 85025; 86803

== ENCOUNTER → 2025-05-15 13:58 | Outpatient (BNV) | payer OTHER, SELFPAY | PROVIDERS: PCP Nurse Practitioner Family; Visit Provider Nurse Practitioner Family | DX: D61.818 Other pancytopenia (principal); N18.6 End stage renal disease; R79.89 Other specified abnormal findings of blood chemistry; Z99.2 Dependence on renal dialysis | CPT/HCPCS: 99204 ==